=== PATIENT | female | born 1970 | race Caucasian/White ===

== ENCOUNTER 2019-12-07 07:51 | Outpatient (CLI) | payer BC, SELFPAY ==
--- NOTE | ~2019-12-07 | MM_ITS ---
EXAMINATION: MM screening nasir BI w maliha HISTORY: Screening mammogram TECHNIQUE: Craniocaudal and mediolateral oblique 3-D tomosynthesis images were obtained and synthetic 2-D images were generated. CAD analysis was submitted and interpreted. COMPARISON: 11/24/2018, 11/04/2017, 09/21/2016 bilateral digital screening mammogram examinations BREAST PARENCHYMAL COMPOSITION: There are scattered areas of fibroglandular density. FINDINGS: Stable benign circumscribed density opacities in the upper mid right breast posteriorly and outer mid right breast since 09/21/2016, consistent with benign stable intramammary lymph nodes or o ther benign process. There is no evidence of suspicious mass, calcification, or architectural distort ion to suggest malignancy in either breast. There has been no suspicious interval change. IMPRESSION: 1. No mammographic evidence of malignancy. 2. Recommend routine screening mammography in one year. BI-RADS Category 2: Benign finding(s). Reviewed, dictated and finalized at location A. 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
== END 2019-12-07 07:52 | disposition home or self-care (01) ==
LOC: ANHIMG 07:56
PROVIDERS: PCP Family Medicine; Visit Provider Obstetrics & Gynecology
DX: Z12.31 Encounter for screening mammogram for malignant neoplasm of breast (principal)
CPT/HCPCS: 77063; 77067

== ENCOUNTER 2021-02-16 16:32 | Outpatient (CLI) | payer BC, SELFPAY ==
--- NOTE | ~2021-02-16 | MM_ITS ---
EXAMINATION: MM screening nasir BI w maliha HISTORY: Screening TECHNIQUE: Craniocaudal and mediolateral oblique 3-D tomosynthesis images were obtained and synthetic 2-D images were generated. CAD analysis was submitted and interpreted. COMPARISON: Comparison to multiple prior studies sequentially, with oldest reviewed study dated 06/20. BREAST PARENCHYMAL COMPOSITION: There are scattered areas of fibroglandular density. FINDINGS: Stable benign-appearing right breast masses. There is no evidence of suspicious mass, calci fication, or architectural distortion to suggest malignancy in either breast. There has been no suspi cious interval change. IMPRESSION: 1. No mammographic evidence of malignancy. 2. Recommend routine screening mammography in one year. BI-RADS Category 2: Benign finding(s). Reviewed, dictated and finalized at location A.
== END 2021-02-16 16:33 | disposition home or self-care (01) ==
LOC: ANHIMG 16:34
PROVIDERS: PCP Family Medicine; Visit Provider Obstetrics & Gynecology
DX: Z12.31 Encounter for screening mammogram for malignant neoplasm of breast (principal)
CPT/HCPCS: 77063; 77067

== ENCOUNTER → 2021-09-21 07:33 | Outpatient (CLI) | payer BC, SELFPAY ==
--- NOTE | ~2021-09-21 | XR_ITS ---
EXAMINATION: XR lumbar spine 2-3V EXAM DATE: 09/21/2021 08:02 INDICATION: Vertebrogenic low back pain, segmental and somatic dysfuncti . TECHNIQUE: Lumber spine frontal, lateral, lateral L5-S1 projections for interpretation. There is no prior study for comparison. FINDINGS: There is moderate disc disease and facet arthropathy L5-S1, mild at the other lumbar level s The vertebral bodies are aligned in the AP dimension. Sacrum, sacroiliac joints, sacral arcuate roberto es are intact. Prevertebral soft tissue and pre-dens space are within normal limits. No spondylolys is. IMPRESSION: Moderate lower lumbar spondylosis. Reviewed, dictated and finalized at location A. 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
== END ==
PROVIDERS: PCP Family Medicine; Visit Provider Chiropractor
DX: M54.51 Vertebrogenic low back pain (principal); M99.03 Segmental and somatic dysfunction of lumbar region; M25.552 Pain in left hip; M99.06 Segmental and somatic dysfunction of lower extremity; M47.896 Other spondylosis, lumbar region
CPT/HCPCS: 72100

== ENCOUNTER 2022-02-22 17:03 | Outpatient (CLI) | payer BC, SELFPAY ==
--- NOTE | ~2022-02-22 | MM_ITS ---
EXAMINATION: MM screening [facility] BI w maliha HISTORY: Screening TECHNIQUE: Craniocaudal and mediolateral oblique 3-D tomosynthesis images were obtained and synthetic 2-D images were generated. CAD analysis was submitted and interpreted. COMPARISON: Comparison to multiple prior studies sequentially, with oldest reviewed study dated 12/2014. BREAST PARENCHYMAL COMPOSITION: There are scattered areas of fibroglandular density. FINDINGS: Stable mass in the upper central aspect of the right breast, considered benign given the la ck of interval change. There is no evidence of suspicious mass, calcification, or architectural disto rtion to suggest malignancy in either breast. There has been no suspicious interval change. IMPRESSION: 1. No mammographic evidence of malignancy. 2. Recommend routine screening mammography in one year. BI-RADS Category 2: Benign finding(s). Reviewed, dictated and finalized at location A.
== END 2022-02-22 17:04 | disposition home or self-care (01) ==
PROVIDERS: PCP Family Medicine; Visit Provider Obstetrics & Gynecology
DX: Z12.31 Encounter for screening mammogram for malignant neoplasm of breast (principal)
CPT/HCPCS: 77063; 77067

== ENCOUNTER 2022-12-15 16:18 | Emergency (ER) | payer BC, SELFPAY ==
[2022-12-15 16:27] VITALS: BP 162/114; PULSE 77; RESP 16; TEMP 36.3; O2SAT 100
--- NOTE | 2022-12-15 16:46 | ED.BACK ---
HPI - Back Pain/Injury General Chief Complaint: Back Pain/Injury Stated Complaint: RIB PAIN Time Seen by Provider: 12/15/22 16:20 Source: patient and RN notes reviewed History of Present Illness HPI Narrative: Patient is a 52-year-old female who presents to urgent care with complaints of right rib discomfort. Patient states that she was working in her garden and Monday and fell forward landing on the right chest. Patient states that since then she is having a lot of difficulty with movement, lifting or sit to stand motion due to excruciating pain. 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 States it hurts with deep breathing but denies of shortness of breath. Denies any chest pain. Patient has been taking ibuprofen. No other acute complaints. No acute distress noted. Patient aware of the plan of care Some parts of this dictation were generated by voice recognition software and may contain typographical and/or grammatical inaccuracies. Related Data Home Medications Medication Instructions Recorded Confirmed levothyroxine 175 mcg tablet 175 mcg PO DAILY 02/20/20 12/15/22 rosuvastatin 10 mg tablet 10 mg PO DAILY 11/30/22 12/15/22 Allergies Allergy/AdvReac Type Severity Reaction Status Date / Time lidocaine Allergy Unknown low heart Verified 12/15/22 16:29 rate Review of Systems Review of Systems: CONSTITUTIONAL: Denies fever, chills, or sweats. EYES: Denies visual changes, redness, or discharge. ENT: Denies rhinorrhea, congestion, sore throat, or otalgia. CARDIOVASCULAR: Denies chest pain, palpitations, or edema. RESPIRATORY: Reports pain with deep breathing, right anterior rib pain and discomfort GASTROINTESTINAL: Denies abdominal pain, nausea, vomiting, or diarrhea. GENITOURINARY: Denies dysuria or hematuria. SKIN: Denies rash or itching. MUSCULOSKELETAL: Denies back pain, joint pain, or myalgia. NEUROLOGIC: Denies headache, numbness, or weakness. All other systems reviewed are negative, except as documented in HPI. [facility] Past Medical History Medical History AIDAN positive (~2017) Anxiety Dyslipidemia Graves' disease Hypothyroid Surgical History Surgical History H/O section 2004, 2006, 2009 H/O knee surgery (~1985) left arthroscopic H/O wrist surgery (~1981) right Family History Family History Mother Family history of arthritis Father Family history of type 2 diabetes mellitus Social History Social History Smoking status: Never smoker Alcohol intake: current Alcohol use details: 3 drinks monthly Substance use: never Substance use type: does not use Lack of Transportation: No Lack of Food: Never True Current Housing: I Have Housing Concerned About Future Housing: No Difficulty Paying Gas/Electric Bills: No Difficulty Paying for Meds: No Currently Unemployed: No Education: Master's Degree or Higher Difficulty w/ Childcare or Family Care: No Living arrangements: with family Occupation/Education: occupation Gender identity (if verbalized by the patient): Female Sexual Orientation (if Verbalized by the Patient): Straight or Heterosexual Spiritual care concerns: No Agree to blood products: Yes Comments At the time of my signature, I reviewed and agree with the nursing past medical, surgical, social, and family history. There is no relevant family history pertinent to the patient complaint. Exam Narrative: GENERAL: This is a well-nourished, well-developed patient. Patient is tearful HEAD: normocephalic, atraumatic. EYES: PERRL. Sclera clear/white. Vision is grossly intact. EARS: External ears normal NOSE: External nose normal with no obvious natan
== END 2022-12-15 17:10 | disposition home or self-care (01) ==
PROVIDERS: Emergency Provider Nurse Practitioner Family; PCP Family Medicine
DX: S20.211A Contusion of right front wall of thorax, initial encounter (principal); W19.XXXA Unspecified fall, initial encounter; Y93.H2 Activity, gardening and landscaping; E78.5 Hyperlipidemia, unspecified; E05.00 Thyrotoxicosis with diffuse goiter without thyrotoxic crisis or storm; E03.9 Hypothyroidism, unspecified
CPT/HCPCS: 99213; G0463

== ENCOUNTER 2023-02-20 00:39 | Day surgery (SDC) | payer BC, SELFPAY ==
[2022-11-30 15:00] VITALS: BMI 31.7
[2023-02-10 13:40] VITALS: BMI 31.7
--- NOTE | 2023-02-17 16:30 | PM.HPGS ---
History of Present Illness History of Present Illness Consent: Risks, benefits, and alternatives have been discussed and questions answered. Patient agrees to proceed with procedure. Chief complaint: neoplasm screening Narrative: Roxy Mcdonough is a 52 year old female Referred for colon cancer screening. Review of Systems Review of Systems: All systems reviewed & are unremarkable except as noted in HPI and below PMFSH Past Medical History Medical History AIDAN positive (~2016) Anxiety Dyslipidemia Graves' disease Hypertension Hypothyroid Surgical History Surgical History H/O section 2004, 2006, 2009 H/O knee surgery (~1985) left arthroscopic H/O wrist surgery (~1981) right Family History Family History Mother Family history of arthritis Father Family history of type 2 diabetes mellitus Social History Social History Smoking status: Never smoker Alcohol intake: current Alcohol use details: 3 drinks monthly Substance use: never Substance use type: does not use Lack of Transportation: No Lack of Food: Never True Current Housing: I Have Housing Concerned About Future Housing: No Difficulty Paying Gas/Electric Bills: No Difficulty Paying for Meds: No Currently Unemployed: No Education: Master's Degree or Higher Difficulty w/ Childcare or Family Care: No Living arrangements: with family Occupation/Education: occupation Gender identity (if verbalized by the patient): Female Sexual Orientation (if Verbalized by the Patient): Straight or Heterosexual Spiritual care concerns: No Agree to blood products: Yes Meds Home Medications and Allergies Home Medications Medication Instructions Recorded Confirmed Type levothyroxine 175 mcg tablet 175 mcg PO DAILY 02/20/20 02/20/23 History rosuvastatin 10 mg tablet 10 mg PO DAILY 11/30/22 02/20/23 History losartan 25 mg tablet 25 mg PO DAILY #90 tabs 12/05/22 02/20/23 Rx Allergies Allergy/AdvReac Type Severity Reaction Status Date / Time lidocaine Allergy Unknown low heart Verified 02/20/23 07:21 rate Exam Resp: Auscultation: clear to auscultation bilaterally Cardio: Rate: regular rate Rhythm: regular rhythm GI: GI Palp: Yes Soft to palpation and No Tenderness to palpation present (GI) Assessment and Plan Assessment and plan (1) Colon cancer screening: Code(s): Z12.11 - Encounter for screening for malignant neoplasm of colon Status: Acute Assessment and Plan: Colonoscopy with possible biopsy or polypectomy or cautery or injection of substances.
--- NOTE | 2023-02-20 07:10 | P.PNAN_ITS ---
Anes - Initial Pre Proc Eval Procedure: Operation Date: 02/20/23 08:30 Proposed Procedures p Screening Colonoscopy - Jer Mendoza MD Date/Time: 02/20/23 07:10 Surgeon: Jer Mendoza MD Pre Op Diagnosis: neoplasm screening Patient Data Age: 52 Gender: F Height: 1.57 m Weight: 78.8 kg Allergies Allergy/AdvReac Type Severity Reaction Status Date / Time lidocaine Allergy Unknown low heart Verified 02/20/23 07:21 rate Home Medications Medication Instructions Recorded Confirmed Type levothyroxine 175 mcg tablet 175 mcg PO DAILY 02/20/20 02/20/23 History rosuvastatin 10 mg tablet 10 mg PO DAILY 11/30/22 02/20/23 History losartan 25 mg tablet 25 mg PO DAILY #90 tabs 12/05/22 02/20/23 Rx Patient hx anesthesia problems: none Family hx anesthesia problems: none Results Review: All pre-operative results and documents have been reviewed as part of the pre- operative evaluation. [facility] Past Medical History Medical History AIDAN positive (~2016) Anxiety Dyslipidemia Graves' disease Hypertension Hypothyroid Surgical History Surgical History H/O section 2004, 2006, 2009 H/O knee surgery (~1985) left arthroscopic H/O wrist surgery (~1981) right Family History Family History Mother Family history of arthritis Father Family history of type 2 diabetes mellitus Social History Social History Smoking status: Never smoker Alcohol intake: current Alcohol use details: 3 drinks monthly Substance use: never Substance use type: does not use Lack of Transportation: No Lack of Food: Never True Current Housing: I Have Housing Concerned About Future Housing: No Difficulty Paying Gas/Electric Bills: No Difficulty Paying for Meds: No Currently Unemployed: No Education: Master's Degree or Higher Difficulty w/ Childcare or Family Care: No Living arrangements: with family Occupation/Education: occupation Gender identity (if verbalized by the patient): Female Sexual Orientation (if Verbalized by the Patient): Straight or Heterosexual Spiritual care concerns: No Agree to blood products: Yes Anes - Eval Final PreProcedure Day of Procedure 02/20/23 07:10 Patient weight: obese Heart: regular rate and rhythm Lungs: clear to auscultation Airway: Mallampati scale class II Neurological: alert and oriented Last oral intake: >/= 8 hours ASA classification: III Emergent: no Anesthetic plan: proceed Anesthesia type and monitoring: general GIVS and standard monitoring Results Review: All pre-operative results and documents have been reviewed as part of the pre- operative evaluation. Informed Consent: The patient's anesthetic plan and its attendant risks and benefits were discussed with the patient/family/POA. Questions were solicited and answers provided to the satisfaction of the patient/family/POA.
[2023-02-20 07:23] VITALS: BP 138/93; PULSE 74; RESP 16; TEMP 36.1; O2SAT 100
[2023-02-20] MEDS: LACTATED RINGERS 1,000 ML 150 ML IV CONT (07:36)
[2023-02-20] MEDS: SIMETHICONE ORAL SUSPENSION 20 MG/0.3 ML 30 ML BOTTLE 0.6 ML IRRIGATION (08:32)
[2023-02-20 08:39] VITALS: BP 100/64; PULSE 74; RESP 18; O2SAT 100
[2023-02-20 08:49] VITALS: BP 115/75; PULSE 74; RESP 24; O2SAT 100
[2023-02-20 08:59] VITALS: BP 121/79; PULSE 73; RESP 21; O2SAT 100
== END 2023-02-20 09:09 | disposition home or self-care (01) ==
PROVIDERS: PCP Family Medicine; Visit Provider Internal Medicine Gastroenterology
PROC: 0DJD8ZZ Inspection of Lower Intestinal Tract, Via Natural or Artificial Opening Endoscopic (ICD-10-PCS; CPT 45378; principal; 2023-02-20 08:30)
DX: Z12.11 Encounter for screening for malignant neoplasm of colon (principal); K64.4 Residual hemorrhoidal skin tags; I10 Essential (primary) hypertension; E78.5 Hyperlipidemia, unspecified; E05.00 Thyrotoxicosis with diffuse goiter without thyrotoxic crisis or storm; E66.9 Obesity, unspecified; Z68.31 Body mass index [BMI] 31.0-31.9, adult
CPT/HCPCS: 45378; J2704; J7120

== ENCOUNTER 2023-02-25 08:10 | Outpatient (CLI) | payer BC, SELFPAY ==
--- NOTE | ~2023-02-25 | MM_ITS ---
EXAMINATION: MM screening [facility] BI w maliha HISTORY: Screening mammogram TECHNIQUE: Craniocaudal and mediolateral oblique 3-D tomosynthesis images were obtained and synthetic 2-D images were generated. CAD analysis was submitted and interpreted. COMPARISON: 02/22/2022, 02/16/2021, 12/07/2019 BREAST PARENCHYMAL COMPOSITION: There are scattered areas of fibroglandular density. FINDINGS: Stable right breast masses are considered benign given the lack of interval change. No susp icious mass, calcification, or architectural distortion are identified in either breast to suggest ma lignancy. There has been no suspicious interval change. IMPRESSION: 1. No mammographic evidence of malignancy. 2. Recommend routine screening mammography in one year. BI-RADS Category 2: Benign finding(s). Reviewed, dictated and finalized at location A.
== END 2023-02-25 08:11 | disposition home or self-care (01) ==
LOC: ANHIMG 08:13
PROVIDERS: PCP Family Medicine; Visit Provider Obstetrics & Gynecology
DX: Z12.31 Encounter for screening mammogram for malignant neoplasm of breast (principal)
CPT/HCPCS: 77063; 77067

== ENCOUNTER 2024-02-13 08:45 | Outpatient (CLI) | payer BC, SELFPAY ==
[2024-02-13 19:04] LABS: Basophils Absolute Auto 0.1 K/mm3 (0.0-0.1); Eosinophils Absolute Auto 0.2 K/mm3 (0-0.3); Eosinophils Percent Auto 3.5 % (0-4.4); Hematocrit 44.4 % (37.0-47.0); Hemoglobin 13.8 g/dL (12.0-15.0); Immature Granulocyte Absolute 0.02 K/mm3 (0.00-0.031); Immature Granulocyte Percent A 0.3 % (0-0.5); Lymphocytes Absolute Auto 1.54 K/mm3 (0.9-3.2); Lymphocytes Percent Auto 25.8 % (18.3-44.2); Mean Corpuscular HGB Conc 31.1 g/dl (32-36); Mean Corpuscular Hemoglobin 30.2 pg (26-34); Mean Corpuscular Volume 97.2 fl (80-100); Mean Platelet Volume 10.6 fl (7.4-10.4); Monocytes Absolute Auto 0.3 K/mm3 (0.1-0.6); Monocytes Percent Auto 5.7 % (2.6-8.5); Neutrophils Absolute Auto 3.8 K/mm3 (1.3-6.7); Neutrophils Percent Auto 63.7 % (45.5-73.1); Platelet Count Result 241 k/mm3 (150-375); Red Blood Count 4.57 M/mm3 (4.2-5.4); Red Cell Distribution Width 13.1 % (11.5-14.5)
[2024-02-13 19:23] LABS: Alanine Aminotransferase 39 U/L (6-35); Albumin Level 4.4 g/dL (3.5-5.1); Alkaline Phosphatase 77 U/L (38-126); Anion Gap 7 mmol/L (4-12); Aspartate Amino Transferase 40 U/L (14-36); Bilirubin,Total 1.8 mg/dL (0.2-1.3); Blood Urea Nitrogen 12 mg/dL (7-17); Calcium 9.3 mg/dL (8.4-10.2); Carbon Dioxide 27 mmol/L (22-30); Chloride 107 mmol/L (98-107); Cholesterol 134 mg/dL (0-200); Estimated Glomerular Filt Rate > 60; Glucose 95 mg/dL (65-110); HDL Direct 41 mg/dL; Potassium 4.1 mmol/L (3.4-5.0); Sodium 141 mmol/L (137-145); Triglycerides 165 mg/dL (<150)
[2024-02-13 19:35] LABS: LDL Cholesterol Direct 70 mg/dL
[2024-02-13 19:54] LABS: Thyroid Stimulating Hormone 0.995 uIU/mL (0.465-4.680)
[2024-02-16 15:48] LABS: Vitamin D 1,25 (OH)2 Total 45 pg/mL (18-72); Vitamin D2 1,25 (OH)2 <8 pg/mL; Vitamin D3 1,25 (OH)2 45 pg/mL
== END 2024-02-13 08:46 | disposition home or self-care (01) ==
LOC: ANHGOSHLAB 08:46
PROVIDERS: PCP Family Medicine; Visit Provider Nurse Practitioner Family
DX: E55.9 Vitamin D deficiency, unspecified (principal); I10 Essential (primary) hypertension; Z00.00 Encounter for general adult medical examination without abnormal findings
CPT/HCPCS: 36415; 80053; 80061; 82652; 84443; 85025

== ENCOUNTER 2024-04-27 07:17 | Outpatient (CLI) | payer BC, SELFPAY ==
--- NOTE | ~2024-04-27 | MM_ITS ---
EXAMINATION: MM screening nasir BI w maliha HISTORY: Screening mammogram TECHNIQUE: Craniocaudal and mediolateral oblique 3-D tomosynthesis images were obtained and synthetic 2-D images were generated. CAD analysis was submitted and interpreted. COMPARISON: 02/25/2023, 02/22/2022, 02/16/2021 BREAST PARENCHYMAL COMPOSITION:Not Dense. The breasts are almost entirely fatty FINDINGS: No suspicious mass, calcification, or architectural distortion are identified in either brandon ast to suggest malignancy. There has been no suspicious interval change. IMPRESSION: No mammographic evidence of malignancy. Recommend routine screening mammography in one year. BI-RADS Category 1: Negative Reviewed, dictated and finalized at location .
== END 2024-04-27 07:18 | disposition home or self-care (01) ==
LOC: ANHIMG 07:20
PROVIDERS: PCP Family Medicine; Visit Provider Nurse Practitioner Family
DX: Z12.31 Encounter for screening mammogram for malignant neoplasm of breast (principal)
CPT/HCPCS: 77063; 77067

== ENCOUNTER 2024-11-18 12:47 | Outpatient (CLI) | payer BC, SELFPAY ==
--- NOTE | ~2024-11-18 | MR_ITS ---
EXAMINATION: MRA brain wo con DATE: 11/18/2024 13:31 INDICATION: Altered mental status, unspecified. TECHNIQUE: Magnetic resonance angiography (MRA) of the brain was performed without intravenous contra st with T1-weighted SPGR by the 3D [id number] technique. Maximum intensity projection 3D-reconstr uctions were obtained. COMPARISON: None. FINDINGS: The vertebral arteries are codominant. There is no significant stenosis of basilar artery or the post erior cerebral arteries. There is no significant stenosis of the intracranial internal carotid arteri es or anterior or middle cerebral arteries. Anterior communicating artery is normal. The posterior co mmunicating arteries are normal. There is no aneurysm. IMPRESSION: 1. Normal MRA. Reviewed, dictated and finalized at location B. 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 Normal MRA.
== END 2024-11-18 12:48 | disposition home or self-care (01) ==
LOC: GOSHIMG 12:48
PROVIDERS: PCP Psychiatry & Neurology Neurology; Visit Provider Nurse Practitioner Family
DX: R41.82 Altered mental status, unspecified (principal)
CPT/HCPCS: 70544

== ENCOUNTER 2024-11-28 08:35 | Outpatient (CLI) | payer BC, SELFPAY ==
--- OUTSIDE RECORDS SUMMARY | 2024-11-28 09:02 | XMS_ITS | Data Portability ---
Author Organization [place] [facility], Main Office Address [address] [place] [address] Assessment No assessment recorded. Plan of Treatment Reminders Order Date Submit Date Provider Last Modified By Organization Details Last Modified Time Details Appointments None recorded. Lab HbA1c (hemoglobin A1c), blood 2022 023 [facility], [address], [place], [address], 3 12:29:07 insulin, serum 2022 023 [facility], Malena [address], [place], [address], 3 12:29:05 lipid panel, serum 2022 023 [facility], [address], [place], [address], 3 12:29:03 T3, free, serum or plasma 2022 023 [facility], [address], [place], [address], 3 12:29:06 T4, free, serum 2022 023 [facility], [address], [place], [address], 3 12:29:05 TSH, serum or plasma 2022 023 [facility], Malena [address], [place], [address], 3 12:29:07 thyroid peroxidase (tpo) Ab, serum 2022 023 [facility], [address], [place], [address], 3 12:29:04 CMP, serum or plasma 2022 023 [facility], [address], [place], [address], 3 12:29:03 Referral None recorded. Procedures None recorded. Surgeries None recorded. Imaging None recorded. Medication Orders Synthroid 150 mcg tablet [id number] [place] [address] [facility], [address] , [place], [place], [id number], 14:21:02 Patient TargetsNo targets recorded. Patient InstructionsNo instructions recorded. Reason for Referral None Reported. Results Created Date Observation Date Name Description Value Unit Range Abnormal Flag Note LastModifiedBy Organization Detail LastModifiedTime 04/26/2004/28/2023 LIPID PANEL , STAND DEANA cholesterol, total 123 mg/dL <200 normal Not Available [facility] [address] [address] [place], [address], 04/28/2023 12:29:02 04/26/2004/28/2023 LIPID PANEL , STAND DEANA HDL cholesterol 38 mg/dL > or = 50 low Not Available [facility] [address] [place], [address], 04/28/2023 12:29:02 04/26/2004/28/2023 LIPID PANEL , STAND DEANA triglyceride s 244 mg/dL <150 high If a non-f astin g speci men was colle cted, consi nelly repea t trigl yceri de testi ng on a fasti ng speci men if clini tma indic ated. Jimmie umanzor et al. J. of Clin. Lipid ol. 2015; 9:129 -169. Not Available [facility] [address] [place], [address], 04/28/2023 12:29:02 04/26/20 23 04/28/2023 LIPID PANEL , STAND DEANA LDL-choleste rol 55 mg/dL _(jenaro c) normal Refer ence range : <100 Qiana able range <100 mg/dL for prima ry preve ntion ; <70 mg/dL for patie nts with CHD or diabe tic patie nts with > or = 2 CHD risk facto rs. LDL-C is now calcu lated using the Mariam n-Hop kins calcu rafal n, which is a valid ated novel dejon monteiro jonathon r accur acy than the Fried azul equat ion in the estim ation of LDL-C . Mariam hussein SS et al. KAYLAN. 2013; 310(1 9): 2061- 2068 (http ://ed ucati on.Qu karenSidewalk. Quizrr/f aq/FA Q164) Not Available [facility] [address] [place], [address], 04/28/2023 12:29:02 04/26/20 23 04/28/2023 LIPID PANEL , STAND DEANA chol/HDLC ratio 3.2 (calc ) <5.0 normal Not Available [facility] [address] [address], [place], [address], 04/28/2023 12:29:02 04/26/20 23 04/28/2023 LIPID PANEL , STAND DEANA non HDL cholesterol 85 mg/dL _(jenaro c) <130 normal For patie nts with diabe cecile plus 1 major ASCVD risk facto r, treat ing to a non-H DL-C goal of <100 mg/dL (LDL- C of <70 mg/dL ) is consi dered a thera peuti c optio n. Not Available [facility] [address] [place], [address], 04/28/2023 12:29:02 04/26/20 23 04/28/2023 COMPR EHENS FELIX METAB OLIC PANEL glucose 103 mg/dL 65-99 high Fasti ng refer ence inter chanell For someo ne witho ut known diabe cecile, a gluco se value betwe en 100 and 125 mg/dL is consi stent with predi abete s and shoul d be confi rmed with a follo w-up test. Not Available [address] [address] [place], [address], 04/28/2023 12:29:03 04/26/20 23 04/28/2023 COMPR EHENS FELIX METAB OLIC PANEL urea nitrogen (BUN) 13 mg/dL 7-25 normal Not Available [address] [address] [place], [address], 04/28/2023 12:29:03 04/26/20 23 04/28/2023 COMPR EHENS FELIX METAB OLIC PANEL creatinine 0.72 mg/dL 0.50-1 .03 normal Not Available [address] [address] [place], [address], 04/28/2023 12:29:03 04/26/20 23 04/28/2023 COMPR EHENS FELIX METAB OLIC PANEL eGFR 102 mL/mi n/1.7 3m2 > or = 60 normal The eGFR is based on the CKD-E PI 2020 equat ion. To calcu late the new eGFR from a previ ous Creat inine or Cysta tin C resul t, go to https ://ed w.marco antonio stewart.o tejas/echo armando s/ kdoqi /gfr% 5Fcal culat or Not Available [address] [address] [place], [address], 04/28/2023 12:29:03 04/26/20 23 04/28/2023 COMPR EHENS FELIX METAB OLIC PANEL BUN/creatini ne ratio NOT APPLIC ABLE (calc ) 6-22 Not Available [facility] [address], [address], 04/28/2023 12:29:03 04/26/20 23 04/28/2023 COMPR EHENS FELIX METAB OLIC PANEL sodium 138 mmol/ L 135-14 6 normal Not Available [address], [address], 04/28/2023 12:29:03 04/26/20 23 04/28/2023 COMPR EHENS FELIX METAB OLIC PANEL potassium 4.4 mmol/ L 3.5-5. 3 normal Not Available [address], [address], 04/28/2023 12:29:03 04/26/20 23 04/28/2023 COMPR EHENS FELIX METAB OLIC PANEL chloride 104 mmol/ L 98-110 normal Not Available [address], [address], 04/28/2023 12:29:03 04/26/20 23 04/28/2023 COMPR EHENS FELIX METAB OLIC PANEL carbon dioxide 28 mmol/ L 20-32 normal Not Available [address], [address], 04/28/2023 12:29:03 04/26/20 23 04/28/2023 COMPR EHENS FELIX METAB OLIC PANEL calcium 9.5 mg/dL 8.6-10 .4 normal Not Available [address], [address], 04/28/2023 12:29:03 04/26/20 23 04/28/2023 COMPR EHENS FELIX METAB OLIC PANEL protein, total 7.3 g/dL 6.1-8. 1 normal Not Available [address], [address], 04/28/2023 12:29:03 04/26/20 23 04/28/2023 COMPR EHENS FELIX METAB OLIC PANEL albumin 4.6 g/dL 3.6-5. 1 normal Not Available [address], [address], 04/28/2023 12:29:03 04/26/20 23 04/28/2023 COMPR EHENS FELIX METAB OLIC PANEL globulin 2.7 g/dL_ (calc ) 1.9-3. 7 normal Not Available [address], [address], 04/28/2023 12:29:03 04/26/20 23 04/28/2023 COMPR EHENS FELIX METAB OLIC PANEL albumin/glob ulin ratio 1.7 (calc ) 1.0-2. 5 normal Not Available [address], [address], 04/28/2023 12:29:03 04/26/20 23 04/28/2023 COMPR EHENS FELIX METAB OLIC PANEL bilirubin, total 2.2 mg/dL 0.2-1. 2 high Not Available [address], [address], 04/28/2023 12:29:03 04/26/20 23 04/28/2023 COMPR EHENS FELIX METAB OLIC PANEL alkaline phosphatase 71 U/L 37-153 normal Not Available [facility] [address], [address], 04/28/2023 12:29:03 04/26/20 23 04/28/2023 COMPR EHENS FELIX METAB OLIC PANEL AST 25 U/L 10-35 normal Not Available [address], [address], 04/28/2023 12:29:03 04/26/20 23 04/28/2023 COMPR EHENS FELIX METAB OLIC PANEL ALT 35 U/L 6-29 high Not Available [address], [address], 04/28/2023 12:29:03 04/26/20 23 04/28/2023 THYRO ID PEROX IDASE ANTIB ODIES thyroid peroxidase antibodies 1 IU/mL <9 Not Available [address], [address], 04/28/2023 12:29:04 04/26/20 23 04/28/2023 INSUL IN insulin 30.7 uIU/m L high Refer ence Range < or = 18.4 Risk: Optim al < or = 18.4 Moder ate NA High >18.4 Adult cardi ovasc ular event risk categ ory cut point s (opti mal, moder ate, high) are based on Insul in Refer ence Inter chanell studi es perfo rmed at [facility] in 2021. Not Available [address], [address], 04/28/2023 12:29:05 04/26/20 23 04/28/2023 T4, FREE T4, free 1.8 NG/dL 0.8-1. 8 normal Not Available [address], [address], 04/28/2023 12:29:05 04/26/20 23 04/28/2023 T3, FREE T3, free 3.2 pg/mL 2.3-4. 2 normal Not Available [facility] [address], [address], 04/28/2023 12:29:06 04/26/20 23 04/28/2023 TSH TSH 0.13 mIU/L low Refer ence Range > or = 20 Years 0.40- 4.50 Pregn italo Range s First trime ster 0.26- 2.66 Secon d trime ster 0.55- 2.73 Third trime ster 0.43- 2.91 Not Available [address], [address], 04/28/2023 12:29:07 04/26/20 23 04/28/2023 HEMOG LOBIN A1C hemoglobin A1C 5.6 %_of_ total _HGB <5.7 normal For the purpo se of akilah sen for the prese nce of diabe cecile: <5.7% Consi stent with the absen ce of diabe cecile 5.7-6 .4% Consi stent with incre ased risk for diabe cecile (pred iabet es) > or =6.5% Consi stent with diabe cecile This assay resul t is consi stent with a decre ased risk of diabe cecile. Curre ntly, no conse nsus exist s nick monteiro use of hemog lobin A1c for diagn osis of diabe cecile in child chandan. Accor ding to Ameri can Diabe cecile Assoc iatio n (ADA) guide lines , hemog lobin A1c <7.0% repre sents optim al contr ol in non-p regna nt diabe tic patie nts. Diffe rent metri cs may apply to speci fic patie nt popul ation s. Stand ards of Medic al Care in Diabe cecile(A DA). Not Available [facility] [id number] [place], [place] [address], [address], 04/28/2023 12:29:07 Result Notes None recorded. Problems Name Problem SNOMED Code Status Onset Date Resolution Date Notes Provider Name and Address Organization Details Recorded Time Hypothyroidism 61789057 Active 2022 Jerilyn Couch MD [address], [place], [address], [employer] 3 10:25:38 Impaired fasting glycemia 121832211 Active 2022 Jerilyn Couch MD [address], [place], [address], [employer] 3 10:25:57 Dyslipidemia 454367482 Active 2022 Jerilyn Couch MD [address], [place], [address], [employer] 3 10:26:05 Problem Notes None recorded. Medical Equipment None Reported. Medications Name Sig Start Date Stop Date Status Note LastModified by Organization Details LastModified Time Synthroid 150 mcg tablet Take 1 tablet every day by oral route in the morning for 90 days. 2022 active Not Available Not Available Not Avai lable valacyclovi r 500 mg tablet active Not Available Not Available Not Available tramadol 50 mg tablet 04/24 completed Not Available Not Available Not Available baclofen 10 mg tablet 04/24 completed Not Available Not Available Not Available benzonatate 100 mg capsule 04/24 completed Not Available Not Available Not Available lisinopril 10 mg tablet 04/24 completed Not Available Not Available Not Available losartan 25 mg tablet Take 1 tablet every day by oral route. active Not Available Not Available No t Available hydroxyzine HCl 25 mg tablet active Not Available Not Available Not Available methylpredn isolone 4 mg tablets in a dose pack 04/24 completed Not Available Not Available Not Available amoxicillin 875 mg-potassiu m clavulanate 125 mg tablet 04/24 completed Not Available Not Available Not Available Tri-Sheila 0.01 %-4 %-0.05 % topical cream 04/24 completed Not Available Not Available Not Available Synthroid 137 mcg tablet TAKE ONE TABLET DAILY BY ORAL ROUTE 2022 active Not Available Not Available Not Avai lable rosuvastati n 10 mg tablet active Not Available Not Available Not Available Paxlovid 300 mg (150 mg x 2)-100 mg tablets in a dose pack TK 2 NIRMATREL VIR TS AND 1 RITONAVIR T TOGETHER PO BID FOR 5 DAYS BID FOR 5 DAYS 04/24 completed Not Available Not Available Not Available Vitals Date Recorded Body weight Body temperature Systolic blood pressure Diastolic blood pressure Provider Name and Address Organization Details Last Updated DateTime 04/24/2023 37088.44 g 97.6 [degF] 131 mm[Hg] 97 mm[Hg] Renetta Murray [facility] 3 10:15:28 Social History None recorded. Functional Status None recorded. Mental Status None recorded. Family History Nothing Reported. Medical History No medical history recorded. Gynecological HistoryNo gynecological history recorded. Obstetrics History GPAL:G 0 P 0 0 0 0 Past Encounters Encounter ID Performer Location Encounter Start Date Encounter Closed Date Diagnosis/Indication Diagnosis SNOMED-CT Code Diagnosis ICD10 Code Diagnosis Note [id number] Jerilyn Couch MD [facility] [address] [place] [address] 04/24/2023 09:56:53 04/24/2023 10:42:01 Hypothyroidism 99783210 E03.9 Due for labwork as her levels are over 1 year old-she is taking her LT4 with her rosuvastat in so very poor absorption . Will transition to synthroid 150 mcg daily (1 month sample provided) as this is most consistent compared to generic options. She was reminded to take her synthroid on empty stomach with glass of water and wait one hour to eat or have her coffee in morning and up to 4 hours if ever taking any heartburn or reflux medication s to help optimize absorption . Discussed paleo like diet with restrictio n of GMOs to help with energy and to optimize absorption of vitamins and minerals and reduce inflammati on. Impaired f asting glycemia 483519713 R73.01 Discussed carb counting and how to read food labels. Recommende d patient to utilize the diabetesfo 2Peer (Qlipso)b.com from the ADA website to help with food preparatio n as this presents ideal carb content per meal so this will make carb counting much easier for patient. Recommende d she incorporat e natural insulin spinning operator s such as pears, apples, cinnamon, abelardo and sweet potatoes to help mobilize her endogenous insulin. Recommende d up to 150 minutes of moderate level activity/e xercise weekly. Send for a1c and insulin to screen further as DM runs in family. Dyslipidemia 943093646 E 78.5 Send for lipid panel to screen for hyperchole sterolemia . Spent up to 45 minutes preparing to see the patient (eg, review of tests), obtaining and/or reviewing separately obtained history, performing a medically appropriat e examinatio n and evaluation , counseling and educating the patient, ordering medication s, tests, along with documentin g clinical informatio n in the electronic health record, independen tly interpreti ng results and communicat ing results to the patient. RTC in 2-3 months. Patient was provided a handwritte n lab order which contains our fax number. If she chooses to go outside of the [facility] system to obtain labwork she was advised to provide our fax number and my informatio n to the lab she will be obtaining labwork from in order to have her labs properly forwarded over for me to review so there is no loss of follow up due to use of outside network. She was also advised to contact our clinic informing us that she has completed her labwork so we are aware we will need to reach out to the appropriat e laboratory to request her results be forwarded to us so I might have the ability to review and make further medical decision making in her case. She voiced understand ing. Thank you for this consultati on. Health Concerns Section Related Observation LastModified by Organization Detai ls LastModified Time None Recorded Concern Status LastModified by Organization Details LastModified Time None Recorded Advance Directives Directive None Recorded Payers Encounter Date Sequence Insurance Name Policy Number Policy Hill Covered Member ID Hill Member ID Guarantor Name 04/24/2023 1 [facility] [id number] 02 Roxy Mcdonough [id number] Roxy Mcdonough Notes Date Note Type Note Provider Name and Address Organization Details Recorded Time 04/24/2023 text/html 52 yo female com es in as referral by courtesy of Pilar Taylor NP for management of 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 She is struggling with her cholesterol- she is taking rosuvastatin 10 mg daily-her father had DM and dyslipidemia and passed at 86 years of age recently. He was healthy overall and had cardiac concerns. Patient struggles with weight, fatigue and hormonal changes as she is menopausal. Jerilyn Couch MD [address] [facility], [address] [place] [address], [place], [address], [place] [facility] 04/24/2023 14:24:31 OBGyn Episode No OBEpisode recorded.
[2024-11-28 09:19] LABS: Hematocrit 41.2 % (37.0-47.0); Hemoglobin 13.6 g/dL (12.0-15.0)
[2024-11-28 09:54] LABS: Anion Gap 11 mmol/L (4-12); Blood Urea Nitrogen 14 mg/dL (7-17); Calcium 8.9 mg/dL (8.4-10.2); Carbon Dioxide 26 mmol/L (22-30); Chloride 104 mmol/L (98-107); Estimated Glomerular Filt Rate > 60; Glucose 110 mg/dL (65-110); Potassium 4.2 mmol/L (3.4-5.0); Sodium 141 mmol/L (137-145)
== END 2024-11-28 08:36 | disposition home or self-care (01) ==
LOC: ANHSURGERY 08:40
PROVIDERS: Anesthesiology; PCP Nurse Practitioner Family; Visit Provider Obstetrics & Gynecology
DX: N92.6 Irregular menstruation, unspecified (principal); Z79.899 Other long term (current) drug therapy
CPT/HCPCS: 36415; 80048; 85014; 85018

== ENCOUNTER 2024-12-06 00:54 | Day surgery (SDC) | payer BC, SELFPAY ==
--- NOTE | 2024-11-25 16:41 | SUR.PREOP ---
Report to the Outpatient Waiting Room, entrance under the green pavilion located off [facility], at time 0600 on date 12/06/24. Planned Procedure Time: 0730.? Time changes happen often and if your time is changed the preop area will call you the afternoon before. - You and your visitor will be asked to self-screen and do not enter if you have any COVID symptoms. Please call surgeon if you need to reschedule. - A mask is optional within the hospital at this time. Patients may have clear liquids (water, carbonated beverages, clear teas, apple juice) until 3 hours prior to surgery with a maximum of 20 ounces. - NO CLEAR LIQUIDS AFTER 0430 - No food from midnight until time of surgery and no smoking. This includes no chewing gum, candy or mints. - Infants may have breast milk until 4 hours before surgery, formula 6 hours prior to surgery. - Children will be allowed to drink immediately following surgery.? If applicable, please bring a bottle or sippy cup to assist with drinking. Juice, water, soda, and popsicles are readily available.? For infants on formula, please bring formula the day of surgery.? Pacifiers are allowed. Take only the following medications with a SIP of water on the morning of surgery: HYDROXYZINE, LEVOTHYROXINE DO NOT STOP ANY OF YOUR OTHER PRESCRIPTION MEDICATIONS PRIOR TO SURGERY EXCEPT THE FOLLOWING Medications to discontinue per physician N/A Date to take last dose Please no make-up, nail montserratian, hairspray, perfume, deodorant, or body powder the day of surgery.? No jewelry (including any body piercings) or valuables the day of surgery, leave them at home.? Please take a shower or bath the night before, or the morning of, surgery with an antibacterial soap.? Wear comfortable, loose fitting clothing.? Children are encouraged to wear pajamas. - Jewelry must be removed prior to entering the operating room.? Rings and piercings that are not removed may be cut off. - The hospital will not accept responsibility for valuables.? - Please leave all valuables, including medications, at home the day of surgery. If you are going home after surgery, a licensed driver merchandiser must drive you home.? - NO public transportation without another adult if you receive anesthesia. - We recommend that an adult stay with you for 24 hours following discharge. - We also recommend that you do not drive, make important decision, drink alcoholic beverages, or take any drugs that were not prescribed by your health care provider for at least 24 hours after your discharge time. For Pediatric surgeries, we recommend two adults accompany the child home. Hold all vitamins and supplements for 3 days per anesthesiologist. Follow any additional instructions given to you from your surgeon. Telephone instructions given to VERA BOATENG and asked if any additional questions and then verbalized understanding. Patient advised to call surgeon office or pre surgery nurse liaison [phone] if any additional questions.
[2024-11-25 16:51] VITALS: BMI 33.0
--- NOTE | 2024-12-03 12:20 | P.HP_ITS ---
H&P: HPI History of Present Illness Date/Time: 12/03/24 12:20 Chief Complaint: postmenopausal bleeding /uterine polyp Narrative: this is a 54-year-old female admitted for hysteroscopy polypectomy dilatation curettage secondary to polyp and perimenopausal bleeding. Risks and benefits reviewed including not exclusive of , aspiration pneumonia, bleeding, transfusion, perforation injury to bowel, bladder, ureters, or other internal organs with need for open laparotomy. She received the ACOG handouts entitled hysteroscopy as well as dilatation curettage. She had all questions answered and asked to proceed Review of Systems Review of Systems: All systems reviewed & are unremarkable except as noted in HPI and below PMFSH Past Medical History Medical History Vitamin D deficiency (~09/2024) Hypertension DARLIN-inhibitor cough Dyslipidemia Anxiety AIDAN positive (~2016) Hypothyroid Graves' disease Surgical History Surgical History Hx of thyroidectomy H/O knee surgery (~1985) left arthroscopic H/O wrist surgery (~1981) right H/O section 2004, 2006, 2009 Family History Family History Mother Family history of arthritis Father Family history of type 2 diabetes mellitus Social History Social History Social History: Caffeine-occasionally Smoking status: Never smoker Alcohol intake: current Alcohol use details: 3 drinks monthly Substance use: never Substance use type: does not use Lack of Transportation: No Lack of Food: Never True Current Housing: I Have Housing Concerned About Future Housing: No Difficulty Paying Gas/Electric Bills: No Difficulty Paying for Meds: No Currently Unemployed: No Education: Master's Degree or Higher Difficulty w/ Childcare or Family Care: No Living arrangements: with family Occupation/Education: occupation Gender identity (if verbalized by the patient): Female Sexual Orientation (if Verbalized by the Patient): Straight or Heterosexual Spiritual care concerns: No Agree to blood products: Yes Meds Home Medications and Allergies Home Medications ?Medication ?Instructions ?Recorded ?Confirmed ?Type rosuvastatin 10 mg tablet 10 mg PO DAILY 11/30/22 11/25/24 History losartan 50 mg-hydrochlorothiazide 1 tablet PO DAILY #90 tabs 06/07/24 11/25/24 Rx 12.5 mg tablet hydroxyzine HCl 25 mg tablet 25 mg PO BID PRN anxiety #180 tabs 07/26/24 11/25/24 Rx levothyroxine 175 mcg tablet 175 mcg PO DAILY #90 tabs 10/22/24 11/25/24 Rx (Euthyrox) cholecalciferol (vitamin D3) 50 50 mcg PO WEEKLY 11/25/24 11/25/24 History mcg (2,000 unit) capsule Allergies Allergy/AdvReac Type Severity Reaction Status Date / Time lidocaine Allergy Unknown low heart Verified 11/25/24 16:29 rate Exam 2 Const: General: cooperative, healthy appearing and comfortable Nutritional Appearance: average body habitus Orientation/consciousness: oriented to person, oriented to place and oriented to time Resp: Effort & Inspection: normal respiratory effort Cardio: Rate: regular rate Rhythm: regular rhythm Heart sounds: S1 normal heart sound present and S2 normal heart sound present GI: Inspection: normal to inspection : External Female Exam: normal external appearance Speculum Exam - Vagina: normal appearance of the vagina Speculum Exam - Cervix: normal appearance of the cervix Bimanual exam- vagina & uterus: enlarged Bimanual Exam- Adnexa, other: normal adnexae Assessment and Plan Assessment and plan (1) Postmenopausal bleeding: Code(s): N95.0 - Postmenopausal bleeding Status: Acute (2) Uterine polyp: Code(s): N84.0 - Polyp of corpus uteri Status: Acute Plan proceed with hysteroscopy / polypectomy/ dilatation and curettage
--- OUTSIDE RECORDS SUMMARY | 2024-12-06 00:59 | XMS_ITS | Encounter Summary ---
Author Organization [employer] Address [address] [place] [address] Care Team Providers Care Manager Emergency Name Role Phone Jarvis Coffey MD Primary Care Provider Encounter Details Date Type Department Care Team (Latest Contact Info) Description 02/28/2007 Outpatient Historical [facility] Zeyad Millan MD [address] [facility] [address] [place] [id number] Supervision of Other High-Risk (Primary Dx) Social History Tobacco Use Types Packs/Day Years Used Date Smoking Tobacco: Never Assessed Comments Unknown Sex and Gender Information Value Date Recorded Sex Assigned at Not on file Legal Sex Female 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 Gender Identity Not on file Sexual Orientation Not on file documented as of this encounter Plan of Treatment Not on file documented as of this encounter Procedures Procedure Name Priority Date/Time Associated Diagnosis Comments GLUCOSE TOLERANCE 1 HR GESTATIONAL Routine 02/28/2007 3:33 PM CDT CBC WITH DIFFERENTIAL Routine 02/28/2007 3:33 PM CDT CBC WITH DIFFERENTIAL Routine 02/28/2007 3:33 PM CDT documented in this encounter Results * (ABNORMAL) CBC WITH DIFFERENTIAL (02/28/2007 3:33 PM CDT) NEUTROPHILS 76(H) 45 - 70 % INTERFAC E SYSTEM LYMPHOCYTES 16 16 - 45 % INTERFAC E SYSTEM MONOCYTES 6 3 - 13 % INTERFACE SYSTEM EOSINOPHILS 2 0 - 7 % INTERFAC E SYSTEM BASOPHILS 0 0 - 2 % INTERFACE SYSTEM NEUTROPHIL ABSOLUTE 6.95 1.90 - 7.00 K/uL INTERFACE SYSTEM LYMPHOCYTE ABSOLUTE 1.42 0.70 - 4.50 K/uL INTERFACE SYSTEM MONOCYTE ABSOLUTE 0.58 0.10 - 1.30 K/uL INTERFACE SYSTEM EOSINOPHIL ABSOLUTE 0.20 0.00 - 0.70 K/uL INTERFACE SYSTEM BASOPHILS ABSOLUTE 0.02 0.00 - 0.20 K/uL INTERFACE SYSTEM 02/28/2007 3:33 PM CDT us Zeyad Millan MD HEMATOLOGY ORDERABLES Ed ited Performing Organization Address [facility] Phone Number INTERFACE SYSTEM Refer to clinic/hospital department * (ABNORMAL) CBC WITH DIFFERENTIAL (02/28/2007 3:33 PM CDT) WBC 9.2 4.0 - 9.8 K/uL INTERFACE SYSTEM RBC 4.26 3.90 - 4.90 M/uL INTERFACE SYSTEM HEMOGLOBIN 12.2 11.8 - 14.8 g/dL INTERFACE SYSTEM HEMATOCRIT 36.0 35.5 - 44.0 % INTERFACE SYSTEM MCV 84.5 82.0 - 99.0 fL INTERFACE SYSTEM MCH 28.6 27.2 - 32.6 pg INTERFACE SYSTEM MCHC 33.9 31.5 - 35.5 % INTERFACE SYSTEM RDW 14.8(H) 11.5 - 14.5 % INTERFACE SYSTEM RDW-STDEV 45.5 37.1 - 48.7 fL INTERFACE SYSTEM PLATELETS 203 140 - 350 K/uL INTERFACE SYSTEM MPV 11.0 9.3 - 12.4 fL INTERFACE SYSTEM 02/28/2007 3:33 PM CDT us Zeyad Millan MD HEMATOLOGY ORDERABLES Ed ited Performing Organization Address [facility] Phone Number INTERFACE SYSTEM Refer to clinic/hospital department * GLUCOSE TOLERANCE 1 HR GESTATIONAL (02/28/2007 3:33 PM CDT) GLUCOSE 1 HR OBSTETRIC 117 65 - 139 mg/dL INTERFACE SYSTEM 02/28/2007 3:33 PM CDT us Zeyad Millan MD CHEMISTRY ORDERABLES Edgar shant INTERFACE SYSTEM Refer to clinic/hospital department documented in this encounter Visit Diagnoses Diagnosis Supervision of other high-risk (V23.89)- Primary Supervision of other high-risk documented in this encounter Care Teams Manager Emergency Relationship Specialty Start Date End Date Jarvis Coffey MD [address] [place] [address] PCP - General Family Practice 10/18/24 documented as of this encounter
--- OUTSIDE RECORDS SUMMARY | 2024-12-06 00:59 | XMS_ITS | Clinical Summary ---
Author Organization [facility] Address [address] [place] [address] Phone Care Team Providers Care Sheet Metal Helper Name Role Phone Jarvis Coffey MD Primary Care Provider Allergies Active Allergy Reactions Criticality Noted Date Comments Lidocaine Other (See Comments) 01/17/2013 Increases heart beat Medications levothyroxine (SYNTHROID) 75 mcg Oral tablet Take 1 Tab by mouth daily. 30 Tab 1 0 Active hydrOXYzine HCL (ATARAX) 25 mg tablet Take 1 Tablet (25 mg) by mouth 3 times daily as needed for anxiety. 90 Tablet 06/07/2022 4:02 PM CDT 2 Active conjugated estrogens (Premarin) 0.625 mg/gram vaginal cream APPLY ONE-HALF GRAM THREE TIMES WEEKLY DIRECTED (DOSING MARKED ON APPLICATOR) 30 Gram 3 2 Active lisinopriL (PRINIVIL) 10 mg tablet Take 1 Tablet (10 mg) by mouth daily. 90 Tablet 1 09/13/2022 12:26 PM ONLINE SERVICES MANAGER 2 Active benzonatate (TESSALON) 100 mg capsule Take 1 Capsule (100 mg) by mouth 3 times daily as needed for cough. 30 Capsule 11/28/2022 6:03 PM ONLINE SERVICES MANAGER 3 Active methylPREDNISol one (MEDROL DOSPACK) 4 mg Tablets, Dose Pack Take 1 Tablet (4 mg) by mouth 2 times daily. 20 Tablet 1 12/05/2022 6:35 PM ONLINE SERVICES MANAGER 3 Active losartan (COZAAR) 25 mg tablet Take 1 Tablet (25 mg) by mouth daily. 90 Tablet 12/05/2022 6:35 PM ONLINE SERVICES MANAGER 3 Active baclofen (LIORESAL) 10 mg tablet Take 1 Tablet (10 mg) by mouth 3 times daily. 20 Tablet 12/15/2022 5:31 PM ONLINE SERVICES MANAGER 3 Active traMADoL (ULTRAM) 50 mg tablet Take 1 Tablet (50 mg) by mouth every 6 hours as needed for pain. 20 Tablet 12/15/2022 5:31 PM ONLINE SERVICES MANAGER 3 Active losartan (COZAAR) 25 mg tablet Take 1 Tablet (25 mg) by mouth daily. 90 Tablet 1 07/13/2023 4:06 PM CDT 3 Active Synthroid 150 mcg tablet Take 1 Tablet (150 mcg) by mouth daily in the morning. 90 Tablet 1 04/28/2023 11:01 AM CDT 3 Active meloxicam (MOBIC) 15 mg tablet Take 1 Tablet (15 mg) by mouth daily. 30 Tablet 1 06/06/2023 5:55 PM CDT 3 Active erythromycin (ILOTYCIN) 5 mg/gram (0.5 %) ointment Apply a small amount into the affected eye twice daily 3.5 Gram 08/12/2023 11:29 AM CDT 3 Active estradioL (ESTRACE) 0.01% (0.1 mg/g) vaginal cream Insert 0.5 Grams vaginally at bedtime 3 times per week. 42.5 Gram 3 09/19/2023 2:43 PM ONLINE SERVICES MANAGER 3 Active Euthyrox 150 mcg tablet Take 1 tablet (150 mcg total) by mouth circular sawyer helper before breakfast 30 Tablet 09/22/2023 9:51 AM ONLINE SERVICES MANAGER 3 Active rosuvastatin (CRESTOR) 10 mg tablet Take 1 Tablet (10 mg) by mouth daily. 90 Tablet 3 09/21/2024 2:55 PM ONLINE SERVICES MANAGER 4 Active hydrOXYzine HCL (ATARAX) 25 mg tablet Take one tablet (25 mg) orally twice a day As Needed for anxiety 60 Tablet 02/14/2024 2:49 PM CDT 4 Active estradioL 0.1 mg/24 hr patch APPLY 1 PATCH TO SKIN TWICE A WEEK. 24 Patch 3 11/09/2024 1:28 PM ONLINE SERVICES MANAGER 4 Active progesterone micronized (Prometrium) 200 mg Capsule Take 1 Capsule (200 mg) by mouth daily at bedtime. 90 Capsule 3 08/17/2024 11:16 AM CDT 4 Active losartan-hydroC HLOROthiazide (HYZAAR) 50-12.5 mg tablet Take 1 Tablet by mouth daily. 90 Tablet 1 09/21/2024 2:55 PM ONLINE SERVICES MANAGER 4 Active Euthyrox 150 mcg tablet Take 1 tablet (150 mcg total) by mouth in the circular sawyer helper before breakfast 30 Tablet 3 09/21/2024 2:55 PM ONLINE SERVICES MANAGER 4 Active azithromycin (ZITHROMAX) 250 mg tablet TAKE 2 TABLETS BY MOUTH A SINGLE DOSE ON DAY 1, THEN TAKE 1 TABLET BY MOUTH ONCE DAILY ON DAYS 2 THRU 5. 6 Tablet 07/06/2024 8:50 AM CDT 4 Active albuterol sulfate HFA 90 mcg/actuation aerosol inhaler Inhale 2 puffs by mouth every 6 (six) hours as needed for wheezing or shortness of breath 8.5 Gram 07/30/2024 5:42 PM CDT 4 Active benzonatate (TESSALON) 100 mg capsule Take 1 capsule (100 mg total) by mouth 3 (three) times a day as needed for cough 42 Capsule 07/22/2024 4:29 PM CDT 4 Active hydrOXYzine HCL (ATARAX) 25 mg tablet Take 1 Tablet (25 mg) by mouth 2 times daily as needed for anxiety. 180 Tablet 1 07/30/2024 5:42 PM CDT 4 Active methocarbamoL (ROBAXIN) 750 mg tablet Take 1 tablet (750 mg total) by mouth 3 (three) times a day as needed for muscle spasms for up to 5 days 15 Tablet 09/13/2024 5:41 PM ONLINE SERVICES MANAGER 4 Active methylPREDNISol one (MEDROL DOSPACK) 4 mg Tablets, Dose Pack Take 6 tabs on day 1, reduce dose by 1 daily until prescription is complete. 21 Each 09/13/2024 5:41 PM ONLINE SERVICES MANAGER 4 Active clotrimazole-be tamethasone (LOTRISONE) 1-0.05 % Cream Apply liberally to affected area(s) three times a daily as needed. 45 Gram 09/25/2024 5:59 PM ONLINE SERVICES MANAGER 4 Active levothyroxine 175 mcg tablet Take 1 Tablet (175 mcg) by mouth daily. 90 Tablet 10/27/2024 11:11 AM ONLINE SERVICES MANAGER 4 Active ergocalciferol (VITAMIN D2) 50,000 unit capsule Take 1 Capsule (50,000 Units) by mouth every 7 days. 13 Capsule 1 10/27/2024 11:11 AM ONLINE SERVICES MANAGER 4 Active levothyroxine 175 mcg tablet Take 1 Tablet (175 mcg) by mouth daily. 90 Tablet 4 Active valACYclovir (VALTREX) 500 mg tablet Take 1 Tablet (500 mg) by mouth daily. 90 Tablet 4 11/01/2024 3:38 PM ONLINE SERVICES MANAGER 5 Active LORazepam (ATIVAN) 1 mg tablet Take 1 Tablet (1 mg) by mouth 1 time as needed for anxiety. 1 Tablet 11/11/2024 5:10 PM ONLINE SERVICES MANAGER 5 Active Active Problems Patient Care Coordination No te Formatting of this note migh t be different from the original. Primary Care: No primary provider on file. Referring Provider: Zeyad Srivastava MD [id number] [address] Other: Problem Noted Date Diagnosed Date 06/07/10 06/07/2010 Threatened 12/23/2009 Previous section 12/23/2009 Hypothyroid 12/23/2009 Grave's disease Encounters Date Type Department Care Team Description 11/26/2024 External Device Data [facility] ABSTRACTION Provider, Abstract 11/20/2024 External Device Data [facility] ABSTRACTION Provider, Abstract 11/20/2024 External Device Data [facility]STRACTION Provider, Abstract 11/19/2024 External Device Data [facility] ABSTRACTION Provider, Abstract 10/22/2024 External Device Data [facility] ABSTRACTION Provider, Abstract 10/18/2024 12:47 PM ONLINE SERVICES MANAGER - 10/18/2024 1:24 PM [facility] Emergency Department [address] [place] [phone] Renetta Malave MD Blurry vision (Primary Dx); Benign hypertension Discharge Disposition: Home or Self Care 10/18/2024 Travel from Last 3 Months Immunizations Immunization Administration Dates Next Due (ADACEL/BOOSTRIX)(10 YR UP) TDAP VACCINE, 0.5ML, IM 06/10/2010 INFLUENZA VACCINE QUADRIVALENT 6 MOS UP PF IM Family History Medical History Relation Name Comments Diabetes Father Heart Disease Father Hypertension Father Cancer Maternal Grandmother Depression Mother Heart Disease Paternal Grandfather Diabetes Paternal Grandmother Thyroid Disease Paternal Grandmother Other Sister MS Breast Cancer Neg Hx Ovarian Cancer Neg Hx Relation Name Status Comments Father Alive Maternal Grandmother Mother Alive Paternal Grandfather Paternal Grandmother Sister Alive Son 1 Alive Son 2 Alive Social History Tobacco Use Types Packs/Day Years Used Date Smoking Tobacco: Never Smokeless Tobacco: Never Alcohol Use Standard Drinks/Week Comments Yes 0 (1 standard drink = 0.6 oz pur e alcohol) rare Feeling Safe Answer Date Recorded Are you in a relationship wi th someone who hurts you emotionally and/or physically? No 10/18/2024 Comments No Sex and Gender Information Value Date Recorded Sex Assigned at Not on file Legal Sex Female 3:24 AM ONLINE SERVICES MANAGER Gender Identity Not on file Sexual Orientation Not on file Occupation Industry Job Start Date Job End Date Not on file Not on file Not on file Not on file Last Filed Vital Signs Vital Sign Reading Time Taken Comments Blood Pressure 125/81 10/18/2024 1:23 PM ONLINE SERVICES MANAGER Pulse 88 10/18/2024 12:43 PM ONLINE SERVICES MANAGER Temperature 36.8 C (98.3 F) 10/18/2024 12:43 PM ONLINE SERVICES MANAGER Respiratory Rate 18 10/18/2024 1:23 PM ONLINE SERVICES MANAGER Oxygen Saturation 97% 10/18/2024 1:23 PM ONLINE SERVICES MANAGER Inhaled Oxygen Concentration - - Weight 81.6 kg (180 lb) 10/18/2024 12:43 PM ONLINE SERVICES MANAGER Height 157.5 cm (5' 2 ) 10/18/2024 12:43 PM ONLINE SERVICES MANAGER Body Mass Index 32.92 10/18/2024 12:43 PM ONLINE SERVICES MANAGER Plan of Treatment Health Maintenance Due Date Last Done Comments Pre-Diabetes and Diabetes Screening 1972 HEPATITIS B VACCINES (1 of 3 - 19+ 3-dose series) 1991 CERVICAL CANCER SCREENING 2002 BREAST CANCER SCREENING 12/06/2013 12/06/19 13, 06/08/2012, 05/31/2012 COLORECTAL SCREENING 2017 Colorectal Cancer Screening 2017 FIT-DNA Q 3 years 2017 FIT/FOBT Q 1 year 2017 Flex Sig/CT Colonography Q 5 years 2017 DTAP/TDAP/TD VACCINES (2 - T d or Tdap) 06/10/2020 06/10/2010 ZOSTER VACCINE (1 of 2) 2022 INFLUENZA VACCINE (#1) 2024 , 08/15/2018, 11/18/2013 COVID-19 Vaccine (2 2023-2 5 season) 2024 10/12/2021 PNEUMOCOCCAL VACCINE 0-64 YEARS Aged Out No longer eligible b ased on patient's age to complete this topic Procedures Procedure Name Priority Date/Time Associated Diagnosis Comments MAMMO DIAGNOSTIC UNI RIGHT W OR WO CAD Routine 12/06/2012 from Last 3 Months or Most Recently Relevant to Health Maintenance Results * MAMMO DIGITAL DIAG UNI RIGHT (12/06/2012) Anatomical Region Laterality Modality Breast Right Other Zeyad Caicedo MD MAMMO ORDERABLES Edit ed from Last 3 Months or Most Recently Relevant to Health [place] [address] [facility] [place] [place] [address] RX [facility] Commercial RX [employer] (INTERNAL) [facility] Internal Plans Advance Directives For more information, please contact: [phone] * Full Code (Latest Code Status on File) Date Activated Date Inactivated Comments 06/08/2010 12:19 AM 06/11/2010 3:18 PM * Full Code Date Activated Date Inactivated Comments 06/07/2010 6:24 PM 06/08/2010 12:19 AM Care Teams Sheet Metal Helper Relationship Specialty Start Date End Date Jarvis Coffey MD [address] [facility] [place] [address] PCP - General Family Practice 10/18/24
--- OUTSIDE RECORDS SUMMARY | 2024-12-06 00:59 | XMS_ITS | Data Portability ---
Author Organization [facility], Main Office Address [address] [place] [address] Assessment No assessment recorded. Plan of Treatment Reminders Order Date Submit Date Provider Last Modified By Organization Details Last Modified Time Details Appointments None recorded. Lab HbA1c (hemoglobin A1c), blood 2022 023 [facility], [address], [place], [address], 3 12:29:07 insulin, serum 2022 023 [facility], [address], [place], [address], 3 12:29:05 lipid panel, serum [address] [facility], [address], [place], [address], 3 12:29:03 T3, free, serum or plasma [address] [facility], [address], [place], [address], 3 12:29:06 T4, free, serum 2022 023 [facility], [address], [place], [address], 3 12:29:05 TSH, serum or plasma 2022 023 [facility], [address], [place], [address], 3 12:29:07 thyroid peroxidase (tpo) Ab, serum 2022 023 [facility], [address], [place], [address], 3 12:29:04 CMP, serum or plasma 2022 023 [facility], [address], [place], [address], 3 12:29:03 Referral None recorded. Procedures None recorded. Surgeries None recorded. Imaging None recorded. Medication Orders Synthroid 150 mcg tablet [id number] [place] [address] [facility], [address] [facility] , [place], [place], [id number], 14:21:02 Patient TargetsNo targets recorded. Patient InstructionsNo instructions recorded. Reason for Referral None Reported. Results Created Date Observation Date Name Description Value Unit Range Abnormal Flag Note LastModifiedBy Organization Detail LastModifiedTime 04/26/2004/28/2023 LIPID PANEL , STAND DEANA cholesterol, total 123 mg/dL <200 normal Not Available [facility] [address] [address] [place], [address], 04/28/2023 12:29:02 04/26/2004/28/2023 LIPID PANEL , STAND DEANA HDL cholesterol 38 mg/dL > or = 50 low Not Available [facility] [address] [place], [address], 04/28/2023 12:29:02 04/26/2004/28/2023 LIPID PANEL , STAND DEANA triglyceride s 244 mg/dL <150 high If a non-f astin g speci men was colle cted, consi nelly repea t trigl yceri de testi ng on a fasti ng speci men if clini tam indic ated. Jimmie umanzor et al. J. of Clin. Lipid ol. 2015; 9:129 -169. Not Available [facility] [address] [place], [address], 04/28/2023 12:29:02 04/26/20 23 04/28/2023 LIPID PANEL [...] 9): 2061- 2068 (http ://ed ucati on.Qu karenHomeMe.ru. CrowdChat/f aq/FA Q164) Not Available [facility] [address] [place], [address], 04/28/2023 12:29:02 04/26/20 23 04/28/2023 LIPID PANEL , STAND DEANA chol/HDLC ratio 3.2 (calc ) <5.0 normal Not Available [facility] [address] [address], [place], [address], 04/28/2023 12:29:02 04/26/20 23 04/28/2023 LIPID PANEL , STAND DEANA non HDL cholesterol 85 mg/dL _(jenaro c) <130 normal For patie nts with diabe cecile plus 1 major ASCVD risk facto r, treat ing to a non-H DL-C goal of <100 mg/dL (LDL- C of <70 mg/dL ) is consi dered a thera peuti c optio n. Not Available [facility] [address] [place], [address], 04/28/2023 12:29:02 04/26/20 23 04/28/2023 COMPR EHENS FELIX METAB OLIC PANEL glucose 103 mg/dL 65-99 high Fasti ng refer ence inter chanell For someo ne witho ut known diabe cecile, a gluco se value betwe en 100 and 125 mg/dL is consi stent with predi abete s and shoul d be confi rmed with a follo w-up test. Not Available [address] [address] [place], [address], 04/28/2023 12:29:03 04/26/20 23 04/28/2023 COMPR EHENS FELIX METAB OLIC PANEL urea nitrogen (BUN) 13 mg/dL 7-25 normal Not Available [address] [address] [place], [address], 04/28/2023 12:29:03 04/26/20 23 04/28/2023 COMPR EHENS FELIX METAB OLIC PANEL creatinine 0.72 mg/dL 0.50-1 .03 normal Not Available [address] [address] [place], [address], 04/28/2023 12:29:03 04/26/20 23 04/28/2023 COMPR EHENS [...] kdoqi /gfr% 5Fcal culat or Not Available [address] [address] [place], [address], 04/28/2023 12:29:03 04/26/20 23 04/28/2023 COMPR EHENS FELIX METAB OLIC PANEL BUN/creatini ne ratio NOT APPLIC ABLE (calc ) 6-22 Not Available [facility] [address], [address], 04/28/2023 12:29:03 04/26/20 23 04/28/2023 COMPR EHENS FELIX METAB OLIC PANEL sodium 138 mmol/ L 135-14 6 normal Not Available [address], [address], 04/28/2023 12:29:03 04/26/20 23 04/28/2023 COMPR EHENS FELIX METAB OLIC PANEL potassium 4.4 mmol/ L 3.5-5. 3 normal Not Available [address], [address], 04/28/2023 12:29:03 04/26/20 23 04/28/2023 COMPR EHENS FELIX METAB OLIC PANEL chloride 104 mmol/ L 98-110 normal Not Available [address], [address], 04/28/2023 12:29:03 04/26/20 23 04/28/2023 COMPR EHENS FELIX METAB OLIC PANEL carbon dioxide 28 mmol/ L 20-32 normal Not Available [address], [address], 04/28/2023 12:29:03 04/26/20 23 04/28/2023 COMPR EHENS FELIX METAB OLIC PANEL calcium 9.5 mg/dL 8.6-10 .4 normal Not Available [address], [address], 04/28/2023 12:29:03 04/26/20 23 04/28/2023 COMPR EHENS FELIX METAB OLIC PANEL protein, total 7.3 g/dL 6.1-8. 1 normal Not Available [address], [address], 04/28/2023 12:29:03 04/26/20 23 04/28/2023 COMPR EHENS FELIX METAB OLIC PANEL albumin 4.6 g/dL 3.6-5. 1 normal Not Available [address], [address], 04/28/2023 12:29:03 04/26/20 23 04/28/2023 COMPR EHENS FELIX METAB OLIC PANEL globulin 2.7 g/dL_ (calc ) 1.9-3. 7 normal Not Available [address], [address], 04/28/2023 12:29:03 04/26/20 23 04/28/2023 COMPR EHENS FELIX METAB OLIC PANEL albumin/glob ulin ratio 1.7 (calc ) 1.0-2. 5 normal Not Available [address], [address], 04/28/2023 12:29:03 04/26/20 23 04/28/2023 COMPR EHENS FELIX METAB OLIC PANEL bilirubin, total 2.2 mg/dL 0.2-1. 2 high Not Available [address], [address], 04/28/2023 12:29:03 04/26/20 23 04/28/2023 COMPR EHENS FELIX METAB OLIC PANEL alkaline phosphatase 71 U/L 37-153 normal Not Available [facility] [employer] [address], [address], 04/28/2023 12:29:03 04/26/20 23 04/28/2023 COMPR EHENS FELIX METAB OLIC PANEL AST 25 U/L 10-35 normal Not Available [address], [address], 04/28/2023 12:29:03 04/26/20 23 04/28/2023 COMPR EHENS FELIX METAB OLIC PANEL ALT 35 U/L 6-29 high Not Available [address], [address], 04/28/2023 12:29:03 04/26/20 23 04/28/2023 THYRO ID PEROX IDASE ANTIB ODIES thyroid peroxidase antibodies 1 IU/mL <9 Not Available [address], [address], 04/28/2023 12:29:04 04/26/20 23 04/28/2023 INSUL IN insulin 30.7 uIU/m L high Refer ence Range < or = 18.4 Risk: Optim al < or = 18.4 Moder ate NA High >18.4 Adult cardi ovasc ular event risk categ ory cut point s (opti mal, moder ate, high) are based on Insul in Refer ence Inter chanell studi es perfo rmed at [facility] in 2021. Not Available [address], [address], 04/28/2023 12:29:05 04/26/20 23 04/28/2023 T4, FREE T4, free 1.8 NG/dL 0.8-1. 8 normal Not Available [address], [address], 04/28/2023 12:29:05 04/26/20 23 04/28/2023 T3, FREE T3, free 3.2 pg/mL 2.3-4. 2 normal Not Available [facility] [address], [address], 04/28/2023 12:29:06 04/26/20 23 04/28/2023 TSH TSH 0.13 mIU/L low Refer ence Range > or = 20 Years 0.40- 4.50 Pregn italo Range s First trime ster 0.26- 2.66 Secon d trime ster 0.55- 2.73 Third trime ster 0.43- 2.91 Not Available [address], [address], 04/28/2023 12:29:07 04/26/20 23 04/28/2023 HEMOG LOBIN [...] Care in Diabe cecile(A DA). Not Available [facility] [address] [place], [place] [address], [address], 04/28/2023 12:29:07 Result Notes None recorded. Problems Name Problem SNOMED Code Status Onset Date Resolution Date Notes Provider Name and Address Organization Details Recorded Time Hypothyroidism 06616176 Active 2022 Jerilyn Couch MD [address], [place], [address], [employer] 3 10:25:38 Impaired fasting glycemia 079883037 Active 2022 Jerilyn Couch MD [address], [place], [address], [employer] 3 10:25:57 Dyslipidemia 586408162 Active 2022 Jerilyn Couch MD [address], [place], [address], [employer] 3 10:26:05 Problem Notes None recorded. Medical [...] Address Organization Details Last Updated DateTime 04/24/2023 03401.44 g 97.6 [degF] 131 mm[Hg] 97 mm[Hg] Renetta Murray [facility] 3 10:15:28 Social History None recorded. Functional Status None recorded. Mental Status None recorded. Family History Nothing Reported. Medical History No medical history recorded. Gynecological HistoryNo gynecological history recorded. Obstetrics History GPAL:G 0 P 0 0 0 0 Past Encounters Encounter ID Performer Location Encounter Start Date Encounter Closed Date Diagnosis/Indication Diagnosis SNOMED-CT Code Diagnosis ICD10 Code Diagnosis Note [id number] Jerilyn Couch MD [facility] [address] [place] [address] 04/24/2023 09:56:53 04/24/2023 10:42:01 Hypothyroidism 97585266 E03.9 Due for labwork as her levels [...] reduce inflammati on. Impaired f asting glycemia 957245449 R73.01 Discussed carb counting and how to read food labels. Recommende d patient to utilize the diabetesfo Limundob.com from the ADA website to help with food preparatio n as this presents ideal carb content per meal so this will make carb counting much easier for patient. Recommende d she incorporat e natural insulin laundry aid s such as pears, apples, cinnamon, abelardo and sweet potatoes to help mobilize her endogenous insulin. Recommende d up to 150 minutes of moderate level activity/e xercise weekly. Send for a1c and insulin to screen further as DM runs in family. Dyslipidemia 608527148 E 78.5 Send for lipid panel to [...] she chooses to go outside of the [facility] system to obtain labwork she was [...] Hill Member ID Guarantor Name 04/24/[address] [facility]: (PPO) [id number] 02 Roxy Mcdonough [id number] Roxy Mcdonough Notes Date Note Type [...] she is menopausal. Jerilyn Couch MD [address] [facility], [address] [address], [place], [address], [place] [facility] 04/24/2023 14:24:31 OBGyn Episode No OBEpisode recorded.
--- OUTSIDE RECORDS SUMMARY | 2024-12-06 00:59 | XMS_ITS | Encounter Summary ---
Author Organization [facility] Address [address] [place] [address] Care Team Providers Care Admeasurer Name Role Phone Jarvis Coffey MD Primary Care Provider Encounter Details Date Type Department Care Team (Latest Contact Info) Description 04/03/2007 Outpatient Historical [facility] Zeyad Millan MD [address] [facility] [address] [place] [address] Other Specified Screening (Primary Dx) Social History Tobacco Use Types Packs/Day Years Used Date Smoking Tobacco: Never Assessed Comments Unknown Sex and Gender Information Value Date Recorded Sex Assigned at Not on file Legal Sex Female 3:24 AM BUSINESS SERVICES INTERN Gender Identity Not on file Sexual Orientation Not on file documented as of this encounter Plan of Treatment Not on file documented as of this encounter Visit Diagnoses Diagnosis Other screening- Primary Other specified screening documented in this encounter Care Teams Admeasurer Relationship Specialty Start Date End Date Jarvis Coffey MD [address] [facility] [place] [address] PCP - General Family Practice 10/18/24 documented as of this encounter
--- OUTSIDE RECORDS SUMMARY | 2024-12-06 00:59 | XMS_ITS | Encounter Summary ---
Author Organization [facility] Address [address] [place] [address] Care Team Providers Care Lead Principal Technical Architect Name Role Phone Jarvis Coffey MD Primary Care Provider Encounter Details Date Type Department Care Team (Latest Contact Info) Description 03/02/2007 Outpatient Historical [facility] Zeyad Millan MD [address] [facility] [address] [place] [id number] Other Specified Screening (Primary Dx) Social History Tobacco Use Types Packs/Day Years Used Date Smoking Tobacco: Never Assessed Comments Unknown Sex and Gender Information Value Date Recorded Sex Assigned at Not on file Legal Sex Female 3:24 AM BUSINESS ECONOMIST Gender Identity Not on file Sexual Orientation Not on file documented as of this encounter Plan of Treatment Not on file documented as of this encounter Visit Diagnoses Diagnosis Other screening- Primary Other specified screening documented in this encounter Care Teams Lead Principal Technical Architect Relationship Specialty Start Date End Date Jarvis Coffey MD [address] [facility] [place] [address] PCP - General Family Practice 10/18/24 documented as of this encounter
--- OUTSIDE RECORDS SUMMARY | 2024-12-06 00:59 | XMS_ITS | Encounter Summary ---
Author Organization [facility] Address [address] [place] [address] Care Team Providers Care Modeling Manager Name Role Phone Jarvis Coffey MD Primary Care Provider Encounter Details Date Type Department Care Team (Late st Contact Info) Description 03/08/2007 Outpatient Historical [facility] Maternal and Ground Floor S [facility] [address] [place] [address] Anabela Barnes MD [address] [place] [address] Social History Tobacco Use Types Packs/Day Years Used Date Smoking Tobacco: Never Assessed Comments Unknown Sex and Gender Information Value Date Recorded Sex Assigned at Not on file Legal Sex Female 3:24 AM SHEAR TENDER Gender Identity Not on file Sexual Orientation Not on file documented as of this encounter Plan of Treatment Not on file documented as of this encounter Visit Diagnoses Not on filedocumented in this encounter Care Teams Modeling Manager Relationship Specialty Start Date End Date Jarvis Coffey MD [address] [facility] [place] [address] PCP - General Family Practice 10/18/24 documented as of this encounter
--- OUTSIDE RECORDS SUMMARY | 2024-12-06 01:00 | XMS_ITS | Encounter Summary ---
Author Organization [facility] Address 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 Gender Identity Not on file Sexual Orientation Not on file documented as of this encounter Plan of Treatment Not on file documented as of this encounter Procedures Procedure Name Priority Date/Time Associated Diagnosis Comments TSH Routine 11/04/2004 11:01 AM ALUMINUM BOAT INSPECTOR T4 FREE Routine 11/04/2004 11:01 AM ALUMINUM BOAT INSPECTOR documented in this encounter Results * (ABNORMAL) TSH (11/04/2004 11:01 AM ALUMINUM BOAT INSPECTOR) TSH 7.43(H) 0.27 - 4.20 uU/mL INTERFACE SYSTEM 11/04/2004 11:0 1 AM ALUMINUM BOAT INSPECTOR us Zeyad Millan MD CHEMISTRY ORDERABLES Fin al Result Performing Organization Address City/[facility] Co de Phone Number INTERFACE SYSTEM Refer to clinic/hospital department * T4 FREE (11/04/2004 11:01 AM ALUMINUM BOAT INSPECTOR) T4 FREE 1.1 0.9 - 1.7 ng/dL INTERFACE SYSTEM 11/04/2004 11:0 1 AM ALUMINUM BOAT INSPECTOR us Zeyad Millan MD CHEMISTRY ORDERABLES Fin al Result Performing Organization Address [facility] de Phone Number INTERFACE SYSTEM Refer to clinic/hospital department documented in this encounter Visit Diagnoses Diagnosis Thyroid dysfunction, antepartum(648.13)- Primary Thyroid dysfunction, antepartum documented in this encounter Care Teams Inlayer Relationship Specialty Start Date End Date Jarvis Coffey MD [address] [place] [place] [address] PCP - General Family Practice 10/18/24 documented as of this encounter
--- OUTSIDE RECORDS SUMMARY | 2024-12-06 01:00 | XMS_ITS | Encounter Summary ---
Author Organization [facility] Address [address] [place] [address] Care Team Providers Care Technical Delivery Manager Name Role Phone Jarvis Coffey MD Primary Care Provider Encounter Details Date Type Department Care Team (Late st Contact Info) Description 02/23/2005 Outpatient Historical [facility] Maternal and Ground Floor [address] [place] [address] [place] [phone] Zeyad Millan MD [address] [place] [id number] [place] [address] Social History Tobacco Use Types Packs/Day Years Used Date Smoking Tobacco: Never Assessed Comments Unknown Sex and Gender Information Value Date Recorded Sex Assigned at Not on file 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
--- OUTSIDE RECORDS SUMMARY | 2024-12-06 01:00 | XMS_ITS | Encounter Summary ---
Author Organization [facility] Address [address] [place] [address] Care Team Providers Care Drafter Name Role Phone Jarvis Coffey MD Primary Care Provider Encounter Details Date Type Department Care Team (Late st Contact Info) Description 02/14/2005 Outpatient Historical [facility] Maternal and Ground Floor S [facility] [address] [facility] [place] [address] Ross Wong MD NO ADDRESS ON FILE Social History Tobacco Use Types Packs/Day Years Used Date Smoking Tobacco: Never Assessed Comments Unknown Sex and Gender Information Value Date Recorded Sex Assigned at Not on file 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
--- OUTSIDE RECORDS SUMMARY | 2024-12-06 01:00 | XMS_ITS | Referral Summary ---
Author Organization [facility] [address] [place] [address] Care Team Providers Care Alteration Hand Name Role Phone Jarvis Coffey MD Primary Care Provider Encounters Date Type Department Care Team Description 10/24/2024 Orders Only [facility] [address] [facility] [address] [place] [address] Radha Hirsch NP Postablative hypothyroidism (Primary Dx) 09/25/2024 9:30 AM CONTRACT CONSULTANT Office Visit [facility] [address] [place] [address] Radha Hirsch NP Postablative hypothyroidism (Primary Dx); Vitamin D deficiency 09/13/2024 2:45 PM CONTRACT CONSULTANT Ancillary Procedure [facility] Imaging at [address] [address] Acute cough 09/13/2024 2:30 PM CONTRACT CONSULTANT Office Visit [facility] Convenient Care at [address] [address] Panfilo Jarquin NP Acute cough (Primary Dx); Acute bilateral low back pain without sciatica from Last 3 Months Allergies Active Allergy Reactions Criticality Noted Date Comments Lidocaine Palpitations Low Reaction: Tachycardia, Medications valACYclovir (VALTREX) 500 mg tablet Take 1 tablet (500 mg total) by mouth daily 2 Active hydrOXYzine (ATARAX) 25 mg tablet Take 1 tablet (25 mg total) by mouth 3 (three) times a day as needed 2 Active rosuvastatin (CRESTOR) 10 mg tablet Take 1 Tablet (10 mg) by mouth daily. 90 tablet 3 4 Active losartan-hydroCHLO ROthiazide (HYZAAR) 50-12.5 mg per tablet Take 1 tablet by mouth daily Active estradioL (VIVELLE-DOT) 0.1 mg/[address] 1 patch on the skin 2 (two) times a week 4 Active progesterone (PROMETRIUM) 200 mg capsule Take 1 capsule (200 mg total) by mouth daily 4 Active albuterol HFA (PROVENTIL HFA,VENTOLIN HFA,PROAIR HFA) 90 mcg/actuation inhalerIndications :Persistent cough Inhale 2 puffs every 6 (six) hours as needed for wheezing or shortness of breath 1 each 4 Active levothyroxine (SYNTHROID) 175 mcg tabletIndications: Postablative hypothyroidism Take 1 tablet (175 mcg total) by mouth daily 90 tablet 4 Active ergocalciferol (VITAMIN D) 50,000 unit capsule Take 1 capsule (50,000 Units total) by mouth once a week 13 capsule 1 4 10/24/20 25 Active Active Problems Problem Noted Date Diagnosed Date Essential hypertension 10/25/2022 Overview (10/25/2022): Continue lisinopril Mixed hyperlipidemia 04/12/2022 Overview (04/12/2022): Check lipid profike Postablative hypothyroidism 03/15/2014 Overview (02/02/2017): POSTABLAT HYPOTHYR NEC Assessment & Plan (09/25/2024 9:54 AM CONTRACT CONSULTANT): Labs today Clinically euthyroid on 150mg daily Assessment & Plan (09/19/2023 9:31 AM CONTRACT CONSULTANT): Has been on 150mcg daily x 2 weeks Will continue 150mcg daily and use Euthyrox as patient has been on branded Synthroid TSH with reflex in 2-4 weeks Resolved Problems Problem Noted Date Diagnosed Date Resolved Date Hypothyroidism 03/15/2014 09/19/2023 Overview (02/02/2017): HYPOTHYROIDISM NOS Immunizations Name Administration Dates Next Due Influenza, Trivalent, IM (MDV) 08/15/2018 Influenza, Trivalent, Preservative Free, Intramu scular 11/18/2013 Pfizer SARS-CoV-2 Monovalent Vaccination (12+ Yrs) PURPLE 10/12/2021 Tdap 06/10/2010 Social History Tobacco Use Types Packs/Day Years Used Date Smoking Tobacco: Never Smokeless Tobacco: Never Tobacco Cessation:Counseling Given: Not Answered Alcohol Use Standard Drinks/Week Comments Yes 0 (1 standard drink = 0.6 oz pur e alcohol) AUDIT-C Answer Date Recorded Q1: How often do you have a drink containing alc ohol? Monthly or less 04/26/2024 Q2: How many drinks containi ng alcohol do you have on a typical day when you are drinking? 1 or 2 04/26/2024 Q3: How often do you have si x or more drinks on one occasion? Less than monthly 04/26/2024 Comments No Sex and Gender Information Value Date Recorded Sex Assigned at Not on file Legal Sex Female 12:06 PM CONTRACT CONSULTANT Gender Identity Not on file Sexual Orientation Not on file Last Filed Vital Signs Vital Sign Reading Time Taken Comments Blood Pressure 124/74 09/25/2024 9:22 AM CONTRACT CONSULTANT Pulse 91 09/25/2024 9:22 AM CONTRACT CONSULTANT Temperature 37.1 C (98.7 F) 09/13/2024 2:30 PM CONTRACT CONSULTANT Respiratory Rate 16 09/13/2024 2:30 PM CONTRACT CONSULTANT Oxygen Saturation 98% 09/25/2024 9:22 AM CONTRACT CONSULTANT Inhaled Oxygen Concentration - - Weight 86.2 kg (190 lb) 09/25/2024 9:22 AM CONTRACT CONSULTANT Height 157.5 cm (5' 2 ) 09/25/2024 9:22 AM CONTRACT CONSULTANT Body Mass Index 34.75 09/25/2024 9:22 AM CONTRACT CONSULTANT Plan of Treatment Not on file Procedures Procedure Name Priority Date/Time Associated Diagnosis Comments THYROID FUNCTION CASCADE Routine 11/23/2024 12:13 PM CONTRACT CONSULTANT Essential hypertension NOTE Routine 10/21/2024 10:34 AM CONTRACT CONSULTANT T4, FREE Routine 10/21/2024 10:34 AM CONTRACT CONSULTANT THYROID FUNCTION CASCADE Routine 10/21/2024 10:34 AM CONTRACT CONSULTANT Postablative hypothyroidism VITAMIN D 25 HYDROXY Routine 10/21/2024 10:34 AM CONTRACT CONSULTANT Vitamin D deficiency URINALYSIS AND REFLEX TO MICROSCOPIC Routine 10/21/2024 10:34 AM CONTRACT CONSULTANT Postablative hypothyroidism COMPREHENSIVE METABOLIC PANEL Routine 10/21/2024 10:34 AM CONTRACT CONSULTANT Postablative hypothyroidism CBC WITH AUTO DIFFERENTIAL Routine 10/21/2024 10:34 AM CONTRACT CONSULTANT Postablative hypothyroidism XR CHEST PA LATERAL 2 VIEWS Schedule TREMAINE, Read TREMAINE (Appt Today, Awaiting Results) 09/13/2024 2:47 PM CONTRACT CONSULTANT Acute cough from Last 3 Months Results * Thyroid Function [place] (11/23/2024 12:13 PM CONTRACT CONSULTANT) Pathologist [facility] TSH 0.63 mIU/L [facility] Comment: Reference Range > or = 20 Years 0.40-4.50 Ranges First trimester 0.26-2.66 Second trimester 0.55-2.73 Third trimester 0.43-2.91 Blood 11/23/2024 12:1 3 PM CONTRACT CONSULTANT 11/23/2024 12:13 PM CONTRACT CONSULTANT us Radha Hirsch NP LAB BLOOD ORDERABLES Fin al Result [facility] [address] [place] [address] * NOTE (10/21/2024 10:34 AM CONTRACT CONSULTANT) Pathologist [facility] Note [facility] Comment: This urine was analyzed for the presence of WBC, RBC, bacteria, casts, and other formed elements. Only those elements seen were reported. 10/21/2024 10:3 4 AM CONTRACT CONSULTANT 10/21/2024 10:38 AM CONTRACT CONSULTANT Radha Hirsch SEROLOGIST LAB BLOOD ORDERABLES Fin al Result Performing Organization Address [facility] de Phone Number [facility] [address] [place] [address] * (ABNORMAL) Thyroid Function [place] (10/21/2024 10:34 AM CONTRACT CONSULTANT) TSH 46.22(H) mIU/L [facility] Comment: Reference Range > or = 20 Years 0.40-4.50 Ranges First trimester 0.26-2.66 Second trimester 0.55-2.73 Third trimester 0.43-2.91 Blood 10/21/2024 10:3 4 AM CONTRACT CONSULTANT 10/21/2024 10:38 AM CONTRACT CONSULTANT Radha Hirsch SEROLOGIST LAB BLOOD ORDERABLES Fin al Result Performing Organization Address [facility] Phone Number [facility] [address] [place] [address] * (ABNORMAL) Urinalysis reflex to microscopic (10/21/2024 10:34 AM CONTRACT CONSULTANT) Color, ur YELLOW YELLOW [facility] Appearance, ur CLEAR CLEAR [facility] Specific gravity 1.013 1.001 - 1.035 [facility] pH, ur 6.0 5.0 - 8.0 [facility] Glucose, ur NEGATIVE NEGATIVE [facility] Bilirubin, ur NEGATIVE NEGATIVE [facility] Ketones, ur NEGATIVE NEGATIVE [facility] Blood, ur NEGATIVE NEGATIVE [facility] Protein, ur, quant NEGATIVE NEGATIVE [facility] Nitrites, ur NEGATIVE NEGATIVE [facility] Leukocyte esterase, ur 1+(A) NEGATIVE [facility] WBC, ur 6-10(A) < OR = 5 /HPF [facility] RBC, ur NONE SEEN < OR = 2 /HPF [facility] Epithelial cells, squamous, ur 6-10(A) < OR = 5 /HPF [facility] Bacteria, ur, quant NONE SEEN NONE SEEN /HPF [facility] Hyaline cast NONE SEEN NONE SEEN /LPF [facility] Urine 10/21/2024 10:3 4 AM CONTRACT CONSULTANT 10/21/2024 10:38 AM CONTRACT CONSULTANT us Radha Hirsch SEROLOGIST LAB URINE ORDERABLES Fin al Result [facility] [address] [place] [address] * (ABNORMAL) CBC with auto differential (10/21/2024 10:34 AM CONTRACT CONSULTANT) WBC 7.2 3.8 - 10.8 Thousand/u L [facility] RBC, POC 4.63 3.80 - 5.10 Million/uL [facility] Hgb 14.2 11.7 - 15.5 g/dL [facility] Hct 44.5 35.0 - 45.0 % [facility] MCV 96.1 80.0 - 100.0 fL [facility] MCH 30.7 27.0 - 33.0 pg [facility] MCHC 31.9(L) 32.0 - 36.0 g/dL [facility] Comment: For adults, a slight decrease in the calculated MCHC value (in the range of 30 to 32 g/dL) is most likely not clinically significant; however, it should be interpreted with caution in correlation with other red cell parameters and the patient's clinical condition. Rdw 13.2 11.0 - 15.0 % [facility] Platelets 272 140 - 400 Thousand/u L [facility] MPV 10.5 7.5 - 12.5 fL [facility] Neutrophils, abs 4,795 1,500 - 7,800 cells/uL [facility] Lymphocytes, abs 1,699 850 - 3,900 cells/uL [facility] Monocyte abs 461 200 - 950 cells/uL [facility] Eosinophils, abs 173 15 - 500 cells/uL [facility] Basophils, abs 72 0 - 200 cells/uL [facility] Neutrophils 66.6 % [facility] Lymphocyte pct 23.6 % [facility] Monocytes 6.4 % [facility] Eosinophils 2.4 % [facility] Basophils 1.0 % [facility] Blood 10/21/2024 10:3 4 AM CONTRACT CONSULTANT 10/21/2024 10:38 AM CONTRACT CONSULTANT Radha Hirsch SEROLOGIST LAB BLOOD ORDERABLES Fin al Result [facility] [address] [place] [address] * (ABNORMAL) Vitamin D 25 hydroxy (10/21/2024 10:34 AM CONTRACT CONSULTANT) Vitamin D 25-OH 18(L) 30 - 100 ng/mL [facility] Comment: Vitamin D Status 25-OH Vitamin D: Deficiency: <20 ng/mL Insufficiency: 20 - 29 ng/mL Optimal: > or = 30 ng/mL For 25-OH Vitamin D testing on patients on D2-supplementation and patients for whom quantitation of D2 and D3 fractions is required, the Quest[facility]ure[facility](TM) 25-OH VIT D, (D2,D3), LC/MS/MS is recommended: order code 85045 (patients >2yrs). See Note 1 Note 1 For additional information, please refer to http://education.Exhibia.Stayfilm/faq/WJX921 (This link is being provided for informational/ educational purposes only.) Blood 10/21/2024 10:3 4 AM CONTRACT CONSULTANT 10/21/2024 10:38 AM CONTRACT CONSULTANT Radha Hirsch NP LAB BLOOD ORDERABLES Fin al Result [facility] [address] [place] [address] * T4, free (10/21/2024 10:34 AM CONTRACT CONSULTANT) Free T4 0.9 0.8 - 1.8 ng/dL [facility] 10/21/2024 10:3 4 AM CONTRACT CONSULTANT 10/21/2024 10:38 AM CONTRACT CONSULTANT us Radha Hirsch SEROLOGIST LAB BLOOD ORDERABLES Fin al Result [facility] [address] [place] [address] * (ABNORMAL) Comprehensive metabolic panel (10/21/2024 10:34 AM CONTRACT CONSULTANT) Pathologist [facility] Glucose 91 65 - 99 mg/dL [facility] [[email or web address] [employer] [facility] Comment: Fasting reference interval BUN 15 7 - 25 mg/dL [facility] [[email or web address] [facility] [facility] Creatinine 0.83 0.50 - 1.03 mg/dL [facility] [[email or web address] [facility] eGFR 85 > OR = 60 mL/min/1.7 3m2 [facility] [[email or web address] [employer] [facility] BUN/creat ratio SEE NOTE: 6 - 22 (calc) [facility] Comment: Not Reported: BUN and Creatinine are within reference range. Sodium 135 135 - 146 mmol/L [facility] [[email or web address] [facility] Potassium, pl 4.0 3.5 - 5.3 mmol/L [facility] [[email or web address] [facility] Chloride 98 98 - 110 mmol/L [facility] CO2 29 20 - 32 mmol/L [facility] Calcium 8.7 8.6 - 10.4 mg/dL [facility] [[email or web address] [facility] Protein, sr 7.0 6.1 - 8.1 g/dL [facility] Albumin 4.6 3.6 - 5.1 g/dL [facility] GLOBULIN 2.4 1.9 - 3.7 g/dL (calc) [facility] [[email or web address]] [facility] Alb/glob ratio 1.9 1.0 - 2.5 (calc) [facility] [[email or web address] [facility] Bilirubin, total 2.4(H) 0.2 - 1.2 mg/dL [facility] [[email or web address] [facility] Alk phos 55 37 - 153 U/L [facility] [[email or web address] [facility] AST 24 10 - 35 U/L [facility] ALT (SGPT) 25 6 - 29 U/L [facility] Blood 10/21/2024 10:3 4 AM CONTRACT CONSULTANT 10/21/2024 10:38 AM CONTRACT CONSULTANT Radha Hirsch SEROLOGIST LAB BLOOD ORDERABLES Fin al Result [facility] [address] [place] [address] * XR Chest PA Lateral 2 Views (09/13/2024 2:47 PM CONTRACT CONSULTANT) Anatomical Region Laterality Modality Body, Chest N/A Digital Radiogra phy 09/13/2024 4:21 PM CONTRACT CONSULTANT Narrative 09/13/2024 4:21 PM CONTRACT CONSULTANT EXAM DESCRIPTION: XR CHEST PA LATERAL 2 VIEWS REASON FOR STUDY: cough Pt complains upper back and lung pain x 3 days. No asthma,copd,cancer,heart disease. No chest surgery. No smoking TECHNIQUE: 2 radiographic view(s) of the chest. COMPARISON: Chest radiograph 07/22/2024 FINDINGS: LUNGS: No focal opacity, pleural effusion, or pneumothorax. HEART/MEDIASTINUM: Cardiac silhouette normal in size. Mediastinal and hilar contours appear normal. LINES/TUBES: None. BONES: No acute osseous abnormality. IMPRESSION: No acute cardiopulmonary abnormality. THIS IS AN ELECTRONICALLY VERIFIED FINAL REPORT 09/13/2024 4:21 PM - Electronically signed by Daniela Prieto M.D. FT T: Report ID: [id number] Reading Location: [id number] Procedure Note Daniela Maldonado MD - 09/13/2024 EXAM DESCRIPTION: XR CHEST PA LATERAL 2 VIEWS REASON FOR STUDY: cough Pt complains upper back and lung pain x 3 days. Noasthma,copd,cancer,heart disease. No chest surgery. No smoking TECHNIQUE: 2 radiographic view(s) of the chest. COMPARISON: Chest radiograph 07/22/2024 FINDINGS: LUNGS: No focal opacity, pleural effusion, or pneumothorax. HEART/MEDIASTINUM: Cardiac silhouette normal in size. Mediastinal andhilar contours appear normal. LINES/TUBES: None. BONES: No acute osseous abnormality. IMPRESSION: No acute cardiopulmonary abnormality. THIS IS AN ELECTRONICALLY VERIFIED FINAL REPORT 09/13/2024 4:21 PM - Electronically signed by Daniela Prieto M.D. FT T: Report ID: [id number] Reading Location: [place] [address] Panfilo Jarquin SEROLOGIST IMG XR PROCEDURES Final Result from Last 3 Months Insurance [facility] Care Teams Alteration Hand Relationship Specialty Start Date End Date Jarvis Coffey MD [address] [facility] [address] [place] [address] PCP - General Family Practice 09/19/23
--- OUTSIDE RECORDS SUMMARY | 2024-12-06 01:00 | XMS_ITS | Encounter Summary ---
Author Organization [facility] Address 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
--- OUTSIDE RECORDS SUMMARY | 2024-12-06 01:00 | XMS_ITS | Encounter Summary ---
Author Organization [facility] Address [address] [place] [address] Care Team Providers Care Gyn Name Role Phone Jarvis Coffey MD Primary Care Provider Encounter Details Date Type Department Care Team (Late st Contact Info) Description 05/01/2007 Outpatient Historical [facility] Maternal and Ground Floor S [facility] [address] [place] [address] Anabela Barnes MD [address] [place] [address] Social History Tobacco Use Types Packs/Day Years Used Date Smoking Tobacco: Never Assessed Comments Unknown Sex and Gender Information Value Date Recorded Sex Assigned at Not on file 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
--- OUTSIDE RECORDS SUMMARY | 2024-12-06 01:00 | XMS_ITS | Encounter Summary ---
Author Organization [facility] Address [address] [place] [address] Care Team Providers Care Roaster Operator Name Role Phone Jarvis Coffey MD Primary Care Provider Encounter Details Date Type Department Care Team (Late st Contact Info) Description 04/19/2007 Outpatient Historical [facility] Maternal and Ground Floor S Replaced By [facility] [address] [place] [address] Anabela Barnes MD [address] [place] [address] Social History Tobacco Use Types Packs/Day Years Used Date Smoking Tobacco: Never Assessed Comments Unknown Sex and Gender Information Value Date Recorded Sex Assigned at Not on file Legal Sex Female 3:[address] WORKER Gender Identity Not on file Sexual Orientation Not on file documented as of this encounter Plan of Treatment Not on file documented as of this encounter Visit Diagnoses Not on filedocumented in this encounter Care Teams Roaster Operator Relationship Specialty Start Date End Date Jarvis Coffey MD [address] [place] [address] PCP - General Family Practice 10/18/24 documented as of this encounter
--- OUTSIDE RECORDS SUMMARY | 2024-12-06 01:00 | XMS_ITS | Encounter Summary ---
Author Organization [facility] Address 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
--- OUTSIDE RECORDS SUMMARY | 2024-12-06 01:00 | XMS_ITS | Encounter Summary ---
Author Organization [employer] Address 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
--- OUTSIDE RECORDS SUMMARY | 2024-12-06 01:00 | XMS_ITS | Encounter Summary ---
Author Organization [facility] Address [address] [place] [address] Care Team Providers Care Fiscal Services Manager Name Role Phone Jarvis Coffey MD Primary Care Provider Encounter Details Date Type Department Care Team (Late st Contact Info) Description 12/28/2004 Outpatient Historical [facility] Maternal and Ground Floor [address] [place] [address] [place] [address] Zeyad Millan MD [address] [place] [address] [place] [address] Social History Tobacco Use Types Packs/Day Years Used Date Smoking Tobacco: Never Assessed Comments Unknown Sex and Gender Information Value Date Recorded Sex Assigned at Not on file 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
--- OUTSIDE RECORDS SUMMARY | 2024-12-06 01:00 | XMS_ITS | Encounter Summary ---
Author Organization [employer] Address [address] [place] [address] Care Team Providers Care Officer Captain Name Role Phone Jarvis Coffey MD Primary Care Provider Encounter Details Date Type Department Care Team (Latest Contact Info) Description 04/11/2007 Outpatient Historical [facility] Anabela Barnes MD [address] [place] [address] Zeyad Millan MD [address] [facility] [address] [place] [address] Threatened Premature Labor, Antepartum (Primary Dx) Social History Tobacco Use Types Packs/Day Years Used Date Smoking Tobacco: Never Assessed Comments Unknown Sex and Gender Information Value Date Recorded Sex Assigned at Not on file 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 Gender Identity Not on file Sexual Orientation Not on file documented as of this encounter Plan of Treatment Not on file documented as of this encounter Procedures Procedure Name Priority Date/Time Associated Diagnosis Comments CBC WITH DIFFERENTIAL Routine 04/11/2007 5:16 PM CDT CBC WITH DIFFERENTIAL Routine 04/11/2007 5:16 PM CDT documented in this encounter Results * (ABNORMAL) CBC WITH DIFFERENTIAL (04/11/2007 5:16 PM CDT) NEUTROPHILS 76(H) 45 - 70 % INTERFAC E SYSTEM LYMPHOCYTES 15(L) 16 - 45 % INTERFAC E SYSTEM MONOCYTES 7 3 - 13 % INTERFACE SYSTEM EOSINOPHILS 2 0 - 7 % INTERFAC E SYSTEM BASOPHILS 0 0 - 2 % INTERFACE SYSTEM NEUTROPHIL ABSOLUTE 7.24(H) 1.90 - 7.00 K/uL INTERFACE SYSTEM LYMPHOCYTE ABSOLUTE 1.42 0.70 - 4.50 K/uL INTERFACE SYSTEM MONOCYTE ABSOLUTE 0.68 0.10 - 1.30 K/uL INTERFACE SYSTEM EOSINOPHIL ABSOLUTE 0.19 0.00 - 0.70 K/uL INTERFACE SYSTEM BASOPHILS ABSOLUTE 0.02 0.00 - 0.20 K/uL INTERFACE SYSTEM 04/11/2007 5:16 PM CDT us Zeyad Millan MD HEMATOLOGY ORDERABLES Ed ited Performing Organization Address [facility] de Phone Number INTERFACE SYSTEM Refer to clinic/hospital department * (ABNORMAL) CBC WITH DIFFERENTIAL (04/11/2007 5:16 PM CDT) Pathologist [facility] WBC 9.6 4.0 - 9.8 K/uL INTERFACE SYSTEM RBC 4.42 3.90 - 4.90 M/uL INTERFACE SYSTEM HEMOGLOBIN 12.4 11.8 - 14.8 g/dL INTERFACE SYSTEM HEMATOCRIT 36.9 35.5 - 44.0 % INTERFACE SYSTEM MCV 83.5 82.0 - 99.0 fL INTERFACE SYSTEM MCH 28.1 27.2 - 32.6 pg INTERFACE SYSTEM MCHC 33.6 31.5 - 35.5 % INTERFACE SYSTEM RDW 15.8(H) 11.5 - 14.5 % INTERFACE SYSTEM RDW-STDEV 47.9 37.1 - 48.7 fL INTERFACE SYSTEM PLATELETS 194 140 - 350 K/uL INTERFACE SYSTEM MPV 11.2 9.3 - 12.4 fL INTERFACE SYSTEM 04/11/2007 5:16 PM CDT us Zeyad Millan MD HEMATOLOGY ORDERABLES Ed ited Performing Organization Address [facility] Co de Phone Number INTERFACE SYSTEM Refer to clinic/hospital department documented in this encounter Visit Diagnoses Diagnosis Threatened premature labor, antepartum(644.03)- Primary Threatened premature labor, antepartum documented in this encounter Care Teams Officer Captain Relationship Specialty Start Date End Date Jarvis Coffey MD [address] [place] [address] PCP - General Family Practice 10/18/24 documented as of this encounter
--- OUTSIDE RECORDS SUMMARY | 2024-12-06 01:00 | XMS_ITS | Encounter Summary ---
Author Organization [employer] Address 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 Gender Identity Not on file Sexual Orientation Not on file documented as of this encounter Plan of Treatment Not on file documented as of this encounter Procedures Procedure Name Priority Date/Time Associated Diagnosis Comments CBC WITH DIFFERENTIAL Routine 02/25/2005 10:04 AM CDT CBC WITH DIFFERENTIAL Routine 02/25/2005 10:04 AM CDT documented in this encounter Results * (ABNORMAL) CBC WITH DIFFERENTIAL (02/25/2005 10:04 AM CDT) NEUTROPHIL ABSOLUTE 9.75(H) 1.90 - 7.00 K/uL INTERFACE SYSTEM LYMPHOCYTE ABSOLUTE 1.38 0.70 - 4.50 K/uL INTERFACE SYSTEM MONOCYTE ABSOLUTE 0.88 0.10 - 1.30 K/uL INTERFACE SYSTEM EOSINOPHIL ABSOLUTE 0.00 0.00 - 0.70 K/uL INTERFACE SYSTEM BASOPHILS ABSOLUTE 0.00 0.00 - 0.20 K/uL INTERFACE SYSTEM NEUTROPHILS, SEG 76(H) 45 - 70 % INT ERFACE SYSTEM BANDS 2 0 - 5 % INTERFACE SYSTEM LYMPHOCYTES 11(L) 16 - 45 % INTERFAC E SYSTEM MONOCYTES 7 3 - 13 % INTERFACE SYSTEM EOSINOPHILS 0 0 - 7 % INTERFAC E SYSTEM BASOPHILS 0 0 - 2 % INTERFACE SYSTEM METAMYELOCYTE 4(H) <=0 % INTERF [place]ARLIN SYSTEM PLATELET EST. Normal Normal INTERF [place]ARLIN SYSTEM RBC MORPHOLOGY Normal Normal INTER FACE SYSTEM 02/25/2005 10:0 4 AM CDT us Zeyad Millan MD HEMATOLOGY ORDERABLES Fi nal Result Performing Organization Address [facility] Co de Phone Number INTERFACE SYSTEM Refer to clinic/hospital department * (ABNORMAL) CBC WITH DIFFERENTIAL (02/25/2005 10:04 AM CDT) WBC 12.5(H) 4.0 - 9.8 K/uL INTERFACE SYSTEM RBC 3.66(L) 3.90 - 4.90 M/uL INTERFACE SYSTEM HEMOGLOBIN 10.9(L) 11.8 - 14.8 g/dL INTERFACE SYSTEM HEMATOCRIT 33.9(L) 35.5 - 44.0 % INTERFACE SYSTEM MCV 92.6 82.0 - 99.0 fL INTERFACE SYSTEM MCH 29.8 27.2 - 32.6 pg INTERFACE SYSTEM MCHC 32.2 31.5 - 35.5 % INTERFACE SYSTEM RDW 14.1 11.5 - 14.5 % INTERFACE SYSTEM RDW-STDEV 47.5 37.1 - 48.7 fL INTERFACE SYSTEM PLATELETS 179 140 - 350 K/uL INTERFACE SYSTEM MPV 10.1 9.3 - 12.4 fL INTERFACE SYSTEM 02/25/2005 10:0 4 AM CDT us Zeyad Millan MD HEMATOLOGY ORDERABLES Fi nal Result Performing Organization Address [facility] Co de Phone Number INTERFACE SYSTEM Refer to clinic/hospital department documented in this encounter Visit Diagnoses Diagnosis Other known or suspected abnormality, not elsewhere classified, affecting management of mother, with delivered- Primary documented in this encounter Care Teams Manager Intel Relationship Specialty Start Date End Date Jarvis Coffey MD [address] [facility] [place] [address] PCP - General Family Practice 10/18/24 documented as of this encounter
--- OUTSIDE RECORDS SUMMARY | 2024-12-06 01:00 | XMS_ITS | Encounter Summary ---
Author Organization [facility] Address [address] [place] [address] Care Team Providers Care Impersonator Character Name Role Phone Jarvis Coffey MD Primary Care Provider Encounter Details Date Type Department Care Team (Late st Contact Info) Description 04/24/2007 Outpatient Historical [facility] Maternal and Ground Floor S [facility] [address] [place] [address] Jeremy Bustillo MD NO ADDRESS ON FILE Social History Tobacco Use Types Packs/Day Years Used Date Smoking Tobacco: Never Assessed Comments Unknown Sex and Gender Information Value Date Recorded Sex Assigned at Not on file 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
--- OUTSIDE RECORDS SUMMARY | 2024-12-06 01:00 | XMS_ITS | Encounter Summary ---
Author Organization [employer] Address 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
--- OUTSIDE RECORDS SUMMARY | 2024-12-06 01:00 | XMS_ITS | Encounter Summary ---
Author Organization [employer] Address 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
--- OUTSIDE RECORDS SUMMARY | 2024-12-06 01:00 | XMS_ITS | Continuity of Care Document ---
Author Organization [facility] Address [address] [place] [address] Phone Care Team Providers Care Retoucher Photoengraving Name Role Phone Hutson OD, Junior Unavailable Unavailable Procedures Procedure Date Office/outpatient Visit, Est Office/outpatient Visit, Est Office/outpatient Visit, Est Advance Directives Directive Yes / No Effective Date File Name No Information Encounters Encounter Description Practice Location Reason(s) For Visit Diagnoses Date Provider Providers Copied on Encounter Office/outpat ient Visit, [facility], [address] [place] [address] [address], [place], [place], [id number], [place] tel:[phone] [facility] No Information 8-201 0 Hutson OD Junior. [facility] [facility] , [address], [place], [place], [facility], . tel:[phone] Office/outpat ient Visit, [facility], [address] [place] [address] [address], [place], [place], [id number], [place] tel:[phone] [facility] No Information 6-201 0 Hutson OD Junior. [address], [place], [place], [facility], . tel:[phone] Office/outpat ient Visit, [facility], [address] [place] [address] [address], [place], [place], [id number], [place] tel:[phone] [facility] No Information 200 8 Gino Zhao. [address] [facility] , [address], [place], [address], [place]. tel:[phone] Family History Family Member Type Diagnosis Age At Onset No Information Payers Payer name Insurance type Covered democrat ID Authordariela katt(s) [facility] [id number] Social History Type Description Quantity Date Captured [...]
--- OUTSIDE RECORDS SUMMARY | 2024-12-06 01:00 | XMS_ITS | Encounter Summary ---
Author Organization [employer] Address 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
--- OUTSIDE RECORDS SUMMARY | 2024-12-06 01:00 | XMS_ITS | Encounter Summary ---
Author Organization [facility] Address [address] [place] [address] Care Team Providers Care Steel Turner Name Role Phone Jarvis Coffey MD Primary Care Provider Encounter Details Date Type Department Care Team (Late st Contact Info) Description 11/23/2004 Outpatient Historical [facility] Maternal and Ground Floor [address] [place] [address] [place] [address] Zeyad Millan MD [address] [place] [address] [place] [address] Social History Tobacco Use Types Packs/Day Years Used Date Smoking Tobacco: Never Assessed Comments Unknown Sex and Gender Information Value Date Recorded Sex Assigned at Not on file 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
--- OUTSIDE RECORDS SUMMARY | 2024-12-06 01:00 | XMS_ITS | Encounter Summary ---
Author Organization [employer] Address [address] [place] [address] Care Team Providers Care Returned Telephone Equipment Appraiser Name Role Phone Jarvis Coffey MD Primary Care Provider Encounter Details Date Type Department Care Team (Latest Contact Info) Description 12/28/2004 Outpatient Historical [facility] Zeyad Millan MD [address] [facility] [address] [place] [address] THYROID DYSFUNC-ANTEPART (Primary Dx) Social History Tobacco Use Types Packs/Day Years Used Date Smoking Tobacco: Never Assessed Comments Unknown Sex and Gender Information Value Date Recorded Sex Assigned at Not on file 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
--- OUTSIDE RECORDS SUMMARY | 2024-12-06 01:00 | XMS_ITS | Encounter Summary ---
Author Organization [employer] Address 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
--- OUTSIDE RECORDS SUMMARY | 2024-12-06 01:00 | XMS_ITS | Encounter Summary ---
Author Organization [facility] Address [address] [place] [address] Care Team Providers Care Industrial Refrigeration Mechanic Name Role Phone Jarvis Coffey MD Primary Care Provider Encounter Details Date Type Department Care Team (Late st Contact Info) Description 01/12/2007 Outpatient Historical [facility] Maternal and Ground Floor [address] [place] [phone] Zeyad Millan MD [address] [place] [address] [place] [address] Social History Tobacco Use Types Packs/Day Years Used Date Smoking Tobacco: Never Assessed Comments Unknown Sex and Gender Information Value Date Recorded Sex Assigned at Not on file 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
--- OUTSIDE RECORDS SUMMARY | 2024-12-06 01:00 | XMS_ITS | Encounter Summary ---
Author Organization [facility] Address [address] [place] [address] Care Team Providers Care Lpta Name Role Phone Jarvis Coffey MD Primary Care Provider Encounter Details Date Type Department Care Team (Late st Contact Info) Description 02/09/2007 Outpatient Historical [facility] Maternal and Ground Floor S [facility] [address] [place] [address] Gil Mobley MD [address] [place] [address] Social History Tobacco Use Types Packs/Day Years Used Date Smoking Tobacco: Never Assessed Comments Unknown Sex and Gender Information Value Date Recorded Sex Assigned at Not on file 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
--- OUTSIDE RECORDS SUMMARY | 2024-12-06 01:00 | XMS_ITS | Clinical Summary ---
Author Organization [facility] [address] [place] [address] Care Team Providers Care Security Researcher Name Role Phone Jarvis Coffey MD Primary [...] mcg total) by mouth daily 90 tablet 12/26/202 4 Active ergocalciferol (VITAMIN D) 50,000 unit capsule Take 1 capsule (50,000 Units total) by mouth once a week 13 capsule 1 4 10/24/20 25 Active Active Problems Problem Noted Date Diagnosed Date Essential hypertension 10/25/2022 Overview (10/25/2022): Continue lisinopril Mixed hyperlipidemia 04/12/2022 Overview (04/12/2022): Check lipid profike Postablative hypothyroidism 03/15/2014 Overview (02/02/2017): POSTABLAT HYPOTHYR NEC Assessment & Plan (09/25/2024 9:54 AM HAND CLOTH EXAMINER): Labs today Clinically euthyroid on 150mg daily Assessment & Plan (09/19/2023 9:31 AM HAND CLOTH EXAMINER): Has been on 150mcg daily x 2 weeks Will continue 150mcg daily and use Euthyrox as patient has been on branded Synthroid TSH with reflex in 2-4 weeks Resolved Problems Problem Noted Date Diagnosed Date Resolved Date Hypothyroidism 03/15/2014 09/19/2023 Overview (02/02/2017): HYPOTHYROIDISM NOS Encounters Date Type Department Care Team Description 10/24/2024 Orders Only [facility] [address] [place], [place] [address] [place] [address] Radha Hirsch NP Postablative hypothyroidism (Primary Dx) 09/25/2024 9:30 AM HAND CLOTH EXAMINER Office Visit [facility] [address] [place] [address] [address] [place] [address] Radha Hirsch NP Postablative hypothyroidism (Primary Dx); Vitamin D deficiency 09/13/2024 2:45 PM HAND CLOTH EXAMINER Ancillary Procedure [facility] Imaging at [address] [address] Acute cough 09/13/2024 2:30 PM HAND CLOTH EXAMINER Office Visit [facility] Convenient Care at [address] [address] Panfilo Jarquin NP Acute cough (Primary Dx); Acute bilateral low back pain without sciatica from Last 3 Months Immunizations Name Administration Dates Next Due Influenza, Trivalent, IM (MDV) 08/15/2018 Influenza, Trivalent, Preservative Free, Intramu scular 11/18/2013 Pfizer SARS-CoV-2 Monovalent Vaccination (12+ Yrs) PURPLE 10/12/2021 Tdap 06/10/2010 Surgical History Surgery Date Site/Laterality Comments SECTION section [place] DELIVERY ONLY Section - (Added by Conv) Medical History Medical History Date Comments Personal history of other en docrine, nutritional and metabolic disease History of thyroid d isorder - (Added by Conv) Family History Medical History Relation Name Comments Diabetes Father Family history of diabetes mellitus - (Added by Conv) Hypertension Father Family history of hypertension - (Added by TW Conv) Arthritis Mother Family history of arthritis - (Added by Conv) Thyroid disease Other Family histo ry of Thyroid disease; Relation Name Status Comments Father Mother Other Social History Tobacco Use Types Packs/Day Years [...] on file Legal Sex Female 12:06 PM HAND CLOTH EXAMINER Gender Identity Not on file Sexual Orientation Not on file Obstetrics History Last Filed Vital Signs Vital Sign Reading Time Taken Comments Blood Pressure 124/74 09/25/2024 9:22 AM HAND CLOTH EXAMINER Pulse 91 09/25/2024 9:22 AM HAND CLOTH EXAMINER Temperature 37.1 C (98.7 F) 09/13/2024 2:30 PM HAND CLOTH EXAMINER Respiratory Rate 16 09/13/2024 2:30 PM HAND CLOTH EXAMINER Oxygen Saturation 98% 09/25/2024 9:22 AM HAND CLOTH EXAMINER Inhaled Oxygen Concentration - - Weight 86.2 kg (190 lb) 09/25/2024 9:22 AM HAND CLOTH EXAMINER Height 157.5 cm (5' 2 ) 09/25/2024 9:22 AM HAND CLOTH EXAMINER Body Mass Index 34.75 09/25/2024 9:22 AM HAND CLOTH EXAMINER Plan of Treatment Health Maintenance Due Date Last Done Comments Cervical Cancer Screening 1972 Colon Cancer Screening-Colonoscopy 1972 Depression Screening 1972 Hepatitis C Screening 1972 Hepatitis B Screening 1990 Regular Well Visit/Exam 18-64 1990 Breast Cancer Screening-Mammogram 05/31/2013 05/31/2012 DTaP/Tdap/Td Vaccine (2 - Td or Tdap) 06/10/2020 06/10/2010 Zoster Vaccine (1 of 2) 2022 Covid-19 Vaccine (4 - 2023-2 5 season) 2024 10/12/2021, 01/02/2021, 12/12/2020 Influenza Vaccine (#1) 2024 3, 08/15/2018, 11/18/2013 Pneumococcal vaccine <65 Aged Out No longer eligible based on patient's age to complete this topic Procedures Procedure Name Priority Date/Time Associated Diagnosis Comments THYROID FUNCTION CASCADE Routine 11/23/2024 12:13 PM HAND CLOTH EXAMINER Essential hypertension NOTE Routine 10/21/2024 10:34 AM HAND CLOTH EXAMINER T4, FREE Routine 10/21/2024 10:34 AM HAND CLOTH EXAMINER THYROID FUNCTION CASCADE Routine 10/21/2024 10:34 AM HAND CLOTH EXAMINER Postablative hypothyroidism VITAMIN D 25 HYDROXY Routine 10/21/2024 10:34 AM HAND CLOTH EXAMINER Vitamin D deficiency URINALYSIS AND REFLEX TO MICROSCOPIC Routine 10/21/2024 10:34 AM HAND CLOTH EXAMINER Postablative hypothyroidism COMPREHENSIVE METABOLIC PANEL Routine 10/21/2024 10:34 AM HAND CLOTH EXAMINER Postablative hypothyroidism CBC WITH AUTO DIFFERENTIAL Routine 10/21/2024 10:34 AM HAND CLOTH EXAMINER Postablative hypothyroidism XR CHEST PA LATERAL 2 VIEWS Schedule TREMAINE, Read TREMAINE (Appt Today, Awaiting Results) 09/13/2024 2:47 PM HAND CLOTH EXAMINER Acute cough from Last 3 Months Results * Thyroid Function [place] (11/23/2024 12:13 PM HAND CLOTH EXAMINER) TSH 0.63 mIU/L [facility] Comment: Reference Range > or = 20 Years 0.40-4.50 Ranges First trimester 0.26-2.66 Second trimester 0.55-2.73 Third trimester 0.43-2.91 Blood 11/23/2024 12:1 3 PM HAND CLOTH EXAMINER 11/23/2024 12:13 PM HAND CLOTH EXAMINER Radha Hirsch MODULAR HOME CREW MEMBER LAB BLOOD ORDERABLES Fin al Result [facility] [address] [place] [address] * NOTE (10/21/2024 10:34 AM HAND CLOTH EXAMINER) Pathologist [facility] Note [facility] Comment: This urine was analyzed for the presence of WBC, RBC, bacteria, casts, and other formed elements. Only those elements seen were reported. 10/21/2024 10:3 4 AM HAND CLOTH EXAMINER 10/21/2024 10:38 AM HAND CLOTH EXAMINER Radha Hirsch MODULAR HOME CREW MEMBER LAB BLOOD ORDERABLES Fin al Result [facility] [address] [place] [address] * (ABNORMAL) Thyroid Function [place] (10/21/2024 10:34 AM HAND CLOTH EXAMINER) Pathologist [facility] TSH 46.22(H) mIU/L [facility] Comment: Reference Range > or = 20 Years 0.40-4.50 Ranges First trimester 0.26-2.66 Second trimester 0.55-2.73 Third trimester 0.43-2.91 Blood 10/21/2024 10:3 4 AM HAND CLOTH EXAMINER 10/21/2024 10:38 AM HAND CLOTH EXAMINER Radha Hirsch MODULAR HOME CREW MEMBER LAB BLOOD ORDERABLES Fin al Result Performing Organization Address [facility] Co de Phone Number [facility] [address] [place] [address] * (ABNORMAL) Urinalysis reflex to microscopic (10/21/2024 10:34 AM HAND CLOTH EXAMINER) Color, ur YELLOW YELLOW [facility] [...] t Jean Urine 10/21/2024 10:3 4 AM HAND CLOTH EXAMINER 10/21/2024 10:38 AM HAND CLOTH EXAMINER Radha Hirsch MODULAR HOME CREW MEMBER LAB URINE ORDERABLES Fin al Result Performing Organization Address [facility]/ZIP Co de Phone Number [facility] [address] [place] [address] * (ABNORMAL) CBC with auto differential (10/21/2024 10:34 AM HAND CLOTH EXAMINER) [facility] WBC 7.2 3.8 - 10.8 Thousand/u L [...] 173 15 - 500 cells/uL [facility] Basophils, abs 72 0 - 200 cells/uL [facility] Neutrophils 66.6 % [facility] Lymphocyte pct 23.6 % [facility] Monocytes 6.4 % [facility] Eosinophils 2.4 % [facility] Basophils 1.0 % [facility] Blood 10/21/2024 10:3 4 AM HAND CLOTH EXAMINER 10/21/2024 10:38 AM HAND CLOTH EXAMINER Radha Hirsch MODULAR HOME CREW MEMBER LAB BLOOD ORDERABLES Fin al Result [facility] [address] [place] [address] * (ABNORMAL) Vitamin D 25 hydroxy (10/21/2024 10:34 AM HAND CLOTH EXAMINER) Vitamin D 25-OH 18(L) 30 - 100 ng/mL [facility] Comment: Vitamin D Status 25-OH Vitamin D: Deficiency: <20 ng/mL Insufficiency: 20 - 29 ng/mL Optimal: > or = 30 ng/mL For 25-OH Vitamin D testing on patients on D2-supplementation and patients for whom quantitation of D2 and D3 fractions is required, the QuestAssure[facility](TM) 25-OH VIT D, (D2,D3), LC/MS/MS is recommended: order code 40449 (patients >2yrs). See Note 1 Note 1 For additional information, please refer to http://education.StartBull/faq/DRB355 (This link is being provided for informational/ educational purposes only.) Blood 10/21/2024 10:3 4 AM HAND CLOTH EXAMINER 10/21/2024 10:38 AM HAND CLOTH EXAMINER Radha Hirsch MODULAR HOME CREW MEMBER LAB BLOOD ORDERABLES Fin al Result Performing Organization Address [facility] Co de Phone Number [facility] [address] [place] [address] * T4, free (10/21/2024 10:34 AM HAND CLOTH EXAMINER) Pathologist [facility] Free T4 0.9 0.8 - 1.8 ng/dL [facility] 10/21/2024 10:3 4 AM HAND CLOTH EXAMINER 10/21/2024 10:38 AM HAND CLOTH EXAMINER Radha Hirsch MODULAR HOME CREW MEMBER LAB BLOOD ORDERABLES Fin al Result Performing Organization Address City/[facility]/ZIP Co de Phone Number [facility] [address] [place] [address] * (ABNORMAL) Comprehensive metabolic panel (10/21/2024 10:34 AM HAND CLOTH EXAMINER) Glucose 91 65 - 99 mg/dL [facility] Comment: Fasting reference interval BUN 15 7 - 25 mg/dL [facility] Creatinine 0.83 0.50 - 1.03 mg/dL [facility] eGFR 85 > OR = 60 mL/min/1.7 3m2 [facility] BUN/creat ratio SEE NOTE: 6 - 22 (calc) [facility] Comment: Not Reported: BUN and Creatinine are within reference range. Sodium 135 135 - 146 mmol/L [facility] Potassium, pl 4.0 3.5 - 5.3 mmol/L [facility] Chloride 98 98 - 110 mmol/L [facility] CO2 29 20 - 32 mmol/L [facility] Calcium 8.7 8.6 - 10.4 mg/dL [facility] Protein, sr 7.0 6.1 - 8.1 g/dL [facility] Albumin 4.6 3.6 - 5.1 g/dL [facility] GLOBULIN 2.4 1.9 - 3.7 g/dL (calc) [facility] Alb/glob ratio 1.9 1.0 - 2.5 (calc) [facility] Bilirubin, total 2.4(H) 0.2 - 1.2 mg/dL [facility] Alk phos 55 37 - 153 U/L [facility] AST 24 10 - 35 U/L [facility] ALT (SGPT) 25 6 - 29 U/L [facility] Blood 10/21/2024 10:3 4 AM HAND CLOTH EXAMINER 10/21/2024 10:38 AM HAND CLOTH EXAMINER us Radha Hirsch MODULAR HOME CREW MEMBER LAB BLOOD ORDERABLES Fin al Result [facility] [address] [place] [address] * XR Chest PA Lateral 2 Views (09/13/2024 2:47 PM HAND CLOTH EXAMINER) Anatomical Region Laterality Modality Body, Chest N/A Digital Radiogra phy 09/13/2024 4:21 PM HAND CLOTH EXAMINER Narrative 09/13/2024 4:21 PM HAND CLOTH EXAMINER EXAM DESCRIPTION: XR CHEST PA LATERAL 2 [...] Daniela Prieto M.D. FT T: Report ID: [id number] Reading Location: [place] [address] Procedure Note Daniela Maldonado MD - 09/13/2024 [...] Daniela Prieto M.D. FT T: Report ID: [id number] Reading Location: [id number] Panfilo Jarquin NP IMG XR PROCEDURES Final Result from Last 3 Months Insurance ANTHEM ACCESS CHOICE ANTHEM ACCESS CHOICE Care Teams Security Researcher Relationship Specialty Start Date End Date Jarvis Coffey MD [address] [place] [address] [address] [place] [address] PCP - General Family Practice 09/19/23
--- OUTSIDE RECORDS SUMMARY | 2024-12-06 01:00 | XMS_ITS | Encounter Summary ---
Author Organization [facility] Address [address] [place] [address] Care Team Providers Care Electronic Plotting System Operator Name Role Phone Jarvis Coffey MD Primary Care Provider Encounter Details Date Type Department Care Team (Late st Contact Info) Description 02/25/2005 Outpatient Historical [facility] Maternal and Ground Floor [address] [address] [place] [address] Zeyad Millan MD [address] [place] [address] [place] [address] Social History Tobacco Use Types Packs/Day Years Used Date Smoking Tobacco: Never Assessed Comments Unknown Sex and Gender Information Value Date Recorded Sex Assigned at Not on file Legal Sex Female 3:24 AM PRACTICE CLINICIAN Gender Identity Not on file Sexual Orientation Not on file documented as of this encounter Plan of Treatment Not on file documented as of this encounter Visit Diagnoses Not on filedocumented in this encounter Care Teams Electronic Plotting System Operator Relationship Specialty Start Date End Date Jarvis Coffey MD [address] [facility]] [place] [address] PCP - General Family Practice 10/18/24 documented as of this encounter
--- OUTSIDE RECORDS SUMMARY | 2024-12-06 01:00 | XMS_ITS | Encounter Summary ---
Author Organization [facility] Address [address] [place] [address] Care Team Providers Care Medical Billing Manager Name Role Phone Jarvis Coffey MD Primary Care Provider Encounter Details Date Type Department Care Team (Latest Contact Info) Description 10/25/[address] [facility] Zeyad Millan MD [address] [facility] [address] [place] [address] Other Specified Screening (Primary Dx) Social History Tobacco Use Types Packs/Day Years Used Date Smoking Tobacco: Never Assessed Comments Unknown Sex and Gender Information Value Date Recorded Sex Assigned at Not on file Legal Sex Female 3:24 AM BUSINESS TRANSFORMATION MANAGER Gender Identity Not on file Sexual Orientation Not on file documented as of this encounter Plan of Treatment Not on file documented as of this encounter Visit Diagnoses Diagnosis Other screening- Primary Other specified screening documented in this encounter Care Teams Medical Billing Manager Relationship Specialty Start Date End Date Jarvis Coffey MD [address] [facility] [place] [address] PCP - General Family Practice 10/18/24 documented as of this encounter
--- OUTSIDE RECORDS SUMMARY | 2024-12-06 01:00 | XMS_ITS | Encounter Summary ---
Author Organization [facility] Address [address] [place] [address] Care Team Providers Care Food Checkers And Cashiers Supervisor Name Role Phone Jarvis Coffey MD Primary Care Provider Encounter Details Date Type Department Care Team (Late st Contact Info) Description 04/06/2007 Outpatient Historical [facility] Maternal and Ground Floor S [facility] [address] [place] [address] Gil Mobley MD [address] [place] [address] Social History Tobacco Use Types Packs/Day Years Used Date Smoking Tobacco: Never Assessed Comments Unknown Sex and Gender Information Value Date Recorded Sex Assigned at Not on file Legal Sex Female 3:24 AM CD MIXER Gender Identity Not on file Sexual Orientation Not on file documented as of this encounter Plan of Treatment Not on file documented as of this encounter Visit Diagnoses Not on filedocumented in this encounter Care Teams Food Checkers And Cashiers Supervisor Relationship Specialty Start Date End Date Jarvis Coffey MD [address] [facility] [place] [address] PCP - General Family Practice 10/18/24 documented as of this encounter
--- OUTSIDE RECORDS SUMMARY | 2024-12-06 01:00 | XMS_ITS | Encounter Summary ---
Author Organization [facility] Address [address] [place] [address] Care Team Providers Care Range Mechanic Name Role Phone Jarvis Coffey MD Primary Care Provider Encounter Details Date Type Department Care Team (Late st Contact Info) Description 09/25/2006 Outpatient Historical [facility] Maternal and Ground Floor [address] [address] [place] [phone] Zeyad Millan MD [address] [place] [address] [place] [address] Social History Tobacco Use Types Packs/Day Years Used Date Smoking Tobacco: Never Assessed Comments Unknown Sex and Gender Information Value Date Recorded Sex Assigned at Not on file Legal Sex Female 3:24 AM MEDICAL CARE ADMINISTRATOR Gender Identity Not on file Sexual Orientation Not on file documented as of this encounter Plan of Treatment Not on file documented as of this encounter Visit Diagnoses Not on filedocumented in this encounter Care Teams Range Mechanic Relationship Specialty Start Date End Date Jarvis Coffey MD [address] [facility] [place] [address] PCP - General Family Practice 10/18/24 documented as of this encounter
--- OUTSIDE RECORDS SUMMARY | 2024-12-06 01:00 | XMS_ITS | Encounter Summary ---
Author Organization [facility] Address [address] [place] [address] Care Team Providers Care Excavating Machine Operator Name Role Phone Jarvis Coffey MD Primary Care Provider Encounter Details Date Type Department Care Team (Latest Contact Info) Description 06/06/2006 Outpatient Historical [facility] Zeyad Millan MD [address] [facility] [address], [place] [phone] Other High-Risk (Primary Dx) Social History Tobacco Use Types Packs/Day Years Used Date Smoking Tobacco: Never Assessed Comments Unknown Sex and Gender Information Value Date Recorded Sex Assigned at Not on file Legal Sex Female 3:24 AM STRATEGIC COMMUNICATIONS SPECIALIST Gender Identity Not on file Sexual Orientation Not on file documented as of this encounter Plan of Treatment Not on file documented as of this encounter Procedures Procedure Name Priority Date/Time Associated Diagnosis Comments HCG QUANTITATIVE, BLOOD Routine 06/06/2006 4:08 PM CDT documented in this encounter Results * (ABNORMAL) HCG QUANTITATIVE, BLOOD (06/06/2006 4:08 PM CDT) HCG QUANT, BLOOD 817(H) 0 - 5 mIU/mL INTERFACE SYSTEM Comment: Result of 5 - 25 mIU/mL is indeterminant for , repeat of test recommemded in 48 hours. Reference Range: Gestational Age: 3 Weeks 5.8 - 71.2 mIU/mL 4 Weeks 9.5 - 750 mIU/mL 5 Weeks 217 - 7138 mIU/mL 6 Weeks 158 - 31,795 mIU/mL 7 Weeks 3697 - 163,563 mIU/mL 8 Weeks 32,065 - 149,571 mIU/mL 9 Weeks 63,803 - 151,410 mIU/mL 10 Weeks 46,509 - 186,977 mIU/mL 12 Weeks 27,832 - 210,612 mIU/mL 14 Weeks 13,950 - 62,530 mIU/mL 15 Weeks 12,039 - 70,971 mIU/mL 16 Weeks 9040 - 56,451 mIU/mL 17 Weeks 8175 - 55,868 mIU/mL 18 Weeks 8099 - 58,176 mIU/mL Heterophile antibodies and other interfering substances in the serum of some patients may cause a false-positive result in this assay. Before making a diagnosis of malignancy or ectopic ,the result of thi s test should be confirmed with a urine HCG test and correlated with other clinical evidence. RESULT COMMENT, CHEMISTRY INTERFACE SYSTEM Comment: CG: Results faxed. 06/06/2006 4:08 PM CDT us Zeyad Millan MD CHEMISTRY ORDERABLES Fin al Result INTERFACE SYSTEM Refer to clinic/hospital department documented in this encounter Visit Diagnoses Diagnosis Supervision of other high-risk (V23.89)- Primary Supervision of other high-risk documented in this encounter Care Teams Excavating Machine Operator Relationship Specialty Start Date End Date Jarvis Coffey MD [address] [facility] [place] [address] PCP - General Family Practice 10/18/24 documented as of this encounter
--- OUTSIDE RECORDS SUMMARY | 2024-12-06 01:00 | XMS_ITS | Encounter Summary ---
Author Organization [facility] Address [address] [place] [address] Care Team Providers Care Manager R D Name Role Phone Jarvis Coffey MD Primary Care Provider Encounter Details Date Type Department Care Team (Latest Contact Info) Description 11/26/2006 Outpatient Historical [facility] Zeyad Millan MD [address] [facility] [address] [place] [address] Other Specified Screening (Primary Dx) Social History Tobacco Use Types Packs/Day Years Used Date Smoking Tobacco: Never Assessed Comments Unknown Sex and Gender Information Value Date Recorded Sex Assigned at Not on file Legal Sex Female 3:24 AM DIRECTOR SANITATION BUREAU Gender Identity Not on file Sexual Orientation Not on file documented as of this encounter Plan of Treatment Not on file documented as of this encounter Visit Diagnoses Diagnosis Other screening- Primary Other specified screening documented in this encounter Care Teams Manager R D Relationship Specialty Start Date End Date Jarvis Coffey MD [address] [facility] [place] [address] PCP - General Family Practice 10/18/24 documented as of this encounter
--- OUTSIDE RECORDS SUMMARY | 2024-12-06 01:00 | XMS_ITS | Encounter Summary ---
Author Organization [facility] Address [address] [place] [address] Care Team Providers Care Automotive Lube Technician Name Role Phone Jarvis Coffey MD Primary Care Provider Encounter Details Date Type Department Care Team (Late st Contact Info) Description 12/18/2006 Outpatient Historical [facility] Maternal and Ground Floor S [facility] [address] [place] [phone] Gil Mobley MD [address] [place] [address] Social History Tobacco Use Types Packs/Day Years Used Date Smoking Tobacco: Never Assessed Comments Unknown Sex and Gender Information Value Date Recorded Sex Assigned at Not on file Legal Sex Female 3:24 AM CENTRAL OFFICE FRAME WIRER Gender Identity Not on file Sexual Orientation Not on file documented as of this encounter Plan of Treatment Not on file documented as of this encounter Visit Diagnoses Not on filedocumented in this encounter Care Teams Automotive Lube Technician Relationship Specialty Start Date End Date Jarvis Coffey MD [address] [facility] [place] [address] PCP - General Family Practice 10/18/24 documented as of this encounter
--- OUTSIDE RECORDS SUMMARY | 2024-12-06 01:00 | XMS_ITS | Encounter Summary ---
Author Organization [employer] Address [address] [place] [address] Care Team Providers Care Bearingizer Name Role Phone Jarvis Coffey MD Primary Care Provider Encounter Details Date Type Department Care Team (Latest Contact Info) Description 05/03/2007 Inpatient Historical [facility] Zeyad Millan MD [address] [facility] [address] [place] [phone] Prev S-Hucdqtkl-Ahvnneh (Primary Dx) Social History Tobacco Use Types Packs/Day Years Used Date Smoking Tobacco: Never Assessed Comments Unknown Sex and Gender Information Value Date Recorded Sex Assigned at Not on file Legal Sex Female 3:24 AM DISPATCH MANAGER Gender Identity Not on file Sexual Orientation Not on file documented as of this encounter Plan of Treatment Not on file documented as of this encounter Procedures Procedure Name Priority Date/Time Associated Diagnosis Comments HIV DETECTION W/REFLX CONFIRMATION Routine 05/03/2007 6:00 AM CDT HIV RAPID SCREEN Routine 05/03/2007 6:00 AM CDT HEPATITIS B SURFACE ANTIGEN Routine 05/03/2007 6:00 AM CDT RUBELLA IGG Routine 05/03/2007 6:00 AM CDT CBC WITH DIFFERENTIAL Routine 05/03/2007 6:00 AM CDT CBC WITH DIFFERENTIAL Routine 05/03/2007 6:00 AM CDT RPR Routine 05/03/2007 6:00 AM CDT CBC WITH DIFFERENTIAL Routine 05/01/2007 11:04 AM CDT CBC WITH DIFFERENTIAL Routine 05/01/2007 11:04 AM CDT URINALYSIS W/REFLEX MICROSCOPIC Routine 05/01/2007 11:04 AM CDT documented in this encounter Results * HIV RAPID SCREEN (05/03/2007 6:00 AM CDT) [facility] RAPID HIV SCREEN Nonreactive Nonreactive INTERFACE SYSTEM 05/03/2007 6:00 AM CDT us Zeyad Millan MD CHEMISTRY ORDERABLES Edgar shant Performing Organization Address [facility] de Phone Number INTERFACE SYSTEM Refer to clinic/hospital department * (ABNORMAL) CBC WITH DIFFERENTIAL (05/03/2007 6:00 AM CDT) Pathologist [facility] NEUTROPHILS 76(H) 45 - 70 % INTERFAC E SYSTEM LYMPHOCYTES 15(L) 16 - 45 % INTERFAC E SYSTEM MONOCYTES 7 3 - 13 % INTERFACE SYSTEM EOSINOPHILS 2 0 - 7 % INTERFAC E SYSTEM BASOPHILS 0 0 - 2 % INTERFACE SYSTEM NEUTROPHIL ABSOLUTE 7.53(H) 1.90 - 7.00 K/uL INTERFACE SYSTEM LYMPHOCYTE ABSOLUTE 1.51 0.70 - 4.50 K/uL INTERFACE SYSTEM MONOCYTE ABSOLUTE 0.73 0.10 - 1.30 K/uL INTERFACE SYSTEM EOSINOPHIL ABSOLUTE 0.17 0.00 - 0.70 K/uL INTERFACE SYSTEM BASOPHILS ABSOLUTE 0.02 0.00 - 0.20 K/uL INTERFACE SYSTEM 05/03/2007 6:00 AM CDT us Zeyad Millan MD HEMATOLOGY ORDERABLES Ed ited Performing Organization Address [facility] de Phone Number INTERFACE SYSTEM Refer to clinic/hospital department * (ABNORMAL) CBC WITH DIFFERENTIAL (05/03/2007 6:00 AM CDT) WBC 10.0(H) 4.0 - 9.8 K/uL INTERFACE SYSTEM RBC 4.40 3.90 - 4.90 M/uL INTERFACE SYSTEM HEMOGLOBIN 12.5 11.8 - 14.8 g/dL INTERFACE SYSTEM HEMATOCRIT 36.6 35.5 - 44.0 % INTERFACE SYSTEM MCV 83.2 82.0 - 99.0 fL INTERFACE SYSTEM MCH 28.4 27.2 - 32.6 pg INTERFACE SYSTEM MCHC 34.2 31.5 - 35.5 % INTERFACE SYSTEM RDW 16.8(H) 11.5 - 14.5 % INTERFACE SYSTEM RDW-STDEV 50.1(H) 37.1 - 48.7 fL INTERFACE SYSTEM PLATELETS 188 140 - 350 K/uL INTERFACE SYSTEM MPV 10.9 9.3 - 12.4 fL INTERFACE SYSTEM 05/03/2007 6:00 AM CDT us Zeyad Millan MD HEMATOLOGY ORDERABLES Ed ited INTERFACE SYSTEM Refer to clinic/hospital department * HIV ANTIBODY W/REFLX CONFIRMATION (05/03/2007 6:00 AM CDT) HIV-1 AND 2 ABS NON-REACTI VE NON-REACT FELIX INTERFACE SYSTEM Comment: Effective April 02, 2007, HIV 1/2 Antibody Screen with Reflexed Confirmati on has replaced HIV-1 Antibody Screen. HIV-1 Antibody Screen is no longer offered due to lack of available kits from the combination machine tool setter. A NON-REACTIVE HIV 1/2 ANTIBODY RESULT DOES NOT EXCLUDE HIV INFECTION SINCE THE TIME FRAME FOR SEROCONVERSION IS VARIABLE. IF ACUTE HIV INFECTION IS SUSPECTED, ANTIBODY RETESTING AND NUCLEIC ACID AMPLIFICATION (HIV DNA/RNA) TESTING IS RECOMMENDED. Lab test performed by: [facility] [address] [place] [address] [address] JUSTINA FRANKEL MD 05/03/2007 6:00 AM CDT us Zeyad Millan MD CHEMISTRY ORDERABLES Edgar shant Performing Organization Address [facility] Phone Number INTERFACE SYSTEM Refer to clinic/hospital department * HEPATITIS B SURFACE ANTIGEN (05/03/2007 6:00 AM CDT) HEPATITIS B SURFACE AG NON-REACTI VE NON-REACT FELIX INTERFACE SYSTEM Comment: Lab test performed by: [facility] [id number] [employer] [id number] [address] JUSTINA FRANKEL MD 05/03/2007 6:00 AM CDT Zeyad Millan MD CHEMISTRY ORDERABLES Edgar shant Performing Organization Address [facility] Phone Number INTERFACE SYSTEM Refer to clinic/hospital department * RUBELLA IGG (05/03/2007 6:00 AM CDT) Pathologist [facility] RUBELLA IGG 3.50 EIA Value INTERFAC E SYSTEM Comment: EIA VALUE EXPLANATION OF TEST RESULTS --------- <0.91 NEGATIVE - NO RUBELLA IGG ANTIBODY DETECTED. 0.91 - 1.09 EQUIVOCAL > OR = 1.10 POSITIVE - RUBELLA IGG ANTIBODY DETECTED. THE PRESENCE OF RUBELLA IGG ANTIBODY SUGGESTS IMMUNIZATION OR PAST OR CURRENT INFECTION WITH RUBELLA VIRUS. Lab test performed by: [facility] [id number] [employer] [id number] [address] JUSTINA FRANKEL MD 05/03/2007 6:00 AM CDT us Zeyad Millan MD CHEMISTRY ORDERABLES Edgar shant Performing Organization Address [facility] Phone Number INTERFACE SYSTEM Refer to clinic/hospital department * RPR (05/03/2007 6:00 AM CDT) RPR NON-REACTI VE NON-REACT FELIX INTERFACE SYSTEM Comment: Lab test performed by: [facility] [id number] [employer] [id number] [address] JUSTINA FRANKEL MD 05/03/2007 6:00 AM CDT us Zeyad Millan MD CHEMISTRY ORDERABLES Edgar shant Performing Organization Address City/[facility] de Phone Number INTERFACE SYSTEM Refer to clinic/hospital department * (ABNORMAL) CBC WITH DIFFERENTIAL (05/01/2007 11:04 AM CDT) NEUTROPHILS 79(H) 45 - 70 % INTERFAC E SYSTEM LYMPHOCYTES 14(L) 16 - 45 % INTERFAC E SYSTEM MONOCYTES 6 3 - 13 % INTERFACE SYSTEM EOSINOPHILS 1 0 - 7 % INTERFAC E SYSTEM BASOPHILS 0 0 - 2 % INTERFACE SYSTEM NEUTROPHIL ABSOLUTE 7.21(H) 1.90 - 7.00 K/uL INTERFACE SYSTEM LYMPHOCYTE ABSOLUTE 1.26 0.70 - 4.50 K/uL INTERFACE SYSTEM MONOCYTE ABSOLUTE 0.55 0.10 - 1.30 K/uL INTERFACE SYSTEM EOSINOPHIL ABSOLUTE 0.13 0.00 - 0.70 K/uL INTERFACE SYSTEM BASOPHILS ABSOLUTE 0.01 0.00 - 0.20 K/uL INTERFACE SYSTEM 05/01/2007 11:0 4 AM CDT us Zeyad Millan MD HEMATOLOGY ORDERABLES Ed ited Performing Organization Address [facility] de Phone Number INTERFACE SYSTEM Refer to clinic/hospital department * (ABNORMAL) CBC WITH DIFFERENTIAL (05/01/2007 11:04 AM CDT) WBC 9.2 4.0 - 9.8 K/uL INTERFACE SYSTEM RBC 4.63 3.90 - 4.90 M/uL INTERFACE SYSTEM HEMOGLOBIN 13.1 11.8 - 14.8 g/dL INTERFACE SYSTEM HEMATOCRIT 39.3 35.5 - 44.0 % INTERFACE SYSTEM MCV 84.9 82.0 - 99.0 fL INTERFACE SYSTEM MCH 28.3 27.2 - 32.6 pg INTERFACE SYSTEM MCHC 33.3 31.5 - 35.5 % INTERFACE SYSTEM RDW 17.0(H) 11.5 - 14.5 % INTERFACE SYSTEM RDW-STDEV 52.1(H) 37.1 - 48.7 fL INTERFACE SYSTEM PLATELETS 222 140 - 350 K/uL INTERFACE SYSTEM MPV 10.8 9.3 - 12.4 fL INTERFACE SYSTEM 05/01/2007 11:0 4 AM CDT Zeyad Millan MD HEMATOLOGY ORDERABLES Ed ited Performing Organization Address [facility] Phone Number INTERFACE SYSTEM Refer to clinic/hospital department * (ABNORMAL) URINALYSIS (05/01/2007 11:04 AM CDT) COLOR UA Yellow INTERFACE SYSTEM CLARITY UA Clear Clear INTERFACE SYSTEM SPECIFIC GRAVITY UA 1.015 1.001 - 1.035 INTERFACE SYSTEM PH UA 6.0 5.0 - 8.0 INTERFACE SYSTEM LEUKOCYTE ESTERASE UA Trace(A) Negative INTERFACE SYSTEM NITRITE UA Negative Negative INTERFACE SYSTEM PROTEIN UA Negative Negative INTERFACE SYSTEM GLUCOSE UA Negative Negative INTERFACE SYSTEM KETONES UA Negative Negative INTERFACE SYSTEM UROBILINOGEN UA <1 <=1 mg/dL INTE RFACE SYSTEM BILIRUBIN UA Negative Negative INTERFA CE SYSTEM BLOOD UA Negative Negative INTERFACE SYSTEM WBC UA 1 0 - 5 /HPF INTERFACE SYSTEM BACTERIA UA 1+(A) None Seen /HPF INTERFACE SYSTEM EPITHELIAL CELLS, URINE 0-2 /HPF INTERFACE SYSTEM 05/01/2007 11:0 4 AM CDT Zeyad Millan MD URINE ORDERABLES Edited Performing Organization Address [facility] de Phone Number INTERFACE SYSTEM Refer to clinic/hospital department documented in this encounter Visit Diagnoses Diagnosis Previous delivery, delivered, with or without mention of antepartum condition- Primary documented in this encounter Care Teams Bearingizer Relationship Specialty Start Date End Date Jarvis Coffey MD [facility] [facility] [place] [address] PCP - General Family Practice 10/18/24 documented as of this encounter
--- OUTSIDE RECORDS SUMMARY | 2024-12-06 01:00 | XMS_ITS | Encounter Summary ---
Author Organization [facility] Address [address] [place] [address] Care Team Providers Care Civil Engineer Land Development Name Role Phone Jarvis Coffey MD Primary Care Provider Encounter Details Date Type Department Care Team (Late st Contact Info) Description 12/28/2004 Outpatient Historical [facility] Maternal and Ground Floor [address] [place] [phone] Zeyad Millan MD [address] [place] [id number] [place] [address] Social History Tobacco Use Types Packs/Day Years Used Date Smoking Tobacco: Never Assessed Comments Unknown Sex and Gender Information Value Date Recorded Sex Assigned at Not on file Legal Sex Female 3:24 AM 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
--- OUTSIDE RECORDS SUMMARY | 2024-12-06 01:00 | XMS_ITS | Encounter Summary ---
Author Organization [facility] Address [address] [place] [address] Care Team Providers Care Lawn Care Worker Name Role Phone Jarvis Coffey MD Primary Care Provider Encounter Details Date Type Department Care Team (Late st Contact Info) Description 04/12/2007 Outpatient Historical [facility] Maternal and Ground Floor S [facility] [address] [facility] [place] [address] Ross Wong MD NO ADDRESS ON FILE Social History Tobacco Use Types Packs/Day Years Used Date Smoking Tobacco: Never Assessed Comments Unknown Sex and Gender Information Value Date Recorded Sex Assigned at Not on file Legal Sex Female 3:24 AM MENTAL HEALTH CASE MANAGER Gender Identity Not on file Sexual Orientation Not on file documented as of this encounter Plan of Treatment Not on file documented as of this encounter Visit Diagnoses Not on filedocumented in this encounter Care Teams Lawn Care Worker Relationship Specialty Start Date End Date Jarvis Coffey MD [address] [facility] [place] [address] PCP - General Family Practice 10/18/24 documented as of this encounter
--- OUTSIDE RECORDS SUMMARY | 2024-12-06 01:00 | XMS_ITS | Encounter Summary ---
Author Organization [employer] Address [address] [place] [address] Care Team Providers Care Box Tender Name Role Phone Jarvis Coffey MD Primary Care Provider Encounter Details Date Type Department Care Team (Latest Contact Info) Description 01/24/2007 Outpatient Historical [facility] Jeremy Bustillo MD NO ADDRESS ON FILE Zeyad Millan MD [address] [facility] [address] [place] [phone] Other Current Maternal Conditions Classifiable Elsewhere, Antepartum (Primary Dx) Social History Tobacco Use Types Packs/Day Years Used Date Smoking Tobacco: Never Assessed Comments Unknown Sex and Gender Information Value Date Recorded Sex Assigned at Not on file Legal Sex Female 3:24 AM BAIL ATTACHER Gender Identity Not on file Sexual Orientation Not on file documented as of this encounter Plan of Treatment Not on file documented as of this encounter Visit Diagnoses Diagnosis Other current maternal conditions classifiable elsewhere, antepartum- Primary documented in this encounter Care Teams Box Tender Relationship Specialty Start Date End Date Jarvis Coffey MD [address] [place] [address] PCP - General Family Practice 10/18/24 documented as of this encounter
[2024-12-06 06:16] VITALS: BP 124/87; PULSE 104; RESP 18; TEMP 36.4; O2SAT 100
[2024-12-06] MEDS: LACTATED RINGERS 1,000 ML 30 ML IV CONT (06:35)
--- NOTE | 2024-12-06 06:37 | WPDANESEPPF ---
Anes - Initial Pre Proc Eval Procedure: Operation Date: 12/06/24 07:30 Proposed Procedures p Hysteroscopy Dilation and Curettage with Polypectomy - Zeyad Caicedo MD Date/Time: 12/06/24 06:37 Surgeon: Zeyad Caicedo MD Pre Op Diagnosis: irregular bleeding, uterine polyp Patient Data Age: 54 Gender: F Height: 1.57 m Weight: 82 kg Allergies Allergy/AdvReac Type Severity Reaction Status Date / Time lidocaine Allergy Unknown low heart Verified 12/06/24 06:29 rate Home Medications ?Medication ?Instructions ?Recorded ?Confirmed ?Type rosuvastatin 10 mg tablet 10 mg PO DAILY 11/30/22 12/06/24 History losartan 50 mg-hydrochlorothiazide 1 tablet PO DAILY #90 tabs 06/07/24 12/06/24 Rx 12.5 mg tablet hydroxyzine HCl 25 mg tablet 25 mg PO BID PRN anxiety #180 tabs 07/26/24 12/06/24 Rx levothyroxine 175 mcg tablet 175 mcg PO DAILY #90 tabs 10/22/24 12/06/24 Rx (Euthyrox) cholecalciferol (vitamin D3) 50 50 mcg PO WEEKLY 11/25/24 11/25/24 History mcg (2,000 unit) capsule Patient hx anesthesia problems: none Family hx anesthesia problems: none Results Review: All pre-operative results and documents have been reviewed as part of the pre-operative evaluation. [facility] Past Medical History Medical History Vitamin D deficiency (~09/2024) Hypertension DARLIN-inhibitor cough Dyslipidemia Anxiety AIDAN positive (~2016) Hypothyroid Graves' disease Surgical History Surgical History Hx of thyroidectomy H/O knee surgery (~1985) left arthroscopic H/O wrist surgery (~1981) right H/O section 2004, 2006, 2009 Family History Family History Mother Family history of arthritis Father Family history of type 2 diabetes mellitus Social History Social History Social History: Caffeine-occasionally Smoking status: Never smoker Alcohol intake: current Alcohol use details: 3 drinks monthly Substance use: never Substance use type: does not use Lack of Transportation: No Lack of Food: Never True Current Housing: I Have Housing Concerned About Future Housing: No Difficulty Paying Gas/Electric Bills: No Difficulty Paying for Meds: No Currently Unemployed: No Education: Master's Degree or Higher Difficulty w/ Childcare or Family Care: No Living arrangements: with family Occupation/Education: occupation Gender identity (if verbalized by the patient): Female Sexual Orientation (if Verbalized by the Patient): Straight or Heterosexual Spiritual care concerns: No Agree to blood products: Yes Anes - Eval Final PreProcedure Day of Procedure 12/06/24 06:37 Patient weight: obese Heart: regular rate and rhythm Lungs: clear to auscultation Airway: Mallampati scale class II Neurological: alert and oriented Last oral intake: >/= 8 hours ASA classification: III Emergent: no Anesthetic plan: proceed Anesthesia type and monitoring: general GIVS and standard monitoring Results Review: All pre-operative results and documents have been reviewed as part of the pre-operative evaluation. Informed Consent: The patient's anesthetic plan and its attendant risks and benefits were discussed with the patient/family/POA. Questions were solicited and answers provided to the satisfaction of the patient/family/POA.
[2024-12-06] MEDS: ACETAMINOPHEN 500 MG TABLET 1000 MG PO (06:40)
[2024-12-06 06:45] VITALS: BMI 34.4
--- NOTE | 2024-12-06 07:12 | WPDHPUPDATE1 ---
History and Physical Update Update Date/Time: 12/06/24 07:12 History and Physical has been reviewed, including an updated exam of the patient. There are NO changes in the patient's condition. Risks, benefits, and alternatives have been discussed and questions answered. Patient agrees to proceed with procedure.
--- NOTE | 2024-12-06 07:47 | W.PM.PROC2 ---
Procedure Note - Detailed Date of Procedure 12/06/24 Pre-op Diagnosis irregular bleeding, uterine polyp Post-op Diagnosis Same Procedure Performed Hysteroscopy/polypectomy/dilatation and curettage Surgeon Zeyad Caicedo MD Anesthesia MAC and Local Indications 54-year-old female with uterine polyp and bleeding Findings Uterine polyp. Benign-appearing endometrium Description of Procedure The patient was prepped draped in the sterile fashion placed in dorsal lithotomy position. Under excellent IV sedation vagina. Anterior lip grasped with a single-tooth tenaculum and the uterus sounded to 7 7 7.5cm. Serial dilatation fragmented dilators performed followed passage of the hysteroscope using normal saline as visualizing medium endocervical/endometrial polyp was noted and was removed without difficulty. Uterus then scraped over the entire 360? other abnormalities were seen. The instruments withdrawn. The patient went recovery in satisfactory condition. All sponge, needle, instrument counts were correct. There were no immediate complications Estimated Blood Loss 5 Drains No Packing No Pathology Yes Complications No immediate complications Condition Stable Disposition PACU
[2024-12-06 07:50] VITALS: BP 118/73; PULSE 92; RESP 14; O2SAT 100
[2024-12-06 08:20] VITALS: BP 121/73; PULSE 74; RESP 16; O2SAT 96
[2024-12-06 08:45] VITALS: BP 117/82; PULSE 73; RESP 16
== END 2024-12-06 08:57 | disposition home or self-care (01) ==
PROVIDERS: PCP Nurse Practitioner Family; Visit Provider Obstetrics & Gynecology
PROC: 0U5B8ZZ Destruction of Endometrium, Via Natural or Artificial Opening Endoscopic (ICD-10-PCS; CPT 58563; principal; 2024-12-06 07:30)
DX: N84.0 Polyp of corpus uteri (principal); E03.9 Hypothyroidism, unspecified; I10 Essential (primary) hypertension; E55.9 Vitamin D deficiency, unspecified; E78.5 Hyperlipidemia, unspecified; F41.9 Anxiety disorder, unspecified; E05.00 Thyrotoxicosis with diffuse goiter without thyrotoxic crisis or storm; E66.9 Obesity, unspecified; Z68.34 Body mass index [BMI] 34.0-34.9, adult; Z79.899 Other long term (current) drug therapy; Z98.890 Other specified postprocedural states
CPT/HCPCS: 58558; 88305; A9270; J2250; J2405; J2704; J3010; J7120

== ENCOUNTER 2025-04-17 08:14 | Outpatient (CLI) | payer BC, SELFPAY ==
--- NOTE | ~2025-04-17 | US_ITS ---
Limited Abdominal Sonogram: Real-time sonographic imaging of the right upper quadrant was performed. Clinical History: Abnormal serum enzyme levels Findings: The liver appears echogenic, with no evidence of mass lesion or bile duct dilatation. Main portal vein demonstrates normal direction of flow. The gallbladder is well distended, and appears no rmal with no evidence of gallstone or wall thickening. The common bile duct measures 4 mm. The visua lized pancreas, aorta, and IVC are unremarkable. Impression: Diffuse fatty infiltration of liver. Reviewed, dictated and finalized at location M. Impression: Diffuse fatty infiltration of liver.
== END 2025-04-17 08:15 | disposition home or self-care (01) ==
LOC: GOSHIMG 08:16
PROVIDERS: PCP Nurse Practitioner Family; Visit Provider Family Medicine
DX: R74.8 Abnormal levels of other serum enzymes (principal); K76.0 Fatty (change of) liver, not elsewhere classified
CPT/HCPCS: 76705

== ENCOUNTER 2025-04-22 13:17 | Outpatient (CLI) | payer BC, SELFPAY ==
--- NOTE | ~2025-04-22 | XR_ITS ---
HISTORY: Lt sided back pain radiating into Lt hip x 8 mos COMPARISON: None TECHNIQUE: 2 views of the left hip FINDINGS: No acute fracture or dislocation is identified. Abnormal morphology of the femoral head / neck junction with aspherocity of the femoral head, for whi ch cross-sectional imaging is advised for better characterization and detection of chondral and mavis l lesions, as well as preoperative planning. Superior lateral sclerosis of the left femoral acetabular joint space is present consistent with fay re osteoarthritis. Remaining visualized osseous structures are unremarkable. 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 Reviewed, dictated and finalized at location A. 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
--- NOTE | ~2025-04-22 | XR_ITS ---
EXAM/ PROCEDURE: XR lumbar spine 2-3V - 04/22/2025 13:20 CDT HISTORY: 54 years old Female with Lt sided back pain radiating into Lt hip x 8 mos COMPARISON: None available TECHNIQUE: Three view(s) FINDINGS/ IMPRESSION: Grade 1 anterolisthesis of L4 on L5, likely degenerative. There are no fractures or dislocations.Multilevel degenerative changes are seen. Reviewed, dictated and finalized at location A.
== END 2025-04-22 13:18 | disposition home or self-care (01) ==
PROVIDERS: PCP Family Medicine; Visit Provider Chiropractor
DX: M43.16 Spondylolisthesis, lumbar region (principal); M25.552 Pain in left hip; M54.32 Sciatica, left side; M99.05 Segmental and somatic dysfunction of pelvic region; M99.04 Segmental and somatic dysfunction of sacral region
CPT/HCPCS: 72100; 73502

== ENCOUNTER 2025-04-29 09:22 | Outpatient (CLI) | payer BC, SELFPAY ==
--- NOTE | ~2025-04-29 | MM_ITS ---
EXAMINATION: MM screening nasir BI w maliha HISTORY: Screening mammogram TECHNIQUE: Craniocaudal and mediolateral oblique 3-D tomosynthesis images were obtained and synthetic 2-D images were generated. CAD analysis was submitted and interpreted. COMPARISON: 04/27/2024, 429.3, 02/22/2022 BREAST PARENCHYMAL COMPOSITION:Not Dense. The breasts are almost entirely fatty FINDINGS: Stable right breast mass/intramammary lymph node. No suspicious mass, calcification, or arc hitectural distortion are identified in either breast to suggest malignancy. There has been no suspic ious interval change. IMPRESSION: No mammographic evidence of malignancy. Recommend routine screening mammography in one year. BI-RADS Category 2: Benign finding(s). Reviewed, dictated and finalized at location .
--- OUTSIDE RECORDS SUMMARY | 2025-04-29 09:27 | XMS_ITS | Encounter Summary ---
Author Organization [employer] Address [address] [place] [address] Care Team Providers Care Silver Miner Name Role Phone Jarvis Coffey MD Primary Care Provider Encounter Details Date Type Department Care Team (Latest Contact Info) Description 02/28/2007 Outpatient Historical [facility] Zeyad Millan MD [address] [facility] [address] [place] [phone] Supervision of Other High-Risk (Primary Dx) Social History Tobacco Use Types Packs/Day Years Used Date Smoking Tobacco: Never Assessed Comments Unknown Sex and Gender Information Value Date Recorded Sex Assigned at Not on file Legal Sex Female 3:24 AM HAND FLESHER Gender Identity Not on file Sexual Orientation [...] ORDERABLES Ed ited Performing Organization Address [facility] Phone Number INTERFACE SYSTEM Refer to [...] ORDERABLES Ed ited Performing Organization Address [facility] Phone Number INTERFACE SYSTEM Refer to [...] high-risk documented in this encounter Care Teams Silver Miner Relationship Specialty Start Date End Date Jarvis Coffey MD [address] [facility] [place] [address] PCP - General Family Practice 10/18/24 documented as of this encounter
--- OUTSIDE RECORDS SUMMARY | 2025-04-29 09:27 | XMS_ITS | Encounter Summary ---
Author Organization [facility] Address [address] [place] [address] Care Team Providers Care Laboratory Geneticist Name Role Phone Jarvis Coffey MD Primary Care Provider Encounter Details Date Type Department Care Team (Late st Contact Info) Description 04/06/2007 Outpatient Historical [facility] Maternal and Ground Floor S [facility] [address] [place] [address] Gil Mobley MD [address] [place] [address] Social History Tobacco Use Types Packs/Day Years Used Date Smoking Tobacco: Never Assessed Comments Unknown Sex and Gender Information Value Date Recorded Sex Assigned at Not on file Legal Sex Female 3:24 AM ZYGLO TECHNICIAN Gender Identity Not on file Sexual Orientation Not on file documented as of this encounter Plan of Treatment Not on file documented as of this encounter Visit Diagnoses Not on filedocumented in this encounter Care Teams Laboratory Geneticist Relationship Specialty Start Date End Date Jarvis Coffey MD [address] [place] [address] PCP - General Family Practice 10/18/24 documented as of this encounter
--- OUTSIDE RECORDS SUMMARY | 2025-04-29 09:27 | XMS_ITS | Encounter Summary ---
Author Organization [facility] Address [address] [place] [address] Care Team Providers Care Fruit Preserver Name Role Phone Jarvis Coffey MD Primary Care Provider Encounter Details Date Type Department Care Team (Late st Contact Info) Description 04/12/2007 Outpatient Historical [facility] Maternal and Ground Floor S [facility] [address] [place] [address] Ross Wong MD NO ADDRESS ON FILE Social History Tobacco Use Types Packs/Day Years Used Date Smoking Tobacco: Never Assessed Comments Unknown Sex and Gender Information Value Date Recorded Sex Assigned at Not on file Legal Sex Female 3:24 AM PHYSICIAN'S AIDE Gender Identity Not on file Sexual Orientation Not on file documented as of this encounter Plan of Treatment Not on file documented as of this encounter Visit Diagnoses Not on filedocumented in this encounter Care Teams Fruit Preserver Relationship Specialty Start Date End Date Jarvis Coffey MD [address] [facility] [place] [address] PCP - General Family Practice 10/18/24 documented as of this encounter
--- OUTSIDE RECORDS SUMMARY | 2025-04-29 09:27 | XMS_ITS | Encounter Summary ---
Author Organization [facility] Address [address] [place] [address] Care Team Providers Care Animal Rides Manager Name Role Phone Jarvis Coffey MD Primary Care Provider Encounter Details Date Type Department Care Team (Late st Contact Info) Description 03/08/2007 Outpatient Historical [facility] Maternal and Ground Floor S [facility] [address] [place] [address] Anabela Barnes MD [address] [place] [address] Social History Tobacco Use Types Packs/Day Years Used Date Smoking Tobacco: Never Assessed Comments Unknown Sex and Gender Information Value Date Recorded Sex Assigned at Not on file Legal Sex Female 3:24 AM FORGE TENDER Gender Identity Not on file Sexual Orientation Not on file documented as of this encounter Plan of Treatment Not on file documented as of this encounter Visit Diagnoses Not on filedocumented in this encounter Care Teams Animal Rides Manager Relationship Specialty Start Date End Date Jarvis Coffey MD [address] [place] [address] PCP - General Family Practice 10/18/24 documented as of this encounter
--- OUTSIDE RECORDS SUMMARY | 2025-04-29 09:27 | XMS_ITS | Encounter Summary ---
Author Organization [facility] Address [address] [place] [address] Care Team Providers Care Roof Service Technician Name Role Phone Jarvis Coffey MD Primary Care Provider Encounter Details Date Type Department Care Team (Latest Contact Info) Description 04/11/2007 Outpatient Historical [facility] Anabela Barnes MD [address] [place] [address] Zeyad Millan MD [address] [facility] [address] [place] [address] Threatened Premature Labor, Antepartum (Primary Dx) Social History Tobacco Use Types Packs/Day Years Used Date Smoking Tobacco: Never Assessed Comments Unknown Sex and Gender Information Value Date Recorded Sex Assigned at Not on file 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 Gender Identity Not on file Sexual Orientation [...] HEMATOLOGY ORDERABLES Ed ited Performing Organization Address [facility] de Phone Number INTERFACE SYSTEM Refer to clinic/hospital department * (ABNORMAL) CBC WITH DIFFERENTIAL (04/11/2007 5:16 PM CDT) Pathologist [facility] WBC 9.6 4.0 - 9.8 K/uL INTERFACE [...] HEMATOLOGY ORDERABLES Ed ited Performing Organization Address [facility] Co de Phone Number INTERFACE SYSTEM Refer to clinic/hospital department documented in this encounter Visit Diagnoses Diagnosis Threatened premature labor, antepartum(644.03)- Primary Threatened premature labor, antepartum documented in this encounter Care Teams Roof Service Technician Relationship Specialty Start Date End Date Jarvis Coffey MD [address] [facility] [place] [place] [address] PCP - General Family Practice 10/18/24 documented as of this encounter
--- OUTSIDE RECORDS SUMMARY | 2025-04-29 09:27 | XMS_ITS | Data Portability ---
Author Organization [place] [facility] [employer], Main Office Address [address] [place] [address] Assessment No assessment recorded. Plan of Treatment Reminders Order Date Submit Date Provider Last Modified By Organization Details Last Modified Time Details Appointments None recorded. Lab HbA1c (hemoglobin A1c), blood 2022 023 [facility], [address], [place], [address], 3 12:29:07 insulin, serum 2022 023 [facility], [address], [place], [address], 3 12:29:05 lipid panel, serum 2022 023 [facility], [address], [place], [address], 3 12:29:03 T3, free, serum or plasma 2022 023 [facility], [address], [place], [address], 3 12:29:06 T4, free, serum 2022 023 [facility], [address], [place], [address], 3 12:29:05 TSH, serum or plasma 2022 023 [facility], [address], [place], [address], 3 12:29:07 thyroid peroxidase (tpo) Ab, serum 2022 023 [place] [facility], [address], [place], [address], 3 12:29:04 CMP, serum or plasma 2022 023 [place] [facility], [address], [place], [address], 3 12:29:03 Referral None recorded. Procedures None recorded. Surgeries None recorded. Imaging None recorded. Medication Orders Synthroid 150 mcg tablet 2022 023 [email or web address], [address], [place], [place], [id number], 3 14:21:02 Patient TargetsNo targets recorded. Patient InstructionsNo instructions recorded. Reason for Referral None Reported. Results Created Date Observation Date Name Description Value Unit Range Abnormal Flag Note LastModifiedBy Organization Detail LastModifiedTime 04/26/2004/28/2023 LIPID PANEL , STAND DEANA cholesterol, total 123 mg/dL <200 normal Not Available [facility] [address] [address] [place], [address], 04/28/2023 12:29:02 04/26/2004/28/2023 LIPID PANEL , STAND DEANA HDL cholesterol 38 mg/dL > or = 50 low Not Available [facility] [address] [address] [place], [address], 04/28/2023 12:29:02 04/26/2004/28/2023 LIPID PANEL , STAND DEANA triglyceride s 244 mg/dL <150 high If a non-f astin g speci men was colle cted, consi nelly repea t trigl yceri de testi ng on a fasti ng speci men if clini tam indic ated. Jimmie umanzor et al. J. of Clin. Lipid ol. 2015; 9:129 -169. Not Available [facility] [address] [place], [address], 04/28/2023 12:29:02 04/26/20 23 04/28/2023 LIPID PANEL [...] n, which is a valid ated novel metho d provi ding jonathon r accur acy than the Fried azul equat ion in the estim ation of LDL-C . Mariam hussein SS et al. KAYLAN. 2013; 310(1 9): 2061- 2068 (http ://ed ucati on.Qu SwingShot. Hashtago/f aq/FA Q164) Not Available [facility] [address] [facility] [address] [place], [address], 04/28/2023 12:29:02 04/26/20 23 04/28/2023 LIPID PANEL , STAND DEANA chol/HDLC ratio 3.2 (calc ) <5.0 normal Not Available [facility] [address], [place], [address], 04/28/2023 12:29:02 04/26/20 23 04/28/2023 LIPID PANEL , STAND DEANA non HDL cholesterol 85 mg/dL _(jenaro c) <130 normal For patie nts with diabe cecile plus 1 major ASCVD risk facto r, treat ing to a non-H DL-C goal of <100 mg/dL (LDL- C of <70 mg/dL ) is consi dered a thera peuti c optio n. Not Available [facility] [address] [place], [address], 04/28/2023 12:29:02 04/26/20 23 04/28/2023 COMPR EHENS FELIX METAB OLIC PANEL glucose 103 mg/dL 65-99 high Fasti ng refer ence inter chanell For someo ne witho ut known diabe cecile, a gluco se value betwe en 100 and 125 mg/dL is consi stent with predi abete s and shoul d be confi rmed with a follo w-up test. Not Available [address] [address] [place], [address], 04/28/2023 12:29:03 04/26/20 23 04/28/2023 COMPR EHENS FELIX METAB OLIC PANEL urea nitrogen (BUN) 13 mg/dL 7-25 normal Not Available [address], [address], 04/28/2023 12:29:03 04/26/20 23 04/28/2023 COMPR EHENS FELIX METAB OLIC PANEL creatinine 0.72 mg/dL 0.50-1 .03 normal Not Available [address], [address], 04/28/2023 12:29:03 04/26/20 23 04/28/2023 COMPR EHENS FELIX METAB OLIC PANEL eGFR 102 mL/mi n/1.7 3m2 > or = 60 normal The eGFR is based on the CKD-E PI 2020 equat ion. To calcu late the new eGFR from a previ ous Creat inine or Cysta tin C resul t, go to https ://ww w.kid terry.o tejas/echo armando s/ kdoqi /gfr% 5Fcal culat or Not Available [address] [address] [place], [address], 04/28/2023 12:29:03 04/26/20 23 04/28/2023 COMPR EHENS FELIX METAB OLIC PANEL BUN/creatini ne ratio NOT APPLIC ABLE (calc ) 6-22 Not Available [address], [address], 04/28/2023 12:29:03 04/26/20 23 04/28/2023 COMPR EHENS FELIX METAB OLIC PANEL sodium 138 mmol/ L 135-14 6 normal Not Available [address], [address], 04/28/2023 12:29:03 04/26/20 23 04/28/2023 COMPR EHENS FELIX METAB OLIC PANEL potassium 4.4 mmol/ L 3.5-5. 3 normal Not Available [address], [address], 04/28/2023 12:29:03 04/26/20 23 04/28/2023 COMPR EHENS FELIX METAB OLIC PANEL chloride 104 mmol/ L 98-110 normal Not Available [address], [address], 04/28/2023 12:29:03 04/26/20 23 04/28/2023 COMPR EHENS FELIX METAB OLIC PANEL carbon dioxide 28 mmol/ L 20-32 normal Not Available [address], [address], 04/28/2023 12:29:03 04/26/20 23 04/28/2023 COMPR EHENS FELIX METAB OLIC PANEL calcium 9.5 mg/dL 8.6-10 .4 normal Not Available [address], [address], 04/28/2023 12:29:03 04/26/20 23 04/28/2023 COMPR EHENS FELIX METAB OLIC PANEL protein, total 7.3 g/dL 6.1-8. 1 normal Not Available [address], [address], 04/28/2023 12:29:03 04/26/20 23 04/28/2023 COMPR EHENS FELIX METAB OLIC PANEL albumin 4.6 g/dL 3.6-5. 1 normal Not Available [address], [address], 04/28/2023 12:29:03 04/26/20 23 04/28/2023 COMPR EHENS FELIX METAB OLIC PANEL globulin 2.7 g/dL_ (calc ) 1.9-3. 7 normal Not Available [address], [address], 04/28/2023 12:29:03 04/26/20 23 04/28/2023 COMPR EHENS FELIX METAB OLIC PANEL albumin/glob ulin ratio 1.7 (calc ) 1.0-2. 5 normal Not Available [address], [address], 04/28/2023 12:29:03 04/26/20 23 04/28/2023 COMPR EHENS FELIX METAB OLIC PANEL bilirubin, total 2.2 mg/dL 0.2-1. 2 high Not Available [address], [address], 04/28/2023 12:29:03 04/26/20 23 04/28/2023 COMPR EHENS FELIX METAB OLIC PANEL alkaline phosphatase 71 U/L 37-153 normal Not Available [address], [address], 04/28/2023 12:29:03 04/26/20 23 04/28/2023 COMPR EHENS FELIX METAB OLIC PANEL AST 25 U/L 10-35 normal Not Available [address], [address], 04/28/2023 12:29:03 04/26/20 23 04/28/2023 COMPR EHENS FELIX METAB OLIC PANEL ALT 35 U/L 6-29 high Not Available [facility] [address], [address], 04/28/2023 12:29:03 04/26/20 23 04/28/2023 THYRO ID PEROX IDASE ANTIB ODIES thyroid peroxidase antibodies 1 IU/mL <9 Not Available [address], [address], 04/28/2023 12:29:04 04/26/20 23 04/28/2023 INSUL IN insulin 30.7 uIU/m L high Refer ence Range < or = 18.4 Risk: Optim al < or = 18.4 Moder ate NA High >18.4 Adult cardi ovasc ular event risk categ ory cut point s (opti mal, moder ate, high) are based on Insul in Refer ence Inter chanell studi es perfo rmed at [facility] Diagn ostic s in 2021. Not Available [facility] [employer] [facility] [address], [address], 04/28/2023 12:29:05 04/26/20 23 04/28/2023 T4, FREE T4, free 1.8 NG/dL 0.8-1. 8 normal Not Available [facility] [address], [address], 04/28/2023 12:29:05 04/26/20 23 04/28/2023 T3, FREE T3, free 3.2 pg/mL 2.3-4. 2 normal Not Available [facility] [address], [address], 04/28/2023 12:29:06 04/26/20 23 04/28/2023 TSH TSH 0.13 mIU/L low Refer ence Range > or = 20 Years 0.40- 4.50 Pregn italo Range s First trime ster 0.26- 2.66 Secon d trime ster 0.55- 2.73 Third trime ster 0.43- 2.91 Not Available [facility] [address], [address], 04/28/2023 12:29:07 04/26/20 23 04/28/2023 HEMOG LOBIN [...] Care in Diabe cecile(A DA). Not Available [address] [address] [place], [address], 04/28/2023 12:29:07 Result Notes None recorded. Problems Name Problem SNOMED Code Status Onset Date Resolution Date Notes Provider Name and Address Organization Details Recorded Time Hypothyroidism 78139179 Active 2022 Jerilyn Couch MD [address], [place], [address] 3 10:25:38 Impaired fasting glycemia 515111727 Active 2022 Jerilyn Couch MD [address], [place], [address], [employer] 3 10:25:57 Dyslipidemia 396173735 Active 2022 Jerilyn Couch MD [address], [place], [address], [employer] 3 10:26:05 Problem Notes None recorded. Medical [...] Address Organization Details Last Updated DateTime 04/24/2023 67109.44 g 97.6 [degF] 131 mm[Hg] 97 mm[Hg] Renetta Prince [address] 3 10:15:28 Social History None recorded. Functional Status None recorded. Mental Status None recorded. Family History Nothing Reported. Medical History No medical history recorded. Gynecological HistoryNo gynecological history recorded. Obstetrics History GPAL:G 0 P 0 0 0 0 Past Encounters Encounter ID Performer Location Encounter Start Date Encounter Closed Date Diagnosis/Indication Diagnosis SNOMED-CT Code Diagnosis ICD10 Code Diagnosis Note [id number] Jerilyn Couch MD [facility] [address] [place] [address] 04/24/2023 09:56:53 04/24/2023 10:42:01 Hypothyroidism 78229272 E03.9 Due for labwork as her levels [...] reduce inflammati on. Impaired f asting glycemia 705476110 R73.01 Discussed carb counting and how to read food labels. Recommende d patient to utilize the diabetesfo Torrential.Hashtago from the ADA website to help with food preparatio n as this presents ideal carb content per meal so this will make carb counting much easier for patient. Recommende d she incorporat e natural insulin face man s such as pears, apples, cinnamon, abelardo and sweet potatoes to help mobilize her endogenous insulin. Recommende d up to 150 minutes of moderate level activity/e xercise weekly. Send for a1c and insulin to screen further as DM runs in family. Dyslipidemia 747517132 E 78.5 Send for lipid panel to [...] she chooses to go outside of the [facility] system to obtain labwork she was [...] Recorded Advance Directives Directive None Recorded Payers Insurance Date Sequence Insurance Name Policy Number Policy Hill Covered Member ID Hill Member ID Guarantor Name 04/24/2023 1 JAROD-NIHARIKA (O) [id number] 02 Roxy Mcdonough [id number] Roxy Mcdonough Notes Date Note Type Note Provider Name and Address Organization Details Recorded Time 04/24/2023 text/html 52 yo female com es in as referral by courtesy of Pilar Taylor DIRECTOR EMPLOYMENT for management of hypothyroidism secondary to postoperative [...] she is menopausal. Jerilyn Couch MD [address] [facility], [facility] [address], [place], [address], [facility] [employer] 04/24/2023 14:24:31 OBGyn Episode No OBEpisode recorded.
--- OUTSIDE RECORDS SUMMARY | 2025-04-29 09:27 | XMS_ITS | Encounter Summary ---
Author Organization [employer] Address [address] [place] [address] Care Team Providers Care Call Center Trainer Name Role Phone Jarvis Coffey MD Primary Care Provider Encounter Details Date Type Department Care Team (Latest Contact Info) Description 03/02/2007 Outpatient Historical [facility] Zeyad Millan MD [address] [facility] [address] [place] [address] Other Specified Screening (Primary Dx) Social History Tobacco Use Types Packs/Day Years Used Date Smoking Tobacco: Never Assessed Comments Unknown Sex and Gender Information Value Date Recorded Sex Assigned at Not on file 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
--- OUTSIDE RECORDS SUMMARY | 2025-04-29 09:27 | XMS_ITS | Clinical Summary ---
Author Organization [facility] Address [address] [place] [address] Phone Care Team Providers Care Boom Conveyor Operator Name Role Phone Jarvis Coffey MD Primary Care Provider Allergies Active Allergy Reactions Criticality Noted Date Comments Lidocaine Other (See Comments) 01/17/2013 Increases heart beat Medications levothyroxine (SYNTHROID) 75 mcg Oral tablet Take 1 Tab by mouth daily. 30 Tab 1 06/11/20 10 Active hydrOXYzine HCL (ATARAX) 25 mg tablet Take 1 Tablet (25 mg) by mouth 3 times daily as needed for anxiety. 90 Tablet 2 4:02 PM CDT 06/07/20 22 Active conjugated estrogens (Premarin) 0.625 mg/gram vaginal cream APPLY ONE-HALF GRAM THREE TIMES WEEKLY DIRECTED (DOSING MARKED ON APPLICATOR) 30 Gram 3 09/12/20 22 Active lisinopriL (PRINIVIL) 10 mg tablet Take 1 Tablet (10 mg) by mouth daily. 90 Tablet 1 2 12:26 PM DOLLY PUSHER 09/12/20 22 Active benzonatate (TESSALON) 100 mg capsule Take 1 Capsule (100 mg) by mouth 3 times daily as needed for cough. 30 Capsule 3 6:03 PM DOLLY PUSHER 11/28/19 23 Active methylPREDNISo lone (MEDROL DOSPACK) 4 mg Tablets, Dose Pack Take 1 Tablet (4 mg) by mouth 2 times daily. 20 Tablet 1 3 6:35 PM DOLLY PUSHER 12/05/19 23 Active losartan (COZAAR) 25 mg tablet Take 1 Tablet (25 mg) by mouth daily. 90 Tablet 3 6:35 PM DOLLY PUSHER 12/05/19 23 Active baclofen (LIORESAL) 10 mg tablet Take 1 Tablet (10 mg) by mouth 3 times daily. 20 Tablet 3 5:31 PM DOLLY PUSHER 12/15/19 23 Active traMADoL (ULTRAM) 50 mg tablet Take 1 Tablet (50 mg) by mouth every 6 hours as needed for pain. 20 Tablet 3 5:31 PM DOLLY PUSHER 12/15/19 23 Active losartan (COZAAR) 25 mg tablet Take 1 Tablet (25 mg) by mouth daily. 90 Tablet 1 3 4:06 PM CDT 03/20/20 23 Active Synthroid 150 mcg tablet Take 1 Tablet (150 mcg) by mouth daily in the morning. 90 Tablet 1 3 11:01 AM CDT 04/24/20 23 Active meloxicam (MOBIC) 15 mg tablet Take 1 Tablet (15 mg) by mouth daily. 30 Tablet 1 3 5:55 PM CDT 06/05/20 23 Active erythromycin (ILOTYCIN) 5 mg/gram (0.5 %) ointment Apply a small amount into the affected eye twice daily 3.5 Gram 3 11:29 AM CDT 08/12/20 23 Active estradioL (ESTRACE) 0.01% (0.1 mg/g) vaginal cream Insert 0.5 Grams vaginally at bedtime 3 times per week. 42.5 Gram 3 3 2:43 PM DOLLY PUSHER 09/18/20 23 Active Euthyrox 150 mcg tablet Take 1 tablet (150 mcg total) by mouth early years teacher before breakfast 30 Tablet 3 9:51 AM DOLLY PUSHER 09/19/20 23 Active hydrOXYzine HCL (ATARAX) 25 mg tablet Take one tablet (25 mg) orally twice a day As Needed for anxiety 60 Tablet 4 2:49 PM CDT 02/13/20 24 Active losartan-hydro CHLOROthiazide (HYZAAR) 50-12.5 mg tablet Take 1 Tablet by mouth daily. 90 Tablet 1 4 2:55 PM DOLLY PUSHER 06/07/20 24 Active Euthyrox 150 mcg tablet Take 1 tablet (150 mcg total) by mouth in the early years teacher before breakfast 30 Tablet 3 4 2:55 PM DOLLY PUSHER 06/12/20 24 Active azithromycin (ZITHROMAX) 250 mg tablet TAKE 2 TABLETS BY MOUTH A SINGLE DOSE ON DAY 1, THEN TAKE 1 TABLET BY MOUTH ONCE DAILY ON DAYS 2 THRU 5. 6 Tablet 4 8:50 AM CDT 07/06/20 24 Active albuterol sulfate HFA 90 mcg/actuation aerosol inhaler Inhale 2 puffs by mouth every 6 (six) hours as needed for wheezing or shortness of breath 8.5 Gram 4 5:42 PM CDT 07/20/20 24 Active benzonatate (TESSALON) 100 mg capsule Take 1 capsule (100 mg total) by mouth 3 (three) times a day as needed for cough 42 Capsule 4 4:29 PM CDT 07/20/20 24 Active hydrOXYzine HCL (ATARAX) 25 mg tablet Take 1 Tablet (25 mg) by mouth 2 times daily as needed for anxiety. 180 Tablet 1 4 5:42 PM CDT 07/26/20 24 Active methocarbamoL (ROBAXIN) 750 mg tablet Take 1 tablet (750 mg total) by mouth 3 (three) times a day as needed for muscle spasms for up to 5 days 15 Tablet 4 5:41 PM DOLLY PUSHER 09/13/20 24 Active methylPREDNISo lone (MEDROL DOSPACK) 4 mg Tablets, Dose Pack Take 6 tabs on day 1, reduce dose by 1 daily until prescription is complete. 21 Each 4 5:41 PM DOLLY PUSHER 09/13/20 24 Active clotrimazole-b etamethasone (LOTRISONE) 1-0.05 % Cream Apply liberally to affected area(s) three times a daily as needed. 45 Gram 4 5:59 PM DOLLY PUSHER 09/24/20 24 Active levothyroxine 175 mcg tablet Take 1 Tablet (175 mcg) by mouth daily. 90 Tablet 4 11:11 AM DOLLY PUSHER 10/22/20 24 Active valACYclovir (VALTREX) 500 mg tablet Take 1 Tablet (500 mg) by mouth daily. 90 Tablet 4 5 3:38 PM DOLLY PUSHER 11/01/19 25 Active LORazepam (ATIVAN) 1 mg tablet Take 1 Tablet (1 mg) by mouth 1 time as needed for anxiety. 1 Tablet 5 5:10 PM DOLLY PUSHER 11/11/19 25 Active HYDROcodone-ac etaminophen (NORCO) 5-325 mg tablet Take 1 Tablet by mouth every 4 hours as needed for pain. Max Daily Amount: 6 Tablets 20 Tablet 5 11:02 AM DOLLY PUSHER 12/06/19 25 Active losartan-hydro CHLOROthiazide (HYZAAR) 50-12.5 mg tablet Take 1 Tablet by mouth daily. 90 Tablet 1 5 4:29 PM CDT 12/23/19 25 Active miconazole (GUNNAR,MICOTIN, REMEDY AF) 2 % Cream APPLY TO THE AFFECTED AREA TWICE DAILY FOR 14 DAYS. 28 Gram 1 02/18/20 25 Active buPROPion HCL (WELLBUTRIN XL) 150 mg Extended Release 24 hour tablet Take 1 Tablet (150 mg) by mouth daily in the morning. 90 Tablet 1 5 4:51 PM CDT 02/18/20 25 Active busPIRone (BUSPAR) 5 mg tablet Take 1 Tablet (5 mg) by mouth 2 times daily as needed for anxiety. 60 Tablet 5 4:51 PM CDT 02/18/20 25 Active rosuvastatin (CRESTOR) 10 mg tablet Take 1 Tablet (10 mg) by mouth daily. 90 Tablet 1 5 4:29 PM CDT 03/27/20 25 Active levothyroxine 175 mcg tablet Take 1 Tablet (175 mcg) by mouth daily. 90 Tablet 1 04/28/20 25 Active ergocalciferol (Vitamin D2) 50,000 unit capsule Take 1 Capsule (50,000 Units) by mouth every 7 days. 13 Capsule 1 04/28/20 25 Active diclofenac sodium (VOLTAREN) 75 mg Tablet, Delayed Release (E.C.) Take 1 Tablet (75 mg) by mouth 2 times daily as needed for pain. 60 Tablet 1 04/28/20 25 Active ergocalciferol (VITAMIN D2) 50,000 unit capsule Take 1 Capsule (50,000 Units) by mouth every 7 days. 13 Capsule 1 5 10:27 AM CDT 10/24/20 24 025 Discontinued levothyroxine 175 mcg tablet Take 1 Tablet (175 mcg) by mouth daily. 90 Tablet 5 7:43 PM CDT 10/24/20 24 025 Discontinued Active Problems Patient Care Coordination No te Formatting of this note migh t be different from the original. Primary Care: No primary provider on file. Referring Provider: Zeyad Srivastava MD [id number] [facility] [address] [place] [id number] Other: Problem Noted Date Diagnosed Date 06/07/10 06/07/2010 Threatened 12/23/2009 Previous section 12/23/2009 Hypothyroid 12/23/2009 Grave's disease Encounters Date Type Department Care Team Description 04/16/2025 External Device Data ST[facility] ABSTRACTION Provider, Abstract 04/15/2025 External Device Data [facility] ABSTRACTION Provider, Abstract 04/01/2025 External Device Data [facility] ABSTRACTION Provider, Abstract 04/01/2025 External Device Data [facility] ABSTRACTION Provider, Abstract 03/20/2025 External Device Data [facility]STRACTION Provider, Abstract 03/19/2025 External Device Data [facility] ABSTRACTION Provider, Abstract 03/18/2025 External Device Data [facility] ABSTRACTION Provider, Abstract 03/04/2025 External Device Data [facility] ABSTRACTION Provider, Abstract 02/18/2025 External Device Data [facility] ABSTRACTION Provider, Abstract 02/18/2025 External Device Data [facility] ABSTRACTION Provider, Abstract 02/18/2025 External Device Data [facility] ABSTRACTION Provider, Abstract from Last 3 Months Immunizations Immunization Administration [...] on file Legal Sex Female 3:24 AM DOLLY PUSHER Gender Identity Not on file Sexual Orientation Not on file Occupation Industry Job Start Date Job End Date Not on file Not on file Not on file Not on file Last Filed Vital Signs Vital Sign Reading Time Taken Comments Blood Pressure 125/81 10/18/2024 1:23 PM DOLLY PUSHER Pulse 88 10/18/2024 12:43 PM DOLLY PUSHER Temperature 36.8 C (98.3 F) 10/18/2024 12:43 PM DOLLY PUSHER Respiratory Rate 18 10/18/2024 1:23 PM DOLLY PUSHER Oxygen Saturation 97% 10/18/2024 1:23 PM DOLLY PUSHER Inhaled Oxygen Concentration - - Weight 81.6 kg (180 lb) 10/18/2024 12:43 PM DOLLY PUSHER Height 157.5 cm (5' 2) 10/18/2024 12:43 PM DOLLY PUSHER Body Mass Index 32.92 10/18/2024 12:43 PM DOLLY PUSHER Plan of Treatment Health Maintenance Due Date Last Done Comments Pre-Diabetes and Diabetes Screening 1972 HEPATITIS B VACCINES (1 of 3 - 19+ 3-dose series) 1991 HPV/Cotest (21-29) 1993 CERVICAL CANCER SCREENING 2002 HPV/Cotest (30-65) 2002 PAP SMEAR 2002 BREAST CANCER SCREENING 12/06/2013 12/06/19 13, 06/08/2012, 05/31/2012 COLORECTAL SCREENING 2017 Colorectal Cancer Screening 2017 FIT-DNA Q 3 years 2017 FIT/FOBT Q 1 year 2017 Flex Sig/CT Colonography Q 5 years 2017 DTAP/TDAP/TD VACCINES (2 - T d or Tdap) 06/10/2020 06/10/2010 ZOSTER VACCINE (1 of 2) 2022 INFLUENZA VACCINE (#1) 2024 3, 08/15/2018, 11/18/2013 COVID-19 Vaccine ( season) 2024 Procedures Procedure Name Priority Date/Time Associated Diagnosis Comments MAMMO DIAGNOSTIC UNI RIGHT W OR WO CAD Routine 12/06/2012 from Last 3 Months or Most Recently Relevant to Health Maintenance Results * MAMMO DIGITAL DIAG UNI RIGHT (12/06/2012) Anatomical Region Laterality Modality Breast Right Other Zeyad Caicedo MD MAMMO ORDERABLES Edit ed from Last 3 Months or Most Recently Relevant to Health Maintenance Insurance [facility] CHOICE [facility] Commercial RX [employer] PL[employer] (INTERNAL) [facility] Internal Plans Advance Directives For more information, please contact: [phone] * Full Code (Latest Code Status on File) Date Activated Date Inactivated Comments 06/08/2010 12:19 AM 06/11/2010 3:18 PM * Full Code Date Activated Date Inactivated Comments 06/07/2010 6:24 PM 06/08/2010 12:19 AM Care Teams Boom Conveyor Operator Relationship Specialty Start Date End Date Jarvis Coffey MD [address] [place] [address] PCP - General Family Practice 10/18/24
--- OUTSIDE RECORDS SUMMARY | 2025-04-29 09:27 | XMS_ITS | Encounter Summary ---
Author Organization [facility] Address [address] [place] [address] Care Team Providers Care Aluminum Boat Inspector Name Role Phone Jarvis Coffey MD Primary Care Provider Encounter Details Date Type Department Care Team (Late st Contact Info) Description 04/19/2007 Outpatient Historical [facility] Maternal and Ground Floor S [facility] [address] [place] [address] Anabela Barnes MD [address] [place] [address] Social History Tobacco Use Types Packs/Day Years Used Date Smoking Tobacco: Never Assessed Comments Unknown Sex and Gender Information Value Date Recorded Sex Assigned at Not on file Legal Sex Female 3:24 AM BUSINESS TAXES SPECIALIST Gender Identity Not on file Sexual Orientation Not on file documented as of this encounter Plan of Treatment Not on file documented as of this encounter Visit Diagnoses Not on filedocumented in this encounter Care Teams Aluminum Boat Inspector Relationship Specialty Start Date End Date Jarvis Coffey MD [address] [facility] [place] [address] PCP - General Family Practice 10/18/24 documented as of this encounter
--- OUTSIDE RECORDS SUMMARY | 2025-04-29 09:27 | XMS_ITS | Encounter Summary ---
Author Organization [employer] Address [address] [place] [address] Care Team Providers Care Roll On Man Name Role Phone Jarvis Coffey MD Primary Care Provider Encounter Details Date Type Department Care Team (Latest Contact Info) Description 04/03/2007 Outpatient Historical [facility] Zeyad Millan MD [address] [facility] [address] [place] [phone] Other Specified Screening (Primary Dx) Social History Tobacco Use Types Packs/Day Years Used Date Smoking Tobacco: Never Assessed Comments Unknown Sex and Gender Information Value Date Recorded Sex Assigned at Not on file Legal Sex Female 3:24 AM COREMAKER BENCH Gender Identity Not on file Sexual Orientation Not on file documented as of this encounter Plan of Treatment Not on file documented as of this encounter Visit Diagnoses Diagnosis Other screening- Primary Other specified screening documented in this encounter Care Teams Roll On Man Relationship Specialty Start Date End Date Jarvis Coffey MD [address] [facility] [place] [address] PCP - General Family Practice 10/18/24 documented as of this encounter
--- OUTSIDE RECORDS SUMMARY | 2025-04-29 09:28 | XMS_ITS | Encounter Summary ---
Author Organization [employer] Address [address] [place] [address] Care Team Providers Care Front End Web Designer Name Role Phone Jarvis Coffey MD Primary Care Provider Encounter Details Date Type Department Care Team (Latest Contact Info) Description 06/06/2006 Outpatient Historical [facility] Zeyad Millan MD [address] [facility] [address] [place] [phone] Other High-Risk (Primary Dx) Social History Tobacco Use Types Packs/Day Years Used Date Smoking Tobacco: Never Assessed Comments Unknown Sex and Gender Information Value Date Recorded Sex Assigned at Not on file Legal Sex Female 3:24 AM SOFTWARE APPLICATIONS ENGINEER Gender Identity Not on file Sexual Orientation [...] high-risk documented in this encounter Care Teams Front End Web Designer Relationship Specialty Start Date End Date Jarvis Coffey MD [address] [facility] [place] [address] PCP - General Family Practice 10/18/24 documented as of this encounter
--- OUTSIDE RECORDS SUMMARY | 2025-04-29 09:28 | XMS_ITS | Encounter Summary ---
Author Organization [facility] Address [address] [place] [address] Care Team Providers Care Valve Technician Name Role Phone Jarvis Coffey MD Primary Care Provider Encounter Details Date Type Department Care Team (Late st Contact Info) Description 05/01/2007 Outpatient Historical [facility] Maternal and Ground Floor S [facility] [address] [place] [address] Anabela Barnes MD [address] [place] [address] Social History Tobacco Use Types Packs/Day Years Used Date Smoking Tobacco: Never Assessed Comments Unknown Sex and Gender Information Value Date Recorded Sex Assigned at Not on file Legal Sex Female 3:24 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
--- OUTSIDE RECORDS SUMMARY | 2025-04-29 09:28 | XMS_ITS | Encounter Summary ---
Author Organization [facility] [employer] [facility] Address [address] [place] [address] Care Team Providers Care Neurological Surgeon Name Role Phone Jarvis Coffey MD Primary Care Provider Encounter Details Date Type Department Care Team (Latest Contact Info) Description 11/04/2004 Outpatient Historical HIS [facility] Zeyad Coates MD [address] [facility] [address] [place] [phone] THYROID DYSFUNC-ANTEPART (Primary Dx) Social History Tobacco Use Types Packs/Day Years Used Date Smoking Tobacco: Never Assessed Comments Unknown Sex and Gender Information Value Date Recorded Sex Assigned at Not on file Legal Sex Female 3:24 AM RESIDENTIAL LEASING MANAGER Gender Identity Not on file Sexual Orientation Not on file documented as of this encounter Plan of Treatment Not on file documented as of this encounter Procedures Procedure Name Priority Date/Time Associated Diagnosis Comments TSH Routine 11/04/2004 11:01 AM RESIDENTIAL LEASING MANAGER T4 FREE Routine 11/04/2004 11:01 AM RESIDENTIAL LEASING MANAGER documented in this encounter Results * (ABNORMAL) TSH (11/04/2004 11:01 AM RESIDENTIAL LEASING MANAGER) TSH 7.43(H) 0.27 - 4.20 uU/mL INTERFACE SYSTEM 11/04/2004 11:0 1 AM RESIDENTIAL LEASING MANAGER us Zeyad Millan MD CHEMISTRY ORDERABLES Fin al Result Performing Organization Address [facility] Co de Phone Number INTERFACE SYSTEM Refer to clinic/hospital department * T4 FREE (11/04/2004 11:01 AM RESIDENTIAL LEASING MANAGER) T4 FREE 1.1 0.9 - 1.7 ng/dL INTERFACE SYSTEM 11/04/2004 11:0 1 AM RESIDENTIAL LEASING MANAGER us Zeyad Millan MD CHEMISTRY ORDERABLES Fin al Result Performing Organization Address [facility] de Phone Number INTERFACE SYSTEM Refer to clinic/hospital department documented in this encounter Visit Diagnoses Diagnosis Thyroid dysfunction, antepartum(648.13)- Primary Thyroid dysfunction, antepartum documented in this encounter Care Teams Neurological Surgeon Relationship Specialty Start Date End Date Jarvis Coffey MD [address] [facility] [place] [address] PCP - General Family Practice 10/18/24 documented as of this encounter
--- OUTSIDE RECORDS SUMMARY | 2025-04-29 09:28 | XMS_ITS | Encounter Summary ---
Author Organization [facility] Address [address] [place] [address] Care Team Providers Care Supervisor Elementary Education Name Role Phone Jarvis Coffey MD Primary Care Provider Encounter Details Date Type Department Care Team (Late st Contact Info) Description 11/03/2006 Outpatient Historical [facility] Maternal and Ground Floor S [facility] [address] [place] [address] Anabela Barnes MD [address] [place] [address] Social History Tobacco Use Types Packs/Day Years Used Date Smoking Tobacco: Never Assessed Comments Unknown Sex and Gender Information Value Date Recorded Sex Assigned at Not on file Legal Sex Female 3:24 AM BLENDING KETTLE TENDER Gender Identity Not on file Sexual Orientation Not on file documented as of this encounter Plan of Treatment Not on file documented as of this encounter Visit Diagnoses Not on filedocumented in this encounter Care Teams Supervisor Elementary Education Relationship Specialty Start Date End Date Jarvis Coffey MD [address] [facility] [place] [address] PCP - General Family Practice 10/18/24 documented as of this encounter
--- OUTSIDE RECORDS SUMMARY | 2025-04-29 09:28 | XMS_ITS | Encounter Summary ---
Author Organization [employer] Address [address] [place] [address] Care Team Providers Care Mess Attendant Crew Name Role Phone Jarvis Coffey MD Primary Care Provider Encounter Details Date Type Department Care Team (Latest Contact Info) Description 02/14/2005 Outpatient Historical [facility] IN [facility]ED Zeyad Millan MD [address] [facility] [address] [place] [address] OTHER CURR COND-ANTEPARTUM (Primary Dx) Social History Tobacco Use Types Packs/Day Years Used Date Smoking Tobacco: Never Assessed Comments Unknown Sex and Gender Information Value Date Recorded Sex Assigned at Not on file Legal Sex Female 3:24 AM FORKLIFT OPERATOR Gender Identity Not on file Sexual Orientation Not on file documented as of this encounter Plan of Treatment Not on file documented as of this encounter Visit Diagnoses Diagnosis Other current maternal conditions classifiable elsewhere, antepartum- Primary documented in this encounter Care Teams Mess Attendant Crew Relationship Specialty Start Date End Date Jarvis Coffey MD [address] [facility] [place] [address] PCP - General Family Practice 10/18/24 documented as of this encounter
--- OUTSIDE RECORDS SUMMARY | 2025-04-29 09:28 | XMS_ITS | Encounter Summary ---
Author Organization [facility] Address [address] [place] [address] Care Team Providers Care Painter Decorator Name Role Phone Jarvis Coffey MD Primary Care Provider Encounter Details Date Type Department Care Team (Late st Contact Info) Description 12/28/2004 Outpatient Historical [facility] Maternal and Ground Floor [address] [place] [address] [place] [phone] Zeyad Millan MD [address] [place] [address] [address] [place] [id number] [place] [address] Social History Tobacco Use Types Packs/Day Years Used Date Smoking Tobacco: Never Assessed Comments Unknown Sex and Gender Information Value Date Recorded Sex Assigned at Not on file Legal Sex Female 3:24 AM KEYSEATING MACHINE SET UP OPERATOR Gender Identity Not on file Sexual Orientation Not on file documented as of this encounter Plan of Treatment Not on file documented as of this encounter Visit Diagnoses Not on filedocumented in this encounter Care Teams Painter Decorator Relationship Specialty Start Date End Date Jarvis Coffey MD [address] [facility] [place] [place] [address] PCP - General Family Practice 10/18/24 documented as of this encounter
--- OUTSIDE RECORDS SUMMARY | 2025-04-29 09:28 | XMS_ITS | Encounter Summary ---
Author Organization [facility] Address [address] [place] [address] Care Team Providers Care Solution Coordinator Name Role Phone Jarvis Coffey MD Primary Care Provider Encounter Details Date Type Department Care Team (Late st Contact Info) Description 04/24/2007 Outpatient Historical [facility] Maternal and Ground Floor S [facility] [address] [facility] [place] [address] Jeremy Bustillo MD NO ADDRESS ON FILE Social History Tobacco Use Types Packs/Day Years Used Date Smoking Tobacco: Never Assessed Comments Unknown Sex and Gender Information Value Date Recorded Sex Assigned at Not on file Legal Sex Female 3:24 AM PHARMACY ANCILLARY Gender Identity Not on file Sexual Orientation Not on file documented as of this encounter Plan of Treatment Not on file documented as of this encounter Visit Diagnoses Not on filedocumented in this encounter Care Teams Solution Coordinator Relationship Specialty Start Date End Date Jarvis Coffey MD [address] [facility] [place] [place] [address] PCP - General Family Practice 10/18/24 documented as of this encounter
--- OUTSIDE RECORDS SUMMARY | 2025-04-29 09:28 | XMS_ITS | Encounter Summary ---
Author Organization [employer] Address [address] [place] [address] Care Team Providers Care Grocery Supervisor Name Role Phone Jarvis Coffey MD Primary Care Provider Encounter Details Date Type Department Care Team (Latest Contact Info) Description 01/24/2007 Outpatient Historical [facility] Jeremy Bustillo MD NO ADDRESS ON FILE Zeyad Millan MD [address] [facility] [address] [place] [phone] Other Current Maternal Conditions Classifiable Elsewhere, Antepartum (Primary Dx) Social History Tobacco Use Types Packs/Day Years Used Date Smoking Tobacco: Never Assessed Comments Unknown Sex and Gender Information Value Date Recorded Sex Assigned at Not on file Legal Sex Female 3:24 AM CALENDAR CONTROL CLERK BLOOD BANK Gender Identity Not on file Sexual Orientation Not on file documented as of this encounter Plan of Treatment Not on file documented as of this encounter Visit Diagnoses Diagnosis Other current maternal conditions classifiable elsewhere, antepartum- Primary documented in this encounter Care Teams Grocery Supervisor Relationship Specialty Start Date End Date Jarvis Coffey MD [address] [facility] [place] [place] [address] PCP - General Family Practice 10/18/24 documented as of this encounter
--- OUTSIDE RECORDS SUMMARY | 2025-04-29 09:28 | XMS_ITS | Encounter Summary ---
Author Organization [employer] Address [address] [place] [address] Care Team Providers Care Pump Erector Name Role Phone Jarvis Coffey MD Primary Care Provider Encounter Details Date Type Department Care Team (Latest Contact Info) Description 10/25/2006 Outpatient Historical [facility] Zeyad Millan MD [address] [facility] [address] [place] [address] Other Specified Screening (Primary Dx) Social History Tobacco Use Types Packs/Day Years Used Date Smoking Tobacco: Never Assessed Comments Unknown Sex and Gender Information Value Date Recorded Sex Assigned at Not on file Legal Sex Female 3:24 AM HALAL MEAT PACKER Gender Identity Not on file Sexual Orientation Not on file documented as of this encounter Plan of Treatment Not on file documented as of this encounter Visit Diagnoses Diagnosis Other screening- Primary Other specified screening documented in this encounter Care Teams Pump Erector Relationship Specialty Start Date End Date Jarvis Coffey MD [address] [facility] [place] [address] PCP - General Family Practice 10/18/24 documented as of this encounter
--- OUTSIDE RECORDS SUMMARY | 2025-04-29 09:28 | XMS_ITS | Encounter Summary ---
Author Organization [employer] Address [address] [place] [address] Care Team Providers Care Metal Sprayer Production Name Role Phone Jarvis Coffey MD Primary Care Provider Encounter Details Date Type Department Care Team (Latest Contact Info) Description 11/26/2006 Outpatient Historical [facility] Zeyad Millan MD [address] [facility] [address] [place] [address] Other Specified Screening (Primary Dx) Social History Tobacco Use Types Packs/Day Years Used Date Smoking Tobacco: Never Assessed Comments Unknown Sex and Gender Information Value Date Recorded Sex Assigned at Not on file Legal Sex Female 3:24 AM LINE UP MACHINE OPERATOR Gender Identity Not on file Sexual Orientation Not on file documented as of this encounter Plan of Treatment Not on file documented as of this encounter Visit Diagnoses Diagnosis Other screening- Primary Other specified screening documented in this encounter Care Teams Metal Sprayer Production Relationship Specialty Start Date End Date Jarvis Coffey MD [address] [facility] [place] [address] PCP - General Family Practice 10/18/24 documented as of this encounter
--- OUTSIDE RECORDS SUMMARY | 2025-04-29 09:28 | XMS_ITS | Continuity of Care Document ---
Author Organization [facility] Address [address] [place] [address] Phone Care Team Providers Care Skin Fitter Name Role Phone Hutson OD, Junior Unavailable Unavailable Procedures Procedure Date Office/outpatient Visit, Est Office/outpatient Visit, Est Office/outpatient Visit, Est Advance Directives Directive Yes / No Effective Date File Name No Information Encounters Encounter Description Practice Location Reason(s) For Visit Diagnoses Date Provider Providers Copied on Encounter Office/outpat ient Visit, [facility] [place] [facility], [address] [place] [address] [address], [place], [place], [id number], [place] tel:[phone] [facility] No Information 8-201 0 Hutson OD Junior. [facility] , [address], [place], [place], [facility], . tel:[phone] Office/outpat ient Visit, [facility] [place], [address] [place] [address] [address], [place], [place], [address], [place] tel:[phone] [facility] No Information 6-201 0 Hutson OD Junior. [address] [facility], [place], [place], [facility], . tel:[phone] Office/outpat ient Visit, [facility] [place], [address] [place] [address] [address], [place], [place], [address], [place] tel:[phone] [facility] No Information 200 8 Gino Zhao. [address] [facility] , [address], [place], [address], [place]. tel:[phone] Family History Family Member Type Diagnosis Age At Onset No Information Payers Payer name Insurance type Covered republican ID Authordariela katt(s) [facility] [id number] Social History Type Description Quantity Date Captured [...]
--- OUTSIDE RECORDS SUMMARY | 2025-04-29 09:28 | XMS_ITS | Encounter Summary ---
Author Organization [employer] Address [address] [place] [address] Care Team Providers Care Split Leather Mosser Name Role Phone Jarvis Coffey MD Primary Care Provider Encounter Details Date Type Department Care Team (Latest Contact Info) Description 12/28/2004 Outpatient Historical [facility] Zeyad Millan MD [address] [facility] [address] [place] [address] THYROID DYSFUNC-ANTEPART (Primary Dx) Social History Tobacco Use Types Packs/Day Years Used Date Smoking Tobacco: Never Assessed Comments Unknown Sex and Gender Information Value Date Recorded Sex Assigned at Not on file Legal Sex Female 3:24 AM MANUAL QA TESTER Gender Identity Not on file Sexual Orientation Not on file documented as of this encounter Plan of Treatment Not on file documented as of this encounter Visit Diagnoses Diagnosis Thyroid dysfunction, antepartum(648.13)- Primary Thyroid dysfunction, antepartum documented in this encounter Care Teams Split Leather Mosser Relationship Specialty Start Date End Date Jarvis Coffey MD [address] [facility] [place] [address] PCP - General Family Practice 10/18/24 documented as of this encounter
--- OUTSIDE RECORDS SUMMARY | 2025-04-29 09:28 | XMS_ITS | Encounter Summary ---
Author Organization [facility] Address [address] [place] [address] Care Team Providers Care Control Clerk Head Name Role Phone Jarvis Coffey MD Primary Care Provider Encounter Details Date Type Department Care Team (Late st Contact Info) Description 01/12/[address] [facility] Maternal and Ground Floor [address] [place] [address] Zeyad Millan MD [address] [place] [address] [place] [address] Social History Tobacco Use Types Packs/Day Years Used Date Smoking Tobacco: Never Assessed Comments Unknown Sex and Gender Information Value Date Recorded Sex Assigned at Not on file Legal Sex Female 3:24 AM SYSTEMS SECURITY CONSULTANT Gender Identity Not on file Sexual Orientation Not on file documented as of this encounter Plan of Treatment Not on file documented as of this encounter Visit Diagnoses Not on filedocumented in this encounter Care Teams Control Clerk Head Relationship Specialty Start Date End Date Jarvis Coffey MD [address] [facility] [place] [place] [address] PCP - General Family Practice 10/18/24 documented as of this encounter
--- OUTSIDE RECORDS SUMMARY | 2025-04-29 09:28 | XMS_ITS | Encounter Summary ---
Author Organization [facility] Address [address] [place] [address] Care Team Providers Care Aircraft Painter Apprentice Name Role Phone Jarvis Coffey MD Primary Care Provider Encounter Details Date Type Department Care Team (Late st Contact Info) Description 02/23/[address] Outpatient [address] [facility] Maternal and Ground Floor [address] [place] [address] Zeyad Millan MD [address] [place] [address] [place] [address] Social History Tobacco Use Types Packs/Day Years Used Date Smoking Tobacco: Never Assessed Comments Unknown Sex and Gender Information Value Date Recorded Sex Assigned at Not on file Legal Sex Female 3:24 AM UNEMPLOYMENT INSPECTOR Gender Identity Not on file Sexual Orientation Not on file documented as of this encounter Plan of Treatment Not on file documented as of this encounter Visit Diagnoses Not on filedocumented in this encounter Care Teams Aircraft Painter Apprentice Relationship Specialty Start Date End Date Jarvis Coffey MD [address] [facility] [place] [address] PCP - General Family Practice 10/18/24 documented as of this encounter
--- OUTSIDE RECORDS SUMMARY | 2025-04-29 09:28 | XMS_ITS | Encounter Summary ---
Author Organization [employer] Address [address] [place] [address] Care Team Providers Care Fieldwork Coordinator Name Role Phone Jarvis Coffey MD Primary Care Provider Encounter Details Date Type Department Care Team (Latest Contact Info) Description 02/25/2005 Inpatient Historical [facility] Zeyad Millan MD [address] [facility] [address], [place] [address] ABNORM NEC-DELIVER (Primary Dx) Social History Tobacco Use Types Packs/Day Years Used Date Smoking Tobacco: Never Assessed Comments Unknown Sex and Gender Information Value Date Recorded Sex Assigned at Not on file Legal Sex Female 3:24 AM SCREEN EXAMINER Gender Identity Not on file Sexual [...] ORDERABLES Fi nal Result Performing Organization Address [facility] Co de Phone Number INTERFACE SYSTEM [...] ORDERABLES Fi nal Result Performing Organization Address City/[facility] Co de Phone Number INTERFACE SYSTEM Refer to clinic/hospital department documented in this encounter Visit Diagnoses Diagnosis Other known or suspected abnormality, not elsewhere classified, affecting management of mother, with delivered- Primary documented in this encounter Care Teams Fieldwork Coordinator Relationship Specialty Start Date End Date Jarvis Coffey MD [address] [facility] [place] [address] PCP - General Family Practice 10/18/24 documented as of this encounter
--- OUTSIDE RECORDS SUMMARY | 2025-04-29 09:28 | XMS_ITS | Encounter Summary ---
Author Organization [facility] Address [address] [place] [address] Care Team Providers Care Bridge Rigger Name Role Phone Jarvis Coffey MD Primary Care Provider Encounter Details Date Type Department Care Team (Latest Contact Info) Description 05/03/2007 Inpatient Historical [facility] Zeyad Millan MD [address] [facility] [address] [place] [address] Prev J-Qrkhaifx-Xwtgiif (Primary Dx) Social History Tobacco Use Types Packs/Day Years Used Date Smoking Tobacco: Never Assessed Comments Unknown Sex and Gender Information Value Date Recorded Sex Assigned at Not on file Legal Sex Female 3:24 AM CARDIOVASCULAR SURGEON Gender Identity Not on file Sexual Orientation [...] HIV RAPID SCREEN (05/03/2007 6:00 AM CDT) [facility] RAPID HIV SCREEN Nonreactive Nonreactive INTERFACE SYSTEM 05/03/2007 6:00 AM CDT us Zeyad Millan MD CHEMISTRY ORDERABLES Edgar shant Performing Organization Address [facility] de Phone Number INTERFACE SYSTEM Refer to clinic/hospital department * (ABNORMAL) CBC WITH DIFFERENTIAL (05/03/2007 6:00 AM CDT) Pathologist [facility] NEUTROPHILS 76(H) 45 - 70 % INTERFAC [...] HEMATOLOGY ORDERABLES Ed ited Performing Organization Address [facility] de Phone Number INTERFACE SYSTEM Refer [...] to lack of available kits from the horticultural therapist. A NON-REACTIVE HIV 1/2 ANTIBODY RESULT DOES NOT EXCLUDE HIV INFECTION SINCE THE TIME FRAME FOR SEROCONVERSION IS VARIABLE. IF ACUTE HIV INFECTION IS SUSPECTED, ANTIBODY RETESTING AND NUCLEIC ACID AMPLIFICATION (HIV DNA/RNA) TESTING IS RECOMMENDED. Lab test performed by: [facility] [address] [place] [address] [address] JUSTINA FRANKEL MD 05/03/2007 6:00 AM CDT us Zeyad Millan MD CHEMISTRY ORDERABLES Edgar shant Performing Organization Address [facility] Phone Number INTERFACE SYSTEM Refer to clinic/hospital department * HEPATITIS B SURFACE ANTIGEN (05/03/2007 6:00 AM CDT) HEPATITIS B SURFACE AG NON-REACTI VE NON-REACT FELIX INTERFACE SYSTEM Comment: Lab test performed by: [facility] [id number] [employer] [id number] [address] JUSTINA FRANKEL MD 05/03/2007 6:00 AM CDT Zeyad Millan MD CHEMISTRY ORDERABLES Edgar shant Performing Organization Address [facility] Phone Number INTERFACE SYSTEM Refer to clinic/hospital department * RUBELLA IGG (05/03/2007 6:00 AM CDT) Pathologist [facility] RUBELLA IGG 3.50 EIA Value INTERFAC E SYSTEM Comment: EIA VALUE EXPLANATION OF TEST RESULTS --------- <0.91 NEGATIVE - NO RUBELLA IGG ANTIBODY DETECTED. 0.91 - 1.09 EQUIVOCAL > OR = 1.10 POSITIVE - RUBELLA IGG ANTIBODY DETECTED. THE PRESENCE OF RUBELLA IGG ANTIBODY SUGGESTS IMMUNIZATION OR PAST OR CURRENT INFECTION WITH RUBELLA VIRUS. Lab test performed by: [facility] [id number] [employer] [id number] [address] JUSTINA FRANKEL MD 05/03/2007 6:00 AM CDT us Zeyad Millan MD CHEMISTRY ORDERABLES Edgar shant Performing Organization Address [facility] Phone Number INTERFACE SYSTEM Refer to clinic/hospital department * RPR (05/03/2007 6:00 AM CDT) RPR NON-REACTI VE NON-REACT FELIX INTERFACE SYSTEM Comment: Lab test performed by: [facility] [id number] [employer] [id number] [address] JUSTINA FRANKEL MD 05/03/2007 6:00 AM CDT us Zeyad Millan MD CHEMISTRY ORDERABLES Edgar shant Performing Organization Address City/[facility] de Phone Number INTERFACE SYSTEM Refer [...] HEMATOLOGY ORDERABLES Ed ited Performing Organization Address [facility] de Phone Number INTERFACE SYSTEM Refer [...] HEMATOLOGY ORDERABLES Ed ited Performing Organization Address [facility] Phone Number INTERFACE SYSTEM Refer to [...] MD URINE ORDERABLES Edited Performing Organization Address [facility] de Phone Number INTERFACE SYSTEM Refer to clinic/hospital department documented in this encounter Visit Diagnoses Diagnosis Previous delivery, delivered, with or without mention of antepartum condition- Primary documented in this encounter Care Teams Bridge Rigger Relationship Specialty Start Date End Date Jarvis Coffey MD [facility] [facility] [place] [address] PCP - General Family Practice 10/18/24 documented as of this encounter
--- OUTSIDE RECORDS SUMMARY | 2025-04-29 09:28 | XMS_ITS | Encounter Summary ---
Author Organization [facility] Address [address] [place] [address] Care Team Providers Care Spring Salvage Worker Name Role Phone Jarvis Coffey MD Primary Care Provider Encounter Details Date Type Department Care Team (Late st Contact Info) Description 12/18/2006 Outpatient Historical [facility] Maternal and Ground Floor [address] [facility] [address] [place] [address] Gil Mobley MD [address] [place] [address] Social History Tobacco Use Types Packs/Day Years Used Date Smoking Tobacco: Never Assessed Comments Unknown Sex and Gender Information Value Date Recorded Sex Assigned at Not on file Legal Sex Female 3:24 AM DIRECTOR INVESTMENT BANKING Gender Identity Not on file Sexual Orientation Not on file documented as of this encounter Plan of Treatment Not on file documented as of this encounter Visit Diagnoses Not on filedocumented in this encounter Care Teams Spring Salvage Worker Relationship Specialty Start Date End Date Jarvis Coffey MD [address] [facility] [place] [address] PCP - General Family Practice 10/18/24 documented as of this encounter
--- OUTSIDE RECORDS SUMMARY | 2025-04-29 09:28 | XMS_ITS | Encounter Summary ---
Author Organization [facility] Address [address] [place] [address] Care Team Providers Care Picker And Sorter Load And Unload Name Role Phone Jarvis Coffey MD Primary Care Provider Encounter Details Date Type Department Care Team (Late st Contact Info) Description 02/09/2007 Outpatient Historical [facility] Maternal and Ground Floor [address] [facility] [address] [place] [address] Gil Mobley MD [address] [place] [address] Social History Tobacco Use Types Packs/Day Years Used Date Smoking Tobacco: Never Assessed Comments Unknown Sex and Gender Information Value Date Recorded Sex Assigned at Not on file Legal Sex Female 3:24 AM QUALITY IMPROVEMENT COORDINATOR Gender Identity Not on file Sexual Orientation Not on file documented as of this encounter Plan of Treatment Not on file documented as of this encounter Visit Diagnoses Not on filedocumented in this encounter Care Teams Picker And Sorter Load And Unload Relationship Specialty Start Date End Date Jarvis Coffey MD [address] [facility] [place] [address] PCP - General Family Practice 10/18/24 documented as of this encounter
--- OUTSIDE RECORDS SUMMARY | 2025-04-29 09:28 | XMS_ITS | Encounter Summary ---
Author Organization [employer] Address [address] [place] [address] Care Team Providers Care Diaphragm Builder Name Role Phone Jarvis Coffey MD Primary Care Provider Encounter Details Date Type Department Care Team (Latest Contact Info) Description 11/23/2004 Outpatient Historical [facility] Zeyad Millan MD [address] [facility] [address] [place] [address] OTHER CURR COND-ANTEPARTUM (Primary Dx) Social History Tobacco Use Types Packs/Day Years Used Date Smoking Tobacco: Never Assessed Comments Unknown Sex and Gender Information Value Date Recorded Sex Assigned at Not on file Legal Sex Female 3:24 AM MD OPHTHALMOLOGIST Gender Identity Not on file Sexual Orientation Not on file documented as of this encounter Plan of Treatment Not on file documented as of this encounter Visit Diagnoses Diagnosis Other current maternal conditions classifiable elsewhere, antepartum- Primary documented in this encounter Care Teams Diaphragm Builder Relationship Specialty Start Date End Date Jarvis Coffey MD [address] [facility] [place] [address] PCP - General Family Practice 10/18/24 documented as of this encounter
--- OUTSIDE RECORDS SUMMARY | 2025-04-29 09:28 | XMS_ITS | Encounter Summary ---
Author Organization [employer] Address [address] [place] [address] Care Team Providers Care Seam Hammerer Name Role Phone Jarvis Coffey MD Primary Care Provider Encounter Details Date Type Department Care Team (Latest Contact Info) Description 09/23/2006 Outpatient Historical [facility] Zeyad Millan MD [address] [facility] [address] [place] [address] Other Specified Screening (Primary Dx) Social History Tobacco Use Types Packs/Day Years Used Date Smoking Tobacco: Never Assessed Comments Unknown Sex and Gender Information Value Date Recorded Sex Assigned at Not on file Legal Sex Female 3:24 AM CONSTRUCTION IRONWORKER HELPER Gender Identity Not on file Sexual Orientation Not on file documented as of this encounter Plan of Treatment Not on file documented as of this encounter Visit Diagnoses Diagnosis Other screening- Primary Other specified screening documented in this encounter Care Teams Seam Hammerer Relationship Specialty Start Date End Date Jarvis Coffey MD [address] [facility] [place] [address] PCP - General Family Practice 10/18/24 documented as of this encounter
--- OUTSIDE RECORDS SUMMARY | 2025-04-29 09:28 | XMS_ITS | Encounter Summary ---
Author Organization [employer] Address [address] [place] [address] Care Team Providers Care Veterinary Livestock Inspector Name Role Phone Jarvis Coffey MD Primary Care Provider Encounter Details Date Type Department Care Team (Latest Contact Info) Description 01/29/2005 Outpatient Historical [facility] Zeyad Millan MD [address] [facility] [address] [place] [address] OTHER CURR COND-ANTEPARTUM (Primary Dx) Social History Tobacco Use Types Packs/Day Years Used Date Smoking Tobacco: Never Assessed Comments Unknown Sex and Gender Information Value Date Recorded Sex Assigned at Not on file Legal Sex Female 3:24 AM MANAGEMENT PROFESSIONALS Gender Identity Not on file Sexual Orientation Not on file documented as of this encounter Plan of Treatment Not on file documented as of this encounter Visit Diagnoses Diagnosis Other current maternal conditions classifiable elsewhere, antepartum- Primary documented in this encounter Care Teams Veterinary Livestock Inspector Relationship Specialty Start Date End Date Jarvis Coffey MD [address] [facility] [place] [address] PCP - General Family Practice 10/18/24 documented as of this encounter
--- OUTSIDE RECORDS SUMMARY | 2025-04-29 09:28 | XMS_ITS | Encounter Summary ---
Author Organization [facility] Address [address] [place] [address] Care Team Providers Care Staff Development Coordinator Name Role Phone Jarvis Coffey MD Primary Care Provider Encounter Details Date Type Department Care Team (Late st Contact Info) Description 12/28/2004 Outpatient Historical [facility] Maternal and Ground Floor [address] [place] [address] Zeyad Millan MD [address] [place] [address] [place] [address] Social History Tobacco Use Types Packs/Day Years Used Date Smoking Tobacco: Never Assessed Comments Unknown Sex and Gender Information Value Date Recorded Sex Assigned at Not on file Legal Sex Female 3:24 AM ONYX CHIP TERRAZZO WORKER Gender Identity Not on file Sexual Orientation Not on file documented as of this encounter Plan of Treatment Not on file documented as of this encounter Visit Diagnoses Not on filedocumented in this encounter Care Teams Staff Development Coordinator Relationship Specialty Start Date End Date Jarvis Coffey MD [address] [facility] [place] [address] PCP - General Family Practice 10/18/24 documented as of this encounter
--- OUTSIDE RECORDS SUMMARY | 2025-04-29 09:28 | XMS_ITS | Encounter Summary ---
Author Organization [employer] Address [address] [place] [address] Care Team Providers Care Petroleum Inspector Supervisor Name Role Phone Jarvis Coffey MD Primary Care Provider Encounter Details Date Type Department Care Team (Late st Contact Info) Description 02/14/2005 Outpatient Historical [facility] Maternal and Ground Floor [address] [facility] [address] [place] [address] Ross Wong MD NO ADDRESS ON FILE Social History Tobacco Use Types Packs/Day Years Used Date Smoking Tobacco: Never Assessed Comments Unknown Sex and Gender Information Value Date Recorded Sex Assigned at Not on file Legal Sex Female 3:24 AM TOBACCO GROWER Gender Identity Not on file Sexual Orientation Not on file documented as of this encounter Plan of Treatment Not on file documented as of this encounter Visit Diagnoses Not on filedocumented in this encounter Care Teams Petroleum Inspector Supervisor Relationship Specialty Start Date End Date Jarvis Coffey MD [address] [facility] [place] [address] PCP - General Family Practice 10/18/24 documented as of this encounter
--- OUTSIDE RECORDS SUMMARY | 2025-04-29 09:28 | XMS_ITS | Encounter Summary ---
Author Organization [employer] Address [address] [place] [address] Care Team Providers Care Catering Operations Manager Name Role Phone Jarvis Coffey MD Primary Care Provider Encounter Details Date Type Department Care Team (Late st Contact Info) Description 03/02/2005 Outpatient Historical [facility] Zeyad Millan MD [address] [facility] [address] [place] [address] Social History Tobacco Use Types Packs/Day Years Used Date Smoking Tobacco: Never Assessed Comments Unknown Sex and Gender Information Value Date Recorded Sex Assigned at Not on file Legal Sex Female 3:24 AM ZIPPER MEASURER Gender Identity Not on file Sexual Orientation Not on file documented as of this encounter Plan of Treatment Not on file documented as of this encounter Visit Diagnoses Not on filedocumented in this encounter Care Teams Catering Operations Manager Relationship Specialty Start Date End Date Jarvis Coffey MD [address] [facility] [place] [address] PCP - General Family Practice 10/18/24 documented as of this encounter
--- OUTSIDE RECORDS SUMMARY | 2025-04-29 09:28 | XMS_ITS | Clinical Summary ---
Author Organization [employer] [address] [place] [address] Care Team Providers Care Window Shade Installer Name Role Phone Jarvis Coffey MD Primary Care Provider Allergies Active Allergy Reactions Criticality Noted Date Comments Lidocaine Palpitations Low Reaction: Tachycardia, Medications valACYclovir (VALTREX) 500 mg tablet Take 1 tablet (500 mg total) by mouth daily 09/12/20 22 Active hydrOXYzine (ATARAX) 25 mg tablet Take 1 tablet (25 mg total) by mouth 3 (three) times a day as needed 06/07/20 22 Active losartan-hydroCHL OROthiazide (HYZAAR) 50-12.5 mg per tablet Take 1 tablet by mouth daily Active estradioL (VIVELLE-DOT) 0.1 mg/[address] 1 patch on the skin 2 (two) times a week 05/06/20 24 Active progesterone (PROMETRIUM) 200 mg capsule Take 1 capsule (200 mg total) by mouth daily 05/06/20 24 Active albuterol HFA (PROVENTIL HFA,VENTOLIN HFA,PROAIR HFA) 90 mcg/actuation inhalerIndication s:Persistent cough Inhale 2 puffs every 6 (six) hours as needed for wheezing or shortness of breath 1 each 07/20/20 24 Active rosuvastatin (CRESTOR) 10 mg tablet Take 1 Tablet (10 mg) by mouth daily. 90 tablet 1 03/27/20 25 Active levothyroxine (Euthyrox) 175 mcg tabletIndications :Postablative hypothyroidism Take 1 Tablet (175 mcg) by mouth daily. 90 tablet 1 04/28/20 25 Active Vitamin D2 1,250 mcg (50,000 unit) capsule Take 1 Capsule (50,000 Units) by mouth every 7 days. 13 capsule 1 04/28/20 25 Active levothyroxine (SYNTHROID) 175 mcg tabletIndications :Postablative hypothyroidism Take 1 tablet (175 mcg total) by mouth daily 90 tablet 10/24/20 24 025 Discontinued ergocalciferol (VITAMIN D) 50,000 unit capsule Take 1 capsule (50,000 Units total) by mouth once a week 13 capsule 1 10/24/20 24 025 Discontinued Active Problems Problem Noted Date Diagnosed Date Essential hypertension 10/25/2022 Overview (10/25/2022): Continue lisinopril Mixed hyperlipidemia 04/12/2022 Overview (04/12/2022): Check lipid profike Postablative hypothyroidism 03/15/2014 Overview (02/02/2017): POSTABLAT HYPOTHYR NEC Assessment & Plan (09/25/2024 9:54 AM OVERHEAD CLEANER MAINTAINER): Labs today Clinically euthyroid on 150mg daily Assessment & Plan (09/19/2023 9:31 AM OVERHEAD CLEANER MAINTAINER): Has been on 150mcg daily x 2 weeks Will continue 150mcg daily and use Euthyrox as patient has been on branded Synthroid TSH with reflex in 2-4 weeks Resolved Problems Problem Noted Date Diagnosed Date Resolved Date Hypothyroidism 03/15/2014 09/19/2023 Overview (02/02/2017): HYPOTHYROIDISM NOS Encounters Date Type Department Care Team Description 04/17/2025 Orders Only [facility] [address] [place] [address] [address] [place] [phone] Radha Hirsch, JOCE 04/10/2025 Results Follow-Up [facility] [address] [place] [address] [address] [place] [address] Radha Hirsch NP Thyroid Function [place], T4, free 02/12/2025 Orders Only [facility] [address] [facility] [address] [place] [address] Radha Hirsch NP Acquired hypothyroidism (Primary Dx) from Last 3 Months Immunizations Immunization Administration Dates Next Due Influenza, Trivalent, IM (MDV) 08/15/2018 Influenza, Trivalent, Preservative Free, Intramu scular 11/18/2013 Pfizer SARS-CoV-2 Monovalent Vaccination (12+ Yrs) PURPLE 10/12/2021 Tdap 06/10/2010 Surgical History Surgery Date Site/Laterality Comments SECTION section SC DELIVERY ONLY Section - (Added by TW Conv) Medical History Medical History Date Comments Personal history of other en docrine, nutritional and metabolic disease History of thyroid d isorder - (Added by TW Conv) Family History Medical History Relation Name Comments Diabetes Father Family history of diabetes mellitus - (Added by TW Conv) Hypertension Father Family history of hypertension - (Added by TW Conv) Arthritis Mother Family history of arthritis - (Added by TW Conv) Thyroid disease Other Family histo ry [...] on file Legal Sex Female 12:06 PM OVERHEAD CLEANER MAINTAINER Gender Identity Not on file Sexual Orientation Not on file Obstetrics History Last Filed Vital Signs Vital Sign Reading Time Taken Comments Blood Pressure 124/74 09/25/2024 9:22 AM OVERHEAD CLEANER MAINTAINER Pulse 91 09/25/2024 9:22 AM OVERHEAD CLEANER MAINTAINER Temperature 37.1 C (98.7 F) 09/13/2024 2:30 PM OVERHEAD CLEANER MAINTAINER Respiratory Rate 16 09/13/2024 2:30 PM OVERHEAD CLEANER MAINTAINER Oxygen Saturation 98% 09/25/2024 9:22 AM OVERHEAD CLEANER MAINTAINER Inhaled Oxygen Concentration - - Weight 86.2 kg (190 lb) 09/25/2024 9:22 AM OVERHEAD CLEANER MAINTAINER Height 157.5 cm (5' 2) 09/25/2024 9:22 AM OVERHEAD CLEANER MAINTAINER Body Mass Index 34.75 09/25/2024 9:22 AM OVERHEAD CLEANER MAINTAINER Plan of Treatment Health Maintenance Due Date [...] season) 2024 10/12/2021, 01/02/2021, 12/12/2020 Influenza Vaccine (Season Ended) 2025 08/26/2023, 08/15/2018, 11/18/2013 Pneumococcal vaccine <65 Aged Out No longer eligible based on patient's age to complete this topic Procedures Procedure Name Priority Date/Time Associated Diagnosis Comments SCAN - RADIOLOGY/IMAGING 04/17/2025 9:03 AM CDT T4, FREE Routine 04/09/2025 9:18 AM CDT THYROID FUNCTION CASCADE Routine 04/09/2025 9:18 AM CDT Acquired hypothyroidism from Last 3 Months Results * SCAN - RADIOLOGY/IMAGING (04/17/2025 9:03 AM CDT) Anatomical Region Laterality Modality Other us Radha Hirsch NP Final Re sult * (ABNORMAL) Thyroid Function [place] (04/09/2025 9:18 AM CDT) TSH 0.05(L) mIU/L [facility] Comment: Reference Range > or = 20 Years 0.40-4.50 Ranges First trimester 0.26-2.66 Second trimester 0.55-2.73 Third trimester 0.43-2.91 Blood 04/09/2025 9:18 AM CDT 04/09/2025 9:19 AM CDT Radha Hirsch MEMBERSHIP ADMINISTRATOR LAB BLOOD ORDERABLES Fin al Result [facility] [address] [place] [address] * T4, free (04/09/2025 9:18 AM CDT) Free T4 1.8 0.8 - 1.8 ng/dL [facility] 04/09/2025 9:18 AM CDT 04/09/2025 9:19 AM CDT Radha Hirsch MEMBERSHIP ADMINISTRATOR LAB BLOOD ORDERABLES Fin al Result Performing Organization Address [facility] Co de Phone Number [facility] [address] [facility] [place] [address] from Last 3 Months Insurance [facility] ACCESS CHOICE [facility] Address: [facility] [address] [place] [address] [place] [address] [facility] ACCESS CHOICE Care Teams Window Shade Installer Relationship Specialty Start Date End Date Jarvis Coffey MD [address] [facility] [address] [place], [place] [id number] PCP - General Family Practice 09/19/23
--- OUTSIDE RECORDS SUMMARY | 2025-04-29 09:28 | XMS_ITS | Encounter Summary ---
Author Organization [employer] Address [address] [place] [address] Care Team Providers Care Chief Resource Officer Name Role Phone Jarvis Coffey MD Primary Care Provider Encounter Details Date Type Department Care Team (Late st Contact Info) Description 05/05/2007 Outpatient Historical [facility] Zeyad Millan MD [address] [facility] [address] [place] [address] Social History Tobacco Use Types Packs/Day Years Used Date Smoking Tobacco: Never Assessed Comments Unknown Sex and Gender Information Value Date Recorded Sex Assigned at Not on file Legal Sex Female 3:24 AM SALES CONSULTANT RESIDENTIAL MANAGER Gender Identity Not on file Sexual Orientation Not on file documented as of this encounter Plan of Treatment Not on file documented as of this encounter Visit Diagnoses Not on filedocumented in this encounter Care Teams Chief Resource Officer Relationship Specialty Start Date End Date Jarvis Coffey MD [address] [facility] [place] [address] PCP - General Family Practice 10/18/24 documented as of this encounter
--- OUTSIDE RECORDS SUMMARY | 2025-04-29 09:28 | XMS_ITS | Referral Summary ---
Author Organization [facility] [address] Address [address] [place] [address] Care Team Providers Care Repossession Agent Name Role Phone Jarvis Coffey MD Primary Care Provider Encounters Date Type Department Care Team Description 04/17/2025 Orders Only [facility] [facility] [address] [place] [address] Radha Hirsch NP 04/10/2025 Results Follow-Up [facility] [facility] [address] [place] [address] Radha Hirsch NP Thyroid Function [place], T4, free 02/12/2025 Orders Only [facility] [address] [facility] [address] [facility] [place] [address] Radha Hirsch NP Acquired hypothyroidism (Primary Dx) from Last 3 Months Allergies Active Allergy [...] NEC Assessment & Plan (09/25/2024 9:54 AM BOAT AND PLANT UTILITY SUPERVISOR): Labs today Clinically euthyroid on 150mg daily Assessment & Plan (09/19/2023 9:31 AM BOAT AND PLANT UTILITY SUPERVISOR): Has been on 150mcg daily x 2 weeks Will continue 150mcg daily and use Euthyrox as patient has been on branded Synthroid TSH with reflex in 2-4 weeks Resolved Problems Problem Noted Date Diagnosed Date Resolved Date Hypothyroidism 03/15/2014 09/19/2023 Overview (02/02/2017): HYPOTHYROIDISM NOS Immunizations Immunization Administration Dates Next Due Influenza, [...] on file Legal Sex Female 12:06 PM BOAT AND PLANT UTILITY SUPERVISOR Gender Identity Not on file Sexual Orientation Not on file Last Filed Vital Signs Vital Sign Reading Time Taken Comments Blood Pressure 124/74 09/25/2024 9:22 AM BOAT AND PLANT UTILITY SUPERVISOR Pulse 91 09/25/2024 9:22 AM BOAT AND PLANT UTILITY SUPERVISOR Temperature 37.1 C (98.7 F) 09/13/2024 2:30 PM BOAT AND PLANT UTILITY SUPERVISOR Respiratory Rate 16 09/13/2024 2:30 PM BOAT AND PLANT UTILITY SUPERVISOR Oxygen Saturation 98% 09/25/2024 9:22 AM BOAT AND PLANT UTILITY SUPERVISOR Inhaled Oxygen Concentration - - Weight 86.2 kg (190 lb) 09/25/2024 9:22 AM BOAT AND PLANT UTILITY SUPERVISOR Height 157.5 cm (5' 2) 09/25/2024 9:22 AM BOAT AND PLANT UTILITY SUPERVISOR Body Mass Index 34.75 09/25/2024 9:22 AM BOAT AND PLANT UTILITY SUPERVISOR Plan of Treatment Not on file Procedures Procedure Name Priority Date/Time Associated Diagnosis Comments SCAN - RADIOLOGY/IMAGING 04/17/2025 9:03 AM CDT T4, FREE Routine 04/09/2025 9:18 AM CDT THYROID FUNCTION CASCADE Routine 04/09/2025 9:18 AM CDT Acquired hypothyroidism from Last 3 Months Results * SCAN - RADIOLOGY/IMAGING (04/17/2025 9:03 AM CDT) Anatomical Region Laterality Modality Other Radha Hirsch COLLET MAKING MACHINE OPERATOR Final Re sult * (ABNORMAL) Thyroid Function [place] (04/09/2025 9:18 AM CDT) TSH 0.05(L) mIU/L [facility] Comment: Reference Range > or = 20 Years 0.40-4.50 Ranges First trimester 0.26-2.66 Second trimester 0.55-2.73 Third trimester 0.43-2.91 Blood 04/09/2025 9:18 AM CDT 04/09/2025 9:19 AM CDT Radha Hirsch COLLET MAKING MACHINE OPERATOR LAB BLOOD ORDERABLES Fin al Result Performing Organization Address [facility] Co de Phone Number [facility] [address] [place] [address] * T4, free (04/09/2025 9:18 AM CDT) Free T4 1.8 0.8 - 1.8 ng/dL [facility] 04/09/2025 9:18 AM CDT 04/09/2025 9:19 AM CDT Radha Hirsch NP LAB BLOOD ORDERABLES Fin al Result Performing Organization Address [facility] Co de Phone Number [facility] [address] [place] [address] from Last 3 Months Insurance ANTHEM ACCESS CHOICE ANTHEM ACCESS CHOICE Care Teams Repossession Agent Relationship Specialty Start Date End Date Jarvis Coffey MD [address] [facility] [place] [address] PCP - General Family Practice 09/19/23
--- OUTSIDE RECORDS SUMMARY | 2025-04-29 09:28 | XMS_ITS | Encounter Summary ---
Author Organization [facility] Address [address] [place] [address] Care Team Providers Care Toll Ticket Clerk Name Role Phone Jarvis Coffey MD Primary Care Provider Encounter Details Date Type Department Care Team (Late st Contact Info) Description 11/23/2004 Outpatient Historical [facility] Maternal and Ground Floor [address] [place] [address] Zeyad Millan MD [address] [place] [id number] [place] [address] Social History Tobacco Use Types Packs/Day Years Used Date Smoking Tobacco: Never Assessed Comments Unknown Sex and Gender Information Value Date Recorded Sex Assigned at Not on file Legal Sex Female 3:24 AM HIDE PASTER Gender Identity Not on file Sexual Orientation Not on file documented as of this encounter Plan of Treatment Not on file documented as of this encounter Visit Diagnoses Not on filedocumented in this encounter Care Teams Toll Ticket Clerk Relationship Specialty Start Date End Date Jarvis Coffey MD [address] [facility] [place] [address] PCP - General Family Practice 10/18/24 documented as of this encounter
--- OUTSIDE RECORDS SUMMARY | 2025-04-29 09:28 | XMS_ITS | Encounter Summary ---
Author Organization [facility] Address [address] [place] [address] Care Team Providers Care Vendor Management Associate Name Role Phone Jarvis Coffey MD Primary Care Provider Encounter Details Date Type Department Care Team (Late st Contact Info) Description 02/25/2005 Outpatient Historical [facility] Maternal and Ground Floor [address] [place] [address] Zeyad Millan MD [address] [place] [address] [place] [address] Social History Tobacco Use Types Packs/Day Years Used Date Smoking Tobacco: Never Assessed Comments Unknown Sex and Gender Information Value Date Recorded Sex Assigned at Not on file Legal Sex Female 3:24 AM JET AIRCRAFT SERVICER Gender Identity Not on file Sexual Orientation Not on file documented as of this encounter Plan of Treatment Not on file documented as of this encounter Visit Diagnoses Not on filedocumented in this encounter Care Teams Vendor Management Associate Relationship Specialty Start Date End Date Jarvis Coffey MD [address] [facility] [place] [address] PCP - General Family Practice 10/18/24 documented as of this encounter
--- OUTSIDE RECORDS SUMMARY | 2025-04-29 09:28 | XMS_ITS | Encounter Summary ---
Author Organization [facility] Address [address] [place] [address] Care Team Providers Care Geoint Analyst Name Role Phone Jarvis Coffey MD Primary Care Provider Encounter Details Date Type Department Care Team (Late st Contact Info) Description 09/25/2006 Outpatient Historical [facility] Maternal and Ground Floor [address] [place] [address] Zeyad Millan MD [address] [place] [address] [place] [address] Social History Tobacco Use Types Packs/Day Years Used Date Smoking Tobacco: Never Assessed Comments Unknown Sex and Gender Information Value Date Recorded Sex Assigned at Not on file Legal Sex Female 3:24 AM SPECIAL EDUCATION INSTRUCTOR Gender Identity Not on file Sexual Orientation Not on file documented as of this encounter Plan of Treatment Not on file documented as of this encounter Visit Diagnoses Not on filedocumented in this encounter Care Teams Geoint Analyst Relationship Specialty Start Date End Date Jarvis Coffey MD [address] [facility] [place] [address] PCP - General Family Practice 10/18/24 documented as of this encounter
--- OUTSIDE RECORDS SUMMARY | 2025-04-29 09:28 | XMS_ITS | Encounter Summary ---
Author Organization [employer] Address [address] [place] [address] Care Team Providers Care Pillowcase Sewer Name Role Phone Jarvis Coffey MD Primary Care Provider Encounter Details Date Type Department Care Team (Latest Contact Info) Description 01/29/2007 Outpatient Historical [facility] Zeyad Millan MD [address] [facility] [address] [place] [address] Other Specified Screening (Primary Dx) Social History Tobacco Use Types Packs/Day Years Used Date Smoking Tobacco: Never Assessed Comments Unknown Sex and Gender Information Value Date Recorded Sex Assigned at Not on file Legal Sex Female 3:24 AM ETYMOLOGY PROFESSOR Gender Identity Not on file Sexual Orientation Not on file documented as of this encounter Plan of Treatment Not on file documented as of this encounter Visit Diagnoses Diagnosis Other screening- Primary Other specified screening documented in this encounter Care Teams Pillowcase Sewer Relationship Specialty Start Date End Date Jarvis Coffey MD [address] [facility] [place] [address] PCP - General Family Practice 10/18/24 documented as of this encounter
--- OUTSIDE RECORDS SUMMARY | 2025-04-29 09:28 | XMS_ITS | Encounter Summary ---
Author Organization [employer] Address [address] [place] [address] Care Team Providers Care Information Support Project Manager Name Role Phone Jarvis Coffey MD Primary Care Provider Encounter Details Date Type Department Care Team (Latest Contact Info) Description 12/28/2006 Outpatient Historical [facility] Zeyad Millan MD [address] [facility] [address] [place] [address] Other Specified Screening (Primary Dx) Social History Tobacco Use Types Packs/Day Years Used Date Smoking Tobacco: Never Assessed Comments Unknown Sex and Gender Information Value Date Recorded Sex Assigned at Not on file Legal Sex Female 3:24 AM COMMUNICATIONS AGENT Gender Identity Not on file Sexual Orientation Not on file documented as of this encounter Plan of Treatment Not on file documented as of this encounter Visit Diagnoses Diagnosis Other screening- Primary Other specified screening documented in this encounter Care Teams Information Support Project Manager Relationship Specialty Start Date End Date Jarvis Coffey MD [address] [facility] [place] [address] PCP - General Family Practice 10/18/24 documented as of this encounter
== END 2025-04-29 09:23 | disposition home or self-care (01) ==
PROVIDERS: PCP Family Medicine; Visit Provider Obstetrics & Gynecology
DX: Z12.31 Encounter for screening mammogram for malignant neoplasm of breast (principal)
CPT/HCPCS: 77063; 77067

== ENCOUNTER 2025-06-27 13:59 | Outpatient (CLI) | payer BC, SELFPAY ==
--- OUTSIDE RECORDS SUMMARY | 2009-11-06 03:15 | XMS_ITS | Continuity of Care Document ---
Author Organization [facility] Address [address] [place] [address] Phone Care Team Providers Care Stagecraft Professor Name Role Phone Hutson OD, Junior Unavailable Unavailable Procedures Procedure Date Office/outpatient Visit, Est Office/outpatient Visit, Est Office/outpatient Visit, Est Advance Directives Directive Yes / No Effective Date File Name No Information Encounters Encounter Description Practice Location Reason(s) For Visit Diagnoses Date Provider Providers Copied on Encounter Office/outpat ient Visit, [facility], [address] [place] [address] [address], [place], [place], [id number], [place] tel:[phone] SEC [facility] No Information 8-201 0 Hutson OD Junior. [facility] , [address], [place], [place], [facility], . tel:[phone] Office/outpat ient Visit, [facility], [address] [place] [address] [address], [place], [place], [id number], [place] tel:[phone] SEC [facility] No Information 6-201 0 Hutson OD Junior. [address], [place], [place], [facility], . tel:[phone] Office/outpat ient Visit, [facility], [address] [place] [address] [address], [place], [place], [id number], [place] tel:[phone] SEC [facility] No Information 200 8 Gino Zhao. [address] [facility] , [address], [place], [address], [place]. tel:[phone] Family History Family Member Type Diagnosis Age At Onset No Information Payers Payer name Insurance type Covered democrat ID Authordariela katt(s) [facility] [id number] Social History Type Description Quantity Date Captured Comments Sex Female Smoking Status No Information Chief Complaint And Reason For Visit No Information Reason For Referral Reason For Referral No Information History Of Present Illness Encounter Date Complaint History Of Prese nt Illness No Information Functional Status Date Functional Assessmen t No Information Instructions Date Instruction Additional Infor mation No Information Assessments Type Assessment Date No Information Patient Care Teams Name Effective Dates (start - stop) Status Members No Information
--- NOTE | ~2025-06-27 | XR_ITS ---
EXAMINATION: XR lg joint inject/asp w image DATE: 06/27/2025 14:45 INDICATION: Left hip arthritis TECHNIQUE: A time-out was performed to verify the patient's name, date of , and procedure to be performed. The procedure including the risks, benefits, and alternatives was discussed with the patient. Risks discussed included bleeding and infection. The patient understood the risks and agreed to proceed. The skin overlying the left hip joint was prepped and draped in usual sterile fashion. Anesthetic was administered with 1% lidocaine subcutaneously. A 22 G needle was advanced under fluoroscopic guidance into the joint. Injection of 1 mL of Omnipaque 240 confirmed intra-articular position of the needle. Subsequently, injectate consisting of 3 mm right to: 1 mixture of 0.5% bupivacaine: 80 mg/mL Depo-Medrol for a total dosage of 80 mg Depo-Medrol was instilled. Washout of contrast was seen confirming intra-articular administration. The needle was removed and the entry site was cleaned and dressed. There were no immediate complications. Fluoroscopy exposure time was 0.1 minutes. The total number of images was 1. FINDINGS: Real-time fluoroscopy demonstrates the needle in the left hip joint. Patient's pain prior to procedure:2/10. Patient's pain following the procedure: 2/10. IMPRESSION: 1. Successful left hip joint injection of local anesthetic and steroid with no change in the patient's presenting pain. Reviewed, dictated and finalized at location A.
--- OUTSIDE RECORDS SUMMARY | 2025-06-27 14:02 | XMS_ITS | Encounter Summary ---
Author Organization [facility] Address [address] [place] [address] Care Team Providers Care Operating Room Coordinator Name Role Phone Jarvis Coffey MD Primary Care Provider Encounter Details Date Type Department Care Team (Late st Contact Info) Description 05/01/2007 Outpatient Historical [facility] Maternal and Ground Floor S [facility] [address] [place] [address] Anabela Barnes MD [address] [place] [address] Social History Tobacco Use Types Packs/Day Years Used Date Smoking Tobacco: Never Assessed Comments Unknown Sex and Gender Information Value Date Recorded Sex Assigned at Not on file Legal Sex Female 3:24 AM NEUROPSYCHOLOGY DIVISION CHIEF Gender Identity Not on file Sexual Orientation Not on file documented as of this encounter Plan of Treatment Not on file documented as of this encounter Visit Diagnoses Not on filedocumented in this encounter Care Teams Operating Room Coordinator Relationship Specialty Start Date End Date Jarvis Coffey MD [address] [facility] [place] [address] PCP - General Family Practice 10/18/24 documented as of this encounter
--- OUTSIDE RECORDS SUMMARY | 2025-06-27 14:02 | XMS_ITS | Encounter Summary ---
Author Organization [facility] Address [address] [place] [address] Care Team Providers Care Land Planner Name Role Phone Jarvis Coffey MD Primary Care Provider Encounter Details Date Type Department Care Team (Late st Contact Info) Description 05/05/2007 Outpatient Historical [facility] Zeyad Millan MD [address] [facility] [address] [place] [address] Social History Tobacco Use Types Packs/Day Years Used Date Smoking Tobacco: Never Assessed Comments Unknown Sex and Gender Information Value Date Recorded Sex Assigned at Not on file Legal Sex Female 3:24 AM GARBAGE PICK UP MAN Gender Identity Not on file Sexual Orientation Not on file documented as of this encounter Plan of Treatment Not on file documented as of this encounter Visit Diagnoses Not on filedocumented in this encounter Care Teams Land Planner Relationship Specialty Start Date End Date Jarvis Coffey MD [address] [facility] [address] PCP - General Family Practice 10/18/24 documented as of this encounter
--- OUTSIDE RECORDS SUMMARY | 2025-06-27 14:02 | XMS_ITS | Clinical Summary ---
Author Organization [facility] Address [address] [place] [address] Phone Care Team Providers Care Recovery Collector Name Role Phone Jarvis Coffey MD Primary [...] daily. 90 Tablet 1 09/13/2022 12:26 PM KNOCK UP ASSEMBLER 2 Active benzonatate (TESSALON) 100 mg capsule Take 1 Capsule (100 mg) by mouth 3 times daily as needed for cough. 30 Capsule 11/28/2022 6:03 PM KNOCK UP ASSEMBLER 3 Active methylPREDNISo lone (MEDROL DOSPACK) 4 mg Tablets, Dose Pack Take 1 Tablet (4 mg) by mouth 2 times daily. 20 Tablet 1 12/05/2022 6:35 PM KNOCK UP ASSEMBLER 3 Active losartan (COZAAR) 25 mg tablet Take 1 Tablet (25 mg) by mouth daily. 90 Tablet 12/05/2022 6:35 PM KNOCK UP ASSEMBLER 3 Active baclofen (LIORESAL) 10 mg tablet Take 1 Tablet (10 mg) by mouth 3 times daily. 20 Tablet 12/15/2022 5:31 PM KNOCK UP ASSEMBLER 3 Active traMADoL (ULTRAM) 50 mg tablet Take 1 Tablet (50 mg) by mouth every 6 hours as needed for pain. 20 Tablet 12/15/2022 5:31 PM KNOCK UP ASSEMBLER 3 Active losartan (COZAAR) 25 mg tablet [...] week. 42.5 Gram 3 09/19/2023 2:43 PM KNOCK UP ASSEMBLER 3 Active Euthyrox 150 mcg tablet Take 1 tablet (150 mcg total) by mouth survey engineer before breakfast 30 Tablet 09/22/2023 9:51 AM KNOCK UP ASSEMBLER 3 Active hydrOXYzine HCL (ATARAX) 25 mg tablet Take one tablet (25 mg) orally twice a day As Needed for anxiety 60 Tablet 02/14/2024 2:49 PM CDT 4 Active losartan-hydro CHLOROthiazide (HYZAAR) 50-12.5 mg tablet Take 1 Tablet by mouth daily. 90 Tablet 1 09/21/2024 2:55 PM KNOCK UP ASSEMBLER 4 Active Euthyrox 150 mcg tablet Take 1 tablet (150 mcg total) by mouth in the survey engineer before breakfast 30 Tablet 3 09/21/2024 2:55 PM KNOCK UP ASSEMBLER 4 Active azithromycin (ZITHROMAX) 250 mg tablet TAKE 2 TABLETS BY MOUTH A SINGLE DOSE ON DAY 1, THEN TAKE 1 TABLET BY MOUTH ONCE DAILY ON DAYS 2 THRU 5. 6 Tablet 07/06/2024 8:50 AM CDT 4 Active benzonatate (TESSALON) 100 mg [...] 5 days 15 Tablet 09/13/2024 5:41 PM KNOCK UP ASSEMBLER 4 Active methylPREDNISo lone (MEDROL DOSPACK) 4 mg Tablets, Dose Pack Take 6 tabs on day 1, reduce dose by 1 daily until prescription is complete. 21 Each 09/13/2024 5:41 PM KNOCK UP ASSEMBLER 4 Active clotrimazole-b etamethasone (LOTRISONE) 1-0.05 % Cream Apply liberally to affected area(s) three times a daily as needed. 45 Gram 09/25/2024 5:59 PM KNOCK UP ASSEMBLER 4 Active levothyroxine 175 mcg tablet Take 1 Tablet (175 mcg) by mouth daily. 90 Tablet 10/27/2024 11:11 AM KNOCK UP ASSEMBLER 4 Active valACYclovir (VALTREX) 500 mg tablet Take 1 Tablet (500 mg) by mouth daily. 90 Tablet 4 11/01/2024 3:38 PM KNOCK UP ASSEMBLER 5 Active LORazepam (ATIVAN) 1 mg tablet Take 1 Tablet (1 mg) by mouth 1 time as needed for anxiety. 1 Tablet 11/11/2024 5:10 PM KNOCK UP ASSEMBLER 5 Active HYDROcodone-ac etaminophen (NORCO) 5-325 mg tablet Take 1 Tablet by mouth every 4 hours as needed for pain. Max Daily Amount: 6 Tablets 20 Tablet 12/06/2024 11:02 AM KNOCK UP ASSEMBLER 5 Active miconazole (GUNNAR,MICOTIN, REMEDY AF) 2 % Cream APPLY TO THE AFFECTED AREA TWICE DAILY FOR 14 DAYS. 28 Gram 1 5 Active buPROPion HCL (WELLBUTRIN XL) 150 mg Extended Release 24 hour tablet Take 1 Tablet (150 mg) by mouth daily in the morning. 90 Tablet 1 06/21/2025 8:52 AM CDT 5 Active busPIRone (BUSPAR) 5 mg tablet Take 1 Tablet (5 mg) by mouth 2 times daily as needed for anxiety. 60 Tablet 02/17/2025 4:51 PM CDT 5 Active rosuvastatin (CRESTOR) 10 mg tablet Take 1 Tablet (10 mg) by mouth daily. 90 Tablet 1 03/28/2025 4:29 PM CDT 5 Active levothyroxine 175 mcg tablet Take 1 Tablet (175 mcg) by mouth daily. 90 Tablet 1 05/01/2025 10:51 AM CDT 5 Active ergocalciferol (Vitamin D2) 50,000 unit capsule Take 1 Capsule (50,000 Units) by mouth every 7 days. 13 Capsule 1 04/29/2025 12:05 PM CDT 5 Active diclofenac sodium (VOLTAREN) 75 mg Tablet, Delayed Release (E.C.) Take 1 Tablet (75 mg) by mouth 2 times daily as needed for pain. 60 Tablet 1 04/29/2025 12:05 PM CDT 5 Active levothyroxine 175 mcg tablet Take 1 tablet (175 mcg total) by mouth survey engineer before breakfast 90 Tablet 5 Active omeprazole (PriLOSEC) 20 mg Capsule, Delayed Release(E.C.) Take 1 Capsule (20 mg) by mouth daily. 30 Capsule 05/27/2025 2:17 PM CDT 5 Active traMADol (ULTRAM) 50 mg tablet Take 1 Tablet (50 mg) by mouth 1 time daily as needed for pain. 30 Tablet 06/19/2025 9:53 AM CDT 5 Active losartan-hydro CHLOROthiazide (HYZAAR) 50-12.5 mg tablet Take 1 tablet by mouth daily 90 Tablet 1 06/21/2025 8:52 AM CDT 5 Active losartan-hydro CHLOROthiazide (HYZAAR) 50-12.5 mg tablet Take 1 Tablet by mouth daily. 90 Tablet 1 03/28/2025 4:29 PM CDT 5 025 Discontin ued(Reord er) Active Problems Patient Care Coordination No te Formatting of this note migh t be different from the original. Primary Care: No primary provider on file. Referring Provider: Zeyad Srivastava MD [address] [id number] Other: Problem Noted Date Diagnosed Date 06/07/10 06/07/2010 Threatened 12/23/2009 Previous section 12/23/2009 Hypothyroid 12/23/2009 Grave's disease Encounters Date Type Department Care Team Description 06/17/2025 External Device Data [facility] ABSTRACTION Provider, Abstract 05/20/2025 External Device Data [facility]STRA[facility] Provider, Abstract 05/20/2025 External Device Data [facility] Provider, Abstract 05/14/2025 External Device Data [facility] Provider, Abstract 05/13/2025 External Device Data [facility] Provider, Abstract 04/16/2025 External Device Data [facility]STRACTION Provider, [...] on file Legal Sex Female 3:24 AM KNOCK UP ASSEMBLER Gender Identity Not on file Sexual Orientation Not on file Occupation Industry Job Start Date Job End Date Not on file Not on file Not on file Not on file Last Filed Vital Signs Vital Sign Reading Time Taken Comments Blood Pressure 125/81 10/18/2024 1:23 PM KNOCK UP ASSEMBLER Pulse 88 10/18/2024 12:43 PM KNOCK UP ASSEMBLER Temperature 36.8 C (98.3 F) 10/18/2024 12:43 PM KNOCK UP ASSEMBLER Respiratory Rate 18 10/18/2024 1:23 PM KNOCK UP ASSEMBLER Oxygen Saturation 97% 10/18/2024 1:23 PM KNOCK UP ASSEMBLER Inhaled Oxygen Concentration - - Weight 81.6 kg (180 lb) 10/18/2024 12:43 PM KNOCK UP ASSEMBLER Height 157.5 cm (5' 2) 10/18/2024 12:43 PM KNOCK UP ASSEMBLER Body Mass Index 32.92 10/18/2024 12:43 PM KNOCK UP ASSEMBLER Plan of Treatment Health Maintenance Due Date [...] 06/10/2010 ZOSTER VACCINE (1 of 2) 2022 COVID-19 Vaccine ( season) 2024 INFLUENZA VACCINE (#1) 2025 3, 08/15/2018, 11/18/2013 Procedures Procedure Name Priority Date/Time Associated Diagnosis Comments MAMMO DIAGNOSTIC UNI RIGHT W OR WO CAD Routine 12/06/2012 from Last 3 Months or Most Recently Relevant to Health Maintenance Results * MAMMO DIGITAL DIAG UNI RIGHT (12/06/2012) Anatomical Region Laterality Modality Breast Right Other Zeyad Caicedo MD MAMMO ORDERABLES Edit ed from Last 3 Months or Most Recently Relevant to Health Maintenance Insurance [facility] Affirm CHOICE RX [facility] Commercial RX [employer] (INTERNAL) [facility] Internal Plans Advance Directives For more information, please contact: [phone] * Full Code (Latest Code Status on File) Date Activated Date Inactivated Comments 06/08/2010 12:19 AM 06/11/2010 3:18 PM * Full Code Date Activated Date Inactivated Comments 06/07/2010 6:24 PM 06/08/2010 12:19 AM Care Teams Recovery Collector Relationship Specialty Start Date End Date Jarvis Coffey MD [address] [facility] [facility] [place] [address] PCP - General Family Practice 10/18/24
--- OUTSIDE RECORDS SUMMARY | 2025-06-27 14:02 | XMS_ITS | Encounter Summary ---
Author Organization [facility] Address [address] [place] [address] Care Team Providers Care Barge Master Name Role Phone Jarvis Coffey MD Primary Care Provider Encounter Details Date Type Department Care Team (Latest Contact Info) Description 09/23/2006 Outpatient Historical [facility] Zeyad Millan MD [address] [facility] [address] [place] [address] Other Specified Screening (Primary Dx) Social History Tobacco Use Types Packs/Day Years Used Date Smoking Tobacco: Never Assessed Comments Unknown Sex and Gender Information Value Date Recorded Sex Assigned at Not on file Legal Sex Female 3:24 AM PLASTIC FINISHER Gender Identity Not on file Sexual Orientation Not on file documented as of this encounter Plan of Treatment Not on file documented as of this encounter Visit Diagnoses Diagnosis Other screening- Primary Other specified screening documented in this encounter Care Teams Barge Master Relationship Specialty Start Date End Date Jarvis Coffey MD [address] [facility] [place] [address] PCP - General Family Practice 10/18/24 documented as of this encounter
--- OUTSIDE RECORDS SUMMARY | 2025-06-27 14:02 | XMS_ITS | Encounter Summary ---
Author Organization [facility] Address [address] [place] [address] Care Team Providers Care Bag Maker Name Role Phone Jarvis Coffey MD Primary Care Provider Encounter Details Date Type Department Care Team (Late st Contact Info) Description 04/24/2007 Outpatient Historical [facility] Maternal and Ground Floor S [facility] [address] [facility] [place] [address] Jeremy Bustillo MD NO ADDRESS ON FILE Social History Tobacco Use Types Packs/Day Years Used Date Smoking Tobacco: Never Assessed Comments Unknown Sex and Gender Information Value Date Recorded Sex Assigned at Not on file Legal Sex Female 3:24 AM AUCTIONEER AUTOMOBILE Gender Identity Not on file Sexual Orientation Not on file documented as of this encounter Plan of Treatment Not on file documented as of this encounter Visit Diagnoses Not on filedocumented in this encounter Care Teams Bag Maker Relationship Specialty Start Date End Date Jarvis Coffey MD [address] [facility] [place] [address] PCP - General Family Practice 10/18/24 documented as of this encounter
--- OUTSIDE RECORDS SUMMARY | 2025-06-27 14:02 | XMS_ITS | Encounter Summary ---
Author Organization [facility] Address [address] [place] [address] Care Team Providers Care Screen Printing Machine Operator Name Role Phone Jarvis Coffey MD Primary Care Provider Encounter Details Date Type Department Care Team (Late st Contact Info) Description 04/06/2007 Outpatient Historical [facility] Maternal and Ground Floor S [facility] [address] [place] [phone] Gil Mobley MD [address] [place] [address] Social History Tobacco Use Types Packs/Day Years Used Date Smoking Tobacco: Never Assessed Comments Unknown Sex and Gender Information Value Date Recorded Sex Assigned at Not on file Legal Sex Female 3:24 AM ENTREPRENEURSHIP PROGRAM DIRECTOR Gender Identity Not on file Sexual Orientation Not on file documented as of this encounter Plan of Treatment Not on file documented as of this encounter Visit Diagnoses Not on filedocumented in this encounter Care Teams Screen Printing Machine Operator Relationship Specialty Start Date End Date Jarvis Coffey MD [address] [place] [address] PCP - General Family Practice 10/18/24 documented as of this encounter
--- OUTSIDE RECORDS SUMMARY | 2025-06-27 14:02 | XMS_ITS | Encounter Summary ---
Author Organization [facility] Address [address] [place] [address] Care Team Providers Care Ela Teacher Name Role Phone Jarvis Coffey MD Primary Care Provider Encounter Details Date Type Department Care Team (Late st Contact Info) Description 04/19/2007 Outpatient Historical [facility] Maternal and Ground Floor S [facility] [address] [place] [address] Anabela Barnes MD [address] [place] [address] Social History Tobacco Use Types Packs/Day Years Used Date Smoking Tobacco: Never Assessed Comments Unknown Sex and Gender Information Value Date Recorded Sex Assigned at Not on file Legal Sex Female 3:24 AM PLANT ENGINEERING SUPERVISOR Gender Identity Not on file Sexual Orientation Not on file documented as of this encounter Plan of Treatment Not on file documented as of this encounter Visit Diagnoses Not on filedocumented in this encounter Care Teams Ela Teacher Relationship Specialty Start Date End Date Jarvis Coffey MD [address] [facility] [place] [place] [address] PCP - General Family Practice 10/18/24 documented as of this encounter
--- OUTSIDE RECORDS SUMMARY | 2025-06-27 14:02 | XMS_ITS | Encounter Summary ---
Author Organization [facility] Address [address] [place] [address] Care Team Providers Care Ship Boss Name Role Phone Jarvis Coffey MD Primary Care Provider Encounter Details Date Type Department Care Team (Late st Contact Info) Description 03/08/2007 Outpatient Historical [facility] Maternal and Ground Floor S [facility] [address] [place] [address] Anabela Barnes MD [address] [place] [address] Social History Tobacco Use Types Packs/Day Years Used Date Smoking Tobacco: Never Assessed Comments Unknown Sex and Gender Information Value Date Recorded Sex Assigned at Not on file Legal Sex Female 3:24 AM ADVERTISING COORDINATOR Gender Identity Not on file Sexual Orientation Not on file documented as of this encounter Plan of Treatment Not on file documented as of this encounter Visit Diagnoses Not on filedocumented in this encounter Care Teams Ship Boss Relationship Specialty Start Date End Date Jarvis Coffey MD [address] [facility] [place] [address] PCP - General Family Practice 10/18/24 documented as of this encounter
--- OUTSIDE RECORDS SUMMARY | 2025-06-27 14:02 | XMS_ITS | Encounter Summary ---
Author Organization [facility] Address [address] [place] [address] Care Team Providers Care Obgyn Nurse Name Role Phone Jarvis Coffey MD Primary Care Provider Encounter Details Date Type Department Care Team (Late st Contact Info) Description 04/12/2007 Outpatient Historical [facility] Maternal and Ground Floor S [facility] [address] [facility] [place] [address] Ross Wong MD NO ADDRESS ON FILE Social History Tobacco Use Types Packs/Day Years Used Date Smoking Tobacco: Never Assessed Comments Unknown Sex and Gender Information Value Date Recorded Sex Assigned at Not on file Legal Sex Female 3:24 AM BACKEND DEVELOPER Gender Identity Not on file Sexual Orientation Not on file documented as of this encounter Plan of Treatment Not on file documented as of this encounter Visit Diagnoses Not on filedocumented in this encounter Care Teams Obgyn Nurse Relationship Specialty Start Date End Date Jarvis Coffey MD [address] [facility] [place] [address] PCP - General Family Practice 10/18/24 documented as of this encounter
--- OUTSIDE RECORDS SUMMARY | 2025-06-27 14:02 | XMS_ITS | Encounter Summary ---
Author Organization [facility] Address [address] [place] [address] Care Team Providers Care Computer Engineering Professor Name Role Phone Jarvis Coffey MD Primary Care Provider Encounter Details Date Type Department Care Team (Latest Contact Info) Description 02/28/2007 Outpatient Historical [facility] Zeyad Millan MD [address] [facility] [address] [place] [phone] Supervision of Other High-Risk (Primary Dx) Social History Tobacco Use Types Packs/Day Years Used Date Smoking Tobacco: Never Assessed Comments Unknown Sex and Gender Information Value Date Recorded Sex Assigned at Not on file Legal Sex Female 3:24 AM ACCOUNT MANAGEMENT SPECIALIST Gender Identity Not on file Sexual [...] HEMATOLOGY ORDERABLES Ed ited Performing Organization Address [facility] Phone Number INTERFACE SYSTEM Refer to clinic/hospital [...] HEMATOLOGY ORDERABLES Ed ited Performing Organization Address [facility] Phone Number INTERFACE SYSTEM Refer to clinic/hospital [...] high-risk documented in this encounter Care Teams Computer Engineering Professor Relationship Specialty Start Date End Date Jarvis Coffey MD [address] [facility] [place] [address] PCP - General Family Practice 10/18/24 documented as of this encounter
--- OUTSIDE RECORDS SUMMARY | 2025-06-27 14:02 | XMS_ITS | Encounter Summary ---
Author Organization [facility] [facility] Address [address] [place] [address] Care Team Providers Care Word Processor Name Role Phone Jarvis Coffey MD Primary Care Provider Encounter Details Date Type Department Care Team (Latest Contact Info) Description 05/03/2007 Inpatient Historical [facility] Zeyad Millan MD [address] [facility] [address] [place] [address] Prev [id number] (Primary Dx) Social History Tobacco Use Types Packs/Day Years Used Date Smoking Tobacco: Never Assessed Comments Unknown Sex and Gender Information Value Date Recorded Sex Assigned at Not on file Legal Sex Female 3:24 AM SUPERVISOR FINISHING Gender Identity Not on file Sexual Orientation [...] HIV RAPID SCREEN (05/03/2007 6:00 AM CDT) [facility] RAPID HIV SCREEN Nonreactive Nonreactive INTERFACE SYSTEM 05/03/2007 6:00 AM CDT us Zeayd Millan MD CHEMISTRY ORDERABLES Edgar shant Performing Organization Address [facility] de Phone Number INTERFACE SYSTEM Refer to clinic/hospital department * (ABNORMAL) CBC WITH DIFFERENTIAL (05/03/2007 6:00 AM CDT) Pathologist [facility] NEUTROPHILS 76(H) 45 - 70 % INTERFAC [...] HEMATOLOGY ORDERABLES Ed ited Performing Organization Address [facility] de Phone Number INTERFACE SYSTEM Refer to [...] to lack of available kits from the shellac polisher. A NON-REACTIVE HIV 1/2 ANTIBODY RESULT DOES NOT EXCLUDE HIV INFECTION SINCE THE TIME FRAME FOR SEROCONVERSION IS VARIABLE. IF ACUTE HIV INFECTION IS SUSPECTED, ANTIBODY RETESTING AND NUCLEIC ACID AMPLIFICATION (HIV DNA/RNA) TESTING IS RECOMMENDED. Lab test performed by: [facility] [id number] [place] [address] [address] JUSTINA FRANKEL MD 05/03/2007 6:00 AM CDT us Zeyad Millan MD CHEMISTRY ORDERABLES Edgar shant Performing Organization Address [facility] Phone Number INTERFACE SYSTEM Refer to clinic/hospital department * HEPATITIS B SURFACE ANTIGEN (05/03/2007 6:00 AM CDT) HEPATITIS B SURFACE AG NON-REACTI VE NON-REACT FELIX INTERFACE SYSTEM Comment: Lab test performed by: [facility] [id number] [id number] [address] JUSTINA FRANKEL MD 05/03/2007 6:00 AM CDT Zeyad Millan MD CHEMISTRY ORDERABLES Edgar shant Performing Organization Address [facility] Phone Number INTERFACE SYSTEM Refer to clinic/hospital department * RUBELLA IGG (05/03/2007 6:00 AM CDT) Pathologist [facility] RUBELLA IGG 3.50 EIA Value INTERFAC E SYSTEM Comment: EIA VALUE EXPLANATION OF TEST RESULTS --------- <0.91 NEGATIVE - NO RUBELLA IGG ANTIBODY DETECTED. 0.91 - 1.09 EQUIVOCAL > OR = 1.10 POSITIVE - RUBELLA IGG ANTIBODY DETECTED. THE PRESENCE OF RUBELLA IGG ANTIBODY SUGGESTS IMMUNIZATION OR PAST OR CURRENT INFECTION WITH RUBELLA VIRUS. Lab test performed by: [facility] [id number] [id number] [address] JUSTINA FRANKEL MD 05/03/2007 6:00 AM CDT us Zeyad Millan MD CHEMISTRY ORDERABLES Edgar shant Performing Organization Address [facility] Phone Number INTERFACE SYSTEM Refer to clinic/hospital department * RPR (05/03/2007 6:00 AM CDT) RPR NON-REACTI VE NON-REACT FELIX INTERFACE SYSTEM Comment: Lab test performed by: [facility] [id number] [id number] [address] JUSTINA FRANKEL MD 05/03/2007 6:00 AM CDT us Zeyad Millan MD CHEMISTRY ORDERABLES Edgar shant Performing Organization Address [facility] de Phone Number INTERFACE SYSTEM Refer to [...] HEMATOLOGY ORDERABLES Ed ited Performing Organization Address [facility] de Phone Number INTERFACE SYSTEM Refer to [...] HEMATOLOGY ORDERABLES Ed ited Performing Organization Address [facility] Phone Number INTERFACE SYSTEM Refer to clinic/hospital [...] MD URINE ORDERABLES Edited Performing Organization Address [facility] de Phone Number INTERFACE SYSTEM Refer to clinic/hospital department documented in this encounter Visit Diagnoses Diagnosis Previous delivery, delivered, with or without mention of antepartum condition- Primary documented in this encounter Care Teams Word Processor Relationship Specialty Start Date End Date Jarvis Coffey MD [facility] [facility] [place] [address] PCP - General Family Practice 10/18/24 documented as of this encounter
--- OUTSIDE RECORDS SUMMARY | 2025-06-27 14:02 | XMS_ITS | Encounter Summary ---
Author Organization [facility] Address 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 [address] PCP - General Family Practice 10/18/24 documented as of this encounter
--- OUTSIDE RECORDS SUMMARY | 2025-06-27 14:02 | XMS_ITS | Encounter Summary ---
Author Organization [employer] Address [address] [place] [address] Care Team Providers Care Environmental Compliance Officer Name Role Phone Jarvis Coffey MD Primary Care Provider Encounter Details Date Type Department Care Team (Latest Contact Info) Description 04/11/2007 Outpatient Historical [facility] Anabela Barnes MD [address] [place] [address] Zeyad Millan MD [address] [facility] [address] [place] [address] Threatened Premature Labor, Antepartum (Primary Dx) Social History Tobacco Use Types Packs/Day Years Used Date Smoking Tobacco: Never Assessed Comments Unknown Sex and Gender Information Value Date Recorded Sex Assigned at Not on file Legal Sex Female 3:24 AM SAP BODS DEVELOPER Gender Identity Not on file Sexual [...] HEMATOLOGY ORDERABLES Ed ited Performing Organization Address [facility] de Phone Number INTERFACE SYSTEM Refer to clinic/hospital department * (ABNORMAL) CBC WITH DIFFERENTIAL (04/11/2007 5:16 PM CDT) Pathologist [facility] WBC 9.6 4.0 - 9.8 K/uL INTERFACE [...] HEMATOLOGY ORDERABLES Ed ited Performing Organization Address City/[facility] Co de Phone Number INTERFACE SYSTEM Refer to clinic/hospital department documented in this encounter Visit Diagnoses Diagnosis Threatened premature labor, antepartum(644.03)- Primary Threatened premature labor, antepartum documented in this encounter Care Teams Environmental Compliance Officer Relationship Specialty Start Date End Date Jarvis Coffey MD [address] [facility] [place] [address] PCP - General Family Practice 10/18/24 documented as of this encounter
--- OUTSIDE RECORDS SUMMARY | 2025-06-27 14:02 | XMS_ITS | Encounter Summary ---
Author Organization [employer] Address [address] [place] [address] Care Team Providers Care Rags Laborer Name Role Phone Jarvis Coffey MD Primary Care Provider Encounter Details Date Type Department Care Team (Latest Contact Info) Description 03/02/2007 Outpatient Historical [facility] Zeyad Millan MD [address] [facility] [address] [place] [address] Other Specified Screening (Primary Dx) Social History Tobacco Use Types Packs/Day Years Used Date Smoking Tobacco: Never Assessed Comments Unknown Sex and Gender Information Value Date Recorded Sex Assigned at Not on file Legal Sex Female 3:24 AM SHACTOR HELPER Gender Identity Not on file Sexual Orientation Not on file documented as of this encounter Plan of Treatment Not on file documented as of this encounter Visit Diagnoses Diagnosis Other screening- Primary Other specified screening documented in this encounter Care Teams Rags Laborer Relationship Specialty Start Date End Date Jarvis Coffey MD [address] [facility] [place] [address] PCP - General Family Practice 10/18/24 documented as of this encounter
--- OUTSIDE RECORDS SUMMARY | 2025-06-27 14:02 | XMS_ITS | Clinical Summary ---
Author Organization [employer] [address] [place] [address] Care Team Providers Care Heating Mechanic Name Role Phone Jarvis Coffey MD Primary Care Provider Allergies Active Allergy Reactions Criticality Noted Date Comments Lidocaine Palpitations Low Reaction: Tachycardia, Medications valACYclovir (VALTREX) 500 mg tablet Take 1 tablet (500 mg total) by mouth daily 2 Active hydrOXYzine (ATARAX) 25 mg tablet Take 1 tablet (25 mg total) by mouth 3 (three) times a day as needed 2 Active losartan-hydroC HLOROthiazide (HYZAAR) 50-12.5 mg per tablet Take 1 tablet by mouth daily Active estradioL (VIVELLE-DOT) 0.1 mg/[address] 1 patch on the skin 2 (two) times a week 4 Active progesterone (PROMETRIUM) 200 mg capsule Take 1 capsule (200 mg total) by mouth daily 4 Active rosuvastatin (CRESTOR) 10 mg tablet Take 1 Tablet (10 mg) by mouth daily. 90 tablet 1 5 Active Vitamin D2 1,250 mcg (50,000 unit) capsule Take 1 Capsule (50,000 Units) by mouth every 7 days. 13 capsule 1 5 Active levothyroxine (SYNTHROID) 175 mcg tablet Take 1 tablet (175 mcg total) by mouth office administration instructor before breakfast 90 tablet 5 Active buPROPion XL (WELLBUTRIN XL) 150 mg 24 hr tablet Take 1 tablet (150 mg total) by mouth daily 5 Active busPIRone (BUSPAR) 5 mg tablet Take 1 tablet (5 mg total) by mouth 2 (two) times a day as needed [address] (VOLTAREN) 75 mg EC tablet Take 1 tablet (75 mg total) by mouth 2 (two) times a day as needed 5 Active Active Problems Problem Noted Date Diagnosed Date Graves' disease 05/26/2025 Dyslipidemia 04/24/2023 Impaired fasting glucose 04/24/2023 Essential hypertension 10/25/2022 Overview (10/25/2022): Continue lisinopril Mixed hyperlipidemia 04/12/2022 Overview (04/12/2022): Check lipid profike Postablative hypothyroidism 03/15/2014 Overview (02/02/2017): POSTABLAT HYPOTHYR NEC Assessment & Plan (09/25/2024 9:54 AM MACHINE I CUTTER): Labs today Clinically euthyroid on 150mg daily Assessment & Plan (09/19/2023 9:31 AM MACHINE I CUTTER): Has been on 150mcg daily x 2 weeks Will continue 150mcg daily and use Euthyrox as patient has been on branded Synthroid TSH with reflex in 2-4 weeks state, incidental 06/07/2010 Previous section 12/23/2009 Threatened 12/23/2009 Hypothyroidism 12/23/2009 Resolved Problems Problem Noted Date Diagnosed Date Resolved Date Hypothyroidism 03/15/2014 09/19/2023 Overview (02/02/2017): HYPOTHYROIDISM NOS Encounters Date Type Department Care Team Description 05/27/2025 Orders Only [facility] [address] [place] [address] [place] [address] Radha Hirsch NP Acquired hypothyroidism (Primary Dx) 05/26/2025 5:45 PM CDT Office Visit [facility] at [address] [address] Usha Ware NP Acute cough (Primary Dx); Chest pressure 04/17/2025 Orders Only [facility] [address] [facility] [address] [place] [address] Radha Hirsch NP 04/10/2025 Results Follow-Up [facility] [address] [facility] [address] [place] [address] Radha Hirsch, JOCE Thyroid Function [place], T4, free from Last 3 Months Immunizations Immunization Administration Dates Next Due Influenza, Trivalent, IM (MDV) 08/15/2018 Influenza, Trivalent, Preservative Free, Intramu scular 11/18/2013 Pfizer SARS-CoV-2 Monovalent Vaccination (12+ Yrs) PURPLE 10/12/2021 Tdap 06/10/2010 Surgical History Surgery Date Site/Laterality Comments SECTION section OR DELIVERY ONLY Section - (Added by TW [...] on file Legal Sex Female 12:06 PM MACHINE I CUTTER Gender Identity Not on file Sexual Orientation Not on file Obstetrics History Last Filed Vital Signs Vital Sign Reading Time Taken Comments Blood Pressure 121/70 05/26/2025 5:35 PM CDT Pulse 106 05/26/2025 5:35 PM CDT Temperature 36.6 C (97.8 F) 05/26/2025 5:35 PM CDT Respiratory Rate 18 05/26/2025 5:35 PM CDT Oxygen Saturation 96% 05/26/2025 5:35 PM CDT Inhaled Oxygen Concentration - - Weight 86.2 kg (190 lb) 05/26/2025 5:35 PM CDT Height 157.5 cm (5' 2) 05/26/2025 5:35 PM CDT Body Mass Index 34.75 05/26/2025 5:35 PM CDT Plan of Treatment Health Maintenance Due Date [...] 2024 10/12/2021, 01/02/2021, 12/12/2020 Influenza Vaccine (#1) 2025 3, 08/15/2018, 11/18/2013 Pneumococcal vaccine <65 Aged Out No longer eligible based on patient's age to complete this topic Procedures Procedure Name Priority Date/Time Associated Diagnosis Comments ECG 12-LEAD Routine 05/26/2025 5:51 PM CDT Chest pressure SCAN - RADIOLOGY/IMAGING 04/17/2025 9:03 AM CDT T4, FREE Routine 04/09/2025 9:18 AM CDT THYROID FUNCTION CASCADE Routine 04/09/2025 9:18 AM CDT Acquired hypothyroidism from Last 3 Months Results * ECG 12 lead (05/26/2025 5:51 PM CDT) Usha Ware HYDRAULIC PRESS TENDER ECG ORDERABLES Final Result * SCAN - RADIOLOGY/IMAGING (04/17/2025 9:03 AM CDT) Anatomical Region Laterality Modality Other Radha Hirsch HYDRAULIC PRESS TENDER Final Re sult * (ABNORMAL) Thyroid Function [place] (04/09/2025 9:18 AM CDT) TSH 0.05(L) mIU/L [facility] Comment: Reference Range > or = 20 Years 0.40-4.50 Ranges First trimester 0.26-2.66 Second trimester 0.55-2.73 Third trimester 0.43-2.91 Blood 04/09/2025 9:18 AM CDT 04/09/2025 9:19 AM CDT Radha Hirsch HYDRAULIC PRESS TENDER LAB BLOOD ORDERABLES Fin al Result [facility] [address] [place] [address] * T4, free (04/09/2025 9:18 AM CDT) Free T4 1.8 0.8 - 1.8 ng/dL [facility] 04/09/2025 9:18 AM CDT 04/09/2025 9:19 AM CDT Radha Hirsch HYDRAULIC PRESS TENDER LAB BLOOD ORDERABLES Fin al Result [facility] [address] [place] [address] from Last 3 Months Insurance ANTHEM ACCESS CHOICE ANTHEM ACCESS CHOICE ANTHEM ACCESS CHOICE Care Teams Heating Mechanic Relationship Specialty Start Date End Date Jarvis Coffey MD [address] [place] [address] [address] [place] [address] PCP - General Family Practice 09/19/23
--- OUTSIDE RECORDS SUMMARY | 2025-06-27 14:02 | XMS_ITS | Encounter Summary ---
Author Organization [employer] Address [address] [place] [address] Care Team Providers Care It Communications Manager Name Role Phone Jarvis Coffey MD Primary Care Provider Encounter Details Date Type Department Care Team (Latest Contact Info) Description 04/03/[address]patient [address] [facility] Zeyad Millan MD [address] [facility] [address] [place] [address] Other Specified Screening (Primary Dx) Social History Tobacco Use Types Packs/Day Years Used Date Smoking Tobacco: Never Assessed Comments Unknown Sex and Gender Information Value Date Recorded Sex Assigned at Not on file Legal Sex Female 3:24 AM BURRITO MAKER Gender Identity Not on file Sexual Orientation Not on file documented as of this encounter Plan of Treatment Not on file documented as of this encounter Visit Diagnoses Diagnosis Other screening- Primary Other specified screening documented in this encounter Care Teams It Communications Manager Relationship Specialty Start Date End Date Jarvis Coffey MD [address] [facility] [place] [address] PCP - General Family Practice 10/18/24 documented as of this encounter
--- OUTSIDE RECORDS SUMMARY | 2025-06-27 14:03 | XMS_ITS | Encounter Summary ---
Author Organization [facility] Address [address] [place] [address] Care Team Providers Care Cow Washer Name Role Phone Jarvis Coffey MD Primary Care Provider Encounter Details Date Type Department Care Team (Late st Contact Info) Description 02/23/2005 Outpatient Historical [facility] [address] [place] [address] Zeyad Millan MD [address] [place] [address] [place] [address] Social History Tobacco Use Types Packs/Day Years Used Date Smoking Tobacco: Never Assessed Comments Unknown Sex and Gender Information Value Date Recorded Sex Assigned at Not on file Legal Sex Female 3:24 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
--- OUTSIDE RECORDS SUMMARY | 2025-06-27 14:03 | XMS_ITS | Encounter Summary ---
Author Organization [employer] Address [address] [place] [address] Care Team Providers Care Publicity Person Name Role Phone Jarvis Coffey MD Primary Care Provider Encounter Details Date Type Department Care Team (Latest Contact Info) Description 12/28/2004 Outpatient Historical [facility] Zeyad Millan MD [address] [facility] [address] [place] [address] THYROID DYSFUNC-ANTEPART (Primary Dx) Social History Tobacco Use Types Packs/Day Years Used Date Smoking Tobacco: Never Assessed Comments Unknown Sex and Gender Information Value Date Recorded Sex Assigned at Not on file Legal Sex Female 3:24 AM FORM BUILDER Gender Identity Not on file Sexual Orientation Not on file documented as of this encounter Plan of Treatment Not on file documented as of this encounter Visit Diagnoses Diagnosis Thyroid dysfunction, antepartum(648.13)- Primary Thyroid dysfunction, antepartum documented in this encounter Care Teams Publicity Person Relationship Specialty Start Date End Date Jarvis Coffey MD [address] [facility] [place] [address] PCP - General Family Practice 10/18/24 documented as of this encounter
--- OUTSIDE RECORDS SUMMARY | 2025-06-27 14:03 | XMS_ITS | Encounter Summary ---
Author Organization [facility] Address [address] [place] [address] Care Team Providers Care Php Consultant Name Role Phone Jarvis Coffey MD Primary Care Provider Encounter Details Date Type Department Care Team (Late st Contact Info) Description 12/28/2004 Outpatient Historical [facility] Maternal and Ground Floor [address] [place] [address] Zeyad Millan MD [address] [place] [address] [place] [address] Social History Tobacco Use Types Packs/Day Years Used Date Smoking Tobacco: Never Assessed Comments Unknown Sex and Gender Information Value Date Recorded Sex Assigned at Not on file Legal Sex Female 3:24 AM OVERSIZE LOAD PILOT ESCORT Gender Identity Not on file Sexual Orientation Not on file documented as of this encounter Plan of Treatment Not on file documented as of this encounter Visit Diagnoses Not on filedocumented in this encounter Care Teams Php Consultant Relationship Specialty Start Date End Date Jarvis Coffey MD [address] [facility] [place] [place] [address] PCP - General Family Practice 10/18/24 documented as of this encounter
--- OUTSIDE RECORDS SUMMARY | 2025-06-27 14:03 | XMS_ITS | Encounter Summary ---
Author Organization [employer] Address [address] [place] [address] Care Team Providers Care Automated Access Systems Technician Name Role Phone Jarvis Coffey MD Primary Care Provider Encounter Details Date Type Department Care Team (Latest Contact Info) Description 10/25/2006 Outpatient Historical [facility] Zeyad Millan MD [address] [facility] [address] [place] [address] Other Specified Screening (Primary Dx) Social History Tobacco Use Types Packs/Day Years Used Date Smoking Tobacco: Never Assessed Comments Unknown Sex and Gender Information Value Date Recorded Sex Assigned at Not on file Legal Sex Female 3:24 AM MANAGER LONG TERM CARE Gender Identity Not on file Sexual Orientation Not on file documented as of this encounter Plan of Treatment Not on file documented as of this encounter Visit Diagnoses Diagnosis Other screening- Primary Other specified screening documented in this encounter Care Teams Automated Access Systems Technician Relationship Specialty Start Date End Date Jarvis Coffey MD [address] [facility] [place] [address] PCP - General Family Practice 10/18/24 documented as of this encounter
--- OUTSIDE RECORDS SUMMARY | 2025-06-27 14:03 | XMS_ITS | Encounter Summary ---
Author Organization [employer] Address [address] [place] [address] Care Team Providers Care Supervisor Car And Yard Name Role Phone Jarvis Coffey MD Primary Care Provider Encounter Details Date Type Department Care Team (Latest Contact Info) Description 01/24/2007 Outpatient Historical [facility] PREADMIT Jeremy Bustillo MD NO ADDRESS ON FILE Zeyad Millan MD [address] [facility] [address] [place] [phone] Other Current Maternal Conditions Classifiable Elsewhere, Antepartum (Primary Dx) Social History Tobacco Use Types Packs/Day Years Used Date Smoking Tobacco: Never Assessed Comments Unknown Sex and Gender Information Value Date Recorded Sex Assigned at Not on file Legal Sex Female 3:24 AM VIROLOGIST Gender Identity Not on file Sexual Orientation Not on file documented as of this encounter Plan of Treatment Not on file documented as of this encounter Visit Diagnoses Diagnosis Other current maternal conditions classifiable elsewhere, antepartum- Primary documented in this encounter Care Teams Supervisor Car And Yard Relationship Specialty Start Date End Date Jarvis Coffey MD [address] [facility] [address] PCP - General Family Practice 10/18/24 documented as of this encounter
--- OUTSIDE RECORDS SUMMARY | 2025-06-27 14:03 | XMS_ITS | Encounter Summary ---
Author Organization [facility] Address [address] [place] [address] Care Team Providers Care Manager Plan Name Role Phone Jarvis Coffey MD Primary Care Provider Encounter Details Date Type Department Care Team (Latest Contact Info) Description 11/04/2004 Outpatient Historical [facility] Zyead Coates MD [address] [facility] [address] [place] [phone] THYROID DYSFUNC-ANTEPART (Primary Dx) Social History Tobacco Use Types Packs/Day Years Used Date Smoking Tobacco: Never Assessed Comments Unknown Sex and Gender Information Value Date Recorded Sex Assigned at Not on file Legal Sex Female 3:24 AM ENGLISH LANGUAGE LEARNER TEACHER Gender Identity Not on file Sexual Orientation Not on file documented as of this encounter Plan of Treatment Not on file documented as of this encounter Procedures Procedure Name Priority Date/Time Associated Diagnosis Comments TSH Routine 11/04/2004 11:01 AM ENGLISH LANGUAGE LEARNER TEACHER T4 FREE Routine 11/04/2004 11:01 AM ENGLISH LANGUAGE LEARNER TEACHER documented in this encounter Results * (ABNORMAL) TSH (11/04/2004 11:01 AM ENGLISH LANGUAGE LEARNER TEACHER) TSH 7.43(H) 0.27 - 4.20 uU/mL INTERFACE SYSTEM 11/04/2004 11:0 1 AM ENGLISH LANGUAGE LEARNER TEACHER us Zeyad Millan MD CHEMISTRY ORDERABLES Fin al Result Performing Organization Address City/[facility] Co de Phone Number INTERFACE SYSTEM Refer to clinic/hospital department * T4 FREE (11/04/2004 11:01 AM ENGLISH LANGUAGE LEARNER TEACHER) T4 FREE 1.1 0.9 - 1.7 ng/dL INTERFACE SYSTEM 11/04/2004 11:0 1 AM ENGLISH LANGUAGE LEARNER TEACHER us Zeyad Millan MD CHEMISTRY ORDERABLES Fin al Result Performing Organization Address [facility] de Phone Number INTERFACE SYSTEM Refer to clinic/hospital department documented in this encounter Visit Diagnoses Diagnosis Thyroid dysfunction, antepartum(648.13)- Primary Thyroid dysfunction, antepartum documented in this encounter Care Teams Manager Plan Relationship Specialty Start Date End Date Jarvis Coffey MD [address] [facility] [place] [address] PCP - General Family Practice 10/18/24 documented as of this encounter
--- OUTSIDE RECORDS SUMMARY | 2025-06-27 14:03 | XMS_ITS | Encounter Summary ---
Author Organization [email or web address] Address [address] [place] [address] Care Team Providers Care Anesthesiology Physician Assistant Name Role Phone Jarvis Coffey MD Primary Care Provider Encounter Details Date Type Department Care Team (Latest Contact Info) Description 11/23/2004 Outpatient Historical [facility] Zeyad Millan MD [address] [facility] [address] [place] [address] OTHER CURR COND-ANTEPARTUM (Primary Dx) Social History Tobacco Use Types Packs/Day Years Used Date Smoking Tobacco: Never Assessed Comments Unknown Sex and Gender Information Value Date Recorded Sex Assigned at Not on file Legal Sex Female 3:24 AM HOSE INSPECTOR Gender Identity Not on file Sexual Orientation Not on file documented as of this encounter Plan of Treatment Not on file documented as of this encounter Visit Diagnoses Diagnosis Other current maternal conditions classifiable elsewhere, antepartum- Primary documented in this encounter Care Teams Anesthesiology Physician Assistant Relationship Specialty Start Date End Date Jarvis Coffey MD [address] [place] [address] PCP - General Family Practice 10/18/24 documented as of this encounter
--- OUTSIDE RECORDS SUMMARY | 2025-06-27 14:03 | XMS_ITS | Encounter Summary ---
Author Organization [facility] Address [address] [place] [address] Care Team Providers Care Inspector Fuel Hose Name Role Phone Jarvis Coffey MD Primary Care Provider Encounter Details Date Type Department Care Team (Late st Contact Info) Description 02/25/2005 Outpatient Historical [facility] Maternal and Ground Floor [address] [place] [address] Zeyad Millan MD [address] [place] [address] [place] [address] Social History Tobacco Use Types Packs/Day Years Used Date Smoking Tobacco: Never Assessed Comments Unknown Sex and Gender Information Value Date Recorded Sex Assigned at Not on file Legal Sex Female 3:24 AM CLINICAL REGISTERED NURSE Gender Identity Not on file Sexual Orientation Not on file documented as of this encounter Plan of Treatment Not on file documented as of this encounter Visit Diagnoses Not on filedocumented in this encounter Care Teams Inspector Fuel Hose Relationship Specialty Start Date End Date Jarvis Coffey MD [address] [facility] [address] [address] PCP - General Family Practice 10/18/24 documented as of this encounter
--- OUTSIDE RECORDS SUMMARY | 2025-06-27 14:03 | XMS_ITS | Encounter Summary ---
Author Organization [employer] Address [address] [place] [address] Care Team Providers Care Critical Care Nurse Practitioner Name Role Phone Jarvis Coffey MD Primary Care Provider Encounter Details Date Type Department Care Team (Latest Contact Info) Description 02/25/2005 Inpatient Historical [facility] PATIENT IN A BED Zeyad Millan MD [address] [facility] [address], [place] [address] ABNORM NEC-DELIVER (Primary Dx) Social History Tobacco Use Types Packs/Day Years Used Date Smoking Tobacco: Never Assessed Comments Unknown Sex and Gender Information Value Date Recorded Sex Assigned at Not on file Legal Sex Female 3:24 AM INDUSTRIAL EDUCATION TEACHER Gender Identity Not on file Sexual [...] ORDERABLES Fi nal Result Performing Organization Address [facility] Co de Phone Number INTERFACE SYSTEM Refer [...] ORDERABLES Fi nal Result Performing Organization Address City/[facility] Co de Phone Number INTERFACE SYSTEM Refer to clinic/hospital department documented in this encounter Visit Diagnoses Diagnosis Other known or suspected abnormality, not elsewhere classified, affecting management of mother, with delivered- Primary documented in this encounter Care Teams Critical Care Nurse Practitioner Relationship Specialty Start Date End Date Jarvis Coffey MD [address] [place] [address] PCP - General Family Practice 10/18/24 documented as of this encounter
--- OUTSIDE RECORDS SUMMARY | 2025-06-27 14:03 | XMS_ITS | Encounter Summary ---
Author Organization [facility] Address [address] [place] [address] Care Team Providers Care Curb Attendant Name Role Phone Jarvis Coffey MD Primary Care Provider Encounter Details Date Type Department Care Team (Late st Contact Info) Description 12/28/2004 Outpatient Historical [facility] Maternal and Ground Floor [address] [place] [phone] Zeyad Millan MD [address] [place] [address] [place] [address] Social History Tobacco Use Types Packs/Day Years Used Date Smoking Tobacco: Never Assessed Comments Unknown Sex and Gender Information Value Date Recorded Sex Assigned at Not on file Legal Sex Female 3:24 AM NUTRITIONALIST Gender Identity Not on file Sexual Orientation Not on file documented as of this encounter Plan of Treatment Not on file documented as of this encounter Visit Diagnoses Not on filedocumented in this encounter Care Teams Curb Attendant Relationship Specialty Start Date End Date Jarvis Coffey MD [address] [place] [address] PCP - General Family Practice 10/18/24 documented as of this encounter
--- OUTSIDE RECORDS SUMMARY | 2025-06-27 14:03 | XMS_ITS | Encounter Summary ---
Author Organization [facility] Address [address] [place] [address] Care Team Providers Care Ediscovery Project Manager Name Role Phone Jarvis Coffey MD Primary Care Provider Encounter Details Date Type Department Care Team (Late st Contact Info) Description 01/12/2007 Outpatient Historical [facility] Maternal and Ground Floor [address] [place] [phone] Zeyad Millan MD [address] [place] [address] [place] [address] Social History Tobacco Use Types Packs/Day Years Used Date Smoking Tobacco: Never Assessed Comments Unknown Sex and Gender Information Value Date Recorded Sex Assigned at Not on file Legal Sex Female 3:24 AM CONTRACT LEAD Gender Identity Not on file Sexual Orientation Not on file documented as of this encounter Plan of Treatment Not on file documented as of this encounter Visit Diagnoses Not on filedocumented in this encounter Care Teams Ediscovery Project Manager Relationship Specialty Start Date End Date Jarvis Coffey MD [address] [place] [address] PCP - General Family Practice 10/18/24 documented as of this encounter
--- OUTSIDE RECORDS SUMMARY | 2025-06-27 14:03 | XMS_ITS | Encounter Summary ---
Author Organization [facility] Address [address] [place] [address] Care Team Providers Care Debt Recovery Officer Name Role Phone Jarvis Coffey MD Primary Care Provider Encounter Details Date Type Department Care Team (Late st Contact Info) Description 09/25/2006 Outpatient Historical [facility] Maternal and Ground Floor [address] [place] [phone] Zeyad Millan MD [address] [place] [address] [place] [address] Social History Tobacco Use Types Packs/Day Years Used Date Smoking Tobacco: Never Assessed Comments Unknown Sex and Gender Information Value Date Recorded Sex Assigned at Not on file Legal Sex Female 3:24 AM PROGRAM MANAGER SLP Gender Identity Not on file Sexual Orientation Not on file documented as of this encounter Plan of Treatment Not on file documented as of this encounter Visit Diagnoses Not on filedocumented in this encounter Care Teams Debt Recovery Officer Relationship Specialty Start Date End Date Jarvis Coffey MD [address] [facility] [place] [address] PCP - General Family Practice 10/18/24 documented as of this encounter
--- OUTSIDE RECORDS SUMMARY | 2025-06-27 14:03 | XMS_ITS | Encounter Summary ---
Author Organization [facility] Address [address] [place] [address] Care Team Providers Care It Manager Name Role Phone Jarvis Coffey MD Primary Care Provider Encounter Details Date Type Department Care Team (Late st Contact Info) Description 03/02/2005 Outpatient Historical [facility] Zeyad Millan MD [address] [facility] [address] [place] [address] Social History Tobacco Use Types Packs/Day Years Used Date Smoking Tobacco: Never Assessed Comments Unknown Sex and Gender Information Value Date Recorded Sex Assigned at Not on file Legal Sex Female 3:24 AM DRY CLEANER HAND Gender Identity Not on file Sexual Orientation Not on file documented as of this encounter Plan of Treatment Not on file documented as of this encounter Visit Diagnoses Not on filedocumented in this encounter Care Teams It Manager Relationship Specialty Start Date End Date Jarvis Coffey MD [address] [place] [address] PCP - General Family Practice 10/18/24 documented as of this encounter
--- OUTSIDE RECORDS SUMMARY | 2025-06-27 14:03 | XMS_ITS | Encounter Summary ---
Author Organization [facility] Address [address] [place] [address] Care Team Providers Care Art History Professor Name Role Phone Jarvis Coffey MD Primary Care Provider Encounter Details Date Type Department Care Team (Latest Contact Info) Description 11/26/2006 Outpatient Historical [facility] Zeyad Millan MD [address] [facility] [address] [place] [address] Other Specified Screening (Primary Dx) Social History Tobacco Use Types Packs/Day Years Used Date Smoking Tobacco: Never Assessed Comments Unknown Sex and Gender Information Value Date Recorded Sex Assigned at Not on file Legal Sex Female 3:24 AM EMBROIDERY DESIGNER Gender Identity Not on file Sexual Orientation Not on file documented as of this encounter Plan of Treatment Not on file documented as of this encounter Visit Diagnoses Diagnosis Other screening- Primary Other specified screening documented in this encounter Care Teams Art History Professor Relationship Specialty Start Date End Date Jarvis Coffey MD [address] [facility] [place] [address] PCP - General Family Practice 10/18/24 documented as of this encounter
--- OUTSIDE RECORDS SUMMARY | 2025-06-27 14:03 | XMS_ITS | Encounter Summary ---
Author Organization [facility] Address [address] [place] [address] Care Team Providers Care Latin Professor Name Role Phone Jarvis Coffey MD Primary Care Provider Encounter Details Date Type Department Care Team (Latest Contact Info) Description 02/14/2005 Outpatient Historical [facility] Zeyad Millan MD [address] [facility] [address] [place] [address] OTHER CURR COND-ANTEPARTUM (Primary Dx) Social History Tobacco Use Types Packs/Day Years Used Date Smoking Tobacco: Never Assessed Comments Unknown Sex and Gender Information Value Date Recorded Sex Assigned at Not on file Legal Sex Female 3:24 AM AGILE COACH Gender Identity Not on file Sexual Orientation Not on file documented as of this encounter Plan of Treatment Not on file documented as of this encounter Visit Diagnoses Diagnosis Other current maternal conditions classifiable elsewhere, antepartum- Primary documented in this encounter Care Teams Latin Professor Relationship Specialty Start Date End Date Jarvis Coffey MD [address] [facility] [place] [address] PCP - General Family Practice 10/18/24 documented as of this encounter
--- OUTSIDE RECORDS SUMMARY | 2025-06-27 14:03 | XMS_ITS | Encounter Summary ---
Author Organization [facility] Address [address] [place] [address] Care Team Providers Care Machine Repairman Name Role Phone Jarvis Coffey MD Primary Care Provider Encounter Details Date Type Department Care Team (Late st Contact Info) Description 11/03/2006 [facility]patient [facility] Maternal [facility] Ground [facility] [address] [facility] [address] [place] [address] Anabela Barnes MD [address] [place] [address] Social History Tobacco Use Types Packs/Day Years Used Date Smoking Tobacco: Never Assessed Comments Unknown Sex and Gender Information Value Date Recorded Sex Assigned at Not on file Legal Sex Female 3:24 AM GRAPPLE OPERATOR Gender Identity Not on file Sexual Orientation Not on file documented as of this encounter Plan of Treatment Not on file documented as of this encounter Visit Diagnoses Not on filedocumented in this encounter Care Teams Machine Repairman Relationship Specialty Start Date End Date Jarvis Coffey MD [address] [facility] [place] [address] PCP - General Family Practice 10/18/24 documented as of this encounter
--- OUTSIDE RECORDS SUMMARY | 2025-06-27 14:03 | XMS_ITS | Encounter Summary ---
Author Organization [facility] Address [address] [place] [address] Care Team Providers Care Fourdrinier Wire Weaver Name Role Phone Jarvis Coffey MD Primary Care Provider Encounter Details Date Type Department Care Team (Late st Contact Info) Description 02/09/2007 Outpatient Historical [facility] Maternal and Ground Floor S [facility] [address] [place] [address] Gil Mobley MD [address] [place] [address] Social History Tobacco Use Types Packs/Day Years Used Date Smoking Tobacco: Never Assessed Comments Unknown Sex and Gender Information Value Date Recorded Sex Assigned at Not on file Legal Sex Female 3:24 AM IT RECRUITER Gender Identity Not on file Sexual Orientation Not on file documented as of this encounter Plan of Treatment Not on file documented as of this encounter Visit Diagnoses Not on filedocumented in this encounter Care Teams Fourdrinier Wire Weaver Relationship Specialty Start Date End Date Jarvis Coffey MD [address] [facility] [place] [address] PCP - General Family Practice 10/18/24 documented as of this encounter
--- OUTSIDE RECORDS SUMMARY | 2025-06-27 14:03 | XMS_ITS | Encounter Summary ---
Author Organization [facility] Address [address] [place] [address] Care Team Providers Care Cyber Reverse Engineer Name Role Phone Jarvis Coffey MD Primary Care Provider Encounter Details Date Type Department Care Team (Latest Contact Info) Description 01/29/2005 Outpatient Historical [facility] Zeyad Millan MD [address] [facility] [address] [place] [address] OTHER CURR COND-ANTEPARTUM (Primary Dx) Social History Tobacco Use Types Packs/Day Years Used Date Smoking Tobacco: Never Assessed Comments Unknown Sex and Gender Information Value Date Recorded Sex Assigned at Not on file Legal Sex Female 3:24 AM ACCOUNTING SYSTEMS MANAGER Gender Identity Not on file Sexual Orientation Not on file documented as of this encounter Plan of Treatment Not on file documented as of this encounter Visit Diagnoses Diagnosis Other current maternal conditions classifiable elsewhere, antepartum- Primary documented in this encounter Care Teams Cyber Reverse Engineer Relationship Specialty Start Date End Date Jarvis Coffey MD [address] [facility] [place] [address] PCP - General Family Practice 10/18/24 documented as of this encounter
--- OUTSIDE RECORDS SUMMARY | 2025-06-27 14:03 | XMS_ITS | Encounter Summary ---
Author Organization [facility] Address [address] [place] [address] Care Team Providers Care Manager Fine Name Role Phone Jarvis Coffey MD Primary Care Provider Encounter Details Date Type Department Care Team (Latest Contact Info) Description 01/29/2007 Outpatient Historical [facility] Zeyad Millan MD [address] [facility] [address] [place] [address] Other Specified Screening (Primary Dx) Social History Tobacco Use Types Packs/Day Years Used Date Smoking Tobacco: Never Assessed Comments Unknown Sex and Gender Information Value Date Recorded Sex Assigned at Not on file Legal Sex Female 3:24 AM SILK WASHING MACHINE OPERATOR Gender Identity Not on file Sexual Orientation Not on file documented as of this encounter Plan of Treatment Not on file documented as of this encounter Visit Diagnoses Diagnosis Other screening- Primary Other specified screening documented in this encounter Care Teams Manager Fine Relationship Specialty Start Date End Date Jarvis Coffey MD [address] [facility] [place] [address] PCP - General Family Practice 10/18/24 documented as of this encounter
--- OUTSIDE RECORDS SUMMARY | 2025-06-27 14:03 | XMS_ITS | Encounter Summary ---
Author Organization [facility] Address [address] [place] [address] Care Team Providers Care Light Rail Vehicle Operator Name Role Phone Jarvis Coffey MD Primary Care Provider Encounter Details Date Type Department Care Team (Late st Contact Info) Description 12/18/2006 Outpatient Historical [facility] Maternal and Ground Floor [address] [facility] [address] [place] [address] Gil Mobley MD [address] [place] [address] Social History Tobacco Use Types Packs/Day Years Used Date Smoking Tobacco: Never Assessed Comments Unknown Sex and Gender Information Value Date Recorded Sex Assigned at Not on file Legal Sex Female 3:24 AM CITY PLANNING AIDE Gender Identity Not on file Sexual Orientation Not on file documented as of this encounter Plan of Treatment Not on file documented as of this encounter Visit Diagnoses Not on filedocumented in this encounter Care Teams Light Rail Vehicle Operator Relationship Specialty Start Date End Date Jarvis Coffey MD [address] [facility] [place] [address] PCP - General Family Practice 10/18/24 documented as of this encounter
--- OUTSIDE RECORDS SUMMARY | 2025-06-27 14:03 | XMS_ITS | Encounter Summary ---
Author Organization [facility] Address [address] [place] [address] Care Team Providers Care Bias Binding Cutter Name Role Phone Jarvis Coffey MD Primary Care Provider Encounter Details Date Type Department Care Team (Late st Contact Info) Description 02/14/2005 Outpatient Historical [facility] Maternal and Ground Floor S [facility] [address] [facility] [place] [address] Ross Wong MD NO ADDRESS ON FILE Social History Tobacco Use Types Packs/Day Years Used Date Smoking Tobacco: Never Assessed Comments Unknown Sex and Gender Information Value Date Recorded Sex Assigned at Not on file Legal Sex Female 3:24 AM TYPISTS SUPERVISOR Gender Identity Not on file Sexual Orientation Not on file documented as of this encounter Plan of Treatment Not on file documented as of this encounter Visit Diagnoses Not on filedocumented in this encounter Care Teams Bias Binding Cutter Relationship Specialty Start Date End Date Jarvis Coffey MD [address] [facility] [place] [address] PCP - General Family Practice 10/18/24 documented as of this encounter
--- OUTSIDE RECORDS SUMMARY | 2025-06-27 14:03 | XMS_ITS | Encounter Summary ---
Author Organization [facility] [facility] Address [address] [place] [address] Care Team Providers Care Nursing Education Consultant Name Role Phone Jarvis Coffey MD Primary Care Provider Encounter Details Date Type Department Care Team (Latest Contact Info) Description 12/28/2006 Outpatient Historical [facility] Zeyad Millan MD [address] [facility] [address] [place] [address] Other Specified Screening (Primary Dx) Social History Tobacco Use Types Packs/Day Years Used Date Smoking Tobacco: Never Assessed Comments Unknown Sex and Gender Information Value Date Recorded Sex Assigned at Not on file Legal Sex Female 3:24 AM PLANER HAND Gender Identity Not on file Sexual Orientation Not on file documented as of this encounter Plan of Treatment Not on file documented as of this encounter Visit Diagnoses Diagnosis Other screening- Primary Other specified screening documented in this encounter Care Teams Nursing Education Consultant Relationship Specialty Start Date End Date Jarvis Coffey MD [address] [facility] [place] [address] PCP - General Family Practice 10/18/24 documented as of this encounter
--- OUTSIDE RECORDS SUMMARY | 2025-06-27 14:03 | XMS_ITS | Encounter Summary ---
Author Organization [facility] Address [address] [place] [address] Care Team Providers Care Job Tracer Name Role Phone Jarvis Coffey MD Primary Care Provider Encounter Details Date Type Department Care Team (Late st Contact Info) Description 11/23/2004 Outpatient Historical [facility] Maternal and Ground Floor [address] [place] [address] Zeyad Millan MD [address] [place] [address] [place] [address] Social History Tobacco Use Types Packs/Day Years Used Date Smoking Tobacco: Never Assessed Comments Unknown Sex and Gender Information Value Date Recorded Sex Assigned at Not on file Legal Sex Female 3:24 AM GLASS OR MIRROR INSPECTOR Gender Identity Not on file Sexual Orientation Not on file documented as of this encounter Plan of Treatment Not on file documented as of this encounter Visit Diagnoses Not on filedocumented in this encounter Care Teams Job Tracer Relationship Specialty Start Date End Date Jarvis Coffey MD [address] [facility] [place] [address] PCP - General Family Practice 10/18/24 documented as of this encounter
== END 2025-06-27 14:00 | disposition home or self-care (01) ==
PROVIDERS: PCP Family Medicine; Visit Provider Orthopaedic Surgery
DX: M16.12 Unilateral primary osteoarthritis, left hip (principal)
CPT/HCPCS: 20610; 77002; J1010; Q9966

== ENCOUNTER 2025-07-01 08:22 | Outpatient (CLI) | payer BC, SELFPAY ==
--- NOTE | ~2025-07-01 | NM_ITS ---
EXAMINATION: NM bret stress w perfusion DATE: 07/01/2025 12:02 INDICATION: Chest pain TECHNIQUE: Rest images were obtained following intravenous administration of 11 mCi Tc99m tetrofosmin (Myoview). The patient was infused intravenously with Lexiscan (Regadenoson). Then, 34.3 mCi Tc99m tetrofosmin (Myoview) was administered intravenously, and stress images were obtained. Data was recons tructed into short axis and horizontal and vertical long axis SPECT images. Gated SPECT images were also obtained. COMPARISON: None. FINDINGS: There is no definite reversible or fixed perfusion abnormality to suggest ischemia or infarction. There is normal left ventricular chamber size, wall motion and ejection fraction. Left ventricular ejection fraction measures >70%. IMPRESSION: 1. Normal myocardial perfusion at rest and during stress. 2. Left ventricular ejection fraction measuring >70%. Reviewed, dictated and finalized at location A.
--- OUTSIDE RECORDS SUMMARY | 2025-07-01 08:29 | XMS_ITS | Clinical Summary ---
Author Organization [facility] [address] [place] [address] Care Team Providers Care Packer Insulation Name Role Phone Jarvis Coffey MD Primary [...] 1 tablet (175 mcg total) by mouth die try out worker stamping before breakfast 90 tablet 5 Active buPROPion [...] NEC Assessment & Plan (09/25/2024 9:54 AM FLIGHT RADIO OPERATOR): Labs today Clinically euthyroid on 150mg daily Assessment & Plan (09/19/2023 9:31 AM FLIGHT RADIO OPERATOR): Has been on 150mcg daily x 2 [...] Department Care Team Description 05/27/2025 Orders Only [facility] [address] [place] [address] [place] [address] Radha Hirsch NP Acquired hypothyroidism (Primary Dx) 05/26/2025 5:45 PM CDT Office Visit [facility] at [address] [address] Usha Ware NP Acute cough (Primary Dx); Chest pressure 04/17/2025 Orders Only [facility] [address] [facility] [address] [place] [address] Radha Hirsch NP 04/10/2025 Results Follow-Up [facility] [address] [facility] [address] [place] [address] Radha Hirsch, JOCE Thyroid Function Thornton, T4, free from Last 3 Months Immunizations Immunization Administration Dates Next Due Influenza, Trivalent, IM (MDV) 08/15/2018 Influenza, Trivalent, Preservative Free, Intramu scular 11/18/2013 Pfizer SARS-CoV-2 Monovalent Vaccination (12+ Yrs) PURPLE 10/12/2021 Tdap 06/10/2010 Surgical History Surgery Date Site/Laterality Comments SECTION section [place] DELIVERY ONLY Section - (Added by TW [...] on file Legal Sex Female 12:06 PM FLIGHT RADIO OPERATOR Gender Identity Not on file Sexual [...] lead (05/26/2025 5:51 PM CDT) Usha Ware LENS BLANK GAUGER ECG ORDERABLES Final Result * SCAN - RADIOLOGY/IMAGING (04/17/2025 9:03 AM CDT) Anatomical Region Laterality Modality Other Radha Hirsch LENS BLANK GAUGER Final Re sult * (ABNORMAL) Thyroid Function Thornton (04/09/2025 9:18 AM CDT) TSH 0.05(L) mIU/L [facility] Comment: Reference Range > or = 20 Years 0.40-4.50 Ranges First trimester 0.26-2.66 Second trimester 0.55-2.73 Third trimester 0.43-2.91 Blood 04/09/2025 9:18 AM CDT 04/09/2025 9:19 AM CDT Radha Hirsch LENS BLANK GAUGER LAB BLOOD ORDERABLES Fin al Result [facility] [address] [place] [address] * T4, free (04/09/2025 9:18 AM CDT) Free T4 1.8 0.8 - 1.8 ng/dL [facility] 04/09/2025 9:18 AM CDT 04/09/2025 9:19 AM CDT Radha Hirsch LENS BLANK GAUGER LAB BLOOD ORDERABLES Fin al Result [facility] [address] [place] [address] from Last 3 Months Insurance ANTHEM ACCESS CHOICE ANTHEM ACCESS CHOICE ANTHEM ACCESS CHOICE Care Teams Packer Insulation Relationship Specialty Start Date End Date Jarvis Coffey MD [address] [place] [address] [address] [place] [address] PCP - General Family Practice 09/19/23
--- OUTSIDE RECORDS SUMMARY | 2025-07-01 08:29 | XMS_ITS | Encounter Summary ---
Author Organization [facility] Address [address] [place] [address] Care Team Providers Care Medical Device Sales Consultant Name Role Phone Jarvis Coffey MD Primary Care Provider Encounter Details Date Type Department Care Team (Late st Contact Info) Description 05/01/2007 Outpatient Historical [facility] Maternal and Ground Floor S [facility] [address] [place] [address] Anabela Barnes MD [address] [place] [address] Social History Tobacco Use Types Packs/Day Years Used Date Smoking Tobacco: Never Assessed Comments Unknown Sex and Gender Information Value Date Recorded Sex Assigned at Not on file Legal Sex Female 3:24 AM BUSINESS DATABASE ANALYST Gender Identity Not on file Sexual Orientation Not on file documented as of this encounter Plan of Treatment Not on file documented as of this encounter Visit Diagnoses Not on filedocumented in this encounter Care Teams Medical Device Sales Consultant Relationship Specialty Start Date End Date Jarvis Coffey MD [address] [place] [address] PCP - General Family Practice 10/18/24 documented as of this encounter
--- OUTSIDE RECORDS SUMMARY | 2025-07-01 08:29 | XMS_ITS | Encounter Summary ---
Author Organization [employer] Address [address] [place] [address] Care Team Providers Care Solution Spec Name Role Phone Jarvis Coffey MD Primary Care Provider Encounter Details Date Type Department Care Team (Latest Contact Info) Description 02/28/2007 Outpatient Historical [facility] Zeyad Millan MD [address] [facility] [address] [place] [phone] Supervision of Other High-Risk (Primary Dx) Social History Tobacco Use Types Packs/Day Years Used Date Smoking Tobacco: Never Assessed Comments Unknown Sex and Gender Information Value Date Recorded Sex Assigned at Not on file Legal Sex Female 3:24 AM EQUIPMENT VALIDATION SPECIALIST Gender Identity Not on file Sexual [...] HEMATOLOGY ORDERABLES Ed ited Performing Organization Address [facility] Phone Number INTERFACE SYSTEM Refer to [...] HEMATOLOGY ORDERABLES Ed ited Performing Organization Address [facility] Phone Number INTERFACE SYSTEM Refer to [...] high-risk documented in this encounter Care Teams Solution Spec Relationship Specialty Start Date End Date Jarvis Coffey MD [address] [facility] [place] [address] PCP - General Family Practice 10/18/24 documented as of this encounter
--- OUTSIDE RECORDS SUMMARY | 2025-07-01 08:29 | XMS_ITS | Encounter Summary ---
Author Organization [employer] Address [address] [place] [address] Care Team Providers Care Outboard System Operator Name Role Phone Jarvis Coffey MD Primary Care Provider Encounter Details Date Type Department Care Team (Latest Contact Info) Description 06/06/2006 Outpatient Historical [facility] Zeyad Millan MD [address] [facility] [address] [place] [phone] Other High-Risk (Primary Dx) Social History Tobacco Use Types Packs/Day Years Used Date Smoking Tobacco: Never Assessed Comments Unknown Sex and Gender Information Value Date Recorded Sex Assigned at Not on file Legal Sex Female 3:24 AM SLP TEACHER Gender Identity Not on file Sexual [...] high-risk documented in this encounter Care Teams Outboard System Operator Relationship Specialty Start Date End Date Jarvis Coffey MD [address] [place] [address] PCP - General Family Practice 10/18/24 documented as of this encounter
--- OUTSIDE RECORDS SUMMARY | 2025-07-01 08:29 | XMS_ITS | Encounter Summary ---
Author Organization [employer] Address [address] [place] [address] Care Team Providers Care Group Contract Analyst Name Role Phone Jarvis Coffey MD Primary Care Provider Encounter Details Date Type Department Care Team (Latest Contact Info) Description 01/29/2005 Outpatient Historical [facility] Zeyad Millan MD [address] [facility] [address] [place] [address] OTHER CURR COND-ANTEPARTUM (Primary Dx) Social History Tobacco Use Types Packs/Day Years Used Date Smoking Tobacco: Never Assessed Comments Unknown Sex and Gender Information Value Date Recorded Sex Assigned at Not on file Legal Sex Female 3:24 AM TIME ANALYSIS CLERK Gender Identity Not on file Sexual Orientation Not on file documented as of this encounter Plan of Treatment Not on file documented as of this encounter Visit Diagnoses Diagnosis Other current maternal conditions classifiable elsewhere, antepartum- Primary documented in this encounter Care Teams Group Contract Analyst Relationship Specialty Start Date End Date Jarvis Coffey MD [address] [place] [address] PCP - General Family Practice 10/18/24 documented as of this encounter
--- OUTSIDE RECORDS SUMMARY | 2025-07-01 08:29 | XMS_ITS | Encounter Summary ---
Author Organization [employer] Address [address] [place] [address] Care Team Providers Care Associate Store Leader Name Role Phone Jarvis Coffey MD Primary Care Provider Encounter Details Date Type Department Care Team (Late st Contact Info) Description 03/02/2005 Outpatient Historical [facility] Zeyad Millan MD [address] [facility] [address] [place] [address] Social History Tobacco Use Types Packs/Day Years Used Date Smoking Tobacco: Never Assessed Comments Unknown Sex and Gender Information Value Date Recorded Sex Assigned at Not on file Legal Sex Female 3:24 AM LEAD ATG DEVELOPER Gender Identity Not on file Sexual Orientation Not on file documented as of this encounter Plan of Treatment Not on file documented as of this encounter Visit Diagnoses Not on filedocumented in this encounter Care Teams Associate Store Leader Relationship Specialty Start Date End Date Jarvis Coffey MD [address] [facility] [address] PCP - General Family Practice 10/18/24 documented as of this encounter
--- OUTSIDE RECORDS SUMMARY | 2025-07-01 08:29 | XMS_ITS | Clinical Summary ---
Author Organization [facility] Address [address] [place] [address] Phone Care Team Providers Care Golf Cart Maker Name Role Phone Jarvis Coffey MD [...] daily. 90 Tablet 1 09/13/2022 12:26 PM UTILITY TECH 2 Active benzonatate (TESSALON) 100 mg capsule Take 1 Capsule (100 mg) by mouth 3 times daily as needed for cough. 30 Capsule 11/28/2022 6:03 PM UTILITY TECH 3 Active methylPREDNISo lone (MEDROL DOSPACK) 4 mg Tablets, Dose Pack Take 1 Tablet (4 mg) by mouth 2 times daily. 20 Tablet 1 12/05/2022 6:35 PM UTILITY TECH 3 Active losartan (COZAAR) 25 mg tablet Take 1 Tablet (25 mg) by mouth daily. 90 Tablet 12/05/2022 6:35 PM UTILITY TECH 3 Active baclofen (LIORESAL) 10 mg tablet Take 1 Tablet (10 mg) by mouth 3 times daily. 20 Tablet 12/15/2022 5:31 PM UTILITY TECH 3 Active traMADoL (ULTRAM) 50 mg tablet Take 1 Tablet (50 mg) by mouth every 6 hours as needed for pain. 20 Tablet 12/15/2022 5:31 PM UTILITY TECH 3 Active losartan (COZAAR) 25 mg tablet [...] week. 42.5 Gram 3 09/19/2023 2:43 PM UTILITY TECH 3 Active Euthyrox 150 mcg tablet Take 1 tablet (150 mcg total) by mouth early childhood specialist before breakfast 30 Tablet 09/22/2023 9:51 AM UTILITY TECH 3 Active hydrOXYzine HCL (ATARAX) 25 mg tablet Take one tablet (25 mg) orally twice a day As Needed for anxiety 60 Tablet 02/14/2024 2:49 PM CDT 4 Active losartan-hydro CHLOROthiazide (HYZAAR) 50-12.5 mg tablet Take 1 Tablet by mouth daily. 90 Tablet 1 09/21/2024 2:55 PM UTILITY TECH 4 Active Euthyrox 150 mcg tablet Take 1 tablet (150 mcg total) by mouth in the early childhood specialist before breakfast 30 Tablet 3 09/21/2024 2:55 PM UTILITY TECH 4 Active azithromycin (ZITHROMAX) 250 mg tablet [...] 5 days 15 Tablet 09/13/2024 5:41 PM UTILITY TECH 4 Active methylPREDNISo lone (MEDROL DOSPACK) 4 mg Tablets, Dose Pack Take 6 tabs on day 1, reduce dose by 1 daily until prescription is complete. 21 Each 09/13/2024 5:41 PM UTILITY TECH 4 Active clotrimazole-b etamethasone (LOTRISONE) 1-0.05 % Cream Apply liberally to affected area(s) three times a daily as needed. 45 Gram 09/25/2024 5:59 PM UTILITY TECH 4 Active levothyroxine 175 mcg tablet Take 1 Tablet (175 mcg) by mouth daily. 90 Tablet 10/27/2024 11:11 AM UTILITY TECH 4 Active valACYclovir (VALTREX) 500 mg tablet Take 1 Tablet (500 mg) by mouth daily. 90 Tablet 4 11/01/2024 3:38 PM UTILITY TECH 5 Active LORazepam (ATIVAN) 1 mg tablet Take 1 Tablet (1 mg) by mouth 1 time as needed for anxiety. 1 Tablet 11/11/2024 5:10 PM UTILITY TECH 5 Active HYDROcodone-ac etaminophen (NORCO) 5-325 mg tablet Take 1 Tablet by mouth every 4 hours as needed for pain. Max Daily Amount: 6 Tablets 20 Tablet 12/06/2024 11:02 AM UTILITY TECH 5 Active miconazole (GUNNAR,MICOTIN, REMEDY AF) 2 [...] 1 tablet (175 mcg total) by mouth early childhood specialist before breakfast 90 Tablet 5 Active omeprazole [...] file. Referring Provider: Zeyad Srivastava MD [address] [id number] Other: Problem Noted Date Diagnosed Date 06/07/10 [...] on file Legal Sex Female 3:24 AM UTILITY TECH Gender Identity Not on file Sexual Orientation Not on file Occupation Industry Job Start Date Job End Date Not on file Not on file Not on file Not on file Last Filed Vital Signs Vital Sign Reading Time Taken Comments Blood Pressure 125/81 10/18/2024 1:23 PM UTILITY TECH Pulse 88 10/18/2024 12:43 PM UTILITY TECH Temperature 36.8 C (98.3 F) 10/18/2024 12:43 PM UTILITY TECH Respiratory Rate 18 10/18/2024 1:23 PM UTILITY TECH Oxygen Saturation 97% 10/18/2024 1:23 PM UTILITY TECH Inhaled Oxygen Concentration - - Weight 81.6 kg (180 lb) 10/18/2024 12:43 PM UTILITY TECH Height 157.5 cm (5' 2) 10/18/2024 12:43 PM UTILITY TECH Body Mass Index 32.92 10/18/2024 12:43 PM UTILITY TECH Plan of Treatment Health Maintenance Due Date [...] (1 of 2) 2022 INFLUENZA VACCINE (#1) 2025 3, 08/15/2018, 11/18/2013 COVID-19 Vaccine ( season) 2025 Procedures Procedure Name Priority Date/Time Associated Diagnosis Comments MAMMO DIAGNOSTIC UNI RIGHT W OR WO CAD Routine 12/06/2012 from Last 3 Months or Most Recently Relevant to Health Maintenance Results * MAMMO DIGITAL DIAG UNI RIGHT (12/06/2012) Anatomical Region Laterality Modality Breast Right Other Zeyad Caicedo MD MAMMO ORDERABLES Edit ed from Last 3 Months or Most Recently Relevant to Health Maintenance Insurance [facility] [employer] CHOICE RX [facility] Commercial RX [employer] (INTERNAL) [facility] Internal Plans Advance Directives For more information, please contact: [phone] * Full Code (Latest Code Status on File) Date Activated Date Inactivated Comments 06/08/2010 12:19 AM 06/11/2010 3:18 PM * Full Code Date Activated Date Inactivated Comments 06/07/2010 6:24 PM 06/08/2010 12:19 AM Care Teams Golf Cart Maker Relationship Specialty Start Date End Date Jarvis Coffey MD [address] [facility] [place] [address] PCP - General Family Practice 10/18/24
--- OUTSIDE RECORDS SUMMARY | 2025-07-01 08:29 | XMS_ITS | Encounter Summary ---
Author Organization [facility] Address [address] [place] [address] Care Team Providers Care Duct Installer Name Role Phone Jarvis Coffey MD Primary Care Provider Encounter Details Date Type Department Care Team (Late st Contact Info) Description 11/03/2006 Outpatient Historical [facility] Maternal and Ground Floor [address] [facility] [address] [place] [address] Anabela Barnes MD [address] [place] [address] Social History Tobacco Use Types Packs/Day Years Used Date Smoking Tobacco: Never Assessed Comments Unknown Sex and Gender Information Value Date Recorded Sex Assigned at Not on file Legal Sex Female 3:24 AM LICENSED THERAPIST Gender Identity Not on file Sexual Orientation Not on file documented as of this encounter Plan of Treatment Not on file documented as of this encounter Visit Diagnoses Not on filedocumented in this encounter Care Teams Duct Installer Relationship Specialty Start Date End Date Jarvis Coffey MD [address] [facility] [place] [address] PCP - General Family Practice 10/18/24 documented as of this encounter
--- OUTSIDE RECORDS SUMMARY | 2025-07-01 08:29 | XMS_ITS | Encounter Summary ---
Author Organization [employer] Address [address] [place] [address] Care Team Providers Care Syrup Maker Cook Name Role Phone Jarvis Coffey MD Primary Care Provider Encounter Details Date Type Department Care Team (Latest Contact Info) Description 09/23/2006 Outpatient Historical [facility] Zeyad Millan MD [address] [facility] [address] [place] [address] Other Specified Screening (Primary Dx) Social History Tobacco Use Types Packs/Day Years Used Date Smoking Tobacco: Never Assessed Comments Unknown Sex and Gender Information Value Date Recorded Sex Assigned at Not on file Legal Sex Female 3:24 AM AIRPORT UTILITY WORKER Gender Identity Not on file Sexual Orientation Not on file documented as of this encounter Plan of Treatment Not on file documented as of this encounter Visit Diagnoses Diagnosis Other screening- Primary Other specified screening documented in this encounter Care Teams Syrup Maker Cook Relationship Specialty Start Date End Date Jarvis Coffey MD [address] [facility] [place] [address] PCP - General Family Practice 10/18/24 documented as of this encounter
--- OUTSIDE RECORDS SUMMARY | 2025-07-01 08:29 | XMS_ITS | Encounter Summary ---
Author Organization [facility] Address [address] [place] [address] Care Team Providers Care Subway Operator Name Role Phone Jarvis Coffey MD Primary Care Provider Encounter Details Date Type Department Care Team (Late st Contact Info) Description 02/25/2005 Outpatient Historical [facility] Maternal and Ground Floor [address] [place] [address] [place] [phone] Zeyad Millan MD [address] [place] [id number] [place] [address] Social History Tobacco Use Types Packs/Day Years Used Date Smoking Tobacco: Never Assessed Comments Unknown Sex and Gender Information Value Date Recorded Sex Assigned at Not on file Legal Sex Female 3:24 AM CAUSTIC PURIFICATION OPERATOR Gender Identity Not on file Sexual Orientation Not on file documented as of this encounter Plan of Treatment Not on file documented as of this encounter Visit Diagnoses Not on filedocumented in this encounter Care Teams Subway Operator Relationship Specialty Start Date End Date Jarvis Coffey MD [address] [facility] [place] [address] PCP - General Family Practice 10/18/24 documented as of this encounter
--- OUTSIDE RECORDS SUMMARY | 2025-07-01 08:29 | XMS_ITS | Encounter Summary ---
Author Organization [facility] Address [address] [place] [address] Care Team Providers Care Grinding Operator Name Role Phone Jarvis Coffey MD Primary Care Provider Encounter Details Date Type Department Care Team (Late st Contact Info) Description 02/09/2007 Outpatient Historical [facility] Maternal and Ground Floor [address] [facility] [address] [place] [address] Gil Mobley MD [address] [place] [address] Social History Tobacco Use Types Packs/Day Years Used Date Smoking Tobacco: Never Assessed Comments Unknown Sex and Gender Information Value Date Recorded Sex Assigned at Not on file Legal Sex Female 3:24 AM VISUAL PRESENTATION MANAGER Gender Identity Not on file Sexual Orientation Not on file documented as of this encounter Plan of Treatment Not on file documented as of this encounter Visit Diagnoses Not on filedocumented in this encounter Care Teams Grinding Operator Relationship Specialty Start Date End Date Jarvis Coffey MD [address] [facility] [place] [address] PCP - General Family Practice 10/18/24 documented as of this encounter
--- OUTSIDE RECORDS SUMMARY | 2025-07-01 08:29 | XMS_ITS | Encounter Summary ---
Author Organization [employer] Address [address] [place] [address] Care Team Providers Care Service Car Driver Name Role Phone Jarvis Coffey MD Primary Care Provider Encounter Details Date Type Department Care Team (Latest Contact Info) Description 02/14/2005 Outpatient Historical [facility] IN A BED Zeyad Millan MD [address] [facility] [address] [place] [phone] OTHER CURR COND-ANTEPARTUM (Primary Dx) Social History Tobacco Use Types Packs/Day Years Used Date Smoking Tobacco: Never Assessed Comments Unknown Sex and Gender Information Value Date Recorded Sex Assigned at Not on file Legal Sex Female 3:24 AM BLUEPRINT ASSEMBLER Gender Identity Not on file Sexual Orientation Not on file documented as of this encounter Plan of Treatment Not on file documented as of this encounter Visit Diagnoses Diagnosis Other current maternal conditions classifiable elsewhere, antepartum- Primary documented in this encounter Care Teams Service Car Driver Relationship Specialty Start Date End Date Jarvis Coffey MD [address] [facility] [place] [address] PCP - General Family Practice 10/18/24 documented as of this encounter
--- OUTSIDE RECORDS SUMMARY | 2025-07-01 08:29 | XMS_ITS | Encounter Summary ---
Author Organization [employer] Address [address] [place] [address] Care Team Providers Care Music Education Adjunct Professor Name Role Phone Jarvis Coffey MD Primary Care Provider Encounter Details Date Type Department Care Team (Latest Contact Info) Description 05/03/2007 Inpatient Historical [facility] Zeyad Millan MD [address] [facility] [address] [place] [address] Prev Q-Ewkzsvur-Ilhahcl (Primary Dx) Social History Tobacco Use Types Packs/Day Years Used Date Smoking Tobacco: Never Assessed Comments Unknown Sex and Gender Information Value Date Recorded Sex Assigned at Not on file Legal Sex Female 3:24 AM DIRECTOR OF SALES SUPPORT Gender Identity Not on file Sexual Orientation [...] HIV RAPID SCREEN (05/03/2007 6:00 AM CDT) [facility] RAPID HIV SCREEN Nonreactive Nonreactive INTERFACE SYSTEM 05/03/2007 6:00 AM CDT us Zeyad Millan MD CHEMISTRY ORDERABLES Edgar shant Performing Organization Address [facility] de Phone Number INTERFACE SYSTEM Refer to [...] HEMATOLOGY ORDERABLES Ed ited Performing Organization Address [facility] de Phone Number INTERFACE SYSTEM Refer to [...] to lack of available kits from the senior sharepoint developer. A NON-REACTIVE HIV 1/2 ANTIBODY RESULT DOES NOT EXCLUDE HIV INFECTION SINCE THE TIME FRAME FOR SEROCONVERSION IS VARIABLE. IF ACUTE HIV INFECTION IS SUSPECTED, ANTIBODY RETESTING AND NUCLEIC ACID AMPLIFICATION (HIV DNA/RNA) TESTING IS RECOMMENDED. Lab test performed by: [facility] [id number] [place] [address] [address] JUSTINA FRANKEL MD 05/03/2007 6:00 AM CDT us Zeyad Millan MD CHEMISTRY ORDERABLES Edgar shant Performing Organization Address [facility] Phone Number INTERFACE SYSTEM Refer to clinic/hospital department * HEPATITIS B SURFACE ANTIGEN (05/03/2007 6:00 AM CDT) HEPATITIS B SURFACE AG NON-REACTI VE NON-REACT FELIX INTERFACE SYSTEM Comment: Lab test performed by: [facility] [id number] [employer] [id number] [address] JUSTINA FRANKEL MD 05/03/2007 6:00 AM CDT Zeyad Millan MD CHEMISTRY ORDERABLES Edgar shant Performing Organization Address [facility] Phone Number INTERFACE SYSTEM Refer to [...] WITH RUBELLA VIRUS. Lab test performed by: [facility] [id number] [employer] [id number] [address] JUSTINA FRANKEL MD 05/03/2007 6:00 AM CDT us Zeyad Millan MD CHEMISTRY ORDERABLES Edgar shant Performing Organization Address [facility] Phone Number INTERFACE SYSTEM Refer to clinic/hospital department * RPR (05/03/2007 6:00 AM CDT) RPR NON-REACTI VE NON-REACT FELIX INTERFACE SYSTEM Comment: Lab test performed by: [facility] [id number] [employer] [id number] [address] JUSTINA FRANKEL MD 05/03/2007 6:00 AM CDT us Zeyad Millan MD CHEMISTRY ORDERABLES Edgar shant Performing Organization Address [facility] de Phone Number INTERFACE SYSTEM Refer to [...] HEMATOLOGY ORDERABLES Ed ited Performing Organization Address [facility] de Phone Number INTERFACE SYSTEM Refer to [...] HEMATOLOGY ORDERABLES Ed ited Performing Organization Address [facility] Phone Number INTERFACE SYSTEM Refer to clinic/hospital [...] MD URINE ORDERABLES Edited Performing Organization Address [facility] de Phone Number INTERFACE SYSTEM Refer to clinic/hospital department documented in this encounter Visit Diagnoses Diagnosis Previous delivery, delivered, with or without mention of antepartum condition- Primary documented in this encounter Care Teams Music Education Adjunct Professor Relationship Specialty Start Date End Date Jarvis Coffey MD [facility] [place] [address] PCP - General Family Practice 10/18/24 documented as of this encounter
--- OUTSIDE RECORDS SUMMARY | 2025-07-01 08:29 | XMS_ITS | Encounter Summary ---
Author Organization [employer] Address [address] [place] [address] Care Team Providers Care Last Marker Name Role Phone Jarvis Coffey MD Primary Care Provider Encounter Details Date Type Department Care Team (Late st Contact Info) Description 05/05/2007 Outpatient Historical [facility] Zeyad Millan MD [address] [facility] [address] [place] [address] Social History Tobacco Use Types Packs/Day Years Used Date Smoking Tobacco: Never Assessed Comments Unknown Sex and Gender Information Value Date Recorded Sex Assigned at Not on file Legal Sex Female 3:24 AM MANAGER REVIEW Gender Identity Not on file Sexual Orientation Not on file documented as of this encounter Plan of Treatment Not on file documented as of this encounter Visit Diagnoses Not on filedocumented in this encounter Care Teams Last Marker Relationship Specialty Start Date End Date Jarvis Coffey MD [address] [facility] [place] [address] PCP - General Family Practice 10/18/24 documented as of this encounter
--- OUTSIDE RECORDS SUMMARY | 2025-07-01 08:29 | XMS_ITS | Encounter Summary ---
Author Organization [employer] Address [address] [place] [address] Care Team Providers Care Hybrid Car Mechanic Name Role Phone Jarvis Coffey MD Primary Care Provider Encounter Details Date Type Department Care Team (Latest Contact Info) Description 03/02/2007 Outpatient Historical [facility] Zeyad Millan MD [address] [facility] [address] [place] [address] Other Specified Screening (Primary Dx) Social History Tobacco Use Types Packs/Day Years Used Date Smoking Tobacco: Never Assessed Comments Unknown Sex and Gender Information Value Date Recorded Sex Assigned at Not on file Legal Sex Female 3:24 AM DATABASE MODELER Gender Identity Not on file Sexual Orientation Not on file documented as of this encounter Plan of Treatment Not on file documented as of this encounter Visit Diagnoses Diagnosis Other screening- Primary Other specified screening documented in this encounter Care Teams Hybrid Car Mechanic Relationship Specialty Start Date End Date Jarvis Coffey MD [address] [facility] [place] [address] PCP - General Family Practice 10/18/24 documented as of this encounter
--- OUTSIDE RECORDS SUMMARY | 2025-07-01 08:29 | XMS_ITS | Encounter Summary ---
Author Organization [facility] Address [address] [place] [address] Care Team Providers Care Advertising Account Manager Name Role Phone Jarvis Coffey MD Primary Care Provider Encounter Details Date Type Department Care Team (Late st Contact Info) Description 04/06/2007 Outpatient Historical [facility] Maternal and Ground Floor [facility] [address] [place] [address] Gil Mobley MD [address] [place] [address] Social History Tobacco Use Types Packs/Day Years Used Date Smoking Tobacco: Never Assessed Comments Unknown Sex and Gender Information Value Date Recorded Sex Assigned at Not on file Legal Sex Female 3:24 AM CORK GRINDER Gender Identity Not on file Sexual Orientation Not on file documented as of this encounter Plan of Treatment Not on file documented as of this encounter Visit Diagnoses Not on filedocumented in this encounter Care Teams Advertising Account Manager Relationship Specialty Start Date End Date Jarvis Coffey MD [address] [facility] [address] PCP - General Family Practice 10/18/24 documented as of this encounter
--- OUTSIDE RECORDS SUMMARY | 2025-07-01 08:29 | XMS_ITS | Encounter Summary ---
Author Organization [employer] Address [address] [place] [address] Care Team Providers Care Parks And Recreation Worker Name Role Phone Jarvis Coffey MD Primary Care Provider Encounter Details Date Type Department Care Team (Latest Contact Info) Description 02/25/2005 Inpatient Historical [facility] Zeyad Millan MD [address] [facility] [address] [address] ABNORM NEC-DELIVER (Primary Dx) Social History Tobacco Use Types Packs/Day Years Used Date Smoking Tobacco: Never Assessed Comments Unknown Sex and Gender Information Value Date Recorded Sex Assigned at Not on file Legal Sex Female 3:24 AM DEHYDRATOR Gender Identity Not on file Sexual Orientation [...] ORDERABLES Fi nal Result Performing Organization Address [facility] Co de Phone Number INTERFACE [...] ORDERABLES Fi nal Result Performing Organization Address City/[facility] Co de Phone Number INTERFACE SYSTEM Refer to clinic/hospital department documented in this encounter Visit Diagnoses Diagnosis Other known or suspected abnormality, not elsewhere classified, affecting management of mother, with delivered- Primary documented in this encounter Care Teams Parks And Recreation Worker Relationship Specialty Start Date End Date Jarvis Coffey MD [address] [facility] [place] [address] PCP - General Family Practice 10/18/24 documented as of this encounter
--- OUTSIDE RECORDS SUMMARY | 2025-07-01 08:29 | XMS_ITS | Encounter Summary ---
Author Organization [employer] Address [address] [place] [address] Care Team Providers Care Timber Cruiser Name Role Phone Jarvis Coffey MD Primary Care Provider Encounter Details Date Type Department Care Team (Latest Contact Info) Description 04/11/2007 Outpatient Historical [facility] Anabela Barnes MD [address] [place] [address] Zeyad Millan MD [address] [facility] [address] [place] [address] Threatened Premature Labor, Antepartum (Primary Dx) Social History Tobacco Use Types Packs/Day Years Used Date Smoking Tobacco: Never Assessed Comments Unknown Sex and Gender Information Value Date Recorded Sex Assigned at Not on file Legal Sex Female 3:24 AM GLASS CALIBRATOR Gender Identity Not on file Sexual Orientation [...] HEMATOLOGY ORDERABLES Ed ited Performing Organization Address [facility] de Phone Number INTERFACE SYSTEM Refer to clinic/hospital department * (ABNORMAL) CBC WITH DIFFERENTIAL (04/11/2007 5:16 PM CDT) Pathologist [facility] WBC 9.6 4.0 - 9.8 K/uL INTERFACE [...] HEMATOLOGY ORDERABLES Ed ited Performing Organization Address City/[facility] Co de Phone Number INTERFACE SYSTEM Refer to clinic/hospital department documented in this encounter Visit Diagnoses Diagnosis Threatened premature labor, antepartum(644.03)- Primary Threatened premature labor, antepartum documented in this encounter Care Teams Timber Cruiser Relationship Specialty Start Date End Date Jarvis Coffey MD [address] [facility] [place] [place] [address] PCP - General Family Practice 10/18/24 documented as of this encounter
--- OUTSIDE RECORDS SUMMARY | 2025-07-01 08:29 | XMS_ITS | Encounter Summary ---
Author Organization [facility] Address [address] [place] [address] Care Team Providers Care Back Sewer Name Role Phone Jarvis Coffey MD Primary Care Provider Encounter Details Date Type Department Care Team (Late st Contact Info) Description 04/24/2007 Outpatient Historical [facility] Maternal and Ground Floor S [facility] [address] [facility] [place] [address] Jeremy Bustillo MD NO ADDRESS ON FILE Social History Tobacco Use Types Packs/Day Years Used Date Smoking Tobacco: Never Assessed Comments Unknown Sex and Gender Information Value Date Recorded Sex Assigned at Not on file Legal Sex Female 3:24 AM CUSTODY OFFICER Gender Identity Not on file Sexual Orientation Not on file documented as of this encounter Plan of Treatment Not on file documented as of this encounter Visit Diagnoses Not on filedocumented in this encounter Care Teams Back Sewer Relationship Specialty Start Date End Date Jarvis Coffey MD [address] [facility] [place] [address] PCP - General Family Practice 10/18/24 documented as of this encounter
--- OUTSIDE RECORDS SUMMARY | 2025-07-01 08:29 | XMS_ITS | Encounter Summary ---
Author Organization [facility] Address [address] [place] [address] Care Team Providers Care Sprinkling Truck Driver Name Role Phone Jarvis Coffey MD Primary Care Provider Encounter Details Date Type Department Care Team (Late st Contact Info) Description 04/12/2007 Outpatient Historical [facility] Maternal and Ground [facility] [address] [place] [address] [place] [address] Ross Wong MD NO ADDRESS ON FILE Social History Tobacco Use Types Packs/Day Years Used Date Smoking Tobacco: Never Assessed Comments Unknown Sex and Gender Information Value Date Recorded Sex Assigned at Not on file Legal Sex Female 3:24 AM COMMERCIAL ENERGY RATER Gender Identity Not on file Sexual Orientation Not on file documented as of this encounter Plan of Treatment Not on file documented as of this encounter Visit Diagnoses Not on filedocumented in this encounter Care Teams Sprinkling Truck Driver Relationship Specialty Start Date End Date Jarvis Coffey MD [address] [facility] [place] [address] PCP - General Family Practice 10/18/24 documented as of this encounter
--- OUTSIDE RECORDS SUMMARY | 2025-07-01 08:29 | XMS_ITS | Encounter Summary ---
Author Organization [employer] Address [address] [place] [address] Care Team Providers Care Technical Manager Chemical Plant Name Role Phone Jarvis Coffey MD Primary Care Provider Encounter Details Date Type Department Care Team (Latest Contact Info) Description 12/28/2004 Outpatient Historical [facility] Zeyad Millan MD [address] [facility] [address] [place] [address] THYROID DYSFUNC-ANTEPART (Primary Dx) Social History Tobacco Use Types Packs/Day Years Used Date Smoking Tobacco: Never Assessed Comments Unknown Sex and Gender Information Value Date Recorded Sex Assigned at Not on file Legal Sex Female 3:24 AM COMPANY SECRETARY Gender Identity Not on file Sexual Orientation Not on file documented as of this encounter Plan of Treatment Not on file documented as of this encounter Visit Diagnoses Diagnosis Thyroid dysfunction, antepartum(648.13)- Primary Thyroid dysfunction, antepartum documented in this encounter Care Teams Technical Manager Chemical Plant Relationship Specialty Start Date End Date Jarvis Coffey MD [address] [facility] [place] [address] PCP - General Family Practice 10/18/24 documented as of this encounter
--- OUTSIDE RECORDS SUMMARY | 2025-07-01 08:29 | XMS_ITS | Encounter Summary ---
Author Organization [employer] Address [address] [place] [address] Care Team Providers Care Options Trader Name Role Phone Jarvis Coffey MD Primary Care Provider Encounter Details Date Type Department Care Team (Latest Contact Info) Description 04/03/2007 Outpatient Historical [facility] Zeyad Millan MD [address] [facility] [address] [place] [address] Other Specified Screening (Primary Dx) Social History Tobacco Use Types Packs/Day Years Used Date Smoking Tobacco: Never Assessed Comments Unknown Sex and Gender Information Value Date Recorded Sex Assigned at Not on file Legal Sex Female 3:24 AM HOT WORKER Gender Identity Not on file Sexual Orientation Not on file documented as of this encounter Plan of Treatment Not on file documented as of this encounter Visit Diagnoses Diagnosis Other screening- Primary Other specified screening documented in this encounter Care Teams Options Trader Relationship Specialty Start Date End Date Jarvis Coffey MD [address] [facility] [place] [address] PCP - General Family Practice 10/18/24 documented as of this encounter
--- OUTSIDE RECORDS SUMMARY | 2025-07-01 08:29 | XMS_ITS | Encounter Summary ---
Author Organization [facility] Address [address] [place] [address] Care Team Providers Care Plug Wirer Name Role Phone Jarvis Coffey MD Primary Care Provider Encounter Details Date Type Department Care Team (Late st Contact Info) Description 02/23/2005 Outpatient Historical [facility] Maternal and Ground Floor [address] [place] [address] [place] [address] Zeyad Millan MD [address] [place] [address] [place] [address] Social History Tobacco Use Types Packs/Day Years Used Date Smoking Tobacco: Never Assessed Comments Unknown Sex and Gender Information Value Date Recorded Sex Assigned at Not on file Legal Sex Female 3:24 AM COMFORT ADVISOR Gender Identity Not on file Sexual Orientation Not on file documented as of this encounter Plan of Treatment Not on file documented as of this encounter Visit Diagnoses Not on filedocumented in this encounter Care Teams Plug Wirer Relationship Specialty Start Date End Date Jarvis Coffey MD [address] [facility] [place] [address] PCP - General Family Practice 10/18/24 documented as of this encounter
--- OUTSIDE RECORDS SUMMARY | 2025-07-01 08:29 | XMS_ITS | Encounter Summary ---
Author Organization [facility] Address [address] [place] [address] Care Team Providers Care Second Miller Name Role Phone Jravis Coffey MD Primary Care Provider Encounter Details Date Type Department Care Team (Late st Contact Info) Description 04/19/2007 Outpatient Historical [facility] Maternal and Ground Floor S [facility] [address] [place] [address] Anabela Barnes MD [address] [place] [address] Social History Tobacco Use Types Packs/Day Years Used Date Smoking Tobacco: Never Assessed Comments Unknown Sex and Gender Information Value Date Recorded Sex Assigned at Not on file Legal Sex Female 3:24 AM CARPENTERS HELPER Gender Identity Not on file Sexual Orientation Not on file documented as of this encounter Plan of Treatment Not on file documented as of this encounter Visit Diagnoses Not on filedocumented in this encounter Care Teams Second Miller Relationship Specialty Start Date End Date Jarvis Coffey MD [address] [facility] [place] [address] PCP - General Family Practice 10/18/24 documented as of this encounter
--- OUTSIDE RECORDS SUMMARY | 2025-07-01 08:29 | XMS_ITS | Encounter Summary ---
Author Organization [facility] Address [address] [place] [address] Care Team Providers Care Object Oriented Developer Name Role Phone Jarvis Coffey MD Primary Care Provider Encounter Details Date Type Department Care Team (Late st Contact Info) Description 09/25/2006 Outpatient Historical [facility] Maternal and Ground Floor [address] [place] [address] [place] [address] Zeyad Millan MD [address] [place] [address] [place] [address] Social History Tobacco Use Types Packs/Day Years Used Date Smoking Tobacco: Never Assessed Comments Unknown Sex and Gender Information Value Date Recorded Sex Assigned at Not on file Legal Sex Female 3:24 AM ZOO CARETAKER Gender Identity Not on file Sexual Orientation Not on file documented as of this encounter Plan of Treatment Not on file documented as of this encounter Visit Diagnoses Not on filedocumented in this encounter Care Teams Object Oriented Developer Relationship Specialty Start Date End Date Jarvis Coffey MD [address] [facility] [place] [address] PCP - General Family Practice 10/18/24 documented as of this encounter
--- OUTSIDE RECORDS SUMMARY | 2025-07-01 08:29 | XMS_ITS | Encounter Summary ---
Author Organization [facility] Address [address] [place] [address] Care Team Providers Care Pharmacy Sales Representative Name Role Phone Jarvis Coffey MD Primary Care Provider Encounter Details Date Type Department Care Team (Late st Contact Info) Description 12/18/2006 Outpatient Historical [facility] Maternal and Ground Floor S [facility] [address] [place] [address] Gil Mobley MD [address] [place] [address] Social History Tobacco Use Types Packs/Day Years Used Date Smoking Tobacco: Never Assessed Comments Unknown Sex and Gender Information Value Date Recorded Sex Assigned at Not on file Legal Sex Female 3:24 AM PROJECT CONTROL MANAGER Gender Identity Not on file Sexual Orientation Not on file documented as of this encounter Plan of Treatment Not on file documented as of this encounter Visit Diagnoses Not on filedocumented in this encounter Care Teams Pharmacy Sales Representative Relationship Specialty Start Date End Date Jarvis Coffey MD [address] [place] [address] PCP - General Family Practice 10/18/24 documented as of this encounter
--- OUTSIDE RECORDS SUMMARY | 2025-07-01 08:29 | XMS_ITS | Encounter Summary ---
Author Organization [employer] Address [address] [place] [address] Care Team Providers Care Warehouse Administrator Name Role Phone Jarvis Coffey MD Primary Care Provider Encounter Details Date Type Department Care Team (Latest Contact Info) Description 10/25/2006 Outpatient Historical [facility] Zeyad Millan MD [address] [facility] [address] [place] [address] Other Specified Screening (Primary Dx) Social History Tobacco Use Types Packs/Day Years Used Date Smoking Tobacco: Never Assessed Comments Unknown Sex and Gender Information Value Date Recorded Sex Assigned at Not on file Legal Sex Female 3:24 AM CRESTER Gender Identity Not on file Sexual Orientation Not on file documented as of this encounter Plan of Treatment Not on file documented as of this encounter Visit Diagnoses Diagnosis Other screening- Primary Other specified screening documented in this encounter Care Teams Warehouse Administrator Relationship Specialty Start Date End Date Jarvis Coffey MD [address] [facility] [place] [address] PCP - General Family Practice 10/18/24 documented as of this encounter
--- OUTSIDE RECORDS SUMMARY | 2025-07-01 08:29 | XMS_ITS | Encounter Summary ---
Author Organization [facility] Address [address] [place] [address] Care Team Providers Care C Iron Worker Name Role Phone Jarvis Coffey MD Primary Care Provider Encounter Details Date Type Department Care Team (Late st Contact Info) Description 02/14/2005 Outpatient Historical [facility] Maternal and Ground Floor S [facility] [address] [facility] [place] [address] Ross Wong MD NO ADDRESS ON FILE Social History Tobacco Use Types Packs/Day Years Used Date Smoking Tobacco: Never Assessed Comments Unknown Sex and Gender Information Value Date Recorded Sex Assigned at Not on file Legal Sex Female 3:24 AM TIMBER BUCKER Gender Identity Not on file Sexual Orientation Not on file documented as of this encounter Plan of Treatment Not on file documented as of this encounter Visit Diagnoses Not on filedocumented in this encounter Care Teams C Iron Worker Relationship Specialty Start Date End Date Jarvis Coffey MD [address] [facility] [place] [address] PCP - General Family Practice 10/18/24 documented as of this encounter
--- OUTSIDE RECORDS SUMMARY | 2025-07-01 08:29 | XMS_ITS | Encounter Summary ---
Author Organization [facility] Address [address] [place] [address] Care Team Providers Care System Manager Name Role Phone Jarvis Coffey MD Primary Care Provider Encounter Details Date Type Department Care Team (Late st Contact Info) Description 03/08/2007 Outpatient [facility] Maternal and Ground Floor S [facility] [address] [place] [address] Anabela Barnes MD [address] [place] [address] Social History Tobacco Use Types Packs/Day Years Used Date Smoking Tobacco: Never Assessed Comments Unknown Sex and Gender Information Value Date Recorded Sex Assigned at Not on file Legal Sex Female 3:24 AM SALES STRATEGY MANAGER Gender Identity Not on file Sexual Orientation Not on file documented as of this encounter Plan of Treatment Not on file documented as of this encounter Visit Diagnoses Not on filedocumented in this encounter Care Teams System Manager Relationship Specialty Start Date End Date Jarvis Coffey MD [address] [facility] [place] [address] PCP - General Family Practice 10/18/24 documented as of this encounter
--- OUTSIDE RECORDS SUMMARY | 2025-07-01 08:30 | XMS_ITS | Encounter Summary ---
Author Organization [employer] Address [address] [place] [address] Care Team Providers Care Head Of Cytogenetics Name Role Phone Jarvis Coffey MD Primary Care Provider Encounter Details Date Type Department Care Team (Latest Contact Info) Description 12/28/2006 Outpatient Historical [facility] Zeyad Millan MD [address] [facility] [address] [place] [address] Other Specified Screening (Primary Dx) Social History Tobacco Use Types Packs/Day Years Used Date Smoking Tobacco: Never Assessed Comments Unknown Sex and Gender Information Value Date Recorded Sex Assigned at Not on file Legal Sex Female 3:24 AM LITIGATION SPECIALIST Gender Identity Not on file Sexual Orientation Not on file documented as of this encounter Plan of Treatment Not on file documented as of this encounter Visit Diagnoses Diagnosis Other screening- Primary Other specified screening documented in this encounter Care Teams Head Of Cytogenetics Relationship Specialty Start Date End Date Jarvis Coffey MD [address] [facility] [place] [address] PCP - General Family Practice 10/18/24 documented as of this encounter
--- OUTSIDE RECORDS SUMMARY | 2025-07-01 08:30 | XMS_ITS | Encounter Summary ---
Author Organization [facility] Address [address] [place] [address] Care Team Providers Care Platinum Smith Name Role Phone Jarvis Coffey MD Primary Care Provider Encounter Details Date Type Department Care Team (Late st Contact Info) Description 12/28/2004 Outpatient Historical [facility] Maternal and Ground Floor [address] [place] [address] [place] [address] Zeyad Millan MD [address] [place] [address] [place] [address] Social History Tobacco Use Types Packs/Day Years Used Date Smoking Tobacco: Never Assessed Comments Unknown Sex and Gender Information Value Date Recorded Sex Assigned at Not on file 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
--- OUTSIDE RECORDS SUMMARY | 2025-07-01 08:30 | XMS_ITS | Encounter Summary ---
Author Organization [facility] Address [address] [place] [address] Care Team Providers Care Detonator Maker Name Role Phone Jarvis Coffey MD Primary Care Provider Encounter Details Date Type Department Care Team (Late st Contact Info) Description 12/28/2004 Outpatient Historical [facility] Maternal and Ground Floor [address] [place] [address] [place] [address] Zeyad Millan MD [address] [place] [address] [place] [address] Social History Tobacco Use Types Packs/Day Years Used Date Smoking Tobacco: Never Assessed Comments Unknown Sex and Gender Information Value Date Recorded Sex Assigned at Not on file 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
--- OUTSIDE RECORDS SUMMARY | 2025-07-01 08:30 | XMS_ITS | Encounter Summary ---
Author Organization [email or web address] Address 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
--- OUTSIDE RECORDS SUMMARY | 2025-07-01 08:30 | XMS_ITS | Encounter Summary ---
Author Organization [employer] Address [address] [place] [address] Care Team Providers Care Actuarial Technician Name Role Phone Jarvis Coffey MD Primary Care Provider Encounter Details Date Type Department Care Team (Latest Contact Info) Description 11/23/2004 Outpatient Historical [facility] Zeyad Millan MD [address] [facility] [address] [place] [phone] OTHER CURR COND-ANTEPARTUM (Primary Dx) Social History Tobacco Use Types Packs/Day Years Used Date Smoking Tobacco: Never Assessed Comments Unknown Sex and Gender Information Value Date Recorded Sex Assigned at Not on file 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 [place] [address] PCP - General Family Practice 10/18/24 documented as of this encounter
--- OUTSIDE RECORDS SUMMARY | 2025-07-01 08:30 | XMS_ITS | Encounter Summary ---
Author Organization [employer] Address [address] [place] [address] Care Team Providers Care Gastroenterology Technician Name Role Phone Jarvis Coffey MD Primary Care Provider Encounter Details Date Type Department Care Team (Latest Contact Info) Description 01/24/2007 Outpatient Historical [facility] PREAD[facility] Jeremy Bustillo MD NO ADDRESS ON FILE Zeyad Millan MD [address] [facility] [address] [place] [phone] Other Current Maternal Conditions Classifiable Elsewhere, Antepartum (Primary Dx) Social History Tobacco Use Types Packs/Day Years Used Date Smoking Tobacco: Never Assessed Comments Unknown Sex and Gender Information Value Date Recorded Sex Assigned at Not on file Legal Sex Female 3:24 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
--- OUTSIDE RECORDS SUMMARY | 2025-07-01 08:30 | XMS_ITS | Encounter Summary ---
Author Organization [facility] Address [address] [place] [address] Care Team Providers Care Telemarketing Manager Name Role Phone Jarvis Coffey MD Primary Care Provider Encounter Details Date Type Department Care Team (Late st Contact Info) Description 11/23/2004 Outpatient Historical [facility] Maternal and Ground [address] [place] [address] Zeyad Millan MD [address] [place] [address] [place] [address] Social History Tobacco Use Types Packs/Day Years Used Date Smoking Tobacco: Never Assessed Comments Unknown Sex and Gender Information Value Date Recorded Sex Assigned at Not on file Legal Sex Female 3:24 AM RN PLASTIC SURGERY Gender Identity Not on file Sexual Orientation Not on file documented as of this encounter Plan of Treatment Not on file documented as of this encounter Visit Diagnoses Not on filedocumented in this encounter Care Teams Telemarketing Manager Relationship Specialty Start Date End Date Jarvis Coffey MD [address] [facility] [place] [address] PCP - General Family Practice 10/18/24 documented as of this encounter
--- OUTSIDE RECORDS SUMMARY | 2025-07-01 08:30 | XMS_ITS | Encounter Summary ---
Author Organization [employer] Address 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
--- OUTSIDE RECORDS SUMMARY | 2025-07-01 08:30 | XMS_ITS | Encounter Summary ---
Author Organization [facility] Address [address] [place] [address] Care Team Providers Care Armor Reconnaissance Vehicle Driver Name Role Phone Jarvis Coffey MD Primary Care Provider Encounter Details Date Type Department Care Team (Late st Contact Info) Description 01/12/2007 Outpatient Historical [facility] Maternal and Ground Floor [address] [place] [address] [place] [phone] Zeyad Millan MD [address] [place] [address] [place] [address] Social History Tobacco Use Types Packs/Day Years Used Date Smoking Tobacco: Never Assessed Comments Unknown Sex and Gender Information Value Date Recorded Sex Assigned at Not on file 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
--- OUTSIDE RECORDS SUMMARY | 2025-07-01 08:30 | XMS_ITS | Encounter Summary ---
Author Organization [facility] Address [address] [place] [address] Care Team Providers Care Tire Rebuilder Name Role Phone Jarvis Coffey MD Primary Care Provider Encounter Details Date Type Department Care Team (Latest Contact Info) Description 11/04/2004 Outpatient Historical [facility] Zeyad Coates MD [address] [facility] [address] [place] [phone] THYROID DYSFUNC-ANTEPART (Primary Dx) Social History Tobacco Use Types Packs/Day Years Used Date Smoking Tobacco: Never Assessed Comments Unknown Sex and Gender Information Value Date Recorded Sex Assigned at Not on file Legal Sex Female 3:24 AM DIVIDEND DEPOSIT VOUCHER CLERK Gender Identity Not on file Sexual Orientation Not on file documented as of this encounter Plan of Treatment Not on file documented as of this encounter Procedures Procedure Name Priority Date/Time Associated Diagnosis Comments TSH Routine 11/04/2004 11:01 AM DIVIDEND DEPOSIT VOUCHER CLERK T4 FREE Routine 11/04/2004 11:01 AM DIVIDEND DEPOSIT VOUCHER CLERK documented in this encounter Results * (ABNORMAL) TSH (11/04/2004 11:01 AM DIVIDEND DEPOSIT VOUCHER CLERK) TSH 7.43(H) 0.27 - 4.20 uU/mL INTERFACE SYSTEM 11/04/2004 11:0 1 AM DIVIDEND DEPOSIT VOUCHER CLERK us Zeyad Millan MD CHEMISTRY ORDERABLES Fin al Result Performing Organization Address [facility] Co de Phone Number INTERFACE SYSTEM Refer to clinic/hospital department * T4 FREE (11/04/2004 11:01 AM DIVIDEND DEPOSIT VOUCHER CLERK) T4 FREE 1.1 0.9 - 1.7 ng/dL INTERFACE SYSTEM 11/04/2004 11:0 1 AM DIVIDEND DEPOSIT VOUCHER CLERK us Zeyad Millan MD CHEMISTRY ORDERABLES Fin al Result Performing Organization Address [facility] de Phone Number INTERFACE SYSTEM Refer to clinic/hospital department documented in this encounter Visit Diagnoses Diagnosis Thyroid dysfunction, antepartum(648.13)- Primary Thyroid dysfunction, antepartum documented in this encounter Care Teams Tire Rebuilder Relationship Specialty Start Date End Date Jarvis Coffey MD [address] [facility] [place] [address] PCP - General Family Practice 10/18/24 documented as of this encounter
--- NOTE | 2025-07-01 08:36 | EST_ITS ---
Patient Info Name: Roxy Mcdonough Age: 54 years : 1970 Gender: Female Ht: 62 in Wt: 179 lbs BSA: 1.92 m2 HR: 76 bpm BP: 118 / 92 mmHg Exam Date: 07/01/2025 8:36 AM Patient Status: O Admit Date: 07/01/2025 Exam Type: CA stress bret w NM A regadenoson stress test was performed. Staff Referring Physician: Thony Woody DO Attending Provider: Thony Woody DO Exercise Technologist: Shanika Jackson Exercise Physician: Thony Woody DO Summary 1. 1. Abnormal lexiscan stress test for ischemic ST changes by ECG criteria. 2. 2. Stable hemodynamics throughout the test. 3. 3. Nuclear scan to follow and will be reported separately. Please correlate with it. 4. 4. Patient informed of the above results. Protocol: Lexiscan Stress ECG Details Stage: REST Duration (min): 1 min : 11 sec HR (bpm): 74 SBP (mmHg): 118 DBP (mmHg): 92 Stage: REST Duration (min): 24 min : 46 sec HR (bpm): 81 SBP (mmHg): 118 DBP (mmHg): 92 Stage: STAGE 1 Duration (min): 1 min : 0 sec HR (bpm): 125 SBP (mmHg): 166 DBP (mmHg): 109 Stage: RECOVERY Duration (min): 1 min : 0 sec HR (bpm): 135 SBP (mmHg): 166 DBP (mmHg): 109 Stage: RECOVERY Duration (min): 2 min : 0 sec HR (bpm): 124 SBP (mmHg): 166 DBP (mmHg): 109 Stage: RECOVERY Duration (min): 3 min : 0 sec HR (bpm): 116 SBP (mmHg): 166 DBP (mmHg): 109 Stage: RECOVERY Duration (min): 4 min : 0 sec HR (bpm): 114 SBP (mmHg): 162 DBP (mmHg): 99 Stage: RECOVERY Duration (min): 5 min : 0 sec HR (bpm): 105 SBP (mmHg): 192 DBP (mmHg): 104 Stage: RECOVERY Duration (min): 6 min : 0 sec HR (bpm): 102 SBP (mmHg): 192 DBP (mmHg): 104 Stage: RECOVERY Duration (min): 7 min : 0 sec HR (bpm): 101 SBP (mmHg): 177 DBP (mmHg): 100 Stage: RECOVERY Duration (min): 8 min : 0 sec HR (bpm): 113 SBP (mmHg): 177 DBP (mmHg): 100 Stage: RECOVERY Duration (min): 9 min : 0 sec HR (bpm): 109 SBP (mmHg): 116 DBP (mmHg): 96 Stage: RECOVERY Duration (min): 9 min : 13 sec HR (bpm): 104 SBP (mmHg): 116 DBP (mmHg): 96 Rest HR: 81 bpm Peak HR: 138 bpm Rest Sys BP: 118 mmHg Peak Sys BP: 192 mmHg Max Pred HR: 168 bpm % Max Pred HR: 82 % Target HR: 143 bpm Max RPP: 26,496 bpm*mmHg Termination Reason: Completed protocol Cardiac Symptoms: Shortness of breath, nausea Total Time: 1 min : 0 sec Rest Gonzalez BP: 92 mmHg Peak Gonzalez BP: 104 mmHg Total Dose: 0.4 mg Resting ECG Sinus rhythm. Stress ECG [address] depression in inferior leads and V4-V6. Arrhythmias None. Report Signatures
== END 2025-07-01 08:23 | disposition home or self-care (01) ==
PROVIDERS: PCP Family Medicine; Visit Provider Internal Medicine Cardiovascular Disease
DX: R07.9 Chest pain, unspecified (principal)
CPT/HCPCS: 78452; 93017; A9502; J2785

== ENCOUNTER 2025-07-03 07:50 | Outpatient (CLI) | payer BC, SELFPAY ==
--- OUTSIDE RECORDS SUMMARY | 2009-11-06 03:15 | XMS_ITS | Continuity of Care Document ---
Author Organization [facility] Address [address] [place] [address] Phone Care Team Providers Care Secretary Book Keeper Name Role Phone Hutson OD, Junior Unavailable Unavailable Procedures Procedure Date Office/outpatient Visit, Est Office/outpatient Visit, Est Office/outpatient Visit, Est Advance Directives Directive Yes / No Effective Date File Name No Information Encounters Encounter Description Practice Location Reason(s) For Visit Diagnoses Date Provider Providers Copied on Encounter Office/outpat ient Visit, [facility], [address] [place] [address] [address], [place], [place], [id number], [place] tel:[phone] SEC [facility] No Information 8-201 0 Hutson OD Junior. [facility] , [address], [place], [place], [facility], . tel:[phone] Office/outpat ient Visit, [facility], [address] [place] [address] [address], [place], [place], [id number], [place] tel:[phone] SEC [facility] No Information 6-201 0 Hutson OD Junior. [address], [place], [place], [facility], . tel:[phone] Office/outpat ient Visit, [facility], [address] [place] [address] [address], [place], [place], [id number], [place] tel:[phone] SEC [facility] No Information 200 8 Gino Zhao. [address] [facility] , [address], [place], [address], [place]. tel:[phone] Family History Family Member Type Diagnosis Age At Onset No Information Payers Payer name Insurance type Covered green party ID Authordariela katt(s) [facility] [id number] Social History Type Description Quantity Date Captured [...]
--- OUTSIDE RECORDS SUMMARY | 2025-07-03 07:56 | XMS_ITS | Encounter Summary ---
Author Organization [employer] Address 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
--- OUTSIDE RECORDS SUMMARY | 2025-07-03 07:56 | XMS_ITS | Encounter Summary ---
Author Organization [employer] Address [address] [place] [address] Care Team Providers Care Validation Specialist Name Role Phone Jarvis Coffey MD [...] file Legal Sex Female 3:24 AM AIRPORT TRAFFIC CONTROLLER Gender Identity Not on file Sexual Orientation Not on file Occupation Industry Job Start Date Job End Date Not on file Not on file Not on file Not on file documented as of this encounter Plan of Treatment Not on file documented as of this encounter Visit Diagnoses Not on filedocumented in this encounter Care Teams Validation Specialist Relationship Specialty Start Date End Date Jarvis Coffey MD [address] [facility] [place] [address] PCP - General Family Practice 10/18/24 documented as of this encounter
--- OUTSIDE RECORDS SUMMARY | 2025-07-03 07:57 | XMS_ITS | Encounter Summary ---
Author Organization [facility] Address [address] [place] [address] Care Team Providers Care Spooling Supervisor Name Role Phone Jarvis Coffey MD Primary Care Provider Encounter Details Date Type Department Care Team (Late st Contact Info) Description 04/12/2007 Outpatient Historical [facility] Maternal and Ground Floor [address] [facility] [address] [facility] [place] [address] Ross Wong MD NO ADDRESS ON FILE Social History Tobacco Use Types Packs/Day Years Used Date Smoking Tobacco: Never Assessed Comments Unknown Sex and Gender Information Value Date Recorded Sex Assigned at Not on file 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 [place] [address] PCP - General Family Practice 10/18/24 documented as of this encounter
--- OUTSIDE RECORDS SUMMARY | 2025-07-03 07:57 | XMS_ITS | Encounter Summary ---
Author Organization [facility] Address [address] [place] [address] Care Team Providers Care Wash Rack Operator Name Role Phone Jarvis Coffey MD Primary Care Provider Encounter Details Date Type Department Care Team (Late st Contact Info) Description 03/08/2007 Outpatient Historical [facility] Maternal and Ground [facility] [address] [place] [address] Anabela Barnes MD [address] [place] [address] Social History Tobacco Use Types Packs/Day Years Used Date Smoking Tobacco: Never Assessed Comments Unknown Sex and Gender Information Value Date Recorded Sex Assigned at Not on file Legal Sex Female 3:24 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
--- OUTSIDE RECORDS SUMMARY | 2025-07-03 07:57 | XMS_ITS | Encounter Summary ---
Author Organization [employer] Address 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 [place] [address] PCP - General Family Practice 10/18/24 documented as of this encounter
--- OUTSIDE RECORDS SUMMARY | 2025-07-03 07:57 | XMS_ITS | Encounter Summary ---
Author Organization [employer] Address [address] [place] [address] Care Team Providers Care Batch Unit Treater Name Role Phone Jarvis Coffey MD Primary Care Provider Encounter Details Date Type Department Care Team (Latest Contact Info) Description 01/29/2005 Outpatient Historical [facility] Zeyad Millan MD [address] [facility] [address] [place] [address] OTHER CURR COND-ANTEPARTUM (Primary Dx) Social History Tobacco Use Types Packs/Day Years Used Date Smoking Tobacco: Never Assessed Comments Unknown Sex and Gender Information Value Date Recorded Sex Assigned at Not on file Legal Sex Female 3:24 AM HAND TIER Gender Identity Not on file Sexual Orientation Not on file documented as of this encounter Plan of Treatment Not on file documented as of this encounter Visit Diagnoses Diagnosis Other current maternal conditions classifiable elsewhere, antepartum- Primary documented in this encounter Care Teams Batch Unit Treater Relationship Specialty Start Date End Date Jarvis Coffey MD [address] [place] [address] PCP - General Family Practice 10/18/24 documented as of this encounter
--- OUTSIDE RECORDS SUMMARY | 2025-07-03 07:57 | XMS_ITS | Encounter Summary ---
Author Organization [employer] Address 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 Gender Identity Not on file Sexual Orientation [...] HIV RAPID SCREEN (05/03/2007 6:00 AM CDT) [facility] RAPID HIV SCREEN Nonreactive Nonreactive INTERFACE SYSTEM 05/03/2007 6:00 AM CDT us Zeyad Millan MD CHEMISTRY ORDERABLES Edgar shant Performing Organization Address [facility] de Phone Number INTERFACE SYSTEM Refer to clinic/hospital department * (ABNORMAL) CBC WITH DIFFERENTIAL (05/03/2007 6:00 AM CDT) Pathologist [facility] NEUTROPHILS 76(H) 45 - 70 % INTERFAC [...] ORDERABLES Ed ited Performing Organization Address [facility] de Phone Number INTERFACE SYSTEM Refer [...] to lack of available kits from the ecclesiastical worker. A NON-REACTIVE HIV 1/2 ANTIBODY RESULT DOES NOT EXCLUDE HIV INFECTION SINCE THE TIME FRAME FOR SEROCONVERSION IS VARIABLE. IF ACUTE HIV INFECTION IS SUSPECTED, ANTIBODY RETESTING AND NUCLEIC ACID AMPLIFICATION (HIV DNA/RNA) TESTING IS RECOMMENDED. Lab test performed by: [facility] [address] [place] [address] [address] JUSTINA FRANKEL MD 05/03/2007 6:00 AM CDT us Zeyad Millan MD CHEMISTRY ORDERABLES Edgar shant Performing Organization Address [facility] Phone Number INTERFACE SYSTEM Refer to clinic/hospital department * HEPATITIS B SURFACE ANTIGEN (05/03/2007 6:00 AM CDT) HEPATITIS B SURFACE AG NON-REACTI VE NON-REACT FELIX INTERFACE SYSTEM Comment: Lab test performed by: [employer] [id number] [address] [address] JUSTINA FRANKEL MD 05/03/2007 6:00 AM CDT Zeyad Millan MD CHEMISTRY ORDERABLES Edgar shant Performing Organization Address [facility] Phone Number INTERFACE SYSTEM Refer to clinic/hospital department * RUBELLA IGG (05/03/2007 6:00 AM CDT) Pathologist [facility] RUBELLA IGG 3.50 EIA Value INTERFAC E SYSTEM Comment: EIA VALUE EXPLANATION OF TEST RESULTS --------- <0.91 NEGATIVE - NO RUBELLA IGG ANTIBODY DETECTED. 0.91 - 1.09 EQUIVOCAL > OR = 1.10 POSITIVE - RUBELLA IGG ANTIBODY DETECTED. THE PRESENCE OF RUBELLA IGG ANTIBODY SUGGESTS IMMUNIZATION OR PAST OR CURRENT INFECTION WITH RUBELLA VIRUS. Lab test performed by: [facility] [id number] [address] [address] JUSTINA FRANKEL MD 05/03/2007 6:00 AM CDT us Zeyad Millan MD CHEMISTRY ORDERABLES Edgar shant Performing Organization Address [facility] Phone Number INTERFACE SYSTEM Refer to clinic/hospital department * RPR (05/03/2007 6:00 AM CDT) RPR NON-REACTI VE NON-REACT FELIX INTERFACE SYSTEM Comment: Lab test performed by: [employer] [facility] [id number] [address] [address] JUSTINA FRANKEL MD 05/03/2007 6:00 AM CDT us Zeyad Millan MD CHEMISTRY ORDERABLES Edgar shant Performing Organization Address [facility] de Phone Number INTERFACE SYSTEM Refer [...] ORDERABLES Ed ited Performing Organization Address [facility] de Phone Number INTERFACE SYSTEM Refer [...] ORDERABLES Ed ited Performing Organization Address [facility] Phone Number INTERFACE SYSTEM Refer to [...] MD URINE ORDERABLES Edited Performing Organization Address [facility] de Phone Number INTERFACE SYSTEM Refer to clinic/hospital department documented in this encounter Visit Diagnoses Diagnosis Previous delivery, delivered, with or without mention of antepartum condition- Primary documented in this encounter Care Teams High Pressure Operator Relationship Specialty Start Date End Date Jarvis Coffey MD [facility] [facility] [place] [address] PCP - General Family Practice 10/18/24 documented as of this encounter
--- OUTSIDE RECORDS SUMMARY | 2025-07-03 07:57 | XMS_ITS | Encounter Summary ---
Author Organization [facility] Address [address] [place] [address] Care Team Providers Care Real Estate Subagent Name Role Phone Jarvis Coffey MD Primary Care Provider Encounter Details Date Type Department Care Team (Late st Contact Info) Description 04/19/2007 Outpatient Historical [facility] Maternal and Ground Floor [facility] [address] [place] [address] Anabela Barnes MD [address] [place] [address] Social History Tobacco Use Types Packs/Day Years Used Date Smoking Tobacco: Never Assessed Comments Unknown Sex and Gender Information Value Date Recorded Sex Assigned at Not on file 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
--- OUTSIDE RECORDS SUMMARY | 2025-07-03 07:57 | XMS_ITS | Encounter Summary ---
Author Organization [employer] Address [address] [place] [address] Care Team Providers Care Wire Straightener Name Role Phone Jarvis Coffey MD Primary Care Provider Encounter Details Date Type Department Care Team (Latest Contact Info) Description 09/23/2006 Outpatient Historical [facility] Zeyad Millan MD [address] [facility] [address] [place] [address] Other Specified Screening (Primary Dx) Social History Tobacco Use Types Packs/Day Years Used Date Smoking Tobacco: Never Assessed Comments Unknown Sex and Gender Information Value Date Recorded Sex Assigned at Not on file Legal Sex Female 3:24 AM LINE CAMERA OPERATOR Gender Identity Not on file Sexual Orientation Not on file documented as of this encounter Plan of Treatment Not on file documented as of this encounter Visit Diagnoses Diagnosis Other screening- Primary Other specified screening documented in this encounter Care Teams Wire Straightener Relationship Specialty Start Date End Date Jarvis Coffey MD [address] [facility] [place] [address] PCP - General Family Practice 10/18/24 documented as of this encounter
--- OUTSIDE RECORDS SUMMARY | 2025-07-03 07:57 | XMS_ITS | Encounter Summary ---
Author Organization [employer] Address [address] [place] [address] Care Team Providers Care Legal Transcriptionist Name Role Phone Jarvis Coffey MD Primary Care Provider Encounter Details Date Type Department Care Team (Latest Contact Info) Description 06/06/2006 Outpatient Historical [facility] Zeyad Millan MD [address] [facility] [address] [place] [phone] Other High-Risk (Primary Dx) Social History Tobacco Use Types Packs/Day Years Used Date Smoking Tobacco: Never Assessed Comments Unknown Sex and Gender Information Value Date Recorded Sex Assigned at Not on file Legal Sex Female 3:24 AM SCROLL MACHINE OPERATOR Gender Identity Not on file [...] high-risk documented in this encounter Care Teams Legal Transcriptionist Relationship Specialty Start Date End Date Jarvis Coffey MD [address] [address] PCP - General Family Practice 10/18/24 documented as of this encounter
--- OUTSIDE RECORDS SUMMARY | 2025-07-03 07:57 | XMS_ITS | Encounter Summary ---
Author Organization [facility] Address [address] [place] [address] Care Team Providers Care Food Aide Name Role Phone Jarvis Coffey MD Primary Care Provider Encounter Details Date Type Department Care Team (Late st Contact Info) Description 02/14/2005 Outpatient Historical [facility] Maternal and Ground Floor S [facility] [address] [place] [address] [place] [place] [address] Ross Wong MD NO ADDRESS ON FILE Social History Tobacco Use Types Packs/Day Years Used Date Smoking Tobacco: Never Assessed Comments Unknown Sex and Gender Information Value Date Recorded Sex Assigned at Not on file Legal Sex Female 3:24 AM 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
--- OUTSIDE RECORDS SUMMARY | 2025-07-03 07:57 | XMS_ITS | Clinical Summary ---
Author Organization [facility] [facility] [address] [place] [address] Care Team Providers Care Dehydrogenation Operator Name Role Phone Jarvis Coffey MD [...] 1 tablet (175 mcg total) by mouth medical claims manager before breakfast 90 tablet 5 Active buPROPion [...] NEC Assessment & Plan (09/25/2024 9:54 AM LOST CHARGE CARD CLERK): Labs today Clinically euthyroid on 150mg daily Assessment & Plan (09/19/2023 9:31 AM LOST CHARGE CARD CLERK): Has been on 150mcg daily x 2 [...] Department Care Team Description 05/27/2025 Orders Only [facility] [address] [place] [address] [place] [address] Radha Hirsch NP Acquired hypothyroidism (Primary Dx) 05/26/2025 5:45 PM CDT Office Visit [facility] at [address] [address] Usha Ware NP Acute cough (Primary Dx); Chest pressure 04/17/2025 Orders Only [facility] [address] [facility] [address] [place] [address] Radha Hirsch NP 04/10/2025 Results Follow-Up [facility] [address] [facility] [address] [place] [address] Radha Hirsch, JOCE Thyroid Function [place], T4, free from Last 3 Months Immunizations [...] on file Legal Sex Female 12:06 PM LOST CHARGE CARD CLERK Gender Identity Not on file Sexual [...] lead (05/26/2025 5:51 PM CDT) Usha Ware COMMUNICATIONS INTERN ECG ORDERABLES Final Result * SCAN - RADIOLOGY/IMAGING (04/17/2025 9:03 AM CDT) Anatomical Region Laterality Modality Other Radha Hirsch COMMUNICATIONS INTERN Final Re sult * (ABNORMAL) Thyroid Function [place] (04/09/2025 9:18 AM CDT) TSH 0.05(L) mIU/L [facility] Comment: Reference Range > or = 20 Years 0.40-4.50 Ranges First trimester 0.26-2.66 Second trimester 0.55-2.73 Third trimester 0.43-2.91 Blood 04/09/2025 9:18 AM CDT 04/09/2025 9:19 AM CDT Radha Hirsch COMMUNICATIONS INTERN LAB BLOOD ORDERABLES Fin al Result [facility] [address] [place] [address] * T4, free (04/09/2025 9:18 AM CDT) Free T4 1.8 0.8 - 1.8 ng/dL [facility] 04/09/2025 9:18 AM CDT 04/09/2025 9:19 AM CDT Radha Hirsch COMMUNICATIONS INTERN LAB BLOOD ORDERABLES Fin al Result [facility] [address] [place] [address] from Last 3 Months Insurance ANTHEM ACCESS CHOICE ANTHEM ACCESS CHOICE ANTHEM ACCESS CHOICE Care Teams Dehydrogenation Operator Relationship Specialty Start Date End Date Jarvis Coffey MD [address] [place] [address] [address] [place] [address] PCP - General Family Practice 09/19/23
--- OUTSIDE RECORDS SUMMARY | 2025-07-03 07:57 | XMS_ITS | Encounter Summary ---
Author Organization [employer] Address [address] [place] [address] Care Team Providers Care Industrial Machine System Technician Name Role Phone Jarvis Coffey MD Primary Care Provider Encounter Details Date Type Department Care Team (Late st Contact Info) Description 03/02/2005 Outpatient Historical [facility] Zeyad Millan MD [address] [facility] [address] [place] [address] Social History Tobacco Use Types Packs/Day Years Used Date Smoking Tobacco: Never Assessed Comments Unknown Sex and Gender Information Value Date Recorded Sex Assigned at Not on file Legal Sex Female 3:24 AM SUPERVISOR OF COMMUNICATIONS Gender Identity Not on file Sexual Orientation Not on file documented as of this encounter Plan of Treatment Not on file documented as of this encounter Visit Diagnoses Not on filedocumented in this encounter Care Teams Industrial Machine System Technician Relationship Specialty Start Date End Date Jarvis Coffey MD [address] [facility] [place] [address] PCP - General Family Practice 10/18/24 documented as of this encounter
--- OUTSIDE RECORDS SUMMARY | 2025-07-03 07:57 | XMS_ITS | Encounter Summary ---
Author Organization [employer] Address 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
--- OUTSIDE RECORDS SUMMARY | 2025-07-03 07:57 | XMS_ITS | Encounter Summary ---
Author Organization [employer] Address 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
--- OUTSIDE RECORDS SUMMARY | 2025-07-03 07:57 | XMS_ITS | Encounter Summary ---
Author Organization [employer] Address [address] [place] [address] Care Team Providers Care Final Coat Sprayer Name Role Phone Jarvis Coffey MD Primary Care Provider Encounter Details Date Type Department Care Team (Latest Contact Info) Description 04/11/2007 Outpatient Historical [facility] Anabela Barnes MD [address] [place] [address] Zeyad Millan MD [address] [facility] [address] [place] [address] Threatened Premature Labor, Antepartum (Primary Dx) Social History Tobacco Use Types Packs/Day Years Used Date Smoking Tobacco: Never Assessed Comments Unknown Sex and Gender Information Value Date Recorded Sex Assigned at Not on file Legal Sex Female 3:24 AM SPINDLE SETTER Gender Identity Not on file Sexual Orientation [...] HEMATOLOGY ORDERABLES Ed ited Performing Organization Address [facility] de Phone Number INTERFACE SYSTEM Refer to clinic/hospital department * (ABNORMAL) CBC WITH DIFFERENTIAL (04/11/2007 5:16 PM CDT) Pathologist [facility] WBC 9.6 4.0 - 9.8 K/uL INTERFACE [...] HEMATOLOGY ORDERABLES Ed ited Performing Organization Address [facility] Co de Phone Number INTERFACE SYSTEM Refer to clinic/hospital department documented in this encounter Visit Diagnoses Diagnosis Threatened premature labor, antepartum(644.03)- Primary Threatened premature labor, antepartum documented in this encounter Care Teams Final Coat Sprayer Relationship Specialty Start Date End Date Jarvis Coffey MD [address] [place] [address] PCP - General Family Practice 10/18/24 documented as of this encounter
--- OUTSIDE RECORDS SUMMARY | 2025-07-03 07:57 | XMS_ITS | Encounter Summary ---
Author Organization [facility] Address [address] [place] [address] Care Team Providers Care Dairy Grazer Name Role Phone Jarvis Coffey MD Primary Care Provider Encounter Details Date Type Department Care Team (Late st Contact Info) Description 02/23/2005 Outpatient Historical [facility] Maternal and Ground Floor [address] [place] [address] [place] [address] Zeyad Millan MD [address] [place] [address] [place] [address] Social History Tobacco Use Types Packs/Day Years Used Date Smoking Tobacco: Never Assessed Comments Unknown Sex and Gender Information Value Date Recorded Sex Assigned at Not on file Legal Sex Female 3:24 AM BAKERY CHEF Gender Identity Not on file Sexual Orientation Not on file documented as of this encounter Plan of Treatment Not on file documented as of this encounter Visit Diagnoses Not on filedocumented in this encounter Care Teams Dairy Grazer Relationship Specialty Start Date End Date Jarvis Coffey MD [address] [facility] [place] [address] PCP - General Family Practice 10/18/24 documented as of this encounter
--- OUTSIDE RECORDS SUMMARY | 2025-07-03 07:57 | XMS_ITS | Clinical Summary ---
Author Organization [facility] Address [address] [place] [address] Phone Care Team Providers Care Auto Roller Name Role Phone Jarvis Coffey MD Primary [...] daily. 90 Tablet 1 09/13/2022 12:26 PM VISUAL ARTIST 2 Active benzonatate (TESSALON) 100 mg capsule Take 1 Capsule (100 mg) by mouth 3 times daily as needed for cough. 30 Capsule 11/28/2022 6:03 PM VISUAL ARTIST 3 Active methylPREDNISo lone (MEDROL DOSPACK) 4 mg Tablets, Dose Pack Take 1 Tablet (4 mg) by mouth 2 times daily. 20 Tablet 1 12/05/2022 6:35 PM VISUAL ARTIST 3 Active losartan (COZAAR) 25 mg tablet Take 1 Tablet (25 mg) by mouth daily. 90 Tablet 12/05/2022 6:35 PM VISUAL ARTIST 3 Active baclofen (LIORESAL) 10 mg tablet Take 1 Tablet (10 mg) by mouth 3 times daily. 20 Tablet 12/15/2022 5:31 PM VISUAL ARTIST 3 Active traMADoL (ULTRAM) 50 mg tablet Take 1 Tablet (50 mg) by mouth every 6 hours as needed for pain. 20 Tablet 12/15/2022 5:31 PM VISUAL ARTIST 3 Active losartan (COZAAR) 25 mg tablet [...] week. 42.5 Gram 3 09/19/2023 2:43 PM VISUAL ARTIST 3 Active Euthyrox 150 mcg tablet Take 1 tablet (150 mcg total) by mouth rod greaser before breakfast 30 Tablet 09/22/2023 9:51 AM VISUAL ARTIST 3 Active hydrOXYzine HCL (ATARAX) 25 mg tablet Take one tablet (25 mg) orally twice a day As Needed for anxiety 60 Tablet 02/14/2024 2:49 PM CDT 4 Active losartan-hydro CHLOROthiazide (HYZAAR) 50-12.5 mg tablet Take 1 Tablet by mouth daily. 90 Tablet 1 09/21/2024 2:55 PM VISUAL ARTIST 4 Active Euthyrox 150 mcg tablet Take 1 tablet (150 mcg total) by mouth in the rod greaser before breakfast 30 Tablet 3 09/21/2024 2:55 PM VISUAL ARTIST 4 Active azithromycin (ZITHROMAX) 250 mg tablet [...] 5 days 15 Tablet 09/13/2024 5:41 PM VISUAL ARTIST 4 Active methylPREDNISo lone (MEDROL DOSPACK) 4 mg Tablets, Dose Pack Take 6 tabs on day 1, reduce dose by 1 daily until prescription is complete. 21 Each 09/13/2024 5:41 PM VISUAL ARTIST 4 Active clotrimazole-b etamethasone (LOTRISONE) 1-0.05 % Cream Apply liberally to affected area(s) three times a daily as needed. 45 Gram 09/25/2024 5:59 PM VISUAL ARTIST 4 Active levothyroxine 175 mcg tablet Take 1 Tablet (175 mcg) by mouth daily. 90 Tablet 10/27/2024 11:11 AM VISUAL ARTIST 4 Active valACYclovir (VALTREX) 500 mg tablet Take 1 Tablet (500 mg) by mouth daily. 90 Tablet 4 11/01/2024 3:38 PM VISUAL ARTIST 5 Active LORazepam (ATIVAN) 1 mg tablet Take 1 Tablet (1 mg) by mouth 1 time as needed for anxiety. 1 Tablet 11/11/2024 5:10 PM VISUAL ARTIST 5 Active HYDROcodone-ac etaminophen (NORCO) 5-325 mg tablet Take 1 Tablet by mouth every 4 hours as needed for pain. Max Daily Amount: 6 Tablets 20 Tablet 12/06/2024 11:02 AM VISUAL ARTIST 5 Active miconazole (GUNNAR,MICOTIN, REMEDY AF) 2 [...] 1 tablet (175 mcg total) by mouth rod greaser before breakfast 90 Tablet 5 Active omeprazole [...] file. Referring Provider: Zeyad Srivastava MD [address] [place] [id number] Other: Problem Noted Date Diagnosed Date 06/07/10 06/07/2010 Threatened 12/23/2009 Previous section 12/23/2009 Hypothyroid 12/23/2009 Grave's disease Encounters Date Type Department Care Team Description 07/01/2025 External Device Data ST[facility] ABSTRACTION Provider, Abstract 07/01/2025 External Device Data [facility] ABSTRACTION Provider, Abstract 06/17/2025 External Device Data [place] ABSTRACTION Provider, [...] file Legal Sex Female 3:24 AM VISUAL ARTIST Gender Identity Not on file Sexual Orientation Not on file Occupation Industry Job Start Date Job End Date Not on file Not on file Not on file Not on file Last Filed Vital Signs Vital Sign Reading Time Taken Comments Blood Pressure 125/81 10/18/2024 1:23 PM VISUAL ARTIST Pulse 88 10/18/2024 12:43 PM VISUAL ARTIST Temperature 36.8 C (98.3 F) 10/18/2024 12:43 PM VISUAL ARTIST Respiratory Rate 18 10/18/2024 1:23 PM VISUAL ARTIST Oxygen Saturation 97% 10/18/2024 1:23 PM VISUAL ARTIST Inhaled Oxygen Concentration - - Weight 81.6 kg (180 lb) 10/18/2024 12:43 PM VISUAL ARTIST Height 157.5 cm (5' 2) 10/18/2024 12:43 PM VISUAL ARTIST Body Mass Index 32.92 10/18/2024 12:43 PM VISUAL ARTIST Plan of Treatment Health Maintenance Due Date [...] Most Recently Relevant to Health Maintenance Insurance [facility] [employer] CHOICE RX [facility] Commercial RX [employer] PL[employer] (INTERNAL) [facility] Internal Plans Advance Directives For more information, please contact: [phone] * Full Code (Latest Code Status on File) Date Activated Date Inactivated Comments 06/08/2010 12:19 AM 06/11/2010 3:18 PM * Full Code Date Activated Date Inactivated Comments 06/07/2010 6:24 PM 06/08/2010 12:19 AM Care Teams Auto Roller Relationship Specialty Start Date End Date Jarvis Coffey MD [address] [facility] [place] [address] PCP - General Family Practice 10/18/24
--- OUTSIDE RECORDS SUMMARY | 2025-07-03 07:57 | XMS_ITS | Encounter Summary ---
Author Organization [employer] Address 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
--- OUTSIDE RECORDS SUMMARY | 2025-07-03 07:57 | XMS_ITS | Encounter Summary ---
Author Organization [facility] Address [address] [place] [address] Care Team Providers Care Welcome Center Agent Name Role Phone Jarvis Coffey MD Primary Care Provider Encounter Details Date Type Department Care Team (Late st Contact Info) Description 05/01/2007 Outpatient Historical [facility] Maternal and Ground Floor S [address] [facility] [address] [place] [address] Anabela Barnes MD [address] [place] [address] Social History Tobacco Use Types Packs/Day Years Used Date Smoking Tobacco: Never Assessed Comments Unknown Sex and Gender Information Value Date Recorded Sex Assigned at Not on file 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
--- OUTSIDE RECORDS SUMMARY | 2025-07-03 07:57 | XMS_ITS | Encounter Summary ---
Author Organization [facility] Address [address] [place] [address] Care Team Providers Care Sterilisation Technician Name Role Phone Jarvis Coffey MD Primary Care Provider Encounter Details Date Type Department Care Team (Late st Contact Info) Description 02/09/2007 Outpatient Historical [facility] Maternal and Ground Floor [facility] [address] [place] [address] Gil Mobley MD [address] [place] [address] Social History Tobacco Use Types Packs/Day Years Used Date Smoking Tobacco: Never Assessed Comments Unknown Sex and Gender Information Value Date Recorded Sex Assigned at Not on file Legal Sex Female 3:24 AM MOTHER BABY RN Gender Identity Not on file Sexual Orientation Not on file documented as of this encounter Plan of Treatment Not on file documented as of this encounter Visit Diagnoses Not on filedocumented in this encounter Care Teams Sterilisation Technician Relationship Specialty Start Date End Date Jarvis Coffey MD [address] [facility] [place] [address] PCP - General Family Practice 10/18/24 documented as of this encounter
--- OUTSIDE RECORDS SUMMARY | 2025-07-03 07:57 | XMS_ITS | Encounter Summary ---
Author Organization [employer] Address [address] [place] [address] Care Team Providers Care Guest Service Supervisor Name Role Phone Jarvis Coffey MD Primary Care Provider Encounter Details Date Type Department Care Team (Latest Contact Info) Description 02/28/2007 Outpatient Historical [facility] Zeyad Millan MD [address] [facility] [address] [place] [phone] Supervision of Other High-Risk (Primary Dx) Social History Tobacco Use Types Packs/Day Years Used Date Smoking Tobacco: Never Assessed Comments Unknown Sex and Gender Information Value Date Recorded Sex Assigned at Not on file Legal Sex Female 3:24 AM CAMPUS RECRUITING COORDINATOR Gender Identity Not on file Sexual [...] HEMATOLOGY ORDERABLES Ed ited Performing Organization Address [facility] Phone Number INTERFACE SYSTEM Refer to [...] HEMATOLOGY ORDERABLES Ed ited Performing Organization Address [facility] Phone Number INTERFACE SYSTEM Refer to [...] high-risk documented in this encounter Care Teams Guest Service Supervisor Relationship Specialty Start Date End Date Jarvis Coffey MD [address] [facility] [place] [address] PCP - General Family Practice 10/18/24 documented as of this encounter
--- OUTSIDE RECORDS SUMMARY | 2025-07-03 07:57 | XMS_ITS | Encounter Summary ---
Author Organization [facility] Address 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
--- OUTSIDE RECORDS SUMMARY | 2025-07-03 07:57 | XMS_ITS | Encounter Summary ---
Author Organization [employer] Address 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 Gender Identity Not on file Sexual [...] ORDERABLES Fi nal Result Performing Organization Address [facility] Co de Phone Number INTERFACE [...] ORDERABLES Fi nal Result Performing Organization Address City/[facility] Co de Phone Number INTERFACE SYSTEM Refer to clinic/hospital department documented in this encounter Visit Diagnoses Diagnosis Other known or suspected abnormality, not elsewhere classified, affecting management of mother, with delivered- Primary documented in this encounter Care Teams Trench Trimmer Fine Relationship Specialty Start Date End Date Jarvis Coffey MD [address] [facility] [place] [address] PCP - General Family Practice 10/18/24 documented as of this encounter
--- OUTSIDE RECORDS SUMMARY | 2025-07-03 07:57 | XMS_ITS | Encounter Summary ---
Author Organization [facility] Address [address] [place] [address] Care Team Providers Care Energy Assistant Name Role Phone Jarvis Coffey MD Primary Care Provider Encounter Details Date Type Department Care Team (Late st Contact Info) Description 02/25/2005 Outpatient Historical [facility] Maternal and Ground Floor [address] [place] [address] [place] [address] Zeyad Millan MD [address] [place] [address] [place] [address] Social History Tobacco Use Types Packs/Day Years Used Date Smoking Tobacco: Never Assessed Comments Unknown Sex and Gender Information Value Date Recorded Sex Assigned at Not on file 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 [place] [address] PCP - General Family Practice 10/18/24 documented as of this encounter
--- OUTSIDE RECORDS SUMMARY | 2025-07-03 07:57 | XMS_ITS | Encounter Summary ---
Author Organization [employer] Address [address] [place] [address] Care Team Providers Care Telephone Mechanic Name Role Phone Jarvis Coffey MD Primary Care Provider Encounter Details Date Type Department Care Team (Latest Contact Info) Description 03/02/2007 Outpatient Historical [facility] Zeyad Millan MD [address] [facility] [address] [place] [address] Other Specified Screening (Primary Dx) Social History Tobacco Use Types Packs/Day Years Used Date Smoking Tobacco: Never Assessed Comments Unknown Sex and Gender Information Value Date Recorded Sex Assigned at Not on file Legal Sex Female 3:24 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
--- OUTSIDE RECORDS SUMMARY | 2025-07-03 07:57 | XMS_ITS | Encounter Summary ---
Author Organization [facility] Address 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
--- OUTSIDE RECORDS SUMMARY | 2025-07-03 07:58 | XMS_ITS | Encounter Summary ---
Author Organization [facility] Address 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
--- OUTSIDE RECORDS SUMMARY | 2025-07-03 07:58 | XMS_ITS | Encounter Summary ---
Author Organization [facility] Address [address] [place] [address] Care Team Providers Care Casual Shoe Inspector Name Role Phone Jarvis Coffey MD Primary Care Provider Encounter Details Date Type Department Care Team (Late st Contact Info) Description 11/23/2004 Outpatient Historical [facility] Maternal and Ground Floor [address] [place] [address] [place] [address] Zeyad Millan MD [address] [place] [address] [place] [address] Social History Tobacco Use Types Packs/Day Years Used Date Smoking Tobacco: Never Assessed Comments Unknown Sex and Gender Information Value Date Recorded Sex Assigned at Not on file Legal Sex Female 3:24 AM COUNTRY SINGER Gender Identity Not on file Sexual Orientation Not on file documented as of this encounter Plan of Treatment Not on file documented as of this encounter Visit Diagnoses Not on filedocumented in this encounter Care Teams Casual Shoe Inspector Relationship Specialty Start Date End Date Jarvis Coffey MD [address] [facility] [place] [address] PCP - General Family Practice 10/18/24 documented as of this encounter
--- OUTSIDE RECORDS SUMMARY | 2025-07-03 07:58 | XMS_ITS | Encounter Summary ---
Author Organization [facility] Address [address] [place] [address] Care Team Providers Care Junior Programmer Name Role Phone Jarvis Coffey MD Primary Care Provider Encounter Details Date Type Department Care Team (Late st Contact Info) Description 12/28/2004 Outpatient Historical [facility] Maternal and Ground Floor [address] [place] [address] [place] [address] Zeyad Millan MD [address] [place] [address] [place] [address] Social History Tobacco Use Types Packs/Day Years Used Date Smoking Tobacco: Never Assessed Comments Unknown Sex and Gender Information Value Date Recorded Sex Assigned at Not on file 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
--- OUTSIDE RECORDS SUMMARY | 2025-07-03 07:58 | XMS_ITS | Encounter Summary ---
Author Organization [facility] Address [address] [place] [address] Care Team Providers Care Heavy Machinery Operator Name Role Phone Jarvis Coffey MD Primary Care Provider Encounter Details Date Type Department Care Team (Latest Contact Info) Description 11/04/2004 Outpatient Historical HIS [facility] Zeyad Coates MD [address] [facility] [address] [place] [address] THYROID DYSFUNC-ANTEPART (Primary Dx) Social History Tobacco Use Types Packs/Day Years Used Date Smoking Tobacco: Never Assessed Comments Unknown Sex and Gender Information Value Date Recorded Sex Assigned at Not on file Legal Sex Female 3:24 AM MEDICAL IMAGING SPECIALIST Gender Identity Not on file Sexual Orientation Not on file documented as of this encounter Plan of Treatment Not on file documented as of this encounter Procedures Procedure Name Priority Date/Time Associated Diagnosis Comments TSH Routine 11/04/2004 11:01 AM MEDICAL IMAGING SPECIALIST T4 FREE Routine 11/04/2004 11:01 AM MEDICAL IMAGING SPECIALIST documented in this encounter Results * (ABNORMAL) TSH (11/04/2004 11:01 AM MEDICAL IMAGING SPECIALIST) TSH 7.43(H) 0.27 - 4.20 uU/mL INTERFACE SYSTEM 11/04/2004 11:0 1 AM MEDICAL IMAGING SPECIALIST us Zeyad Millan MD CHEMISTRY ORDERABLES Fin al Result Performing Organization Address City/[facility] Co de Phone Number INTERFACE SYSTEM Refer to clinic/hospital department * T4 FREE (11/04/2004 11:01 AM MEDICAL IMAGING SPECIALIST) T4 FREE 1.1 0.9 - 1.7 ng/dL INTERFACE SYSTEM 11/04/2004 11:0 1 AM MEDICAL IMAGING SPECIALIST us Zeyad Millan MD CHEMISTRY ORDERABLES Fin al Result Performing Organization Address [facility] de Phone Number INTERFACE SYSTEM Refer to clinic/hospital department documented in this encounter Visit Diagnoses Diagnosis Thyroid dysfunction, antepartum(648.13)- Primary Thyroid dysfunction, antepartum documented in this encounter Care Teams Heavy Machinery Operator Relationship Specialty Start Date End Date Jarvis Coffey MD [address] [facility] [place] [address] PCP - General Family Practice 10/18/24 documented as of this encounter
--- OUTSIDE RECORDS SUMMARY | 2025-07-03 07:58 | XMS_ITS | Encounter Summary ---
Author Organization [employer] Address [address] [place] [address] Care Team Providers Care Level Glass Vial Filler Name Role Phone Jarvis Coffey MD Primary Care Provider Encounter Details Date Type Department Care Team (Latest Contact Info) Description 12/28/2006 Outpatient Historical [facility] Zeyad Millan MD [address] [facility] [address] [place] [address] Other Specified Screening (Primary Dx) Social History Tobacco Use Types Packs/Day Years Used Date Smoking Tobacco: Never Assessed Comments Unknown Sex and Gender Information Value Date Recorded Sex Assigned at Not on file 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
--- OUTSIDE RECORDS SUMMARY | 2025-07-03 07:58 | XMS_ITS | Encounter Summary ---
Author Organization [employer] Address [address] [place] [address] Care Team Providers Care Lozenge Maker Name Role Phone Jarvis Coffey MD Primary Care Provider Encounter Details Date Type Department Care Team (Latest Contact Info) Description 11/23/2004 Outpatient Historical [facility] Zeyad Millan MD [address] [facility] [address] [place] [address] OTHER CURR COND-ANTEPARTUM (Primary Dx) Social History Tobacco Use Types Packs/Day Years Used Date Smoking Tobacco: Never Assessed Comments Unknown Sex and Gender Information Value Date Recorded Sex Assigned at Not on file Legal Sex Female 3:24 AM FISCAL CLERK Gender Identity Not on file Sexual Orientation Not on file documented as of this encounter Plan of Treatment Not on file documented as of this encounter Visit Diagnoses Diagnosis Other current maternal conditions classifiable elsewhere, antepartum- Primary documented in this encounter Care Teams Lozenge Maker Relationship Specialty Start Date End Date Jarvis Coffey MD [address] [facility] [place] [address] PCP - General Family Practice 10/18/24 documented as of this encounter
--- OUTSIDE RECORDS SUMMARY | 2025-07-03 07:58 | XMS_ITS | Encounter Summary ---
Author Organization [employer] Address [address] [place] [address] Care Team Providers Care Edi Specialist Name Role Phone Jarvis Coffey MD Primary Care Provider Encounter Details Date Type Department Care Team (Latest Contact Info) Description 11/26/2006 Outpatient Historical [facility] Zeyad Millan MD [address] [facility] [address] [place] [address] Other Specified Screening (Primary Dx) Social History Tobacco Use Types Packs/Day Years Used Date Smoking Tobacco: Never Assessed Comments Unknown Sex and Gender Information Value Date Recorded Sex Assigned at Not on file Legal Sex Female 3:24 AM REHABILITATION THERAPY AIDE Gender Identity Not on file Sexual Orientation Not on file documented as of this encounter Plan of Treatment Not on file documented as of this encounter Visit Diagnoses Diagnosis Other screening- Primary Other specified screening documented in this encounter Care Teams Edi Specialist Relationship Specialty Start Date End Date Jarvis Coffey MD [address] [facility] [place] [address] PCP - General Family Practice 10/18/24 documented as of this encounter
--- OUTSIDE RECORDS SUMMARY | 2025-07-03 07:58 | XMS_ITS | Encounter Summary ---
Author Organization [facility] Address [address] [place] [address] Care Team Providers Care Wildlife Photographer Name Role Phone Jarvis Coffey MD Primary Care Provider Encounter Details Date Type Department Care Team (Late st Contact Info) Description 12/28/2004 Outpatient Historical [facility] Maternal and Ground Floor [address] [place] [address] [place] [address] Zeyad Millan MD [address] [place] [address] [place] [address] Social History Tobacco Use Types Packs/Day Years Used Date Smoking Tobacco: Never Assessed Comments Unknown Sex and Gender Information Value Date Recorded Sex Assigned at Not on file 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 [place] [address] PCP - General Family Practice 10/18/24 documented as of this encounter
--- OUTSIDE RECORDS SUMMARY | 2025-07-03 07:58 | XMS_ITS | Encounter Summary ---
Author Organization [facility] Address [address] [place] [address] Care Team Providers Care Parts Driver Name Role Phone Jarvis Coffey MD Primary Care Provider Encounter Details Date Type Department Care Team (Late st Contact Info) Description 01/12/2007 Outpatient Historical [facility] Maternal and Ground Floor [address] [place] [address] [place] [address] Zeyad Millan MD [address] [place] [address] [place] [address] Social History Tobacco Use Types Packs/Day Years Used Date Smoking Tobacco: Never Assessed Comments Unknown Sex and Gender Information Value Date Recorded Sex Assigned at Not on file Legal Sex Female 3:24 AM UTILIZATION REVIEW RN Gender Identity Not on file Sexual Orientation Not on file documented as of this encounter Plan of Treatment Not on file documented as of this encounter Visit Diagnoses Not on filedocumented in this encounter Care Teams Parts Driver Relationship Specialty Start Date End Date Jarvis Coffey MD [address] [facility] [place] [address] PCP - General Family Practice 10/18/24 documented as of this encounter
--- OUTSIDE RECORDS SUMMARY | 2025-07-03 07:58 | XMS_ITS | Encounter Summary ---
Author Organization [facility] Address [address] [place] [address] Care Team Providers Care Intake Rn Name Role Phone Jarvis Coffey MD Primary Care Provider Encounter Details Date Type Department Care Team (Late st Contact Info) Description 09/25/2006 Outpatient Historical [facility] Maternal and Ground Floor [address] [place] [address] [place] [address] Zeyad Millan MD [address] [place] [address] [place] [address] Social History Tobacco Use Types Packs/Day Years Used Date Smoking Tobacco: Never Assessed Comments Unknown Sex and Gender Information Value Date Recorded Sex Assigned at Not on file 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
--- OUTSIDE RECORDS SUMMARY | 2025-07-03 07:58 | XMS_ITS | Encounter Summary ---
Author Organization [employer] Address 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
--- OUTSIDE RECORDS SUMMARY | 2025-07-03 07:58 | XMS_ITS | Encounter Summary ---
Author Organization [employer] Address [address] [place] [address] Care Team Providers Care Egg Gatherer Name Role Phone Jarvis Coffey MD Primary Care Provider Encounter Details Date Type Department Care Team (Latest Contact Info) Description 01/29/2007 Outpatient Historical [facility] Zeyad Millan MD [address] 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
--- OUTSIDE RECORDS SUMMARY | 2025-07-03 07:58 | XMS_ITS | Encounter Summary ---
Author Organization [employer] Address [address] [place] [address] Care Team Providers Care Optical Glass Silverer Name Role Phone Jarvis Coffey MD Primary Care Provider Encounter Details Date Type Department Care Team (Latest Contact Info) Description 01/24/2007 Outpatient Historical [facility] Jeremy Bustillo MD NO ADDRESS ON FILE Zeyad Millan MD [address] [facility] [address] [place] [id number] Other Current Maternal Conditions Classifiable Elsewhere, Antepartum (Primary Dx) Social History Tobacco Use Types Packs/Day Years Used Date Smoking Tobacco: Never Assessed Comments Unknown Sex and Gender Information Value Date Recorded Sex Assigned at Not on file 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
--- OUTSIDE RECORDS SUMMARY | 2025-07-03 07:58 | XMS_ITS | Encounter Summary ---
Author Organization [facility] Address [address] [place] [address] Care Team Providers Care Cleaner Laboratory Equipment Name Role Phone Jarvis Coffey MD Primary Care Provider Encounter Details Date Type Department Care Team (Late st Contact Info) Description 12/18/2006 Outpatient Historical [facility] Maternal and Ground Floor [facility] [address] [place] [phone] Gil Mobley MD [address] [place] [address] Social History Tobacco Use Types Packs/Day Years Used Date Smoking Tobacco: Never Assessed Comments Unknown Sex and Gender Information Value Date Recorded Sex Assigned at Not on file 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
--- NOTE | 2025-07-23 12:46 | P.SLEEP_ITS ---
Sleep Study - Home Unattended Date of Study: 07/03/25 Ordering Provider: Pilar Taylor NP Interpreting Provider: Kiersten Garduno, DO Home Sleep Study Type: Watch PAT Height: 1.57 m Weight: 80.739 kg Body Mass Index: 32.5 Neck Circumference (inches): 15 [place]: 0 Reason for Sleep Study Loud snoring, trouble maintaining sleep Sleep History The patient is a 54-year-old female that had a sleep study ordered by her primary care for evaluation of sleep apnea. The patient admits to snoring loudly and trouble maintaining sleep. She denies having interruptions in breathing while asleep. She denies choking or gasping at night. She denies having trouble breathing on her back. She denies morning headaches. She denies having a dry or sore mouth /throat in the morning. She denies nocturnal heartburn. She denies nocturia. She denies having difficulty falling asleep. She denies having difficulty returning to sleep if she wakes up throughout the night. She denies any hypnotic or sedative use. She denies feeling anxious about sleep. She denies feeling tired or sleepy during the day. She denies feeling tired in the morning. She denies having the urge to fall asleep during the day. She denies feeling drowsy while driving. She denies sleep paralysis, cataplexy and hypnagogic/ hypnopompic hallucinations. She denies clenching or grinding her teeth. She denies kicking or jerking her legs excessively. She denies having a restless feeling in her legs. She goes to bed at 10:00 p.m. on work days and at 11:00 p.m. on her days off. It takes her 30 minutes to fall asleep. She gets 7-1/2 hours of sleep on work days and 8-1/2 hours of sleep on her days off. She does take planned naps in the afternoon the last 1-2 hours. Her sleep is a little more restorative on days off. She denies dream enactment behavior. She denies sleep walking. She consumes 3 alcoholic beverages per month. She denies tobacco and recreational drug use. PMFSH Past Medical History Medical History Uterine polyp (~11/2024) benign polyp removed by Dr Vita Caicedo Vitamin D deficiency (~09/2024) Hypertension DARLIN-inhibitor cough Dyslipidemia Anxiety AIDAN positive (~2016) Hypothyroid Graves' disease Surgical History Surgical History History of hysteroscopy (~11/2024) Hx of thyroidectomy H/O knee surgery (~1985) left arthroscopic H/O wrist surgery (~1981) right H/O section 2004, 2006, 2009 Family History Family History Mother Family history of arthritis Father Family history of type 2 diabetes mellitus Social History Social History Social History: 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 She is and has 3 children at home. Lives in [place]. Smoking status: Never smoker Alcohol intake: former Substance use: never Substance use type: does not use Lack of Transportation: No Lack of Food: Never True Current Housing: I Have Housing Concerned About Future Housing: No Difficulty Paying Gas/Electric Bills: No Difficulty Paying for Meds: No Currently Unemployed: No Education: Master's Degree or Higher Difficulty w/ Childcare or Family Care: No Living arrangements: with family Occupation/Education: occupation Gender identity (if verbalized by the patient): Female Sexual Orientation (if Verbalized by the Patient): Straight or Heterosexual Spiritual care concerns: No Agree to blood products: Yes Medications Home Medications ?Medication ?Instructions ?Recorded ?Confirmed ?Type cholecalciferol (vitamin D3) 50 50 mcg PO WEEKLY 11/2507/03/25 History mcg (2,000 unit) capsule bupropion HCl 150 mg 24 hr tablet, 150 mg PO QAM #90 t abs 02/17/25 07/03/25 Rx extended release (Wellbutrin XL) levothyroxine 175 mcg tablet 175 mcg PO DAILY 05/27/25 07/03/25 History (Levoxyl) miconazole nitrate 2 % topical 1 applic topical BID OK N 05/27/25 07/03/25 Histor y cream tramadol 50 mg tablet 50 mg PO DAILY PRN pain #30 tabs 05/30/25 07/03/25 Rx losartan 50 mg-hydrochlorothiazide 1 tablet PO DAILY # 90 tabs 06/20/25 07/03/25 Rx 12.5 mg tablet albuterol sulfate 90 mcg/actuation 1 inh inhalation Q4 H PRN shortness 07/03/25 07/03/25 Rx aerosol inhaler (Ventolin HFA) of breath or wheezing # 8.5 grams guaifenesin 600 mg tablet, 600 mg PO Q12H #20 tabs 02/2107/03/25 Rx extended release 12 hr rosuvastatin 10 mg tablet 10 mg PO .qod 07/03/2507/03 History azithromycin 250 mg tablet See Rx Instructions PO .COM PLEX #6 07/04/25 07/04/25 Rx tabs Sleep Procedure The sleep study was completed using STEGOSYSTEMST a technically adequate device with seven channels: peripheral arterial tone, actigraphy, body position, snore, respiratory movement, pulse oximetry, sleep staging, and heart rate. Prior to using the device, the patient received verbal and written instructions for its application and was provided with the help desk phone number for additional telephonic instruction with 24-hour availability of qualified personnel to answer questions. The study was scored using CMS guidelines. Sleep Architecture The total recording time is 8 hrs, 3 min. The total sleep time is 7 hrs, 3 min. Sleep latency is 23 minutes. REM latency is 81 minutes. The patient had 7 episodes of waking. Sleep architecture shows 24.5% deep sleep, 38.9% light sleep, and (as % Total Sleep Time) showed NREM (Light 38.9%; Deep 24.5%), and a 36.5% stage REM. The patient spent 60.7% of total sleep time in the supine position. Sleep efficiency was 87.58. Respiratory Analysis The overall AHI (pAHI 4%:) is 11.3. The overall AHI (pAHI 3%:) is 21.4. The central AHI is 0.0. The AHI was 11.8 in NREM and 38.4 in REM sleep. The AHI was 26.2 in Supine and 13.7 in Non-supine sleep. Percent of Abdulaziz Ibrahim respirations is 0.0. Oximetry Data The oxygen desaturation index (JAMIE 4%:) is 8.2. The mean saturation is 95%, and the lowest saturation is 89%. Time spent with saturation < 88% is 0.0 minutes. Snoring Profile Snoring average intensity is 46 dB. The patient snored above 45 decibels for 175.3 minutes, 41.4% of sleep time. Cardiac Profile The average pulse rate is 74 beats per minutes. The lowest pulse rate is 55 bpm. The highest pulse rate reported is 99 bpm. Atrial fibrillation was not detected. Premature beats occur 0.3 per minute. Assessment and Plan Assessment and Plan (1) ELVIS (obstructive sleep apnea): Code(s): G47.33 - Obstructive sleep apnea (adult) (pediatric) Status: Acute Assessment and Plan: The patient had an overall AHI of 11.3 with desaturation down to 89%. This is consistent with mild sleep apnea. Due to the patient's anxiety, she qualifies for treatment. I recommend that the patient be prescribed AutoPAP 5-15 cm H2O, CPAP mask/filters/tubing and heated humidity. A mandibular advancement device is also an acceptable treatment option. This should be used with all episodes of sleep.? Compliance should be reviewed within 31-90 days of starting therapy for usage greater than 4 hours per night greater than 70% of the nights. The patient should be asked about symptoms such as?excessive daytime sleepiness, quality of sleep, decreased nocturia, increased?mental functioning such as memory, mood, and concentration. Data The data obtained during this sleep study is adequate for interpretation. Certification This sleep study has been reviewed by a board certified sleep medicine physician.
[2025-07-24 07:01] VITALS: BMI 32.5
== END 2025-07-10 12:40 | disposition home or self-care (01) ==
LOC: ANHCSM 07:51
PROVIDERS: PCP Family Medicine; Visit Provider Nurse Practitioner Family
DX: G47.10 Hypersomnia, unspecified (principal); G47.33 Obstructive sleep apnea (adult) (pediatric)
CPT/HCPCS: 95800

== ENCOUNTER 2025-07-03 11:07 | Outpatient (CLI) | payer BC, SELFPAY ==
--- NOTE | ~2025-07-03 | XR_ITS ---
Examination: XR chest 2V Clinical History: Shortness of breath, chest congestion x 4 days Comparison: None Technique: PA and Lateral Findings: Cardiomediastinal silhouette normal size and configuration. Lungs clear. No acute bony abnormality. IMPRESSION: 1. No acute cardiopulmonary findings. Reviewed, dictated and finalized at location R.
== END 2025-07-03 11:08 | disposition home or self-care (01) ==
PROVIDERS: PCP Family Medicine; Visit Provider Nurse Practitioner Family
DX: R06.02 Shortness of breath (principal)
CPT/HCPCS: 71046